=== PATIENT | female | born 1985 | race American Indian/Alaskan Native ===

== ENCOUNTER 2017-10-12 21:29 | Emergency (ER) | payer MEDICAID ==
[~2017-10-12] VITALS: Ht 149.9 cm; Wt 47.7 kg
[~2017-10-12 21:29] MED LIST: ALBU6.7H INH; CYCL-1 PO; HYDR-569 PO; IBUP-1051 PO; KETO10TA2 PO; NO HOME MEDS; ONDA4TAB6 PO; PHEN-873 PO
[2017-10-13] MEDS ORDERED: azithromycin 250mg tablet PO ONE (00:40)
[2017-10-13] MEDS ORDERED: CefTRIAXone 250MG inj IM ONE (00:40)
[2017-10-13] MEDS ORDERED: ACYC-202 PO (00:45)
[2017-10-13] MEDS ORDERED: CefTRIAXone 250MG IM Kit w/LIDOcaine IM ONE (01:00)
[2017-10-13 01:41] VITALS: BP 90/55
[2017-10-17] MEDS ORDERED: BUPR1FIL3 SL (14:30)
== END 2017-10-13 01:42 | disposition home or self-care (01) ==
LOC: ER 21:30
DX: A60.09 Herpesviral infection of other urogenital tract (principal); N89.8 Other specified noninflammatory disorders of vagina; F17.200 Nicotine dependence, unspecified, uncomplicated; Z90.49 Acquired absence of other specified parts of digestive tract; Z79.899 Other long term (current) drug therapy
CPT/HCPCS: 87252; 96372; 99283; J0696; 99284

== ENCOUNTER 2018-08-19 15:03 | Emergency (ER) ==
[~2018-08-19] VITALS: Ht 149.9 cm; Wt 45.5 kg
[~2018-08-19 15:03] MED LIST changes: -ALBU6.7H INH; +BUPR1FIL3 SL; +FLUC100T9 PO; -HYDR-569 PO; -IBUP-1051 PO; -KETO10TA2 PO; +LEVO500T89 PO; +METF-950 PO; -NO HOME MEDS; -ONDA4TAB6 PO; -PHEN-873 PO
[2018-08-19] MEDS ORDERED: insulin regular, human 100 UNIT in normal saline 100ml IV soln 99 ML IV PRN ×2 (15:10)
[2018-08-19] MEDS ORDERED: normal saline 1000ML IV soln IV ONE (15:10)
[2018-08-19] MEDS ORDERED: insulin regular, human 10 units/0.1 ml syringe IV ONE ×2 (15:10)
[2018-08-19 15:20] VITALS: BP 139/75
[2018-08-20] MEDS ORDERED: GABA-530 PO (11:09)
[2018-08-20] MEDS ORDERED: ibuprofen 600 PO (11:18)
[2018-08-20] MEDS ORDERED: INSU100C10 SQ (11:18)
[2018-08-20] MEDS ORDERED: LORA-269 PO (11:23)
[2018-08-20] MEDS ORDERED: ESCI20TA PO (11:24)
[2018-08-20] MEDS ORDERED: INSU100I31 (11:25)
[2018-08-20] MEDS ORDERED: FLUO20CA39 PO (11:26)
== END 2018-08-19 16:27 | disposition left against medical advice (07) ==
LOC: ER 15:03 → MERGE 15:03 → ER 15:04
DX: R73.9 Hyperglycemia, unspecified (principal); Z53.21 Procedure and treatment not carried out due to patient leaving prior to being seen by health care provider
CPT/HCPCS: J1815; J7030

== ENCOUNTER 2018-09-07 21:10 | Emergency (ER) | payer MEDICAID ==
[~2018-09-07] VITALS: Ht 149.9 cm; Wt 54.5 kg
[~2018-09-07 21:10] MED LIST changes: +CEFD300C3 PO; -CYCL-1 PO; +ESCI20TA PO; -FLUC100T9 PO; +FLUO20CA39 PO; +GABA-530 PO; +INSU100C10 SQ; +INSU100I31; -LEVO500T89 PO; +LORA-269 PO; +PANT-47 PO
[2018-09-07 21:32] LABS: BASOPHILS % (AUTO) 0.3 % (0-1); EOSINOPHILS # (AUTO) 0.2 X10'3 (0-0.9); EOSINOPHILS % (AUTO) 2.6 % (0-6); HEMATOCRIT 38.1 % (35.0-45.0); HEMOGLOBIN 12.8 g/dl (12.0-16.0); LYMPHOCYTES # (AUTO) 3.6 X10'3 (1.1-4.8); LYMPHOCYTES % (AUTO) 39.1 % (21-51); MEAN CORPUSCULAR HEMOGLOBIN 33.8 PG (27.0-31.0); MEAN CORPUSCULAR HGB CONC 33.7 % (33.0-36.5); MEAN CORPUSCULAR VOLUME 100.3 FL (78-98); MEAN PLATELET VOLUME 11.1 FL (7.4-10.4); MONOCYTES # (AUTO) 0.4 X10'3 (0-0.9); MONOCYTES % (AUTO) 4.8 % (2-12); NEUTROPHILS % (AUTO) 53.2 % (42-75); PLATELET COUNT 129 X10'3 (140-440); WHITE BLOOD COUNT 9.3 X10'3 (4.5-11.0)
[2018-09-07 21:47] LABS: ALANINE AMINOTRANSFERASE 35 U/L (12-78); ALKALINE PHOSPHATASE 114 IU/L (46-116); ANION GAP 11 (8-16); ASPARTATE AMINO TRANSFERASE 22 U/L (10-37); BILIRUBIN,TOTAL 0.2 MG/DL (0.1-1.0); BLOOD UREA NITROGEN 19 MG/DL (7-18); BUN/CREATININE RATIO 19.4 (6.6-38.0); CALCIUM 7.9 MG/DL (8.5-10.1); CHLORIDE 104 MMOL/L (99-107); CREATININE 0.98 MG/DL (0.40-0.90); GLUCOSE 291 MG/DL (70-104); POTASSIUM 3.5 MMOL/L (3.5-5.1); SODIUM 140 MMOL/L (135-145); TOTAL CARBON DIOXIDE 25.3 MMOL/L (24-32); TOTAL PROTEIN 6.1 G/DL (6.4-8.2); eGFR 65 ML/MIN
[2018-09-07 22:12] LABS: COLOR,URINE YELLOW (Yellow); GLUCOSE, URINE >=1000 mg/dl (Neg); KETONES,URINE NEGATIVE (Neg); LEUKOCYTE ESTERASE ,URINE TRACE (Neg); NITRITES, URINE NEGATIVE (Neg); OCCULT BLOOD,URINE TRACE-INTACT (Neg); PH,URINE 6.5 (4.8-8.0); PROTEIN,URINE NEGATIVE (Neg)
[2018-09-07 22:14] LABS: URINE HCG NEGATIVE (NEG)
[2018-09-07 22:14] LABS: ETHANOL < 0.010 GM/DL (0.0-0.010)
[2018-09-07] MEDS ORDERED: insulin regular, human 10 units/0.1 ml syringe IV ONE (22:15)
[2018-09-07] MEDS ORDERED: normal saline 1000ML IV soln IVB ONE (22:15)
[2018-09-07] MEDS ORDERED: ketorolac tromethamine 15mg/ml inj. IV ONE (22:15)
[2018-09-07] MEDS ORDERED: proCHLORperazine 10 MG/2 ml inj IV ONE (22:15)
[2018-09-07 22:22] LABS: BACTERIA,URINE FEW /HPF (Neg); CLARITY,URINE SLIGHTLY CLOUDY (Clear); RBC,URINE 0-2 /HPF (0-2); SQUAMOUS EPITHELIAL CELL,UR MODERATE /LPF (FEW); UA COLLECTION TYPE CLN CATCH MIDSTREAM
[2018-09-07 22:27] LABS: URINE AMPHETAMINE SCREEN NEGATIVE (Neg); URINE BARBITUATE SCREEN NEGATIVE (Neg); URINE BENZODIAZEPINES SCREEN NEGATIVE (Neg); URINE CANNABINOID SCREEN POSITIVE (Neg); URINE COCAINE SCREEN NEGATIVE (Neg); URINE METHADONE SCREEN NEGATIVE (Neg); URINE OPIATE SCREEN NEGATIVE (Neg); URINE PHENCYCLIDINE SCREEN NEGATIVE (Neg)
[2018-09-07] MEDS ORDERED: buprenorphine/naloxone 2-0.5mg sublingual tablet SL ONE (23:05)
[2018-09-08] MEDS ORDERED: PHE12.5T PO (00:05)
[2018-09-08 00:40] VITALS: BP 111/74
[2018-09-08] MEDS ORDERED: buprenorphine/naloxone 2-0.5mg sublingual tablet SL SCH (08:00)
== END 2018-09-08 00:42 | disposition home or self-care (01) ==
LOC: ER 21:11
DX: K29.70 Gastritis, unspecified, without bleeding (principal); E10.65 Type 1 diabetes mellitus with hyperglycemia; Z79.899 Other long term (current) drug therapy; Z90.49 Acquired absence of other specified parts of digestive tract; Z87.440 Personal history of urinary (tract) infections
CPT/HCPCS: 36415; 80053; 80305; 80320; 81001; 81025; 82948; 85025; 87088; 96361; 96374; 96375; 99283; J0780; J1815; J1885; J7030

== ENCOUNTER 2018-10-24 01:31 | Inpatient (IN) | payer MEDICAID ==
[~2018-10-24] VITALS: Ht 157.5 cm; Wt 45.4 kg
[~2018-10-24 01:31] MED LIST changes: -BUPR1FIL3 SL; -CEFD300C3 PO; -ESCI20TA PO; -INSU100I31; +INSU100I31 SQ; -METF-950 PO; -PANT-47 PO
[2018-10-24] MEDS ORDERED: insulin regular, DKA only 100 UNIT in normal saline 100ml IV soln 99 ML IV SCH ×4 (01:36→05:29)
[2018-10-24] MEDS ORDERED: normal saline 1000ML IV soln IV ONE (01:40)
[2018-10-24] MEDS ORDERED: insulin regular, human vial - multi-dose IV PRN (01:40)
--- NOTE | 2018-10-24 02:02 | NUR ---
Patient has bladder temp 94.5. Dr. Montelongo notified. Warmed fluids initiated and bear hugger started. Warm blankets applied.
[2018-10-24 02:10] LABS: ABG BASE EXCESS -26.9 mmol/L (-2.0-3.0); ABG HCO3 2.5 mmol/L (22.0-26.0); ABG OXYGEN SATURATION 97.7 % (95-98); ABG PCO2 (T) < 10.0 mmHg (32.0-45.0); ABG PH (T) 7.014 (7.350-7.450); ABG PO2 (T) 117.6 mmHg (83-108); ALLEN'S TEST Positive; FCOHb 0.7 % (0.5-1.5); FMetHb 0.4 % (0.3-1.12); FO2Hb 96.6 % (94-100); PATIENT TEMPERATURE 35.7; RESPIRATORY RATE (OBSERVED) 28 b/min; TOTAL HEMOGLOBIN 14.3 G/dl (12.0-16.0)
[2018-10-24] MEDS ORDERED: sodium bicarbonate (0.9mEq/ml) 44.6 mEq/50ml syringe IV ONE (02:20)
[2018-10-24 02:22] LABS: URINE HCG NEGATIVE (NEG)
[2018-10-24 02:25] LABS: ALANINE AMINOTRANSFERASE 34 U/L (12-78); ALBUMIN/GLOBULIN RATIO 0.7 (1.1-1.5); ALKALINE PHOSPHATASE 231 IU/L (46-116); ANION GAP 36 (8-16); ASPARTATE AMINO TRANSFERASE 22 U/L (10-37); BASOPHILS # (AUTO) 0.1 X10'3 (0-0.2); BASOPHILS % (AUTO) 0.2 % (0-1); BILIRUBIN,TOTAL 0.7 MG/DL (0.1-1.0); BLOOD UREA NITROGEN 37 MG/DL (7-18); BUN/CREATININE RATIO 20.9 (6.6-38.0); CALCIUM 9.1 MG/DL (8.5-10.1); CHLORIDE 80 MMOL/L (99-107); CREATININE 1.77 MG/DL (0.40-0.90); EOSINOPHILS % (AUTO) 0 % (0-6); HEMOGLOBIN 16.1 g/dl (12.0-16.0); LIPASE 75 U/L (73-393); LYMPHOCYTES # (AUTO) 1.1 X10'3 (1.1-4.8); MAGNESIUM 2.5 MG/DL (1.5-2.4); MEAN CORPUSCULAR HEMOGLOBIN 33.1 PG (27.0-31.0); MEAN CORPUSCULAR HGB CONC 31.6 % (33.0-36.5); MEAN CORPUSCULAR VOLUME 104.7 FL (78-98); MEAN PLATELET VOLUME 13.3 FL (7.4-10.4); MONOCYTES # (AUTO) 1.2 X10'3 (0-0.9); MONOCYTES % (AUTO) 4.4 % (2-12); NEUTROPHILS # (AUTO) 24.4 X10'3 (1.8-7.7); NEUTROPHILS % (AUTO) 91.4 % (42-75); PHOSPHORUS 6.4 MG/DL (2.3-4.5); PLATELET COUNT 201 X10'3 (140-440); RED BLOOD COUNT 4.87 X10'6 (4.20-5.60); RED CELL DISTRIBUTION WIDTH 14.4 % (11.5-14.5); SODIUM 121 MMOL/L (135-145); TOTAL PROTEIN 9.7 G/DL (6.4-8.2); eGFR 33 ML/MIN
[2018-10-24] MEDS ORDERED: sodium bicarbonate inj. 133.8 MEQ in dextrose 5%-water 1,001.3333 ML IV SCH (02:25)
[2018-10-24 02:29] LABS: GLUCOSE 786 MG/DL (70-104); WHITE BLOOD COUNT 26.6 X10'3 (4.5-11.0)
[2018-10-24 02:30] LABS: POTASSIUM 5.3 MMOL/L (3.5-5.1)
[2018-10-24] MEDS ORDERED: WATER IV SCH (02:30)
[2018-10-24] MEDS ORDERED: SODIUM BICARBONATE IV SCH (02:30)
[2018-10-24] MEDS ORDERED: DEXTROSE 5% IV SCH (02:30)
[2018-10-24] MEDS ORDERED: CefTRIAXone 2gm/D5W 50ml 50 ML IV ONE (02:35)
[2018-10-24 02:52] LABS: CLARITY,URINE SLIGHTLY CLOUDY (Clear); COLOR,URINE YELLOW (Yellow); GLUCOSE, URINE >=1000 mg/dl (Neg); KETONES,URINE >=80 mg/dl (Neg); LEUKOCYTE ESTERASE ,URINE TRACE (Neg); NITRITES, URINE NEGATIVE (Neg); OCCULT BLOOD,URINE MODERATE (Neg); PH,URINE 5.5 (4.8-8.0); PROTEIN,URINE 100 mg/dl (Neg); UROBILINOGEN,URINE 0.2 E.U/dL (0.2-1.0)
[2018-10-24 02:53] LABS: UA COLLECTION TYPE FOLEY CATH
[2018-10-24 02:55] LABS: BACTERIA,URINE 1+ /HPF (Neg); SQUAMOUS EPITHELIAL CELL,UR FEW /LPF (FEW); WBC,URINE TNTC /HPF (0-4); YEAST MODERATE /HPF (NEGATIVE)
[2018-10-24 03:03] LABS: LARGE PLATELETS FEW; PLATELET ESTIMATE NORMAL; TOTAL CELLS COUNTED 100
--- NOTE | 2018-10-24 03:37 | NUR ---
Dr. Montelongo notified of blood sugar 509 after 1 hour on the insulin drip. No new orders.
[2018-10-24] MEDS ORDERED: potassium CL 20mEq in D5-1/2NS 1,000 ML IV PRN (05:29)
[2018-10-24] MEDS ORDERED: normal saline 1000ml 1,000 ML IV SCH (05:29)
[2018-10-24] MEDS ORDERED: acetaminophen 325mg tablet PO PRN (05:30)
[2018-10-24] MEDS ORDERED: potassium Cl 20 mEq SR tablet PO PRN ×2 (05:30)
[2018-10-24] MEDS ORDERED: potassium Cl 40MEQ/250ML bag 250 ML IV PRN (05:30)
[2018-10-24] MEDS ORDERED: acetaminophen 650mg rectal suppository RC PRN (05:30)
[2018-10-24] MEDS ORDERED: sodium phosphate inj. 15 MMOL in dextrose 5%-water 150 ML IV PRN (05:30)
[2018-10-24] MEDS ORDERED: magnesium 2GM in 50ml NS 50 ML IV PRN (05:30)
[2018-10-24] MEDS ORDERED: potassium Cl 40MEQ/NS 500ml 500 ML IV PRN ×2 (05:30)
[2018-10-24] MEDS ORDERED: magnesium 4gm in 100ml NS 100 ML IV PRN (05:30)
[2018-10-24] MEDS ORDERED: sodium phosphate inj. 30 MMOL in dextrose 5%-water 250 ML IV PRN (05:30)
[2018-10-24] MEDS ORDERED: Neutra Phos packet PO PRN (05:30)
--- NOTE | 2018-10-24 05:33 | NUR ---
Contacted October Robert regarding blood sugar. No additional insulin ordered. She states she is working on admission orders and will place her on DKA protocol and add additional CMP labs.
[2018-10-24 06:04] LABS: URINE AMPHETAMINE SCREEN NEGATIVE (Neg); URINE BARBITUATE SCREEN NEGATIVE (Neg); URINE BENZODIAZEPINES SCREEN NEGATIVE (Neg); URINE CANNABINOID SCREEN NEGATIVE (Neg); URINE COCAINE SCREEN NEGATIVE (Neg); URINE METHADONE SCREEN NEGATIVE (Neg); URINE OPIATE SCREEN NEGATIVE (Neg); URINE PHENCYCLIDINE SCREEN NEGATIVE (Neg)
[2018-10-24] MEDS: docusate sod 100mg capsule PO SCH ×2 (08:00→23:14)
[2018-10-24] MEDS ORDERED: GABA600T13 (08:34)
[2018-10-24] MEDS: pantoprazole 40 MG vial IV SCH (08:56)
[2018-10-24] MEDS: CefTRIAXone 2gm/D5W 50ml 50 ML IV SCH (08:57)
[2018-10-24] MEDS ORDERED: sodium bicarbonate (8.4%) 1 mEq/ml syringe ONE (09:00)
[2018-10-24] MEDS: heparin, porcine 5000 units/ml vial SQ SCH ×2 (09:06→23:15)
[2018-10-24 09:13] LABS: ALANINE AMINOTRANSFERASE 23 U/L (12-78); ALBUMIN 2.5 G/DL (3.4-5.0); ALBUMIN/GLOBULIN RATIO 0.6 (1.1-1.5); ALKALINE PHOSPHATASE 128 IU/L (46-116); ANION GAP 17 (8-16); ASPARTATE AMINO TRANSFERASE 15 U/L (10-37); BILIRUBIN,TOTAL 0.6 MG/DL (0.1-1.0); BLOOD UREA NITROGEN 25 MG/DL (7-18); CALCIUM 7.1 MG/DL (8.5-10.1); CHLORIDE 103 MMOL/L (99-107); CREATININE 1.19 MG/DL (0.40-0.90); GLUCOSE 241 MG/DL (70-104); SODIUM 137 MMOL/L (135-145); TOTAL CARBON DIOXIDE 16.7 MMOL/L (24-32); TOTAL PROTEIN 6.4 G/DL (6.4-8.2); eGFR 52 ML/MIN
[2018-10-24 09:14] LABS: MAGNESIUM 1.5 MG/DL (1.5-2.4)
[2018-10-24 09:17] LABS: PHOSPHORUS 0.7 MG/DL (2.3-4.5)
[2018-10-24] MEDS: K, MAG and/or Phos replacement - Verify level? MC SCH ×2 (09:20→09:27)
[2018-10-24] MEDS ORDERED: potassium phosphate inj 30 MMOL in normal saline 500ml IV soln 490 ML IV ONE (09:40)
[2018-10-24] MEDS: sodium bicarbonate (8.4%) inj. 150 MEQ in dextrose 5%-water 1,000 ML IV SCH ×2 (12:20→23:50)
--- NOTE | 2018-10-24 12:49 | NUR ---
ASSUMED CARE OF PT FROM LIZZETTE FOR HER LUNCH BREAK.
--- NOTE | 2018-10-24 13:14 | NUR ---
BG 233 PER BARI OIL RIG DRILLER, MAINTAIN/NO CHANGE HUMULIN INSULIN DRIP AT 5 UNITS/HOUR
--- NOTE | 2018-10-24 14:20 | NUR ---
FAMILY MEMBERS HERE TO VISIT.
[2018-10-24 16:05] LABS: ALBUMIN 2.3 G/DL (3.4-5.0); ANION GAP 11 (8-16); BLOOD UREA NITROGEN 20 MG/DL (7-18); BUN/CREATININE RATIO 18.7 (6.6-38.0); CALCIUM 6.6 MG/DL (8.5-10.1); CHLORIDE 107 MMOL/L (99-107); CREATININE 1.07 MG/DL (0.40-0.90); GLUCOSE 191 MG/DL (70-104); POTASSIUM 4.1 MMOL/L (3.5-5.1); SODIUM 139 MMOL/L (135-145); TOTAL CARBON DIOXIDE 21.5 MMOL/L (24-32); eGFR 59 ML/MIN
[2018-10-24] MEDS ORDERED: dextrose 50%-water 50ml dispensing syringe IV PRN ×2 (16:45)
[2018-10-24] MEDS ORDERED: glucagon, human recombinant 1mg kit SUBCUT PRN (16:45)
[2018-10-24] MEDS ORDERED: MESSAGE TO PHARMACY PO ONE (16:45)
[2018-10-24] MEDS ORDERED: dextrose ORAL solution 15 GM/59 ML bottle PO PRN ×2 (16:45)
--- NOTE | 2018-10-24 16:45 | NUR ---
TELEPHONE CALL TO DR. CRAWLEY WITH UPDATE AND LAB RESULTS. ORDERS RECEIVED TO ADMIT PATIENT TO PCU AND DC THE DKA PROTOCOL. CHARGE NURSE INFORMED OF ADMISSION STATUS CHANGE. PATIENT RESTING ON DO MARIA ELENAZING. VSS. SHORT PATENT AND DRAINING WELL.
--- NOTE | 2018-10-24 16:48 | NUR ---
PER LIZZETTE JONES PRIMARY RN STATES STOP DKA PROTOCOL, START HYPER/HYPOGLYCEMIA PROTOCOL, ORDER CARB CONTROL DIET, OK TO CHANGE ADMISSION FROM CICU TO PCU. STOPPED INSULIN DRIP, AUGUSTINK CLER ANGIE TO ORDER CARB CONTROL DIET, NOTIFIED TRICIA CHARGE NURSE TO UPDATE TARGET MAN TO NOW ADMIT PT TO PCU.
--- NOTE | 2018-10-24 19:00 | NUR ---
PT EATING CARB CONTROLLED DINNER TRAY. SHE REMAINS SLEEPY. VSS. AWITING IPA.
[2018-10-24] MEDS: acetaminophen 325mg tablet PO PRN (19:14)
[2018-10-24 20:30] VITALS: BP 117/60
--- NOTE | 2018-10-24 20:32 | NUR ---
Pt is now on PCU room 3026M. She is complaining of pain and nausea at this time. VSS: T. 98.0 HR 95 RESP 20 O2 99 RA BP 117/79 L ARM AUTO PAIN 07/17
[2018-10-24] MEDS ORDERED: insulin glargine (Lantus) pen - multi-dose SQ SCH (21:00)
--- NOTE | 2018-10-24 21:22 | NUR ---
Pt came up with no insulin drip. It was DCd earlier today. Her BG tonight is 235. She does not meet for nightime adjustment insulin, but I will start her lantus tonight per protocol.
--- NOTE | 2018-10-24 21:24 | NUR ---
Phos 2.0 and Ca 6.6 per last lab draw. There are replacement orders for phos. Primitivo Barraza gave me a telephone order for Ca replacement, "1gm IV." will get redraw primitivo after both replacements.
[2018-10-24] MEDS ORDERED: calcium chloride inj. 1,000 MG in normal saline 100ml IV soln 90 ML IV PRN (21:30)
[2018-10-24 23:00] VITALS: BP 104/68
[2018-10-24] MEDS: ondansetron/PF 4mg/2ml inj IV PRN (23:15)
--- NOTE | 2018-10-25 01:40 | NUR ---
Pt refused 2 nurse skin check.
[2018-10-25 03:00] VITALS: BP 100/60
--- NOTE | 2018-10-25 06:20 | NUR ---
Problems reprioritized. Patient report given, questions answered & plan of care reviewed with Noa TORRES.
[2018-10-25 06:30] VITALS: BP 119/71
--- NOTE | 2018-10-25 06:34 | NUR ---
Patient in room PCU 3025. I have received report from Essence and had the opportunity to ask questions and assume patient care.
[2018-10-25 06:48] LABS: BASOPHILS # (AUTO) 0.1 X10'3 (0-0.2); BASOPHILS % (AUTO) 0.3 % (0-1); EOSINOPHILS # (AUTO) 0.3 X10'3 (0-0.9); EOSINOPHILS % (AUTO) 1.9 % (0-6); HEMATOCRIT 41.1 % (35.0-45.0); HEMOGLOBIN 13.6 g/dl (12.0-16.0); LYMPHOCYTES # (AUTO) 1.7 X10'3 (1.1-4.8); LYMPHOCYTES % (AUTO) 9.9 % (21-51); MEAN CORPUSCULAR HGB CONC 33.2 % (33.0-36.5); MEAN CORPUSCULAR VOLUME 102.4 FL (78-98); MEAN PLATELET VOLUME 12.8 FL (7.4-10.4); MONOCYTES # (AUTO) 0.3 X10'3 (0-0.9); MONOCYTES % (AUTO) 1.5 % (2-12); NEUTROPHILS # (AUTO) 14.4 X10'3 (1.8-7.7); NEUTROPHILS % (AUTO) 86.4 % (42-75); PLATELET COUNT 133 X10'3 (140-440); RED BLOOD COUNT 4.01 X10'6 (4.20-5.60); RED CELL DISTRIBUTION WIDTH 14.1 % (11.5-14.5); WHITE BLOOD COUNT 16.6 X10'3 (4.5-11.0)
[2018-10-25 07:03] LABS: ALANINE AMINOTRANSFERASE 23 U/L (12-78); ALBUMIN 2.7 G/DL (3.4-5.0); ALBUMIN/GLOBULIN RATIO 0.6 (1.1-1.5); ALKALINE PHOSPHATASE 147 IU/L (46-116); ANION GAP 27 (8-16); ASPARTATE AMINO TRANSFERASE 18 U/L (10-37); BILIRUBIN,TOTAL 0.5 MG/DL (0.1-1.0); BLOOD UREA NITROGEN 18 MG/DL (7-18); BUN/CREATININE RATIO 17.8 (6.6-38.0); CALCIUM 8.2 MG/DL (8.5-10.1); CHLORIDE 95 MMOL/L (99-107); CREATININE 1.01 MG/DL (0.40-0.90); GLUCOSE 400 MG/DL (70-104); MAGNESIUM 1.6 MG/DL (1.5-2.4); PHOSPHORUS 2.8 MG/DL (2.3-4.5); POTASSIUM 4.6 MMOL/L (3.5-5.1); SODIUM 128 MMOL/L (135-145); TOTAL PROTEIN 6.9 G/DL (6.4-8.2); eGFR 63 ML/MIN
[2018-10-25 07:09] LABS: TOTAL CARBON DIOXIDE 6.4 MMOL/L (24-32)
[2018-10-25] MEDS: docusate sod 100mg capsule PO SCH ×2 (07:42→19:08)
[2018-10-25] MEDS: pantoprazole 40 MG vial IV SCH (07:42)
[2018-10-25] MEDS: heparin, porcine 5000 units/ml vial SQ SCH ×2 (07:42→21:10)
[2018-10-25] MEDS: K, MAG and/or Phos replacement - Verify level? MC SCH (07:42)
[2018-10-25] MEDS: CefTRIAXone 2gm/D5W 50ml 50 ML IV SCH (07:42)
[2018-10-25] MEDS: ondansetron/PF 4mg/2ml inj IV PRN ×2 (07:48→21:08)
[2018-10-25] MEDS: insulin Lispro (HumaLOG) vial - multi-dose SQ SCH ×2 (08:34→12:27)
[2018-10-25 08:48] LABS: TOTAL CELLS COUNTED 100
[2018-10-25 08:51] LABS: PLATELET ESTIMATE DECREASED
[2018-10-25 08:52] LABS: LARGE PLATELETS FEW
--- NOTE | 2018-10-25 10:25 | NUR ---
Spoke with clinical pharmacist who suggest not to replace calcium.
[2018-10-25] MEDS: acetaminophen 325mg tablet PO PRN (11:27)
[2018-10-25 11:30] VITALS: BP 112/76
--- NOTE | 2018-10-25 13:30 | NUR ---
Rapid response was called re:BP 55/35. NS bolus started, BP came up to 112/71. Dr Moss notified. Ordered to restart DKA protocol.
[2018-10-25] MEDS ORDERED: insulin regular, DKA only 100 UNIT in normal saline 100ml IV soln 99 ML IV SCH ×4 (14:08→14:42)
[2018-10-25] MEDS ORDERED: sodium bicarbonate (8.4%) inj. 50 MEQ in dextrose 5% water 500ml 250 ML IV PRN ×2 (14:08→14:42)
[2018-10-25] MEDS ORDERED: normal saline 1000ml 1,000 ML IV SCH ×2 (14:08→14:42)
[2018-10-25] MEDS ORDERED: sodium bicarbonate (8.4%) inj. 100 MEQ in dextrose 5% water 500ml 500 ML IV PRN ×2 (14:08→14:42)
[2018-10-25] MEDS ORDERED: insulin regular, human vial - multi-dose IV PRN ×2 (14:10→14:45)
[2018-10-25] MEDS ORDERED: sodium phosphate inj. 30 MMOL in dextrose 5%-water 250 ML IV PRN ×2 (14:10→14:45)
[2018-10-25] MEDS ORDERED: potassium Cl 40MEQ/NS 500ml 500 ML IV PRN ×4 (14:10→14:45)
[2018-10-25] MEDS ORDERED: potassium Cl 20 mEq SR tablet PO PRN ×4 (14:10→14:45)
[2018-10-25 14:11] LABS: ABG BASE EXCESS -20.9 mmol/L (-2.0-3.0); ABG HCO3 4.7 mmol/L (22.0-26.0); ABG OXYGEN SATURATION 98.3 % (95-98); ABG PCO2 (T) 12.2 mmHg (32.0-45.0); ABG PH (T) 7.199 (7.350-7.450); ABG PO2 (T) 120.3 mmHg (83-108); ALLEN'S TEST Positive; FCOHb 0.5 % (0.5-1.5); FMetHb 0.3 % (0.3-1.12); FO2Hb 97.5 % (94-100); TOTAL HEMOGLOBIN 12.5 G/dl (12.0-16.0)
[2018-10-25 14:33] LABS: ALANINE AMINOTRANSFERASE 21 U/L (12-78); ALBUMIN 2.4 G/DL (3.4-5.0); ALBUMIN/GLOBULIN RATIO 0.6 (1.1-1.5); ALKALINE PHOSPHATASE 130 IU/L (46-116); ANION GAP 26 (8-16); ASPARTATE AMINO TRANSFERASE 16 U/L (10-37); BILIRUBIN,TOTAL 0.4 MG/DL (0.1-1.0); BLOOD UREA NITROGEN 16 MG/DL (7-18); BUN/CREATININE RATIO 15.1 (6.6-38.0); CALCIUM 7.7 MG/DL (8.5-10.1); CHLORIDE 98 MMOL/L (99-107); CREATININE 1.06 MG/DL (0.40-0.90); GLUCOSE 290 MG/DL (70-104); PHOSPHORUS 2.8 MG/DL (2.3-4.5); POTASSIUM 4.2 MMOL/L (3.5-5.1); SODIUM 129 MMOL/L (135-145); TOTAL PROTEIN 6.3 G/DL (6.4-8.2); eGFR 59 ML/MIN
[2018-10-25 14:37] LABS: TOTAL CARBON DIOXIDE 5.2 MMOL/L (24-32)
[2018-10-25] MEDS: normal saline 1000ml 1,000 ML IV SCH ×6 (14:38→19:15)
[2018-10-25] MEDS ORDERED: potassium CL 20mEq in D5-1/2NS 1,000 ML IV PRN (14:42)
[2018-10-25] MEDS ORDERED: sodium phosphate inj. 15 MMOL in dextrose 5%-water 150 ML IV PRN (14:45)
[2018-10-25] MEDS ORDERED: Neutra Phos packet PO PRN (14:45)
[2018-10-25] MEDS ORDERED: fluconazole 100mg tablet PO ONE (14:50)
--- NOTE | 2018-10-25 15:37 | NUR ---
IVF and insulin gtt infusing. Blood glucose now down to 267.
[2018-10-25] MEDS: dextrose 5%-1/2 normal saline 1,000 ML IV PRN (16:08)
[2018-10-25 16:20] VITALS: BP 117/79
--- NOTE | 2018-10-25 16:21 | NUR ---
Consult: DM consult A1C 11. Pt admit w/ DKA and hypothermia. Pt diagnosed 1 year ago w/ DM. Met pt at bedside gave written education and minimal verbal ed as pt was tired and not feeling well. Pt wanted an ice cream after 0% PO intake of meal, could not honor due to BS levels and CHO control diet. Pt is homeless and known to use heroin which can trigger weight loss. Mild weakness is documented and pt states she has lost weight recently, amount unknown. Pt has visible muscle and fat loss; marketing summer intern conducted physical exam on pt. Pt triggers for malnourishment. LBM is unknown. Rec: 1. Resume on CHO control diet as medically indicated 2. Monitor for ONS 3. Wt per rx 4. Would benefit from further DM education Addendum: 10/25/18 at [address] Amended: Links added. Addendum: 10/25/18 at [address] RD agree with note
--- NOTE | 2018-10-25 18:28 | NUR ---
Problems reprioritized. Patient report given, questions answered & plan of care reviewed with deep.
[2018-10-25 18:42] LABS: ALBUMIN 2.1 G/DL (3.4-5.0); ANION GAP 14 (8-16); BLOOD UREA NITROGEN 12 MG/DL (7-18); BUN/CREATININE RATIO 11.8 (6.6-38.0); CALCIUM 6.9 MG/DL (8.5-10.1); CHLORIDE 104 MMOL/L (99-107); CREATININE 1.02 MG/DL (0.40-0.90); GLUCOSE 197 MG/DL (70-104); PHOSPHORUS 1.9 MG/DL (2.3-4.5); POTASSIUM 3.7 MMOL/L (3.5-5.1); SODIUM 132 MMOL/L (135-145); eGFR 62 ML/MIN
[2018-10-25 18:46] LABS: TOTAL CARBON DIOXIDE 14.4 MMOL/L (24-32)
[2018-10-25 19:00] VITALS: BP 104/76
--- NOTE | 2018-10-25 21:30 | NUR ---
Called Emanuel Barraza NP in regards to pt C/O pain. One time order for 4mg IV morphine.
[2018-10-25 21:41] LABS: ALBUMIN 2.1 G/DL (3.4-5.0); ANION GAP 12 (8-16); BLOOD UREA NITROGEN 10 MG/DL (7-18); BUN/CREATININE RATIO 11.9 (6.6-38.0); CALCIUM 7.2 MG/DL (8.5-10.1); CHLORIDE 104 MMOL/L (99-107); CREATININE 0.84 MG/DL (0.40-0.90); GLUCOSE 140 MG/DL (70-104); PHOSPHORUS 1.8 MG/DL (2.3-4.5); POTASSIUM 3.3 MMOL/L (3.5-5.1); SODIUM 133 MMOL/L (135-145); TOTAL CARBON DIOXIDE 17.3 MMOL/L (24-32); eGFR 78 ML/MIN
[2018-10-25] MEDS ORDERED: morphine 4 MG/ML inj SYRINge IV ONE (21:50)
[2018-10-25 23:00] VITALS: BP 110/75
[2018-10-25] MEDS: potassium CL 20mEq in D5-1/2NS 1,000 ML IV PRN (23:02)
[2018-10-25] MEDS: Neutra Phos packet PO PRN (23:03)
--- NOTE | 2018-10-26 00:15 | NUR ---
Called Emanuel Barraza LOWERATOR OPERATOR in regards to pt blood sugar 100-150 range while on DKA protocol, New order to D/C regular insulin drip @5units/hr and replace/start regular insulin IV drip @2units/hr. Will cont to monitor.
[2018-10-26] MEDS: insulin regular, human 100 UNIT in normal saline 100ml IV soln 99 ML IV SCH ×2 (00:35)
[2018-10-26 03:00] VITALS: BP 108/81
[2018-10-26] MEDS ORDERED: lactulose 20gm/30ml cup PO PRN (05:30)
[2018-10-26] MEDS: dextrose 5%-1/2 normal saline 1,000 ML IV PRN ×3 (05:47→12:49)
[2018-10-26 06:00] VITALS: BP 106/76
[2018-10-26 06:05] LABS: BASOPHILS % (AUTO) 0.1 % (0-1); EOSINOPHILS # (AUTO) 0.2 X10'3 (0-0.9); EOSINOPHILS % (AUTO) 2.4 % (0-6); HEMATOCRIT 32.9 % (35.0-45.0); HEMOGLOBIN 11.2 g/dl (12.0-16.0); LYMPHOCYTES # (AUTO) 1.1 X10'3 (1.1-4.8); LYMPHOCYTES % (AUTO) 15.4 % (21-51); MEAN CORPUSCULAR HGB CONC 33.9 % (33.0-36.5); MEAN CORPUSCULAR VOLUME 100.4 FL (78-98); MEAN PLATELET VOLUME 11.1 FL (7.4-10.4); MONOCYTES # (AUTO) 0.4 X10'3 (0-0.9); MONOCYTES % (AUTO) 5.3 % (2-12); NEUTROPHILS # (AUTO) 5.5 X10'3 (1.8-7.7); NEUTROPHILS % (AUTO) 76.8 % (42-75); PLATELET COUNT 101 X10'3 (140-440); RED BLOOD COUNT 3.28 X10'6 (4.20-5.60); RED CELL DISTRIBUTION WIDTH 14.2 % (11.5-14.5); WHITE BLOOD COUNT 7.2 X10'3 (4.5-11.0)
[2018-10-26 06:29] LABS: ALANINE AMINOTRANSFERASE 17 U/L (12-78); ALBUMIN 2.1 G/DL (3.4-5.0); ALBUMIN/GLOBULIN RATIO 0.6 (1.1-1.5); ALKALINE PHOSPHATASE 104 IU/L (46-116); ANION GAP 10 (8-16); ASPARTATE AMINO TRANSFERASE 14 U/L (10-37); BILIRUBIN,TOTAL 0.3 MG/DL (0.1-1.0); BLOOD UREA NITROGEN 7 MG/DL (7-18); BUN/CREATININE RATIO 9.9 (6.6-38.0); CALCIUM 7.1 MG/DL (8.5-10.1); CHLORIDE 104 MMOL/L (99-107); CREATININE 0.71 MG/DL (0.40-0.90); GLUCOSE 189 MG/DL (70-104); MAGNESIUM 1.4 MG/DL (1.5-2.4); PHOSPHORUS 1.4 MG/DL (2.3-4.5); POTASSIUM 3.3 MMOL/L (3.5-5.1); SODIUM 133 MMOL/L (135-145); TOTAL PROTEIN 5.5 G/DL (6.4-8.2); eGFR > 90 ML/MIN
[2018-10-26] MEDS: acetaminophen 325mg tablet PO PRN (06:42)
[2018-10-26] MEDS: normal saline 1000ml 1,000 ML IV SCH ×5 (06:42→21:27)
--- NOTE | 2018-10-26 06:51 | NUR ---
Patient in room PCU 3025. I have received report from BRIAN SETH and had the opportunity to ask questions and assume patient care. BEDSIDE REPORT RECEIVED
--- NOTE | 2018-10-26 06:54 | NUR ---
Problems reprioritized. Patient report given, questions answered & plan of care reviewed with BRIAN Bermeo.
--- NOTE | 2018-10-26 07:14 | NUR ---
CALLED AND ASKED NATASHA IN PHARMACY FOR D5 1/2 NS W/ K FOR PT, K 3.3. SHE SAID THEY WILL BRING IT
[2018-10-26] MEDS: pantoprazole 40 MG vial IV SCH (07:56)
[2018-10-26] MEDS: magnesium Cl slow-release 64mg tablet PO PRN ×2 (07:57→21:24)
[2018-10-26] MEDS: K and/or MAG REPLACEMENT MC SCH (08:00)
[2018-10-26] MEDS ORDERED: K and/or MAG REPLACEMENT MC SCH (08:00)
[2018-10-26] MEDS: docusate sod 100mg capsule PO SCH ×2 (08:00→21:24)
[2018-10-26] MEDS: CefTRIAXone 2gm/D5W 50ml 50 ML IV SCH (08:06)
[2018-10-26] MEDS: ondansetron/PF 4mg/2ml inj IV PRN (08:17)
[2018-10-26] MEDS: potassium CL 20mEq in D5-1/2NS 1,000 ML IV PRN ×2 (08:18→17:25)
--- NOTE | 2018-10-26 09:00 | NUR ---
per irvin milton administer heparin, she is aware of platelets. also give po phos replacement instead of iv
[2018-10-26] MEDS: heparin, porcine 5000 units/ml vial SQ SCH ×2 (09:03→21:26)
[2018-10-26] MEDS: Neutra Phos packet PO PRN ×2 (09:03→12:48)
[2018-10-26 09:10] LABS: ALBUMIN 2.1 G/DL (3.4-5.0); ANION GAP 11 (8-16); BLOOD UREA NITROGEN 7 MG/DL (7-18); BUN/CREATININE RATIO 10.8 (6.6-38.0); CALCIUM 6.9 MG/DL (8.5-10.1); CHLORIDE 102 MMOL/L (99-107); CREATININE 0.65 MG/DL (0.40-0.90); GLUCOSE 187 MG/DL (70-104); POTASSIUM 3.2 MMOL/L (3.5-5.1); SODIUM 132 MMOL/L (135-145); TOTAL CARBON DIOXIDE 19.3 MMOL/L (24-32); eGFR > 90 ML/MIN
[2018-10-26 10:32] LABS: LARGE PLATELETS FEW; PLATELET ESTIMATE DECREASED
[2018-10-26 11:00] VITALS: BP 113/78
[2018-10-26] MEDS ORDERED: GABA600T PO (11:34)
[2018-10-26] MEDS ORDERED: calcium chloride inj. 2,000 MG in normal saline 100ml IV soln 80 ML IV ONE (12:35)
[2018-10-26] MEDS: fluconazole 100mg tablet PO SCH (12:47)
[2018-10-26 15:00] VITALS: BP 141/92
[2018-10-26 16:39] LABS: ALBUMIN 2.1 G/DL (3.4-5.0); ANION GAP 10 (8-16); BLOOD UREA NITROGEN 5 MG/DL (7-18); BUN/CREATININE RATIO 9.4 (6.6-38.0); CALCIUM 9.3 MG/DL (8.5-10.1); CHLORIDE 105 MMOL/L (99-107); CREATININE 0.53 MG/DL (0.40-0.90); GLUCOSE 167 MG/DL (70-104); POTASSIUM 3.3 MMOL/L (3.5-5.1); SODIUM 134 MMOL/L (135-145); TOTAL CARBON DIOXIDE 19.2 MMOL/L (24-32); eGFR > 90 ML/MIN
--- NOTE | 2018-10-26 17:00 | NUR ---
PER DAVID BUTLER FOR PT TO HAVE CARB CONTROL DINNER
--- NOTE | 2018-10-26 18:29 | NUR ---
Problems reprioritized. Patient report given, questions answered & plan of care reviewed with DEEP AT BEDSIDE. Addendum: 10/26/18 at 1830 by Elvie Escalera RN DEEP AWARE PT NEEDS PHOS AND MG REPLACEMENT FINISHED
[2018-10-26 19:00] VITALS: BP 130/84
[2018-10-26] MEDS ORDERED: MESSAGE TO PHARMACY PO ONE (20:55)
[2018-10-26] MEDS ORDERED: dextrose ORAL solution 15 GM/59 ML bottle PO PRN ×2 (20:55)
[2018-10-26] MEDS ORDERED: glucagon, human recombinant 1mg kit SUBCUT PRN (20:55)
[2018-10-26] MEDS ORDERED: dextrose 50%-water 50ml dispensing syringe IV PRN ×2 (20:55)
[2018-10-26] MEDS ORDERED: insulin glargine (Lantus) pen - multi-dose SQ SCH (21:00)
[2018-10-26] MEDS: insulin Lispro (HumaLOG) vial - multi-dose SQ SCH (21:22)
[2018-10-26] MEDS: lactobacillus rhamnosus 10,000 MMU CELLS/CAPSULE PO SCH (21:24)
[2018-10-26 23:00] VITALS: BP 131/90
[2018-10-27] MEDS: insulin regular, human 100 UNIT in normal saline 100ml IV soln 99 ML IV SCH ×2 (00:15)
[2018-10-27] MEDS: normal saline 1000ml 1,000 ML IV SCH (01:38)
[2018-10-27 03:00] VITALS: BP 109/80
[2018-10-27 06:00] VITALS: BP 109/79
--- NOTE | 2018-10-27 06:30 | NUR ---
Patient in room PCU 3025. I have received report from Ignacio RN and had the opportunity to ask questions and assume patient care. Patient resting comfortably in bed. In no acute distress. Will continue to monitor.
[2018-10-27 06:39] LABS: BASOPHILS # (AUTO) 0.1 X10'3 (0-0.2); BASOPHILS % (AUTO) 1.1 % (0-1); EOSINOPHILS # (AUTO) 0.3 X10'3 (0-0.9); EOSINOPHILS % (AUTO) 4.3 % (0-6); HEMATOCRIT 33.5 % (35.0-45.0); HEMOGLOBIN 11.3 g/dl (12.0-16.0); MEAN CORPUSCULAR HEMOGLOBIN 33.7 PG (27.0-31.0); MEAN CORPUSCULAR HGB CONC 33.7 % (33.0-36.5); MEAN PLATELET VOLUME 11.4 FL (7.4-10.4); MONOCYTES # (AUTO) 0.4 X10'3 (0-0.9); MONOCYTES % (AUTO) 6.2 % (2-12); NEUTROPHILS # (AUTO) 3.2 X10'3 (1.8-7.7); NEUTROPHILS % (AUTO) 54.4 % (42-75); PLATELET COUNT 101 X10'3 (140-440); RED BLOOD COUNT 3.35 X10'6 (4.20-5.60); RED CELL DISTRIBUTION WIDTH 13.6 % (11.5-14.5); WHITE BLOOD COUNT 5.9 X10'3 (4.5-11.0)
--- NOTE | 2018-10-27 06:41 | NUR ---
Problems reprioritized. Patient report given, questions answered & plan of care reviewed with Mandy TORRES.
[2018-10-27 06:51] LABS: ALANINE AMINOTRANSFERASE 18 U/L (12-78); ALBUMIN 2.2 G/DL (3.4-5.0); ALBUMIN/GLOBULIN RATIO 0.6 (1.1-1.5); ALKALINE PHOSPHATASE 105 IU/L (46-116); ANION GAP 8 (8-16); ASPARTATE AMINO TRANSFERASE 12 U/L (10-37); BILIRUBIN,TOTAL 0.2 MG/DL (0.1-1.0); BLOOD UREA NITROGEN 6 MG/DL (7-18); BUN/CREATININE RATIO 9.8 (6.6-38.0); CALCIUM 8.2 MG/DL (8.5-10.1); CHLORIDE 105 MMOL/L (99-107); CREATININE 0.61 MG/DL (0.40-0.90); GLUCOSE 254 MG/DL (70-104); MAGNESIUM 1.5 MG/DL (1.5-2.4); PHOSPHORUS 2.3 MG/DL (2.3-4.5); POTASSIUM 3.5 MMOL/L (3.5-5.1); SODIUM 135 MMOL/L (135-145); TOTAL CARBON DIOXIDE 21.6 MMOL/L (24-32); TOTAL PROTEIN 5.6 G/DL (6.4-8.2); eGFR > 90 ML/MIN
[2018-10-27 07:26] LABS: LARGE PLATELETS FEW; PLATELET ESTIMATE DECREASED
[2018-10-27] MEDS: heparin, porcine 5000 units/ml vial SQ SCH (07:32)
[2018-10-27] MEDS: lactobacillus rhamnosus 10,000 MMU CELLS/CAPSULE PO SCH (07:32)
[2018-10-27] MEDS: pantoprazole 40 MG vial IV SCH (07:32)
[2018-10-27] MEDS: CefTRIAXone 2gm/D5W 50ml 50 ML IV SCH (07:32)
[2018-10-27] MEDS: docusate sod 100mg capsule PO SCH (07:34)
[2018-10-27] MEDS: fluconazole 100mg tablet PO SCH (07:34)
[2018-10-27] MEDS: K and/or MAG REPLACEMENT MC SCH (07:50)
[2018-10-27] MEDS: insulin Lispro (HumaLOG) vial - multi-dose SQ SCH ×2 (09:05→13:52)
--- NOTE | 2018-10-27 09:50 | NUR ---
Gabriel catheter discontinued. Patient tolerated procedure well. Will continue to monitor patient for spontaneous voids.
[2018-10-27] MEDS ORDERED: levoFLOXACIN-Levaquin 750MG/D5 150 ML IV SCH (10:00)
[2018-10-27] MEDS ORDERED: FLUoxetine 20mg capsule PO ONE (10:22)
[2018-10-27] MEDS ORDERED: LORazepam 0.5 MG tablet PO PRN (10:25)
[2018-10-27 11:00] VITALS: BP 127/67
[2018-10-27] MEDS ORDERED: FLUC100T9 PO (11:12)
[2018-10-27] MEDS ORDERED: LEVO500T2 PO (11:12)
[2018-10-27 15:00] VITALS: BP 119/85
--- NOTE | 2018-10-27 15:40 | NUR ---
Patient stable for discharge per MD orders. All questions answered and education provided for new prescriptions. New prescriptions called into [facility] on [address]. PIV x 3 discontinued. Cannulas intact. Telemetry monitoring discontinued. All patient belongings sent with patient who was accompanied by friend. Patient wheeled out by PCT to parking lot.
[2018-10-27] MEDS ORDERED: gabapentin 300mg capsule PO SCH (16:00)
[2018-10-27] MEDS ORDERED: GABAPENTIN PO SCH (16:00)
[2018-10-28] MEDS ORDERED: FLUoxetine 20mg capsule PO SCH (08:00)
--- NOTE | 2018-10-28 10:17 | NUR ---
pt's d/c'd home, SS referral closed.
== END 2018-10-27 15:45 | disposition home or self-care (01) | DRG 420 ==
LOC: ER 01:31 → ED HOLD 05:29 → EDBEDREQSVC 18:43 → PCU 3S 20:22
PROVIDERS: ADMIT Internal Medicine Critical Care Medicine; ATTEND Internal Medicine Critical Care Medicine
DX: E10.10 Type 1 diabetes mellitus with ketoacidosis without coma (principal); G93.41 Metabolic encephalopathy; E87.4 Mixed disorder of acid-base balance; N17.9 Acute kidney failure, unspecified; F41.9 Anxiety disorder, unspecified; E87.1 Hypo-osmolality and hyponatremia; E86.0 Dehydration; F17.200 Nicotine dependence, unspecified, uncomplicated; Z16.35 Resistance to multiple antimicrobial drugs; R68.0 Hypothermia, not associated with low environmental temperature; N39.0 Urinary tract infection, site not specified; E87.6 Hypokalemia; B96.89 Other specified bacterial agents as the cause of diseases classified elsewhere; Z90.49 Acquired absence of other specified parts of digestive tract; Z79.4 Long term (current) use of insulin
CPT/HCPCS: 36415; 36600; 71045; 80048; 80053; 80069; 80305; 81001; 81025; 82803; 82948; 83036; 83605; 83690; 83735; 84100; 84145; 85018; 85025; 87040; 87070; 87077; 87088; 87186; 93005; 96365; 96375; 97110; 97116; 97162; 99291; C9113; G0378; J0696; J1644; J1815; J1956; J2270; J2405; J3480; J7030; J7060; J7070

== ENCOUNTER 2018-12-31 13:50 | Inpatient (IN) | payer MEDICAID | END 2019-01-04 11:40 | disposition home or self-care (01) | LOC: ER 13:50 → ED HOLD 17:01 → PCU 3S 01-01 11:05 ==

== ENCOUNTER 2019-01-25 02:13 | Inpatient (IN) | payer MEDICAID ==
[~2019-01-25] VITALS: Ht 149.9 cm; Wt 45.5 kg
[~2019-01-25 02:13] MED LIST changes: -GABA-530 PO; +GABA600T PO; +LEVO750T46 PO
[2019-01-25] MEDS ORDERED: insulin regular, human 10 units/0.1 ml syringe IV ONE (02:20)
[2019-01-25] MEDS ORDERED: metoclopramide 5 mg/ml inj IV ONE (02:20)
[2019-01-25] MEDS ORDERED: insulin regular, human 10 units/0.1 ml syringe SQ ONE (02:20)
[2019-01-25] MEDS ORDERED: diphenhydrAMINE 50 mg/ml inj IV ONE (02:20)
[2019-01-25] MEDS ORDERED: normal saline 1000ML IV soln IV ONE (02:20)
[2019-01-25 02:54] LABS: CLARITY,URINE CLEAR (Clear); COLOR,URINE YELLOW (Yellow); GLUCOSE, URINE >=1000 mg/dl (Neg); KETONES,URINE >=80 mg/dl (Neg); LEUKOCYTE ESTERASE ,URINE NEGATIVE (Neg); NITRITES, URINE NEGATIVE (Neg); OCCULT BLOOD,URINE TRACE-INTACT (Neg); PROTEIN,URINE NEGATIVE (Neg); UROBILINOGEN,URINE 0.2 E.U/dL (0.2-1.0)
[2019-01-25 02:55] LABS: URINE HCG NEGATIVE (NEG)
[2019-01-25 02:57] LABS: BASOPHILS # (AUTO) 0.1 X10'3 (0-0.2); BASOPHILS % (AUTO) 0.8 % (0-1); EOSINOPHILS % (AUTO) 0 % (0-6); HEMOGLOBIN 13.8 g/dl (12.0-16.0); LYMPHOCYTES # (AUTO) 2.1 X10'3 (1.1-4.8); LYMPHOCYTES % (AUTO) 11.1 % (21-51); MEAN PLATELET VOLUME 11.9 FL (7.4-10.4); MONOCYTES # (AUTO) 1.3 X10'3 (0-0.9); MONOCYTES % (AUTO) 7.2 % (2-12); NEUTROPHILS # (AUTO) 14.9 X10'3 (1.8-7.7); NEUTROPHILS % (AUTO) 80.9 % (42-75); PLATELET COUNT 222 X10'3 (140-440); RED BLOOD COUNT 4.05 X10'6 (4.20-5.60); RED CELL DISTRIBUTION WIDTH 15.3 % (11.5-14.5); WHITE BLOOD COUNT 18.5 X10'3 (4.5-11.0)
[2019-01-25 02:59] LABS: UA COLLECTION TYPE FOLEY CATH
[2019-01-25 03:00] LABS: AMORPHOUS PHOSPHATES 1+; BACTERIA,URINE FEW /HPF (Neg); RBC,URINE NONE SEEN /HPF (0-2); SQUAMOUS EPITHELIAL CELL,UR FEW /LPF (FEW); WBC,URINE 0-4 /HPF (0-4)
[2019-01-25 03:30] LABS: ABG BASE EXCESS -26.4 mmol/L (-2.0-3.0); ABG HCO3 3.8 mmol/L (22.0-26.0); ABG OXYGEN SATURATION 96.8 % (95-98); ABG PCO2 (T) 16.4 mmHg (32.0-45.0); ABG PH (T) 6.979 (7.350-7.450); ABG PO2 (T) 112.6 mmHg (83-108); FCOHb 0.8 % (0.5-1.5); FMetHb 0.5 % (0.3-1.12); FO2Hb 95.5 % (94-100); PATIENT TEMPERATURE 36.2; TOTAL HEMOGLOBIN 12.5 G/dl (12.0-16.0)
[2019-01-25] MEDS ORDERED: sodium phosphate inj. 15 MMOL in dextrose 5%-water 150 ML IV PRN ×2 (03:30→08:35)
[2019-01-25] MEDS ORDERED: normal saline 1000ml 1,000 ML IV SCH (03:30)
[2019-01-25] MEDS ORDERED: potassium Cl 40MEQ/NS 500ml 500 ML IV PRN ×4 (03:30→05:00)
[2019-01-25] MEDS ORDERED: insulin regular, DKA only 100 UNIT in normal saline 100ml IV soln 99 ML IV SCH ×2 (03:30)
[2019-01-25] MEDS ORDERED: potassium Cl 20 mEq SR tablet PO PRN ×3 (03:30→21:35)
[2019-01-25] MEDS ORDERED: Neutra Phos packet PO PRN ×2 (03:30→08:35)
[2019-01-25] MEDS ORDERED: potassium CL 20mEq in D5-1/2NS 1,000 ML IV PRN ×2 (03:30→04:57)
[2019-01-25] MEDS ORDERED: sodium phosphate inj. 30 MMOL in dextrose 5%-water 250 ML IV PRN ×2 (03:30→08:35)
[2019-01-25 03:57] LABS: ALBUMIN/GLOBULIN RATIO 0.9 (1.1-1.5); ALKALINE PHOSPHATASE 196 IU/L (46-116); BILIRUBIN,TOTAL 0.6 MG/DL (0.1-1.0); BLOOD UREA NITROGEN 38 MG/DL (7-18); BUN/CREATININE RATIO 19.2 (6.6-38.0); CALCIUM 10.1 MG/DL (8.5-10.1); CREATININE 1.98 MG/DL (0.40-0.90); MAGNESIUM 2.6 MG/DL (1.5-2.4); TOTAL PROTEIN 8.3 G/DL (6.4-8.2); eGFR 29 ML/MIN
[2019-01-25] MEDS: insulin regular, human vial - multi-dose IV PRN ×2 (03:58→05:16)
[2019-01-25 04:07] LABS: PLATELET ESTIMATE NORMAL; POLYCHROMASIA FEW; TOTAL CELLS COUNTED 100
[2019-01-25 04:08] LABS: TOXIC VACUOLATION FEW
[2019-01-25 04:15] LABS: ALANINE AMINOTRANSFERASE 47 U/L (12-78); ANION GAP 34 (8-16); ASPARTATE AMINO TRANSFERASE 28 U/L (10-37); CHLORIDE 87 MMOL/L (99-107); PHOSPHORUS 8.9 MG/DL (2.3-4.5); SODIUM 127 MMOL/L (135-145)
[2019-01-25] MEDS ORDERED: azithromycin/NS 500mg/250ml 250 ML IV ONE (04:15)
[2019-01-25] MEDS ORDERED: normal saline 1000ML IV soln IVB ONE ×2 (04:15)
[2019-01-25] MEDS ORDERED: CefTRIAXone 2gm/D5W 50ml 50 ML IV ONE (04:15)
[2019-01-25 04:21] LABS: TOTAL CARBON DIOXIDE 5.7 MMOL/L (24-32)
[2019-01-25 04:24] LABS: POTASSIUM 5.4 MMOL/L (3.5-5.1)
[2019-01-25 04:26] LABS: GLUCOSE 1055 MG/DL (70-104)
[2019-01-25] MEDS: normal saline 1000ml 1,000 ML IV SCH ×5 (04:57→20:57)
[2019-01-25] MEDS ORDERED: sodium bicarbonate (8.4%) inj. 50 MEQ in dextrose 5% water 500ml 250 ML IV PRN (04:57)
[2019-01-25] MEDS ORDERED: sodium bicarbonate (8.4%) inj. 100 MEQ in dextrose 5% water 500ml 500 ML IV PRN (04:57)
[2019-01-25] MEDS ORDERED: magnesium 2GM in 50ml NS 50 ML IV PRN (05:00)
[2019-01-25] MEDS ORDERED: acetaminophen 325mg tablet PO PRN ×2 (05:00)
[2019-01-25] MEDS ORDERED: acetaminophen 650mg rectal suppository RC PRN (05:00)
[2019-01-25] MEDS ORDERED: magnesium hydroxide 30ml (MOM) UD suspension PO PRN (05:00)
[2019-01-25] MEDS ORDERED: magnesium 4gm in 100ml NS 100 ML IV PRN (05:00)
[2019-01-25] MEDS ORDERED: insulin regular, human vial - multi-dose IV PRN (05:00)
[2019-01-25] MEDS ORDERED: ondansetron/PF 4mg/2ml inj IV PRN (05:00)
[2019-01-25 06:11] LABS: URINE AMPHETAMINE SCREEN NEGATIVE (Neg); URINE BARBITUATE SCREEN NEGATIVE (Neg); URINE BENZODIAZEPINES SCREEN NEGATIVE (Neg); URINE CANNABINOID SCREEN NEGATIVE (Neg); URINE COCAINE SCREEN NEGATIVE (Neg); URINE METHADONE SCREEN NEGATIVE (Neg); URINE OPIATE SCREEN NEGATIVE (Neg); URINE PHENCYCLIDINE SCREEN NEGATIVE (Neg)
--- NOTE | 2019-01-25 06:22 | NUR ---
received patient on bed,lethargic,per Noc RN patient was normal.On insulin drip 10 units/hour BG at this time 443mg/dl.We Will monitor.
--- NOTE | 2019-01-25 06:28 | NUR ---
santana cath emptied noted with 1550ml yellow/clear colored urine.
--- NOTE | 2019-01-25 07:12 | NUR ---
insulin bar code not working,pharmacist made aware.
[2019-01-25] MEDS: docusate sod 100mg capsule PO SCH ×2 (07:19→20:03)
[2019-01-25] MEDS: pantoprazole 40 MG vial IV SCH (07:42)
[2019-01-25] MEDS: heparin, porcine 5000 units/ml vial SQ SCH ×2 (07:42→20:04)
[2019-01-25] MEDS: insulin regular, DKA only 100 UNIT in normal saline 100ml IV soln 99 ML IV SCH ×4 (07:51→11:56)
[2019-01-25 07:52] LABS: ALBUMIN 2.9 G/DL (3.4-5.0); ANION GAP 20 (8-16); BLOOD UREA NITROGEN 26 MG/DL (7-18); BUN/CREATININE RATIO 18.2 (6.6-38.0); CALCIUM 8.4 MG/DL (8.5-10.1); CHLORIDE 104 MMOL/L (99-107); CREATININE 1.43 MG/DL (0.40-0.90); GLUCOSE 383 MG/DL (70-104); PHOSPHORUS 1.3 MG/DL (2.3-4.5); POTASSIUM 3.8 MMOL/L (3.5-5.1); SODIUM 137 MMOL/L (135-145); eGFR 42 ML/MIN
[2019-01-25 07:55] LABS: TOTAL CARBON DIOXIDE 12.6 MMOL/L (24-32)
[2019-01-25] MEDS ORDERED: K and/or MAG REPLACEMENT MC SCH (08:00)
[2019-01-25] MEDS ORDERED: levoFLOXACIN-Levaquin 750MG/D5 150 ML IV SCH (08:00)
--- NOTE | 2019-01-25 08:30 | NUR ---
CO2 12.6,PHOS 1.3,SHUN LICENSED FUNERAL DIRECTOR/PHARMACY CARE COORDINATOR MADE AWARE. RECEIVED ORDER TO PLACE PHOS ORDER.
--- NOTE | 2019-01-25 09:39 | NUR ---
Called Alvarez MEDIA DEVELOPER made aware that patient's bg is 270mg/dl at this time and is on 10ml/hour insulin drip,provider does not want to decrease drip rate at this time,will order abg to see if patient possible admission in PCU instead of ICU.CN made aware.
[2019-01-25 09:50] LABS: ABG BASE EXCESS -13.3 mmol/L (-2.0-3.0); ABG HCO3 13.1 mmol/L (22.0-26.0); ABG OXYGEN SATURATION 95.9 % (95-98); ABG PCO2 (T) 32.2 mmHg (32.0-45.0); ABG PH (T) 7.228 (7.350-7.450); ABG PO2 (T) 84.7 mmHg (83-108); FCOHb 0.6 % (0.5-1.5); FMetHb 0.2 % (0.3-1.12); FO2Hb 95.1 % (94-100); TOTAL HEMOGLOBIN 11.8 G/dl (12.0-16.0)
[2019-01-25] MEDS: dextrose 5%-1/2 normal saline 1,000 ML IV SCH ×3 (10:39→23:55)
[2019-01-25 10:56] LABS: ALBUMIN 2.8 G/DL (3.4-5.0); ANION GAP 19 (8-16); BLOOD UREA NITROGEN 24 MG/DL (7-18); BUN/CREATININE RATIO 19.4 (6.6-38.0); CALCIUM 8.4 MG/DL (8.5-10.1); CHLORIDE 107 MMOL/L (99-107); CREATININE 1.24 MG/DL (0.40-0.90); GLUCOSE 245 MG/DL (70-104); PHOSPHORUS 2.2 MG/DL (2.3-4.5); POTASSIUM 3.4 MMOL/L (3.5-5.1); SODIUM 140 MMOL/L (135-145); eGFR 50 ML/MIN
[2019-01-25 11:05] LABS: MEAN CORPUSCULAR VOLUME 107.7 FL (78-98)
[2019-01-25 11:06] LABS: MEAN CORPUSCULAR HGB CONC 32.5 g/dL (33.0-36.5)
[2019-01-25 11:21] VITALS: BP 99/57
[2019-01-25 13:34] LABS: ALBUMIN 2.6 G/DL (3.4-5.0); ANION GAP 12 (8-16); BLOOD UREA NITROGEN 21 MG/DL (7-18); BUN/CREATININE RATIO 18.6 (6.6-38.0); CALCIUM 8.4 MG/DL (8.5-10.1); CHLORIDE 110 MMOL/L (99-107); CREATININE 1.13 MG/DL (0.40-0.90); GLUCOSE 181 MG/DL (70-104); PHOSPHORUS 2.9 MG/DL (2.3-4.5); SODIUM 141 MMOL/L (135-145); TOTAL CARBON DIOXIDE 19.1 MMOL/L (24-32); eGFR 55 ML/MIN
--- NOTE | 2019-01-25 16:41 | NUR ---
1400- Spoke with Deja Pino METER MAKER Pt BS 165. Order to decrease insulin gtt to 6 units per hour. 1430- BS 156 K3.0 D5 1/2NS with KCL 20 mEQ ordered. 1530- BS 111. D5 1/2NS with 20MeQ KCL increased to 200ml/hr. 1630- BS 92. D5 1/2 NS increased to 250ml/hr. 1700- labs to be drawn and will assess what is need at that time.
[2019-01-25 17:38] LABS: ALBUMIN 2.5 G/DL (3.4-5.0); ANION GAP 7 (8-16); BLOOD UREA NITROGEN 18 MG/DL (7-18); BUN/CREATININE RATIO 16.5 (6.6-38.0); CHLORIDE 109 MMOL/L (99-107); CREATININE 1.09 MG/DL (0.40-0.90); GLUCOSE 94 MG/DL (70-104); POTASSIUM 3.1 MMOL/L (3.5-5.1); SODIUM 137 MMOL/L (135-145); TOTAL CARBON DIOXIDE 21.1 MMOL/L (24-32); eGFR 57 ML/MIN
--- NOTE | 2019-01-25 17:54 | NUR ---
Spoke with Juliana Pino NP. Ok to start pt on clear liquids and see if pt tolerates. Then may start CC diet.
[2019-01-25] MEDS ORDERED: metoclopramide 10mg/10 ml UD oral solution PO PRN (17:55)
[2019-01-25 18:16] VITALS: BP 92/53
[2019-01-25 19:00] VITALS: BP 97/63
--- NOTE | 2019-01-25 19:25 | NUR ---
Patient in room PCU 3009. I have received report from BRIAN Webb and had the opportunity to ask questions and assume patient care.
[2019-01-25] MEDS ORDERED: dextrose 50%-water 50ml dispensing syringe IV PRN ×2 (19:55)
[2019-01-25] MEDS ORDERED: glucagon, human recombinant 1mg kit SUBCUT PRN (19:55)
[2019-01-25] MEDS ORDERED: dextrose ORAL solution 15 GM/59 ML bottle PO PRN ×2 (19:55)
[2019-01-25] MEDS ORDERED: MESSAGE TO PHARMACY PO ONE (19:55)
[2019-01-25] MEDS: insulin Lispro (HumaLOG) vial - multi-dose SQ SCH (20:03)
[2019-01-25] MEDS ORDERED: HYDROcodone/acetaminophen 5mg/325mg tablet PO ONE (20:25)
[2019-01-25 21:08] LABS: ALBUMIN 2.5 G/DL (3.4-5.0); ANION GAP 9 (8-16); BLOOD UREA NITROGEN 15 MG/DL (7-18); BUN/CREATININE RATIO 12.5 (6.6-38.0); CALCIUM 7.8 MG/DL (8.5-10.1); CHLORIDE 104 MMOL/L (99-107); GLUCOSE 273 MG/DL (70-104); SODIUM 132 MMOL/L (135-145); TOTAL CARBON DIOXIDE 19.3 MMOL/L (24-32); eGFR 51 ML/MIN
[2019-01-25 21:15] LABS: HEMOGLOBIN A1C 13.9 % (4.5-6.2)
[2019-01-25] MEDS: gabapentin 300mg capsule PO SCH (21:15)
--- NOTE | 2019-01-25 21:30 | NUR ---
Patient found to have a soda at bedside. Educated on the importance of controlling her carb intake and allowing us to keep track of her intake. Also, explained that her glucose in starting to increase again and the dangers of this leading back into DKA.
[2019-01-25] MEDS ORDERED: magnesium Cl slow-release 64mg tablet PO PRN (21:35)
[2019-01-25] MEDS: insulin glargine (Lantus) pen - multi-dose SQ SCH (22:02)
[2019-01-25 23:00] VITALS: BP 97/56
[2019-01-26] VITALS (8 sets, daily range): BP systolic 87–111; BP diastolic 56–73
[2019-01-26 05:28] LABS: BASOPHILS % (AUTO) 0.4 % (0-1); EOSINOPHILS # (AUTO) 0.2 X10'3 (0-0.9); HEMATOCRIT 32.3 % (35.0-45.0); HEMOGLOBIN 10.8 g/dl (12.0-16.0); LYMPHOCYTES # (AUTO) 3.1 X10'3 (1.1-4.8); LYMPHOCYTES % (AUTO) 28.7 % (21-51); MEAN CORPUSCULAR HEMOGLOBIN 33.5 PG (27.0-31.0); MEAN CORPUSCULAR HGB CONC 33.3 g/dL (33.0-36.5); MEAN CORPUSCULAR VOLUME 100.6 FL (78-98); MEAN PLATELET VOLUME 10.7 FL (7.4-10.4); MONOCYTES # (AUTO) 0.5 X10'3 (0-0.9); MONOCYTES % (AUTO) 4.5 % (2-12); NEUTROPHILS # (AUTO) 6.9 X10'3 (1.8-7.7); NEUTROPHILS % (AUTO) 64.4 % (42-75); PLATELET COUNT 137 X10'3 (140-440); RED BLOOD COUNT 3.21 X10'6 (4.20-5.60); RED CELL DISTRIBUTION WIDTH 13.5 % (11.5-14.5); WHITE BLOOD COUNT 10.6 X10'3 (4.5-11.0)
[2019-01-26 05:54] LABS: ALANINE AMINOTRANSFERASE 28 U/L (12-78); ALBUMIN 2.5 G/DL (3.4-5.0); ALBUMIN/GLOBULIN RATIO 0.8 (1.1-1.5); ALKALINE PHOSPHATASE 95 IU/L (46-116); ANION GAP 9 (8-16); ASPARTATE AMINO TRANSFERASE 20 U/L (10-37); BILIRUBIN,TOTAL 0.4 MG/DL (0.1-1.0); BLOOD UREA NITROGEN 12 MG/DL (7-18); BUN/CREATININE RATIO 13.2 (6.6-38.0); CALCIUM 8.3 MG/DL (8.5-10.1); CHLORIDE 108 MMOL/L (99-107); CREATININE 0.91 MG/DL (0.40-0.90); GLUCOSE 67 MG/DL (70-104); MAGNESIUM 1.3 MG/DL (1.5-2.4); PHOSPHORUS 2.6 MG/DL (2.3-4.5); POTASSIUM 3.2 MMOL/L (3.5-5.1); SODIUM 139 MMOL/L (135-145); TOTAL CARBON DIOXIDE 22.2 MMOL/L (24-32); TOTAL PROTEIN 5.5 G/DL (6.4-8.2); eGFR 71 ML/MIN
--- NOTE | 2019-01-26 06:43 | NUR ---
Patient in room PCU 3009. I have received report from Margie TORRES and had the opportunity to ask questions and assume patient care.
--- NOTE | 2019-01-26 06:44 | NUR ---
Problems reprioritized. Patient report given, questions answered & plan of care reviewed with BRIAN Leung.
[2019-01-26] MEDS: docusate sod 100mg capsule PO SCH ×2 (07:36→20:55)
[2019-01-26] MEDS: pantoprazole 40 MG vial IV SCH (07:36)
[2019-01-26] MEDS: heparin, porcine 5000 units/ml vial SQ SCH ×2 (07:37→20:55)
[2019-01-26] MEDS: potassium Cl 20 mEq SR tablet PO PRN ×3 (07:37→17:44)
[2019-01-26] MEDS: gabapentin 300mg capsule PO SCH ×3 (07:37→20:54)
[2019-01-26] MEDS: potassium cl 20mEq in 1/2 NS 1,000 ML IV SCH ×2 (10:10→20:54)
[2019-01-26] MEDS ORDERED: METF-438 PO (10:26)
[2019-01-26] MEDS ORDERED: IBUP-1985 PO (10:28)
[2019-01-26] MEDS ORDERED: GABA600T13 PO (10:31)
[2019-01-26] MEDS ORDERED: LORA-269 PO (10:31)
[2019-01-26] MEDS ORDERED: INSU100C10 SQ (10:33)
[2019-01-26] MEDS ORDERED: PARO10TA85 PO (10:33)
[2019-01-26] MEDS ORDERED: INSU100I31 (10:34)
[2019-01-26] MEDS: insulin Lispro (HumaLOG) vial - multi-dose SQ SCH ×3 (13:28→21:27)
--- NOTE | 2019-01-26 13:45 | NUR ---
Discontinued santana catheter, with catheter intact. patient tolerated well Addendum: 01/26/19 at 1718 by Xochitl Orlando RN Patient voided within 4 hours of santana D/C
--- NOTE | 2019-01-26 14:50 | NUR ---
DM Consult: Pt admit w/ DKA hx T1DM noncompliant w/ multiple DKAs A1C 13.9. GLU 96 from 1055 on admit. Pt declined DM ed during RD visit; reports taking basalar QID w/ humalog. Written DM ed /w RD contact information left at bedside. Receiving electrolyte replacement per protocol. PO 100% meals meeting needs. LBM 01/24. Will continue to monitor. Rec: 1. continue carb controlled diet 2. wt per rx Addendum: 01/26/19 at [address] Amended: Links added.
--- NOTE | 2019-01-26 18:28 | NUR ---
Problems reprioritized. Patient report given, questions answered & plan of care reviewed with Tarsha TORRES and Justino TORRES.
--- NOTE | 2019-01-26 18:42 | NUR ---
Patient in room PCU 3009. I have received report from BRIAN Leung and had the opportunity to ask questions and assume patient care. Patient is awake for report and is stable at this time. 100 mL/hr NS c 20 mEq K infusing. Will continue to monitor closely.
[2019-01-26] MEDS: insulin glargine (Lantus) pen - multi-dose SQ SCH (21:28)
[2019-01-27 03:00] VITALS: BP 98/65
--- NOTE | 2019-01-27 05:57 | NUR ---
Orientee documentation: I have reviewed and agree with all interventions, assessments performed and documented by Justino. Orientee Medication Administration: For this medication-pass time frame, all medication were reviewed, dispensed, administered and documented per hospital policy by Justino TORRES.
--- NOTE | 2019-01-27 06:08 | NUR ---
Problems reprioritized. Patient report given, questions answered & plan of care reviewed with BRIAN BARRERA.
[2019-01-27 06:30] VITALS: BP 106/66
[2019-01-27 06:31] LABS: BASOPHILS # (AUTO) 0.1 X10'3 (0-0.2); BASOPHILS % (AUTO) 1.4 % (0-1); EOSINOPHILS # (AUTO) 0.3 X10'3 (0-0.9); EOSINOPHILS % (AUTO) 4.4 % (0-6); HEMATOCRIT 35.7 % (35.0-45.0); HEMOGLOBIN 11.8 g/dl (12.0-16.0); LYMPHOCYTES # (AUTO) 2.9 X10'3 (1.1-4.8); LYMPHOCYTES % (AUTO) 48.6 % (21-51); MEAN CORPUSCULAR HEMOGLOBIN 33.5 PG (27.0-31.0); MEAN CORPUSCULAR VOLUME 101.6 FL (78-98); MEAN PLATELET VOLUME 10.9 FL (7.4-10.4); MONOCYTES # (AUTO) 0.3 X10'3 (0-0.9); MONOCYTES % (AUTO) 5.2 % (2-12); NEUTROPHILS # (AUTO) 2.4 X10'3 (1.8-7.7); NEUTROPHILS % (AUTO) 40.4 % (42-75); PLATELET COUNT 115 X10'3 (140-440); RED BLOOD COUNT 3.51 X10'6 (4.20-5.60)
--- NOTE | 2019-01-27 06:34 | NUR ---
Patient in room PCU 3009. I have received report from Tarsha TORRES and Justino TORRES and had the opportunity to ask questions and assume patient care.
[2019-01-27 06:54] LABS: ALANINE AMINOTRANSFERASE 31 U/L (12-78); ALBUMIN 2.7 G/DL (3.4-5.0); ALBUMIN/GLOBULIN RATIO 0.8 (1.1-1.5); ALKALINE PHOSPHATASE 118 IU/L (46-116); ANION GAP 11 (8-16); ASPARTATE AMINO TRANSFERASE 22 U/L (10-37); BILIRUBIN,TOTAL 0.3 MG/DL (0.1-1.0); BLOOD UREA NITROGEN 8 MG/DL (7-18); BUN/CREATININE RATIO 10.3 (6.6-38.0); CALCIUM 8.9 MG/DL (8.5-10.1); CHLORIDE 101 MMOL/L (99-107); CREATININE 0.78 MG/DL (0.40-0.90); GLUCOSE 306 MG/DL (70-104); MAGNESIUM 1.6 MG/DL (1.5-2.4); POTASSIUM 5.1 MMOL/L (3.5-5.1); SODIUM 134 MMOL/L (135-145); TOTAL CARBON DIOXIDE 22.4 MMOL/L (24-32); eGFR 85 ML/MIN
[2019-01-27 07:05] LABS: PHOSPHORUS 2.3 MG/DL (2.3-4.5)
[2019-01-27 07:13] LABS: ANISOCYTOSIS 1+; PLATELET ESTIMATE DECREASED
[2019-01-27] MEDS ORDERED: pantoprazole 40mg Tablet.DR PO SCH (07:30)
[2019-01-27] MEDS: potassium cl 20mEq in 1/2 NS 1,000 ML IV SCH (07:38)
[2019-01-27] MEDS: heparin, porcine 5000 units/ml vial SQ SCH (07:39)
[2019-01-27] MEDS: gabapentin 300mg capsule PO SCH ×2 (07:39→12:07)
[2019-01-27] MEDS: docusate sod 100mg capsule PO SCH (07:39)
[2019-01-27] MEDS: insulin Lispro (HumaLOG) vial - multi-dose SQ SCH ×2 (09:02→13:20)
[2019-01-27 11:00] VITALS: BP 118/78
[2019-01-27] MEDS ORDERED: levoFLOXACIN 750MG TABLET PO SCH (11:00)
--- NOTE | 2019-01-27 15:04 | NUR ---
Per Dr Zheng, patient stable for discharge to home. IVs in R ac and L wrist with catheters intact. Tele monitor removed. Discharge packet provided to patient, education provided and all questions answered. All belongings sent with patient. Escorted out via wheelchair, accompanied by RN and patients friend.
== END 2019-01-27 15:05 | disposition home or self-care (01) | DRG 720 ==
LOC: ER 02:19 → PCU 3S 11:00 → CMPBEDREQ 16:09
PROVIDERS: ADMIT Nurse Practitioner Family; ATTEND Internal Medicine Critical Care Medicine
DX: A41.9 Sepsis, unspecified organism (principal); E10.10 Type 1 diabetes mellitus with ketoacidosis without coma; N17.9 Acute kidney failure, unspecified; E86.0 Dehydration; F41.9 Anxiety disorder, unspecified; F17.210 Nicotine dependence, cigarettes, uncomplicated; Z91.14 Patient's other noncompliance with medication regimen; Z91.19 Patient's noncompliance with other medical treatment and regimen; Z79.4 Long term (current) use of insulin; Z90.49 Acquired absence of other specified parts of digestive tract; Z87.440 Personal history of urinary (tract) infections; Z79.899 Other long term (current) drug therapy
CPT/HCPCS: 36415; 36600; 71045; 80048; 80053; 80305; 81001; 81025; 82803; 82948; 83036; 83605; 83735; 84100; 84145; 85018; 85025; 87040; 87070; 93005; 96365; 96367; 96372; 96375; 99291; C9113; G0378; J0456; J0696; J1200; J1644; J1815; J1956; J2405; J2765; J7030; J7060

== ENCOUNTER 2019-03-10 21:10 | Inpatient (IN) | payer MEDICAID ==
[~2019-03-10] VITALS: Ht 149.9 cm; Wt 45.9 kg
[~2019-03-10 21:10] MED LIST changes: -FLUO20CA39 PO; -GABA600T PO; +GABA600T13 PO; +IBUP-1985 PO; +INSU100I31; -INSU100I31 SQ; -LEVO750T46 PO; +PARO10TA85 PO
[2019-03-10] MEDS ORDERED: normal saline 1000ml 1,000 ML IV SCH (21:47)
[2019-03-10] MEDS ORDERED: insulin regular, DKA only 100 UNIT in normal saline 100ml IV soln 99 ML IV SCH ×2 (21:47)
[2019-03-10] MEDS ORDERED: potassium CL 20mEq in D5-1/2NS 1,000 ML IV PRN ×2 (21:47→23:51)
[2019-03-10] MEDS ORDERED: insulin regular, human vial - multi-dose IV PRN ×2 (21:50→23:55)
[2019-03-10] MEDS ORDERED: morphine 4 MG/ML inj SYRINge IV PRN (21:50)
[2019-03-10] MEDS ORDERED: ondansetron/PF 4mg/2ml inj IV ONE (21:50)
[2019-03-10] MEDS: normal saline 1000ml 1,000 ML IV SCH (22:03)
[2019-03-10 22:04] LABS: CLARITY,URINE SLIGHTLY CLOUDY (Clear); COLOR,URINE YELLOW (Yellow); GLUCOSE, URINE >=1000 mg/dl (Neg); KETONES,URINE >=80 mg/dl (Neg); LEUKOCYTE ESTERASE ,URINE NEGATIVE (Neg); NITRITES, URINE POSITIVE (Neg); OCCULT BLOOD,URINE TRACE-INTACT (Neg); PH,URINE 5.5 (4.8-8.0); PROTEIN,URINE TRACE mg/dl (Neg); UROBILINOGEN,URINE 0.2 E.U/dL (0.2-1.0)
[2019-03-10 22:10] LABS: ABG BASE EXCESS -15.4 mmol/L (-2.0-3.0); ABG HCO3 10.2 mmol/L (22.0-26.0); ABG OXYGEN SATURATION 96.3 % (95-98); ABG PCO2 (T) 24.9 mmHg (32.0-45.0); ABG PO2 (T) 91.6 mmHg (83-108); ALLEN'S TEST Positive; FCOHb 4.8 % (0.5-1.5); FMetHb 0.2 % (0.3-1.12); FO2Hb 91.5 % (94-100); TOTAL HEMOGLOBIN 15.5 G/dl (12.0-16.0)
[2019-03-10 22:14] LABS: UA COLLECTION TYPE CLN CATCH MIDSTREAM
[2019-03-10 22:17] LABS: BASOPHILS # (AUTO) 0.1 X10'3 (0-0.2); BASOPHILS % (AUTO) 0.7 % (0-1); EOSINOPHILS # (AUTO) 0.2 X10'3 (0-0.9); EOSINOPHILS % (AUTO) 1.7 % (0-6); HEMATOCRIT 49.6 % (35.0-45.0); HEMOGLOBIN 16.4 g/dl (12.0-16.0); LYMPHOCYTES # (AUTO) 3.4 X10'3 (1.1-4.8); LYMPHOCYTES % (AUTO) 26.2 % (21-51); MEAN CORPUSCULAR HEMOGLOBIN 33.9 PG (27.0-31.0); MEAN CORPUSCULAR HGB CONC 33.1 g/dL (33.0-36.5); MEAN CORPUSCULAR VOLUME 102.5 FL (78-98); MEAN PLATELET VOLUME 11.4 FL (7.4-10.4); MONOCYTES # (AUTO) 0.9 X10'3 (0-0.9); MONOCYTES % (AUTO) 6.5 % (2-12); NEUTROPHILS # (AUTO) 8.5 X10'3 (1.8-7.7); NEUTROPHILS % (AUTO) 64.9 % (42-75); PLATELET COUNT 188 X10'3 (140-440); RED BLOOD COUNT 4.84 X10'6 (4.20-5.60); RED CELL DISTRIBUTION WIDTH 14.2 % (11.5-14.5); WHITE BLOOD COUNT 13.1 X10'3 (4.5-11.0)
[2019-03-10 22:17] LABS: BACTERIA,URINE 2+ /HPF (Neg); RBC,URINE 0-2 /HPF (0-2); SQUAMOUS EPITHELIAL CELL,UR FEW /LPF (FEW)
[2019-03-10 22:29] LABS: PARTIAL THROMBOPLASTIN TIME 30 SECONDS (22-32)
[2019-03-10 22:31] LABS: ALANINE AMINOTRANSFERASE 38 U/L (12-78); ALBUMIN 4.3 G/DL (3.4-5.0); ALBUMIN/GLOBULIN RATIO 0.9 (1.1-1.5); ALKALINE PHOSPHATASE 182 IU/L (46-116); ANION GAP 27 (8-16); BILIRUBIN,TOTAL 0.6 MG/DL (0.1-1.0); BLOOD UREA NITROGEN 25 MG/DL (7-18); BUN/CREATININE RATIO 15.5 (6.6-38.0); CALCIUM 10.9 MG/DL (8.5-10.1); CHLORIDE 80 MMOL/L (99-107); CREATININE 1.61 MG/DL (0.40-0.90); MAGNESIUM 1.7 MG/DL (1.5-2.4); TOTAL PROTEIN 9.1 G/DL (6.4-8.2); eGFR 37 ML/MIN
[2019-03-10] MEDS ORDERED: CefTRIAXone 2gm/D5W 50ml 50 ML IV ONE (22:35)
[2019-03-10 22:37] LABS: POTASSIUM 4.4 MMOL/L (3.5-5.1)
[2019-03-10 22:40] LABS: GLUCOSE 664 MG/DL (70-104); SODIUM 120 MMOL/L (135-145)
--- NOTE | 2019-03-10 22:40 | NUR ---
ANA Knapp notified of critical lab values, stated to start insulin drip now.
[2019-03-10 22:41] LABS: TOTAL CARBON DIOXIDE 12.7 MMOL/L (24-32)
[2019-03-10 22:45] LABS: ETHANOL < 0.010 GM/DL (0.0-0.010)
[2019-03-10 22:52] LABS: ASPARTATE AMINO TRANSFERASE 18 U/L (10-37)
[2019-03-10 23:01] LABS: URINE AMPHETAMINE SCREEN NEGATIVE (Neg); URINE BARBITUATE SCREEN NEGATIVE (Neg); URINE BENZODIAZEPINES SCREEN NEGATIVE (Neg); URINE CANNABINOID SCREEN NEGATIVE (Neg); URINE COCAINE SCREEN NEGATIVE (Neg); URINE METHADONE SCREEN NEGATIVE (Neg); URINE OPIATE SCREEN NEGATIVE (Neg); URINE PHENCYCLIDINE SCREEN NEGATIVE (Neg)
[2019-03-10 23:23] LABS: LARGE PLATELETS FEW; PLATELET ESTIMATE NORMAL
[2019-03-10] MEDS ORDERED: ondansetron/PF 4mg/2ml inj IV PRN (23:45)
[2019-03-10] MEDS ORDERED: bisacodyl 10mg suppository rectal RC PRN (23:45)
[2019-03-10] MEDS ORDERED: potassium Cl 40MEQ/NS 500ml 500 ML IV PRN ×2 (23:45→23:55)
[2019-03-10] MEDS ORDERED: magnesium 2GM in 50ml NS 50 ML IV PRN (23:45)
[2019-03-10] MEDS ORDERED: mag hydrox/Alum hydrox/simeth 30ml oral suspension PO PRN (23:45)
[2019-03-10] MEDS ORDERED: potassium CL 10mEq/100ml bag 100 ML IV PRN ×2 (23:45→23:55)
[2019-03-10] MEDS ORDERED: magnesium 4gm in 100ml NS 100 ML IV PRN (23:45)
[2019-03-10] MEDS ORDERED: acetaminophen 325mg tablet PO PRN (23:45)
[2019-03-10] MEDS ORDERED: potassium Cl 20 mEq SR tablet PO PRN ×3 (23:45→23:55)
[2019-03-10] MEDS ORDERED: magnesium Cl slow-release 64mg tablet PO PRN (23:45)
[2019-03-10] MEDS ORDERED: magnesium hydroxide 30ml (MOM) UD suspension PO PRN (23:45)
[2019-03-10] MEDS ORDERED: sodium phosphate inj. 15 MMOL in dextrose 5%-water 150 ML IV PRN (23:55)
[2019-03-10] MEDS ORDERED: Neutra Phos packet PO PRN (23:55)
[2019-03-10] MEDS ORDERED: sodium phosphate inj. 30 MMOL in dextrose 5%-water 250 ML IV PRN (23:55)
--- NOTE | 2019-03-11 00:24 | NUR ---
Admissions belongings inadvertantly charted under primary rn name prior assumption of care
--- NOTE | 2019-03-11 00:32 | NUR ---
I have received report from BRIAN MIJARES IN ED and had the opportunity to ask questions and assume patient care. Awaiting patient arrival to unit.
[2019-03-11 00:39] LABS: ALBUMIN 3.2 G/DL (3.4-5.0); ANION GAP 21 (8-16); BLOOD UREA NITROGEN 22 MG/DL (7-18); BUN/CREATININE RATIO 16.3 (6.6-38.0); CALCIUM 8.5 MG/DL (8.5-10.1); CHLORIDE 94 MMOL/L (99-107); CREATININE 1.35 MG/DL (0.40-0.90); SODIUM 127 MMOL/L (135-145); eGFR 45 ML/MIN
[2019-03-11 00:41] LABS: POTASSIUM 4.1 MMOL/L (3.5-5.1)
[2019-03-11 00:43] LABS: GLUCOSE 533 MG/DL (70-104); TOTAL CARBON DIOXIDE 11.9 MMOL/L (24-32)
[2019-03-11 00:55] VITALS: BP 110/88
--- NOTE | 2019-03-11 01:16 | NUR ---
Patient arrived to floor at 0055. Patient is awake and oriented X4. Insulin infusing at 5 units/hr. Will continue to monitor closely.
[2019-03-11] MEDS: insulin regular, DKA only 100 UNIT in normal saline 100ml IV soln 99 ML IV SCH ×4 (01:17→10:49)
[2019-03-11] MEDS: normal saline 1000ml 1,000 ML IV SCH ×4 (01:17→07:51)
[2019-03-11] MEDS: CefTRIAXone/D5W-Rocephin 1gm 50 ML IV SCH ×2 (01:23→08:53)
[2019-03-11] MEDS: K and/or MAG REPLACEMENT MC SCH ×2 (01:27→08:00)
[2019-03-11] MEDS: gabapentin 300mg capsule PO SCH ×3 (01:40→16:20)
[2019-03-11] MEDS: ESOMEPRAZOLE 40 MG VIAL IV SCH ×2 (01:40→08:58)
[2019-03-11] MEDS: potassium Cl 20mEq in NS 1,000 ML IV SCH ×2 (02:40→09:50)
[2019-03-11 03:00] VITALS: BP 109/72
[2019-03-11 03:23] LABS: BASOPHILS # (AUTO) 0.1 X10'3 (0-0.2); BASOPHILS % (AUTO) 0.5 % (0-1); EOSINOPHILS # (AUTO) 0.3 X10'3 (0-0.9); HEMATOCRIT 38.4 % (35.0-45.0); LYMPHOCYTES # (AUTO) 3.8 X10'3 (1.1-4.8); LYMPHOCYTES % (AUTO) 29.1 % (21-51); MEAN CORPUSCULAR HEMOGLOBIN 33.8 PG (27.0-31.0); MEAN CORPUSCULAR HGB CONC 33.9 g/dL (33.0-36.5); MEAN CORPUSCULAR VOLUME 99.5 FL (78-98); MEAN PLATELET VOLUME 10.5 FL (7.4-10.4); MONOCYTES # (AUTO) 0.9 X10'3 (0-0.9); MONOCYTES % (AUTO) 6.7 % (2-12); NEUTROPHILS # (AUTO) 8.2 X10'3 (1.8-7.7); NEUTROPHILS % (AUTO) 61.7 % (42-75); PLATELET COUNT 140 X10'3 (140-440); RED BLOOD COUNT 3.86 X10'6 (4.20-5.60); RED CELL DISTRIBUTION WIDTH 13.8 % (11.5-14.5); WHITE BLOOD COUNT 13.2 X10'3 (4.5-11.0)
[2019-03-11 03:28] LABS: HCG SERUM QL NEGATIVE
[2019-03-11 03:32] LABS: ANION GAP 13 (8-16); BLOOD UREA NITROGEN 18 MG/DL (7-18); BUN/CREATININE RATIO 15.9 (6.6-38.0); CALCIUM 8.4 MG/DL (8.5-10.1); CHLORIDE 99 MMOL/L (99-107); CREATININE 1.13 MG/DL (0.40-0.90); GLUCOSE 288 MG/DL (70-104); MAGNESIUM 1.3 MG/DL (1.5-2.4); PHOSPHORUS 1.7 MG/DL (2.3-4.5); POTASSIUM 3.7 MMOL/L (3.5-5.1); SODIUM 129 MMOL/L (135-145); TOTAL CARBON DIOXIDE 16.7 MMOL/L (24-32); eGFR 55 ML/MIN
--- NOTE | 2019-03-11 06:05 | NUR ---
Patient in room PCU 3019. I have received report from Tarsha TORRES and had the opportunity to ask questions and assume patient care.
--- NOTE | 2019-03-11 06:12 | NUR ---
Problems reprioritized. Patient report given, questions answered & plan of care reviewed with BRIAN OLIVER.
--- NOTE | 2019-03-11 06:31 | NUR ---
Orientee documentation: I have reviewed and agree with all interventions, assessments performed and documented by Justino TORRES. Orientee Medication Administration: For this medication-pass time frame, all medication were reviewed, dispensed, administered and documented per hospital policy by Justino TORRES.
[2019-03-11 07:00] VITALS: BP 89/59
[2019-03-11 07:52] LABS: PHOSPHORUS 1.9 MG/DL (2.3-4.5)
[2019-03-11] MEDS ORDERED: enoxaparin 40mg/0.4ml syringe SUBCUT SCH (08:00)
[2019-03-11] MEDS ORDERED: K and/or MAG REPLACEMENT MC SCH (08:00)
[2019-03-11] MEDS ORDERED: nicotine 14mg patch - 24hr TD SCH (08:00)
[2019-03-11] MEDS ORDERED: docusate sod 100mg capsule PO SCH (08:00)
[2019-03-11 08:29] LABS: ALBUMIN 2.9 G/DL (3.4-5.0); ANION GAP 10 (8-16); BLOOD UREA NITROGEN 15 MG/DL (7-18); BUN/CREATININE RATIO 15.6 (6.6-38.0); CALCIUM 8.8 MG/DL (8.5-10.1); CHLORIDE 102 MMOL/L (99-107); CREATININE 0.96 MG/DL (0.40-0.90); GLUCOSE 153 MG/DL (70-104); POTASSIUM 3.1 MMOL/L (3.5-5.1); SODIUM 132 MMOL/L (135-145); TOTAL CARBON DIOXIDE 20.1 MMOL/L (24-32); eGFR 67 ML/MIN
[2019-03-11] MEDS ORDERED: glucagon, human recombinant 1mg kit SUBCUT PRN (08:35)
[2019-03-11] MEDS ORDERED: dextrose ORAL solution 15 GM/59 ML bottle PO PRN ×2 (08:35)
[2019-03-11] MEDS ORDERED: dextrose 50%-water 50ml dispensing syringe IV PRN ×2 (08:35)
[2019-03-11] MEDS: potassium Cl 20 mEq SR tablet PO PRN ×3 (08:57→17:28)
[2019-03-11] MEDS: insulin Lispro (HumaLOG) vial - multi-dose SQ SCH ×2 (09:09→14:05)
[2019-03-11 11:00] VITALS: BP 98/65
[2019-03-11] MEDS ORDERED: insulin glargine (Lantus) pen - multi-dose SQ ONE (11:45)
[2019-03-11] MEDS ORDERED: normal saline 1000ml 1,000 ML IV SCH (12:45)
--- NOTE | 2019-03-11 13:07 | NUR ---
Paged Dr. Pisano PAGER ID: [phone] MESSAGE: Curtis TORRES [phone] Marylu Herman: Insulin gtt and D5 gtt d/c'd. Pt started on NS @ 100mL/hr. 12 units Lantus given at 1145. Pt ate 57g carbs for lunch. most recent BG 158. How do you want to proceed? Humalog for meal coverage? Thanks.
--- NOTE | 2019-03-11 13:54 | NUR ---
Paged Dr. Pisano promotional table spacer PAGER ID: [phone] MESSAGE: Curtis TORRES [phone] Marylu Herman: Blood sugar 294, up from 158 1 hr ago. Should I initiate hyperglycemic protocol or at least cover food with Humalog? Thank you.
--- NOTE | 2019-03-11 14:40 | NUR ---
DM/Malnutrition Consults: Pt admit w/ DKA A1C 13.9 up from prior in . GLU 664 on admit down to 158 today on DKA protocol. Hx multiple DKA's non-compliant T1DM fourth DKA admit this year. Last admit 01/[address] DM ed. Pt goes to [facility] for DM care and reports wanting an insulin pump on EMR but that would require records of DM compliance which pt obviously lacks. Pt seen by RD and having significant abdominal pain and crying; RD left written DM ed w/ RD contact information and encouraged pt to attend CDE course for diet education. Pt will need verbal reinforcement once more stable prior to d/c. Pt has no wt loss hx, no edema/wounds, and mild weakness does not qualify for malnutrition at this time. PO 25% carb controlled meals w/ LBM 03/10. Weaning insulin drip now per MD note. Will continue to monitor. Rec: 1. continue carb controlled diet 2. monitor for ONS needs 3. DM ed reinforcement once stable prior to d/c 4. wt per rx Addendum: 03/11/19 at [address] Amended: Links added.
[2019-03-11 15:00] VITALS: BP 109/64
--- NOTE | 2019-03-11 16:46 | NUR ---
Paged Dr. Pisano PAGER ID: [phone] MESSAGE: Curtis TORRES [phone] Marylu Herman: pt wanting to leave AMA. Please call when you can. Thank you.
--- NOTE | 2019-03-11 16:58 | NUR ---
Patient wanting to leave AMA. RN spoke with patient about leaving AMA, and was able to convince pt to remain inpatient likely through the night. Pt requested to smoke a cigarette outside, and RN informed her we would not allow her to do so. Patient was offered her ordered nicotine patch, which she refused.
--- NOTE | 2019-03-11 18:05 | NUR ---
Problems reprioritized. Patient report given, questions answered & plan of care reviewed with Tarsha TORRES.
--- NOTE | 2019-03-11 18:19 | NUR ---
PAGER ID: [phone] MESSAGE: Ext. [phone], Justino Marie RN for [phone] Patient is leaving AMA. Attempted to educate on risks of leaving. Still refuses to wait.
--- NOTE | 2019-03-11 18:31 | NUR ---
Upon receiving report from BRIAN Acevedo, staff reported patient was wanting to leave AMA. Went into room and inquired of request and patient was tearful and stated she ,"just wanted to go home." When asked why she repeated her statement and threatened to, "rip out her IV's." I educated her on the risks of leaving and mentioned her recent multiple visits. I said I would page Dr. Pisano and would be back, but to really consider her health and the detrimental actions that is contributing to her disease. Dr. Pisano was paged and immediately after she signed the AMA papers. Both right wrist and forearm IV's where removed and cannula was intact. Telemetry number 46 was removed and returned to telemetry office. Patient ambulated off floor with few belongings which included ring, books, purse, Lilia Singer cup and cell phone.
[2019-03-11] MEDS ORDERED: lactobacillus rhamnosus 10,000 MMU CELLS/CAPSULE PO SCH (20:00)
[2019-03-11] MEDS ORDERED: insulin glargine (Lantus) pen - multi-dose SQ SCH (21:00)
== END 2019-03-11 18:33 | disposition left against medical advice (07) | DRG 420 ==
LOC: ER 21:11 → PCU 3S 23:59 → CMPBEDREQ 03-11 00:34
PROVIDERS: ADMIT Internal Medicine; ATTEND Family Medicine
DX: E10.10 Type 1 diabetes mellitus with ketoacidosis without coma (principal); N28.9 Disorder of kidney and ureter, unspecified; E87.1 Hypo-osmolality and hyponatremia; E86.0 Dehydration; F17.210 Nicotine dependence, cigarettes, uncomplicated; N39.0 Urinary tract infection, site not specified; F41.9 Anxiety disorder, unspecified; Z53.21 Procedure and treatment not carried out due to patient leaving prior to being seen by health care provider; Z90.49 Acquired absence of other specified parts of digestive tract; E87.6 Hypokalemia
CPT/HCPCS: 36415; 36600; 71045; 80048; 80053; 80305; 80320; 81001; 82803; 82948; 83605; 83735; 84100; 84145; 84703; 85018; 85025; 85610; 85730; 87040; 87070; 87077; 87088; 87186; 93005; 96365; 96375; 99291; G0378; J0696; J1650; J1815; J2270; J2405; J3475; J7030

== ENCOUNTER 2019-04-20 23:48 | Inpatient (IN) | payer MEDICAID ==
[~2019-04-20] VITALS: Ht 162.6 cm; Wt 47.0 kg
[2019-04-21] VITALS (19 sets, daily range): BP systolic 91–121; BP diastolic 56–80
[2019-04-21] MEDS ORDERED: normal saline 1000ML IV soln IVB ONE ×2 (00:05→01:00)
[2019-04-21 00:19] LABS: BASOPHILS # (AUTO) 0.1 X10'3 (0-0.2); BASOPHILS % (AUTO) 0.6 % (0-1); EOSINOPHILS % (AUTO) 0.1 % (0-6); LYMPHOCYTES % (AUTO) 10.5 % (21-51); MEAN PLATELET VOLUME 11.9 FL (7.4-10.4); MONOCYTES % (AUTO) 5.4 % (2-12); NEUTROPHILS # (AUTO) 15.9 X10'3 (1.8-7.7); NEUTROPHILS % (AUTO) 83.4 % (42-75); PLATELET COUNT 180 X10'3 (140-440)
[2019-04-21 00:38] LABS: ALBUMIN 3.7 G/DL (3.4-5.0); ALBUMIN/GLOBULIN RATIO 0.9 (1.1-1.5); ALKALINE PHOSPHATASE 194 IU/L (46-116); BILIRUBIN,TOTAL 0.8 MG/DL (0.1-1.0); BLOOD UREA NITROGEN 30 MG/DL (7-18); BUN/CREATININE RATIO 19.1 (6.6-38.0); CREATININE 1.57 MG/DL (0.40-0.90); TOTAL PROTEIN 7.7 G/DL (6.4-8.2); eGFR 37 ML/MIN
[2019-04-21 00:44] LABS: CHLORIDE 79 MMOL/L (99-107); POTASSIUM 4.6 MMOL/L (3.5-5.1); SODIUM 121 MMOL/L (135-145)
[2019-04-21 00:49] LABS: ALANINE AMINOTRANSFERASE 38 U/L (12-78); ASPARTATE AMINO TRANSFERASE 30 U/L (10-37)
[2019-04-21 00:53] LABS: PHOSPHORUS 6.1 MG/DL (2.3-4.5)
[2019-04-21 00:54] LABS: ANION GAP 37 (8-16)
[2019-04-21 00:58] LABS: GLUCOSE 861 MG/DL (70-104)
[2019-04-21 00:59] LABS: TOTAL CARBON DIOXIDE < 5 MMOL/L (24-32)
[2019-04-21] MEDS ORDERED: insulin regular, DKA only 100 UNIT in normal saline 100ml IV soln 99 ML IV SCH ×4 (01:03→03:07)
[2019-04-21] MEDS ORDERED: insulin regular, human vial - multi-dose IV PRN ×3 (01:05→03:10)
[2019-04-21] MEDS ORDERED: quetiapine 100mg tablet PO SCH (01:15)
[2019-04-21] MEDS ORDERED: ondansetron/PF 4mg/2ml inj IV ONE (01:15)
[2019-04-21 01:21] LABS: ABG BASE EXCESS -26.4 mmol/L (-2.0-3.0); ABG OXYGEN SATURATION 97.3 % (95-98); ABG PH (T) 7.007 (7.350-7.450); ABG PO2 (T) 117.6 mmHg (83-108); ALLEN'S TEST Positive; FCOHb 1.2 % (0.5-1.5); FMetHb 0.3 % (0.3-1.12); FO2Hb 95.8 % (94-100); PATIENT TEMPERATURE 36.6; TOTAL HEMOGLOBIN 14.4 G/dl (12.0-16.0)
[2019-04-21] MEDS ORDERED: insulin regular, human 10 units/0.1 ml syringe IV ONE (01:25)
[2019-04-21 01:28] LABS: HEMOGLOBIN 14.4 g/dl (12.0-16.0); RED BLOOD COUNT 4.26 X10'6 (4.20-5.60)
[2019-04-21 01:29] LABS: HEMATOCRIT 45.9 % (35.0-45.0); MEAN CORPUSCULAR HEMOGLOBIN 33.8 PG (27.0-31.0); MEAN CORPUSCULAR HGB CONC 31.3 g/dL (33.0-36.5); MEAN CORPUSCULAR VOLUME 107.8 FL (78-98); RED CELL DISTRIBUTION WIDTH 14.5 % (11.5-14.5)
--- NOTE | 2019-04-21 01:45 | NUR ---
Pt arousable to voice, but quickly becomes somnolent. Unable to verify medication list. Will continue trying to obtain.
[2019-04-21 02:05] LABS: CLARITY,URINE SLIGHTLY CLOUDY (Clear); COLOR,URINE STRAW (Yellow); GLUCOSE, URINE >=1000 mg/dl (Neg); KETONES,URINE >=80 mg/dl (Neg); LEUKOCYTE ESTERASE ,URINE TRACE (Neg); NITRITES, URINE NEGATIVE (Neg); OCCULT BLOOD,URINE TRACE-LYSED (Neg); PROTEIN,URINE TRACE mg/dl (Neg); UROBILINOGEN,URINE 0.2 E.U/dL (0.2-1.0)
[2019-04-21 02:24] LABS: UA COLLECTION TYPE VOIDED
[2019-04-21] MEDS ORDERED: magnesium 2GM in 50ml NS 50 ML IV PRN (03:10)
[2019-04-21] MEDS ORDERED: acetaminophen 650mg rectal suppository RC PRN (03:10)
[2019-04-21] MEDS ORDERED: acetaminophen 325mg tablet PO PRN ×2 (03:10)
[2019-04-21] MEDS ORDERED: potassium Cl 20 mEq SR tablet PO PRN ×4 (03:10)
[2019-04-21] MEDS ORDERED: sodium phosphate inj. 30 MMOL in dextrose 5%-water 250 ML IV PRN (03:10)
[2019-04-21] MEDS ORDERED: magnesium 4gm in 100ml NS 100 ML IV PRN (03:10)
[2019-04-21] MEDS ORDERED: magnesium Cl slow-release 64mg tablet PO PRN (03:10)
[2019-04-21] MEDS ORDERED: sodium phosphate inj. 15 MMOL in dextrose 5%-water 150 ML IV PRN (03:10)
[2019-04-21] MEDS ORDERED: potassium CL 10mEq/100ml bag 100 ML IV PRN (03:10)
--- NOTE | 2019-04-21 03:10 | NUR ---
pt unable to confirm current medications being taken at this time.
[2019-04-21 03:16] LABS: BACTERIA,URINE FEW /HPF (Neg); MUCUS STRANDS FEW /LPF (Neg); RBC,URINE 0-2 /HPF (0-2); SQUAMOUS EPITHELIAL CELL,UR FEW /LPF (FEW); WBC,URINE 20-30 /HPF (0-4); YEAST FEW /HPF (NEGATIVE)
[2019-04-21] MEDS: normal saline 1000ml 1,000 ML IV SCH ×6 (03:46→21:55)
[2019-04-21] MEDS: levoFLOXACIN-Levaquin 500mg/D5 100 ML IV SCH (03:53)
--- NOTE | 2019-04-21 04:21 | NUR ---
Patient to be admitted from ER to room ICU 2043. I have received report from Rand TORRES and had the opportunity to ask questions, will assume patient care upon arrival to unit. Asked ER to draw ordered labs prior to transferring pt.
--- NOTE | 2019-04-21 05:12 | NUR ---
Per Roslyn Tran NP decrease insulin to 10units/hr, was at 20units/hr/
[2019-04-21] MEDS ORDERED: morphine 2 MG/ML inj. syringe IV ONE (05:40)
[2019-04-21 05:54] LABS: ALBUMIN 3.1 G/DL (3.4-5.0); ANION GAP 27 (8-16); BLOOD UREA NITROGEN 25 MG/DL (7-18); BUN/CREATININE RATIO 17.5 (6.6-38.0); CALCIUM 7.5 MG/DL (8.5-10.1); CHLORIDE 100 MMOL/L (99-107); CREATININE 1.43 MG/DL (0.40-0.90); SODIUM 133 MMOL/L (135-145); eGFR 42 ML/MIN
[2019-04-21 05:57] LABS: POTASSIUM 3.1 MMOL/L (3.5-5.1)
[2019-04-21 06:03] LABS: HCG SERUM QL NEGATIVE
[2019-04-21 06:12] LABS: GLUCOSE 389 MG/DL (70-104)
[2019-04-21 06:14] LABS: TOTAL CARBON DIOXIDE 6.5 MMOL/L (24-32)
--- NOTE | 2019-04-21 06:20 | NUR ---
Problems reprioritized. Patient report given, questions answered & plan of care reviewed with Aguilar Hernandez RN and Aguilar Hobbs RN.
--- NOTE | 2019-04-21 06:25 | NUR ---
Patient in room ICU 2043. I have received report from Karina TORRES and had the opportunity to ask questions and assume patient care.
[2019-04-21] MEDS: K, MAG and/or Phos replacement - Verify level? MC SCH (07:20)
[2019-04-21] MEDS: docusate sod 100mg capsule PO SCH ×2 (07:20→20:05)
[2019-04-21] MEDS: pantoprazole 40mg Tablet.DR PO SCH (07:20)
[2019-04-21] MEDS: potassium CL 10mEq/100ml bag 100 ML IV PRN ×4 (07:21→11:46)
[2019-04-21] MEDS: dextrose 5%-1/2 normal saline 1,000 ML IV SCH ×3 (07:32→20:40)
[2019-04-21] MEDS: heparin, porcine 5000 units/ml vial SQ SCH ×2 (08:12→20:06)
[2019-04-21 10:37] LABS: ALBUMIN 2.8 G/DL (3.4-5.0); ANION GAP 17 (8-16); BLOOD UREA NITROGEN 20 MG/DL (7-18); BUN/CREATININE RATIO 17.7 (6.6-38.0); CALCIUM 7.2 MG/DL (8.5-10.1); CHLORIDE 105 MMOL/L (99-107); CREATININE 1.13 MG/DL (0.40-0.90); GLUCOSE 249 MG/DL (70-104); PHOSPHORUS 1.5 MG/DL (2.3-4.5); POTASSIUM 3.4 MMOL/L (3.5-5.1); SODIUM 133 MMOL/L (135-145); eGFR 55 ML/MIN
[2019-04-21 10:38] LABS: TOTAL CARBON DIOXIDE 11.2 MMOL/L (24-32)
--- NOTE | 2019-04-21 11:10 | NUR ---
Dr. Zheng and multidiscplinary team rounded on patient. Stated to continue IV fluids and insulin drip until anion gap closes. Continue electrolyte replacement per protocol with CMP, phos and mag levels Q6hr. Will continue to monitor.
[2019-04-21] MEDS: potassium CL 20mEq in D5-1/2NS 1,000 ML IV PRN ×2 (12:07→21:23)
[2019-04-21] MEDS ORDERED: dextrose ORAL solution 15 GM/59 ML bottle PO PRN ×2 (14:50)
[2019-04-21] MEDS ORDERED: dextrose 50%-water 50ml dispensing syringe IV PRN ×2 (14:50)
[2019-04-21] MEDS ORDERED: glucagon, human recombinant 1mg kit SUBCUT PRN (14:50)
[2019-04-21] MEDS ORDERED: MESSAGE TO PHARMACY PO ONE (14:50)
--- NOTE | 2019-04-21 14:57 | NUR ---
DM/malnutrition consult. Pt admitted with DKA, BG of 861, A1c 13.9 from 01/25/19; multiple admits for DKA, type 1 DM, recurrent UTIs per MD note. Patient on insulin drip, will begin lantus tonight per protocol. Presented to ED with nausea, vomiting, diarrhea. Pt reports she does take her insulin however often refused teaching by RD, left AMA last admission, and continues with uncontrolled blood glucose. Currently weighs 43 kg on bedscale. UBW is 45 kg. No significant change in body weight. BMI is in appropriate range for height. Noted that patient's MCV is 107.8, possibly indicates anemia and folic acid or B12 deficiency, with discuss with MD at rounds. Recommend: 1. continue carb controlled diet 2. monitor readiness for DM education 3. wt per rx Addendum: 04/21/19 at [address] Amended: Links added.
[2019-04-21] MEDS: insulin Lispro (HumaLOG) vial - multi-dose SQ SCH ×2 (15:28→19:05)
[2019-04-21 15:41] LABS: ALANINE AMINOTRANSFERASE 26 U/L (12-78); ALBUMIN 2.5 G/DL (3.4-5.0); ALBUMIN/GLOBULIN RATIO 0.8 (1.1-1.5); ALKALINE PHOSPHATASE 114 IU/L (46-116); ANION GAP 10 (8-16); ASPARTATE AMINO TRANSFERASE 18 U/L (10-37); BILIRUBIN,TOTAL 0.4 MG/DL (0.1-1.0); BLOOD UREA NITROGEN 18 MG/DL (7-18); BUN/CREATININE RATIO 18.2 (6.6-38.0); CALCIUM 7.2 MG/DL (8.5-10.1); CHLORIDE 106 MMOL/L (99-107); CREATININE 0.99 MG/DL (0.40-0.90); GLUCOSE 152 MG/DL (70-104); POTASSIUM 4.1 MMOL/L (3.5-5.1); SODIUM 131 MMOL/L (135-145); TOTAL CARBON DIOXIDE 15.5 MMOL/L (24-32); TOTAL PROTEIN 5.5 G/DL (6.4-8.2); eGFR 64 ML/MIN
[2019-04-21 15:46] LABS: MAGNESIUM 1.3 MG/DL (1.5-2.4)
[2019-04-21 15:49] LABS: PHOSPHORUS 1.1 MG/DL (2.3-4.5)
[2019-04-21] MEDS: gabapentin 300mg capsule PO SCH (15:59)
[2019-04-21] MEDS: ibuprofen 200mg tablet PO SCH (15:59)
[2019-04-21] MEDS: ondansetron/PF 4mg/2ml inj IV PRN (16:10)
--- NOTE | 2019-04-21 18:10 | NUR ---
Problems reprioritized. Patient report given, questions answered & plan of care reviewed with Karina TORRES.
--- NOTE | 2019-04-21 18:15 | NUR ---
Patient in room ICU 2043. I have received report from Aguilar Crespo RN and Aguilar Garay and had the opportunity to ask questions and assume patient care. Pt in bed, on room air, no s/s of distress, call light in reach. See IV flowsheet and interventions for further information. Will continue to monitor.
--- NOTE | 2019-04-21 19:05 | NUR ---
Dinner tray set up, SQ Lantus given, pt eating. Will turn off Insulin gtt in 1hr.
[2019-04-21] MEDS: lactobacillus rhamnosus 10,000 MMU CELLS/CAPSULE PO SCH (20:06)
[2019-04-21] MEDS ORDERED: insulin glargine (Lantus) pen - multi-dose SQ SCH ×2 (21:00)
[2019-04-21] MEDS ORDERED: proCHLORperazine 10 MG/2 ml inj IV ONE (21:15)
[2019-04-21 21:32] LABS: ALANINE AMINOTRANSFERASE 24 U/L (12-78); ALBUMIN 2.5 G/DL (3.4-5.0); ALBUMIN/GLOBULIN RATIO 0.8 (1.1-1.5); ALKALINE PHOSPHATASE 119 IU/L (46-116); ANION GAP 11 (8-16); ASPARTATE AMINO TRANSFERASE 21 U/L (10-37); BILIRUBIN,TOTAL 0.4 MG/DL (0.1-1.0); BLOOD UREA NITROGEN 14 MG/DL (7-18); BUN/CREATININE RATIO 13.9 (6.6-38.0); CALCIUM 7.5 MG/DL (8.5-10.1); CHLORIDE 102 MMOL/L (99-107); CREATININE 1.01 MG/DL (0.40-0.90); GLUCOSE 139 MG/DL (70-104); PHOSPHORUS 3.8 MG/DL (2.3-4.5); POTASSIUM 3.7 MMOL/L (3.5-5.1); SODIUM 129 MMOL/L (135-145); TOTAL CARBON DIOXIDE 16.4 MMOL/L (24-32); TOTAL PROTEIN 5.5 G/DL (6.4-8.2); eGFR 62 ML/MIN
[2019-04-21 21:35] LABS: MAGNESIUM 4.2 MG/DL (1.5-2.4)
--- NOTE | 2019-04-21 22:00 | NUR ---
Critical Mg of 4.2 called to Roslyn Tran PAYMENT ANALYST, pt asymptomatic, in normal sinus rhythm. Marc spoke to Dr Jeff, no IV bolus of NS at this time, IV fluids changed to NS at 125ml/hr. Will continue to monitor.
[2019-04-22] VITALS (23 sets, daily range): BP systolic 79–125; BP diastolic 52–91
[2019-04-22] MEDS: ibuprofen 200mg tablet PO SCH ×3 (00:34→16:43)
[2019-04-22] MEDS: gabapentin 300mg capsule PO SCH ×3 (00:34→16:42)
[2019-04-22] MEDS: ondansetron/PF 4mg/2ml inj IV PRN ×3 (00:37→16:45)
--- NOTE | 2019-04-22 01:08 | NUR ---
Pt transferred with standby assist to bedside commode, pt in sinus rhythm, N/V Zofran IV administered. Will continue to monitor.
[2019-04-22] MEDS ORDERED: insulin regular, DKA only 100 UNIT in normal saline 100ml IV soln 99 ML IV SCH ×2 (03:07)
[2019-04-22] MEDS: levoFLOXACIN-Levaquin 500mg/D5 100 ML IV SCH (04:19)
[2019-04-22 04:41] LABS: BASOPHILS # (AUTO) 0.1 X10'3 (0-0.2); BASOPHILS % (AUTO) 0.5 % (0-1); EOSINOPHILS # (AUTO) 0.3 X10'3 (0-0.9); EOSINOPHILS % (AUTO) 3.1 % (0-6); HEMATOCRIT 35.9 % (35.0-45.0); HEMOGLOBIN 11.9 g/dl (12.0-16.0); LYMPHOCYTES # (AUTO) 2.5 X10'3 (1.1-4.8); LYMPHOCYTES % (AUTO) 22.6 % (21-51); MEAN CORPUSCULAR HGB CONC 33.2 g/dL (33.0-36.5); MEAN CORPUSCULAR VOLUME 102.3 FL (78-98); MEAN PLATELET VOLUME 10.6 FL (7.4-10.4); MONOCYTES # (AUTO) 0.5 X10'3 (0-0.9); MONOCYTES % (AUTO) 4.4 % (2-12); NEUTROPHILS # (AUTO) 7.8 X10'3 (1.8-7.7); NEUTROPHILS % (AUTO) 69.4 % (42-75); PLATELET COUNT 124 X10'3 (140-440); RED BLOOD COUNT 3.51 X10'6 (4.20-5.60); RED CELL DISTRIBUTION WIDTH 13.6 % (11.5-14.5); WHITE BLOOD COUNT 11.3 X10'3 (4.5-11.0)
[2019-04-22 04:47] LABS: ALANINE AMINOTRANSFERASE 24 U/L (12-78); ALBUMIN 2.4 G/DL (3.4-5.0); ALBUMIN/GLOBULIN RATIO 0.8 (1.1-1.5); ALKALINE PHOSPHATASE 113 IU/L (46-116); ANION GAP 13 (8-16); ASPARTATE AMINO TRANSFERASE 19 U/L (10-37); BILIRUBIN,TOTAL 0.4 MG/DL (0.1-1.0); BLOOD UREA NITROGEN 12 MG/DL (7-18); BUN/CREATININE RATIO 13.8 (6.6-38.0); CALCIUM 7.3 MG/DL (8.5-10.1); CHLORIDE 107 MMOL/L (99-107); CREATININE 0.87 MG/DL (0.40-0.90); GLUCOSE 161 MG/DL (70-104); MAGNESIUM 2.5 MG/DL (1.5-2.4); PHOSPHORUS 2.2 MG/DL (2.3-4.5); POTASSIUM 3.8 MMOL/L (3.5-5.1); SODIUM 134 MMOL/L (135-145); TOTAL PROTEIN 5.5 G/DL (6.4-8.2); eGFR 74 ML/MIN
[2019-04-22 04:53] LABS: TOTAL CARBON DIOXIDE 14.2 MMOL/L (24-32)
[2019-04-22 04:54] LABS: LARGE PLATELETS FEW; PLATELET ESTIMATE DECREASED
[2019-04-22] MEDS ORDERED: Neutra Phos packet PO PRN (05:00)
--- NOTE | 2019-04-22 06:14 | NUR ---
Problems reprioritized. Patient report given, questions answered & plan of care reviewed with Tena TORRES.
[2019-04-22] MEDS: normal saline 1000ml 1,000 ML IV SCH ×3 (06:18→21:11)
[2019-04-22] MEDS: K, MAG and/or Phos replacement - Verify level? MC SCH (08:00)
[2019-04-22] MEDS: docusate sod 100mg capsule PO SCH ×2 (08:54→21:08)
[2019-04-22] MEDS: pantoprazole 40mg Tablet.DR PO SCH (08:54)
[2019-04-22] MEDS: lactobacillus rhamnosus 10,000 MMU CELLS/CAPSULE PO SCH ×2 (08:54→21:09)
[2019-04-22] MEDS: heparin, porcine 5000 units/ml vial SQ SCH ×2 (08:55→21:11)
[2019-04-22] MEDS: insulin Lispro (HumaLOG) vial - multi-dose SQ SCH ×3 (09:09→21:30)
[2019-04-22 10:32] LABS: ALANINE AMINOTRANSFERASE 24 U/L (12-78); ALBUMIN 2.3 G/DL (3.4-5.0); ALBUMIN/GLOBULIN RATIO 0.7 (1.1-1.5); ALKALINE PHOSPHATASE 110 IU/L (46-116); ANION GAP 11 (8-16); ASPARTATE AMINO TRANSFERASE 18 U/L (10-37); BILIRUBIN,TOTAL 0.4 MG/DL (0.1-1.0); BLOOD UREA NITROGEN 11 MG/DL (7-18); BUN/CREATININE RATIO 13.3 (6.6-38.0); CALCIUM 6.8 MG/DL (8.5-10.1); CHLORIDE 104 MMOL/L (99-107); CREATININE 0.83 MG/DL (0.40-0.90); GLUCOSE 325 MG/DL (70-104); MAGNESIUM 2.1 MG/DL (1.5-2.4); PHOSPHORUS 1.8 MG/DL (2.3-4.5); POTASSIUM 4.2 MMOL/L (3.5-5.1); SODIUM 129 MMOL/L (135-145); TOTAL PROTEIN 5.4 G/DL (6.4-8.2); eGFR 78 ML/MIN
[2019-04-22 10:35] LABS: TOTAL CARBON DIOXIDE 14.2 MMOL/L (24-32)
[2019-04-22] MEDS: Neutra Phos packet PO PRN ×2 (10:47→14:40)
[2019-04-22] MEDS ORDERED: BUPR1FIL3 SL (10:59)
[2019-04-22] MEDS ORDERED: CLON2TAB11 PO (11:19)
[2019-04-22] MEDS: clonazePAM 1mg tablet PO SCH ×2 (11:51→21:08)
[2019-04-22] MEDS ORDERED: buprenorphine/naloxone 8mg/2mg SL tablet SL SCH (14:05)
--- NOTE | 2019-04-22 16:15 | NUR ---
earlier pt was very anxious and tearful stating she wanted to go. RN asked why she wanted to go home and she stated she felt like she wasn't being taken care of and she didn't have all her medications. Pt requesting her Klonopin and Suboxin. RN explained pts plan of care and advised her to stay. Obtained pts med lists from [facility] and [facility]. Klonopin and Suboxin ordered and administered with positive result. Pt is more calm now and receptive to teaching.
[2019-04-22 16:27] LABS: ALANINE AMINOTRANSFERASE 24 U/L (12-78); ALBUMIN 2.5 G/DL (3.4-5.0); ALBUMIN/GLOBULIN RATIO 0.8 (1.1-1.5); ALKALINE PHOSPHATASE 118 IU/L (46-116); ANION GAP 13 (8-16); ASPARTATE AMINO TRANSFERASE 13 U/L (10-37); BILIRUBIN,TOTAL 0.3 MG/DL (0.1-1.0); BLOOD UREA NITROGEN 11 MG/DL (7-18); BUN/CREATININE RATIO 10.4 (6.6-38.0); CALCIUM 7.2 MG/DL (8.5-10.1); CHLORIDE 100 MMOL/L (99-107); CREATININE 1.06 MG/DL (0.40-0.90); GLUCOSE 398 MG/DL (70-104); MAGNESIUM 1.9 MG/DL (1.5-2.4); PHOSPHORUS 1.4 MG/DL (2.3-4.5); POTASSIUM 3.5 MMOL/L (3.5-5.1); SODIUM 128 MMOL/L (135-145); TOTAL CARBON DIOXIDE 15.5 MMOL/L (24-32); TOTAL PROTEIN 5.7 G/DL (6.4-8.2); eGFR 59 ML/MIN
--- NOTE | 2019-04-22 16:47 | NUR ---
Reassessment: Patient is eating well today, ate 75-100% of carb controlled breakfast. Pt is A/O x4. Noted in patient's history that she was newly diagnosed with type 1 diabetes during her admission on 10/17/17, at that time the RD provided written DM education handout with verbal review and referral to outpatient DM education class with CDE on sunday, additionally the RD reviewed with pt and her mom of meal frequency portion sizing, snack options, types of carbs, high protein foods, optimal food choices, and reinforced routine DM meds consistency. Met patient at bedside to discuss DM education and provide written DM education handout with verbal review and referral to outpatient DM education class on sunday. Pt reports that she had seen special educator at [facility] when she was first diagnosed however had stopped going d/t feeling uncomfortable and emotional when she did not understand everything, pt verbalized attempting to understand DM and insulin routine but is having a difficult time and wants to go back to basics. Pt reports [facility] RD encouraged pt to go to the appt, see DM educator, and attend Sunday DM education class. Pt expressed motivation as she would like an insulin pump eventually, patient verbalized understanding of the process and effort needed to achieve her goal. Pt reports at times she has stomach discomfort after eating and feeling full, encouraged pt to speak with her primary care physician regarding that and discussed foods that may prevent discomfort possibly r/t delayed gastric emptying. Pt reports hunger after meals, eating 75-100%, d/w dietary to send double portions of eggs and meat. Will continue to follow. Recommend: 1. continue carb controlled diet 2. wt per rx Addendum: 04/22/19 at [address] Amended: Links added.
--- NOTE | 2019-04-22 17:38 | NUR ---
VS stable and WNL for pt. Started on home doses of Suboxone and Klonopin this shift and pt is much calmer. Medicated with Zofran per request x2 for c/o nausea. Eating well this shift. Eats most of her meals and then snacks on sugar free jello and diet Sprite between meals. safety maintained when OOB independently. BG elevated during lunch. Lantus dose changed to 20. Will continue to monitor BG. Latest labs AGap 13, Co2 up to 15.5 from 14.2 this AM. Phos 2.2 this AM, replacing with Nutra Phos per protocol. 3rd dose due on NOC shift. Written and verbal diabetes education provided today, well received by pt.
[2019-04-22] MEDS: nicotine 21mg patch - 24 hr TD SCH (21:08)
[2019-04-22] MEDS: buprenorphine/naloxone 8mg/2mg SL tablet SL SCH (21:09)
[2019-04-22 21:20] LABS: ALANINE AMINOTRANSFERASE 24 U/L (12-78); ALBUMIN 2.5 G/DL (3.4-5.0); ALBUMIN/GLOBULIN RATIO 0.8 (1.1-1.5); ALKALINE PHOSPHATASE 126 IU/L (46-116); ANION GAP 7 (8-16); ASPARTATE AMINO TRANSFERASE 13 U/L (10-37); BILIRUBIN,TOTAL 0.3 MG/DL (0.1-1.0); BLOOD UREA NITROGEN 11 MG/DL (7-18); BUN/CREATININE RATIO 11.7 (6.6-38.0); CALCIUM 7.7 MG/DL (8.5-10.1); CHLORIDE 101 MMOL/L (99-107); CREATININE 0.94 MG/DL (0.40-0.90); GLUCOSE 435 MG/DL (70-104); POTASSIUM 4.4 MMOL/L (3.5-5.1); SODIUM 127 MMOL/L (135-145); TOTAL CARBON DIOXIDE 18.9 MMOL/L (24-32); TOTAL PROTEIN 5.6 G/DL (6.4-8.2); eGFR 68 ML/MIN
[2019-04-22] MEDS: insulin glargine (Lantus) pen - multi-dose SQ SCH (21:32)
[2019-04-23] VITALS (17 sets, daily range): BP systolic 90–146; BP diastolic 54–98
[2019-04-23] MEDS: ibuprofen 200mg tablet PO SCH ×2 (00:18→08:43)
[2019-04-23] MEDS: gabapentin 300mg capsule PO SCH ×4 (00:18→23:51)
--- NOTE | 2019-04-23 00:38 | NUR ---
still awake , watching TV and snacking at all times , claimed she is hungry all the time , no nausea noted , claimed that her blood sugar is high all the time and she used to it , keep requesting for soda and snacks at all times.
[2019-04-23] MEDS ORDERED: lactulose 20gm/30ml cup PO PRN (03:10)
[2019-04-23] MEDS: levoFLOXACIN-Levaquin 500mg/D5 100 ML IV SCH (04:01)
[2019-04-23 05:35] LABS: BASOPHILS % (AUTO) 0.7 % (0-1); EOSINOPHILS # (AUTO) 0.3 X10'3 (0-0.9); HEMATOCRIT 32.2 % (35.0-45.0); LYMPHOCYTES # (AUTO) 2.5 X10'3 (1.1-4.8); LYMPHOCYTES % (AUTO) 35.7 % (21-51); MEAN CORPUSCULAR HEMOGLOBIN 35.1 PG (27.0-31.0); MEAN CORPUSCULAR HGB CONC 34.1 g/dL (33.0-36.5); MEAN CORPUSCULAR VOLUME 102.8 FL (78-98); MEAN PLATELET VOLUME 11.9 FL (7.4-10.4); MONOCYTES # (AUTO) 0.4 X10'3 (0-0.9); MONOCYTES % (AUTO) 5.4 % (2-12); NEUTROPHILS # (AUTO) 3.7 X10'3 (1.8-7.7); NEUTROPHILS % (AUTO) 54.2 % (42-75); PLATELET COUNT 107 X10'3 (140-440); RED BLOOD COUNT 3.13 X10'6 (4.20-5.60); RED CELL DISTRIBUTION WIDTH 13.7 % (11.5-14.5); WHITE BLOOD COUNT 6.9 X10'3 (4.5-11.0)
[2019-04-23 05:41] LABS: ALANINE AMINOTRANSFERASE 20 U/L (12-78); ALBUMIN 2.2 G/DL (3.4-5.0); ALBUMIN/GLOBULIN RATIO 0.7 (1.1-1.5); ALKALINE PHOSPHATASE 115 IU/L (46-116); ANION GAP 9 (8-16); ASPARTATE AMINO TRANSFERASE 12 U/L (10-37); BILIRUBIN,TOTAL 0.2 MG/DL (0.1-1.0); BLOOD UREA NITROGEN 13 MG/DL (7-18); BUN/CREATININE RATIO 15.3 (6.6-38.0); CALCIUM 8.1 MG/DL (8.5-10.1); CHLORIDE 104 MMOL/L (99-107); CREATININE 0.85 MG/DL (0.40-0.90); GLUCOSE 323 MG/DL (70-104); MAGNESIUM 1.8 MG/DL (1.5-2.4); PHOSPHORUS 2.3 MG/DL (2.3-4.5); POTASSIUM 3.8 MMOL/L (3.5-5.1); SODIUM 131 MMOL/L (135-145); TOTAL CARBON DIOXIDE 17.7 MMOL/L (24-32); TOTAL PROTEIN 5.2 G/DL (6.4-8.2); eGFR 76 ML/MIN
--- NOTE | 2019-04-23 06:56 | NUR ---
Problems reprioritized. Patient report given, questions answered & plan of care reviewed with LEOBARDO TORRES.
[2019-04-23] MEDS: normal saline 1000ml 1,000 ML IV SCH (07:23)
[2019-04-23] MEDS: K, MAG and/or Phos replacement - Verify level? MC SCH (08:00)
[2019-04-23] MEDS: docusate sod 100mg capsule PO SCH ×2 (08:42→20:12)
[2019-04-23] MEDS: lactobacillus rhamnosus 10,000 MMU CELLS/CAPSULE PO SCH ×2 (08:42→20:13)
[2019-04-23] MEDS: buprenorphine/naloxone 8mg/2mg SL tablet SL SCH ×2 (08:42→20:13)
[2019-04-23] MEDS: pantoprazole 40mg Tablet.DR PO SCH (08:43)
[2019-04-23] MEDS: clonazePAM 1mg tablet PO SCH ×2 (08:43→20:12)
[2019-04-23] MEDS: nicotine 21mg patch - 24 hr TD SCH (08:44)
[2019-04-23] MEDS: heparin, porcine 5000 units/ml vial SQ SCH ×2 (08:46→20:13)
[2019-04-23] MEDS: insulin Lispro (HumaLOG) vial - multi-dose SQ SCH ×4 (09:09→20:40)
[2019-04-23 09:14] LABS: ALANINE AMINOTRANSFERASE 22 U/L (12-78); ALBUMIN 2.3 G/DL (3.4-5.0); ALBUMIN/GLOBULIN RATIO 0.7 (1.1-1.5); ALKALINE PHOSPHATASE 125 IU/L (46-116); ANION GAP 7 (8-16); ASPARTATE AMINO TRANSFERASE 13 U/L (10-37); BILIRUBIN,TOTAL 0.3 MG/DL (0.1-1.0); BLOOD UREA NITROGEN 12 MG/DL (7-18); BUN/CREATININE RATIO 19.4 (6.6-38.0); CALCIUM 7.6 MG/DL (8.5-10.1); CHLORIDE 105 MMOL/L (99-107); CREATININE 0.62 MG/DL (0.40-0.90); GLUCOSE 298 MG/DL (70-104); MAGNESIUM 1.5 MG/DL (1.5-2.4); PHOSPHORUS 2.3 MG/DL (2.3-4.5); POTASSIUM 3.9 MMOL/L (3.5-5.1); SODIUM 132 MMOL/L (135-145); TOTAL CARBON DIOXIDE 19.6 MMOL/L (24-32); TOTAL PROTEIN 5.5 G/DL (6.4-8.2); eGFR > 90 ML/MIN
--- NOTE | 2019-04-23 13:57 | NUR ---
Arrived to unit via wheelchair with personal belongings. In stable condition. Oriented to room and unit. Call light in reach.
--- NOTE | 2019-04-23 14:12 | NUR ---
Report given to BRIAN Morse. Patient transferred via wheelchair to room 3021.
[2019-04-23] MEDS: ondansetron/PF 4mg/2ml inj IV PRN ×2 (14:55→20:42)
--- NOTE | 2019-04-23 18:30 | NUR ---
Patient in room PCU 3021. I have received report from Mini TORRES and had the opportunity to ask questions and assume patient care.
--- NOTE | 2019-04-23 18:30 | NUR ---
Problems reprioritized. Patient report given, questions answered & plan of care reviewed with GINNY TORRES.
[2019-04-23] MEDS: insulin glargine (Lantus) pen - multi-dose SQ SCH (20:41)
[2019-04-24 03:00] VITALS: BP 130/79
[2019-04-24 05:58] LABS: BASOPHILS # (AUTO) 0.1 X10'3 (0-0.2); BASOPHILS % (AUTO) 1.1 % (0-1); EOSINOPHILS # (AUTO) 0.2 X10'3 (0-0.9); EOSINOPHILS % (AUTO) 3.1 % (0-6); HEMATOCRIT 36.8 % (35.0-45.0); HEMOGLOBIN 12.5 g/dl (12.0-16.0); LYMPHOCYTES # (AUTO) 3.3 X10'3 (1.1-4.8); LYMPHOCYTES % (AUTO) 48.6 % (21-51); MEAN CORPUSCULAR HEMOGLOBIN 34.4 PG (27.0-31.0); MEAN CORPUSCULAR HGB CONC 33.9 g/dL (33.0-36.5); MEAN CORPUSCULAR VOLUME 101.5 FL (78-98); MEAN PLATELET VOLUME 11.9 FL (7.4-10.4); MONOCYTES # (AUTO) 0.3 X10'3 (0-0.9); MONOCYTES % (AUTO) 5.1 % (2-12); NEUTROPHILS # (AUTO) 2.8 X10'3 (1.8-7.7); NEUTROPHILS % (AUTO) 42.1 % (42-75); PLATELET COUNT 118 X10'3 (140-440); RED BLOOD COUNT 3.63 X10'6 (4.20-5.60); RED CELL DISTRIBUTION WIDTH 13.4 % (11.5-14.5); WHITE BLOOD COUNT 6.7 X10'3 (4.5-11.0)
[2019-04-24 06:00] VITALS: BP 135/80
--- NOTE | 2019-04-24 06:10 | NUR ---
Problems reprioritized. Patient report given, questions answered & plan of care reviewed with Jeffery TORRES.
[2019-04-24 06:14] LABS: ALANINE AMINOTRANSFERASE 21 U/L (12-78); ALBUMIN 2.5 G/DL (3.4-5.0); ALBUMIN/GLOBULIN RATIO 0.7 (1.1-1.5); ALKALINE PHOSPHATASE 120 IU/L (46-116); ANION GAP 7 (8-16); ASPARTATE AMINO TRANSFERASE 15 U/L (10-37); BILIRUBIN,TOTAL 0.3 MG/DL (0.1-1.0); BLOOD UREA NITROGEN 19 MG/DL (7-18); BUN/CREATININE RATIO 27.9 (6.6-38.0); CHLORIDE 104 MMOL/L (99-107); CREATININE 0.68 MG/DL (0.40-0.90); GLUCOSE 302 MG/DL (70-104); MAGNESIUM 1.8 MG/DL (1.5-2.4); PHOSPHORUS 4.3 MG/DL (2.3-4.5); POTASSIUM 3.9 MMOL/L (3.5-5.1); SODIUM 134 MMOL/L (135-145); TOTAL CARBON DIOXIDE 23.1 MMOL/L (24-32); eGFR > 90 ML/MIN
--- NOTE | 2019-04-24 06:22 | NUR ---
Patient in room PCU 3021. I have received report from BRIAN Parker and had the opportunity to ask questions and assume patient care. Patient is asleep upon entering room.
[2019-04-24] MEDS: K, MAG and/or Phos replacement - Verify level? MC SCH (07:04)
--- NOTE | 2019-04-24 07:13 | NUR ---
PAGER ID: [phone] MESSAGE: JONATHON 3021 Carito Herman: Blood sugar 442. Will follow protocol per coverage. BRIAN Gil Ext [phone]
[2019-04-24] MEDS: buprenorphine/naloxone 8mg/2mg SL tablet SL SCH ×2 (07:20→19:12)
[2019-04-24] MEDS: docusate sod 100mg capsule PO SCH ×2 (07:20→19:12)
[2019-04-24] MEDS: pantoprazole 40mg Tablet.DR PO SCH (07:20)
[2019-04-24] MEDS: gabapentin 300mg capsule PO SCH ×3 (07:20→23:58)
[2019-04-24] MEDS: clonazePAM 1mg tablet PO SCH ×2 (07:20→19:12)
[2019-04-24] MEDS: lactobacillus rhamnosus 10,000 MMU CELLS/CAPSULE PO SCH ×2 (07:20→19:12)
[2019-04-24] MEDS: nicotine 21mg patch - 24 hr TD SCH (07:21)
[2019-04-24] MEDS: heparin, porcine 5000 units/ml vial SQ SCH ×2 (07:21→19:12)
[2019-04-24] MEDS: insulin Lispro (HumaLOG) vial - multi-dose SQ SCH ×3 (09:07→19:04)
[2019-04-24] MEDS: ondansetron/PF 4mg/2ml inj IV PRN ×2 (09:53→19:11)
[2019-04-24 11:00] VITALS: BP 115/79
[2019-04-24] MEDS: levoFLOXACIN 500mg tablet PO SCH (11:44)
--- NOTE | 2019-04-24 14:24 | NUR ---
reassessment: Pt PO 75-100% meals w/ double proteins meeting needs. LBM 04/22. GLU increased to 441 today on hyperglycemia protocol and now 248. Will continue to monitor. Recommend: 1. continue carb controlled diet 2. wt per rx Addendum: 04/24/19 at [address] Amended: Links added.
[2019-04-24 15:00] VITALS: BP 130/94
--- NOTE | 2019-04-24 18:00 | NUR ---
Patient in room PCU 3021. I have received report from Jeffery TORRES and had the opportunity to ask questions and assume patient care.
--- NOTE | 2019-04-24 18:03 | NUR ---
Problems reprioritized. Patient report given, questions answered & plan of care reviewed with BRIAN Acuna.
[2019-04-24 19:00] VITALS: BP 130/94
[2019-04-24] MEDS: insulin glargine (Lantus) pen - multi-dose SQ SCH (21:35)
[2019-04-24 23:00] VITALS: BP 116/79
[2019-04-25 03:00] VITALS: BP_SYST 112; BP_SYST 118; BP_DIAS 73; BP_DIAS 75
[2019-04-25 05:43] LABS: ALANINE AMINOTRANSFERASE 34 U/L (12-78); ALBUMIN 2.6 G/DL (3.4-5.0); ALBUMIN/GLOBULIN RATIO 0.7 (1.1-1.5); ALKALINE PHOSPHATASE 115 IU/L (46-116); ANION GAP 8 (8-16); ASPARTATE AMINO TRANSFERASE 32 U/L (10-37); BASOPHILS # (AUTO) 0.1 X10'3 (0-0.2); BASOPHILS % (AUTO) 0.9 % (0-1); BILIRUBIN,TOTAL 0.2 MG/DL (0.1-1.0); BLOOD UREA NITROGEN 27 MG/DL (7-18); BUN/CREATININE RATIO 29.3 (6.6-38.0); CALCIUM 8.9 MG/DL (8.5-10.1); CHLORIDE 101 MMOL/L (99-107); CREATININE 0.92 MG/DL (0.40-0.90); EOSINOPHILS # (AUTO) 0.2 X10'3 (0-0.9); EOSINOPHILS % (AUTO) 3.1 % (0-6); GLUCOSE 292 MG/DL (70-104); HEMATOCRIT 35.5 % (35.0-45.0); LYMPHOCYTES # (AUTO) 3.8 X10'3 (1.1-4.8); LYMPHOCYTES % (AUTO) 50.1 % (21-51); MAGNESIUM 1.7 MG/DL (1.5-2.4); MEAN CORPUSCULAR HEMOGLOBIN 34.3 PG (27.0-31.0); MEAN CORPUSCULAR HGB CONC 33.8 g/dL (33.0-36.5); MEAN CORPUSCULAR VOLUME 101.6 FL (78-98); MEAN PLATELET VOLUME 11.5 FL (7.4-10.4); MONOCYTES # (AUTO) 0.4 X10'3 (0-0.9); MONOCYTES % (AUTO) 5.2 % (2-12); NEUTROPHILS # (AUTO) 3.1 X10'3 (1.8-7.7); NEUTROPHILS % (AUTO) 40.7 % (42-75); PHOSPHORUS 4.9 MG/DL (2.3-4.5); PLATELET COUNT 129 X10'3 (140-440); RED BLOOD COUNT 3.49 X10'6 (4.20-5.60); RED CELL DISTRIBUTION WIDTH 13.4 % (11.5-14.5); SODIUM 135 MMOL/L (135-145); TOTAL CARBON DIOXIDE 25.8 MMOL/L (24-32); TOTAL PROTEIN 6.2 G/DL (6.4-8.2); WHITE BLOOD COUNT 7.6 X10'3 (4.5-11.0); eGFR 69 ML/MIN
[2019-04-25 06:00] VITALS: BP 116/77
--- NOTE | 2019-04-25 06:09 | NUR ---
Problems reprioritized. Patient report given, questions answered & plan of care reviewed with Jeffery TORRES.
--- NOTE | 2019-04-25 06:13 | NUR ---
Patient in room PCU 3021. I have received report from BRIAN Parker and had the opportunity to ask questions and assume patient care.
[2019-04-25] MEDS: K, MAG and/or Phos replacement - Verify level? MC SCH (07:00)
[2019-04-25] MEDS: lactobacillus rhamnosus 10,000 MMU CELLS/CAPSULE PO SCH (07:23)
[2019-04-25] MEDS: buprenorphine/naloxone 8mg/2mg SL tablet SL SCH (07:23)
[2019-04-25] MEDS: pantoprazole 40mg Tablet.DR PO SCH (07:23)
[2019-04-25] MEDS: docusate sod 100mg capsule PO SCH (07:23)
[2019-04-25] MEDS: nicotine 21mg patch - 24 hr TD SCH (07:24)
[2019-04-25] MEDS: heparin, porcine 5000 units/ml vial SQ SCH (07:24)
[2019-04-25] MEDS: clonazePAM 1mg tablet PO SCH (07:24)
[2019-04-25] MEDS: gabapentin 300mg capsule PO SCH (07:24)
[2019-04-25 08:25] LABS: LARGE PLATELETS FEW; PLATELET ESTIMATE DECREASED
[2019-04-25] MEDS: insulin Lispro (HumaLOG) vial - multi-dose SQ SCH ×2 (09:04→10:17)
[2019-04-25] MEDS: levoFLOXACIN 500mg tablet PO SCH (11:00)
--- NOTE | 2019-04-25 16:33 | NUR ---
Patient was discharged. IV and tele DC'd. Stable per MD for DC. Educated on follow-up and DM survival guide.
== END 2019-04-25 10:49 | disposition home or self-care (01) | DRG 420 ==
LOC: ER 23:48 → ICU 2S 04-21 03:50 → CMPBEDREQ 04-21 17:25 → PCU 3S 04-23 13:57
PROVIDERS: ADMIT Internal Medicine Critical Care Medicine; ATTEND Family Medicine
DX: E10.10 Type 1 diabetes mellitus with ketoacidosis without coma (principal); N17.9 Acute kidney failure, unspecified; N18.3 Chronic kidney disease, stage 3 (moderate); F17.210 Nicotine dependence, cigarettes, uncomplicated; F41.9 Anxiety disorder, unspecified; N39.0 Urinary tract infection, site not specified; B96.20 Unspecified Escherichia coli [E. coli] as the cause of diseases classified elsewhere; Z91.19 Patient's noncompliance with other medical treatment and regimen; Z90.49 Acquired absence of other specified parts of digestive tract; Z79.899 Other long term (current) drug therapy; Z79.4 Long term (current) use of insulin
CPT/HCPCS: 36415; 36600; 71045; 80048; 80053; 80069; 81001; 82803; 82947; 82948; 83036; 83605; 83735; 84100; 84145; 84443; 84703; 85018; 85025; 87040; 87077; 87081; 87088; 87186; 96365; 96375; 96376; 99291; G0378; J0780; J1644; J1815; J1956; J2405; J3475; J3480; J7060

== ENCOUNTER 2019-05-18 18:58 | Inpatient (IN) | payer MEDICAID, OTHER ==
[~2019-05-18] VITALS: Ht 160 cm; Wt 45.6 kg
[~2019-05-18 18:58] MED LIST changes: +BUPR1FIL3 SL; +CLON2TAB11 PO
[2019-05-18] MEDS ORDERED: normal saline 1000ML IV soln IVB ONE (19:20)
[2019-05-18 19:54] LABS: CLARITY,URINE CLEAR (Clear); COLOR,URINE YELLOW (Yellow); GLUCOSE, URINE >=1000 mg/dl (Neg); KETONES,URINE >=80 mg/dl (Neg); LEUKOCYTE ESTERASE ,URINE NEGATIVE (Neg); NITRITES, URINE NEGATIVE (Neg); OCCULT BLOOD,URINE TRACE-INTACT (Neg); PH,URINE 5.5 (4.8-8.0); PROTEIN,URINE NEGATIVE (Neg); UROBILINOGEN,URINE 0.2 E.U/dL (0.2-1.0)
[2019-05-18 19:59] LABS: URINE HCG NEGATIVE (NEG)
[2019-05-18 20:00] LABS: URINE AMPHETAMINE SCREEN NEGATIVE (Neg); URINE BARBITUATE SCREEN NEGATIVE (Neg); URINE BENZODIAZEPINES SCREEN NEGATIVE (Neg); URINE CANNABINOID SCREEN NEGATIVE (Neg); URINE COCAINE SCREEN NEGATIVE (Neg); URINE METHADONE SCREEN NEGATIVE (Neg); URINE OPIATE SCREEN NEGATIVE (Neg); URINE PHENCYCLIDINE SCREEN NEGATIVE (Neg)
[2019-05-18 20:05] LABS: UA COLLECTION TYPE URINAL
[2019-05-18 20:15] LABS: BACTERIA,URINE NONE SEEN /HPF (Neg); MUCUS STRANDS FEW /LPF (Neg); RBC,URINE 0-2 /HPF (0-2); SQUAMOUS EPITHELIAL CELL,UR FEW /LPF (FEW); WBC,URINE 0-4 /HPF (0-4); YEAST FEW /HPF (NEGATIVE)
[2019-05-18 20:21] LABS: BASOPHILS # (AUTO) 0.2 X10'3 (0-0.2); EOSINOPHILS % (AUTO) 0.1 % (0-6); HEMATOCRIT 49.7 % (35.0-45.0); HEMOGLOBIN 13.8 g/dl (12.0-16.0); LYMPHOCYTES # (AUTO) 1.8 X10'3 (1.1-4.8); LYMPHOCYTES % (AUTO) 8.6 % (21-51); MEAN CORPUSCULAR HEMOGLOBIN 34.2 PG (27.0-31.0); MEAN CORPUSCULAR HGB CONC 27.9 g/dL (33.0-36.5); MEAN CORPUSCULAR VOLUME 122.8 FL (78-98); MEAN PLATELET VOLUME 11.8 FL (7.4-10.4); MONOCYTES # (AUTO) 1.7 X10'3 (0-0.9); MONOCYTES % (AUTO) 7.9 % (2-12); NEUTROPHILS # (AUTO) 17.5 X10'3 (1.8-7.7); NEUTROPHILS % (AUTO) 82.4 % (42-75); PLATELET COUNT 203 X10'3 (140-440); RED BLOOD COUNT 4.05 X10'6 (4.20-5.60); WHITE BLOOD COUNT 21.2 X10'3 (4.5-11.0)
[2019-05-18 20:31] LABS: ALANINE AMINOTRANSFERASE 42 U/L (12-78); ALBUMIN 2.9 G/DL (3.4-5.0); ALBUMIN/GLOBULIN RATIO 0.9 (1.1-1.5); ALKALINE PHOSPHATASE 147 IU/L (46-116); BILIRUBIN,TOTAL 0.5 MG/DL (0.1-1.0); BLOOD UREA NITROGEN 31 MG/DL (7-18); BUN/CREATININE RATIO 18.6 (6.6-38.0); CALCIUM 7.3 MG/DL (8.5-10.1); CREATININE 1.67 MG/DL (0.40-0.90); SODIUM 128 MMOL/L (135-145); TOTAL PROTEIN 6.2 G/DL (6.4-8.2); eGFR 35 ML/MIN
[2019-05-18 20:36] LABS: ABG BASE EXCESS -24.6 mmol/L (-2.0-3.0); ABG HCO3 3.8 mmol/L (22.0-26.0); ABG OXYGEN SATURATION 95.9 % (95-98); ABG PCO2 (T) 13.7 mmHg (35.0-45.0); ABG PH (T) 7.056 (7.350-7.450); ABG PO2 (T) 102.5 mmHg (83-108); FCOHb 1.1 % (0.5-1.5); FMetHb 0.3 % (0.3-1.12); FO2Hb 94.6 % (94-100); RESPIRATORY RATE (OBSERVED) 24 b/min
[2019-05-18 20:42] LABS: CHLORIDE 87 MMOL/L (99-107); POTASSIUM 5.8 MMOL/L (3.5-5.1)
[2019-05-18 20:46] LABS: ASPARTATE AMINO TRANSFERASE 61 U/L (10-37)
[2019-05-18] MEDS ORDERED: insulin regular, human 100 UNIT in normal saline 100ml IV soln 100 ML IV PRN ×2 (20:50)
[2019-05-18] MEDS ORDERED: normal saline 1000ml 1,000 ML IVB ONE (20:51)
[2019-05-18] MEDS ORDERED: CefTRIAXone 2gm/D5W 50ml 50 ML IV ONE (20:55)
[2019-05-18 21:16] LABS: ANION GAP 36 (8-16)
[2019-05-18 21:20] LABS: GLUCOSE 1139 MG/DL (70-104)
[2019-05-18 21:21] LABS: TOTAL CARBON DIOXIDE < 5 MMOL/L (24-32)
[2019-05-18] MEDS ORDERED: insulin regular, human 10 units/0.1 ml syringe SQ ONE (21:35)
[2019-05-18 21:46] LABS: PARTIAL THROMBOPLASTIN TIME 22 SECONDS (22-32)
[2019-05-18] MEDS: normal saline 1000ml 1,000 ML IV SCH ×2 (22:23→22:33)
[2019-05-18] MEDS ORDERED: insulin regular, DKA only 100 UNIT in normal saline 100ml IV soln 99 ML IV SCH ×2 (22:23)
[2019-05-18] MEDS ORDERED: potassium CL 20mEq in D5-1/2NS 1,000 ML IV PRN (22:23)
[2019-05-18] MEDS ORDERED: sodium phosphate inj. 15 MMOL in dextrose 5%-water 150 ML IV PRN (22:25)
[2019-05-18] MEDS ORDERED: potassium CL 10mEq/100ml bag 100 ML IV PRN ×2 (22:25)
[2019-05-18] MEDS ORDERED: magnesium 2GM in 50ml NS 50 ML IV PRN (22:25)
[2019-05-18] MEDS ORDERED: proCHLORperazine 10 MG/2 ml inj IV PRN (22:25)
[2019-05-18] MEDS: K, MAG and/or Phos replacement - Verify level? MC SCH (22:25)
[2019-05-18] MEDS ORDERED: acetaminophen 325mg tablet PO PRN ×2 (22:25)
[2019-05-18] MEDS ORDERED: insulin regular, human vial - multi-dose IV PRN (22:25)
[2019-05-18] MEDS ORDERED: magnesium hydroxide 30ml (MOM) UD suspension PO PRN (22:25)
[2019-05-18] MEDS ORDERED: ondansetron/PF 4mg/2ml inj IV PRN (22:25)
[2019-05-18] MEDS ORDERED: acetaminophen 650mg rectal suppository RC PRN (22:25)
[2019-05-18] MEDS ORDERED: sodium phosphate inj. 30 MMOL in dextrose 5%-water 250 ML IV PRN (22:25)
[2019-05-18] MEDS ORDERED: magnesium 4gm in 100ml NS 100 ML IV PRN (22:25)
[2019-05-18 22:47] LABS: TOTAL CELLS COUNTED 100
[2019-05-18 22:48] LABS: PLATELET ESTIMATE NORMAL
[2019-05-18 22:50] LABS: LARGE PLATELETS MODERATE
[2019-05-18] MEDS ORDERED: CLON-527 PO (23:39)
[2019-05-18] MEDS ORDERED: BUPR1FIL3 SL (23:39)
[2019-05-18] MEDS ORDERED: GABA-532 PO (23:39)
[2019-05-18] MEDS ORDERED: INSU100I45 (23:39)
[2019-05-18] MEDS ORDERED: LANTUS SQ (23:39)
[2019-05-19] VITALS (21 sets, daily range): BP systolic 91–125; BP diastolic 57–74
--- NOTE | 2019-05-19 | NUR ---
Pt arrived to CICU room 2012n via gurney from ER. DX DKA initial BS 1139 in ER Pt has received 3 liters of NS prior to arrival to ICU. Currently on insulin drip at 6units/hr. BS reads high upon arrival. Labs are pending. Patient is lethargic. MYRIAM @ 3mm bilaterally. Speech is slurred and incomprehensible. IV is patent NS infusing at 250ml/hr.Rhythm is sinus tachycardia HR 113.
[2019-05-19 00:17] LABS: ALBUMIN 3.8 G/DL (3.4-5.0); BLOOD UREA NITROGEN 31 MG/DL (7-18); BUN/CREATININE RATIO 17.1 (6.6-38.0); CALCIUM 8.5 MG/DL (8.5-10.1); CREATININE 1.81 MG/DL (0.40-0.90); eGFR 32 ML/MIN
[2019-05-19 00:42] LABS: SODIUM 135 MMOL/L (135-145)
[2019-05-19 00:44] LABS: ANION GAP 34 (8-16); CHLORIDE 96 MMOL/L (99-107)
[2019-05-19 00:45] LABS: GLUCOSE 820 MG/DL (70-104)
[2019-05-19 00:46] LABS: TOTAL CARBON DIOXIDE < 5 MMOL/L (24-32)
[2019-05-19 01:58] LABS: ALBUMIN 3.2 G/DL (3.4-5.0); BLOOD UREA NITROGEN 29 MG/DL (7-18); BUN/CREATININE RATIO 18.6 (6.6-38.0); CALCIUM 8.4 MG/DL (8.5-10.1); CHLORIDE 103 MMOL/L (99-107); CREATININE 1.56 MG/DL (0.40-0.90); eGFR 38 ML/MIN
[2019-05-19 02:04] LABS: ANION GAP 24 (8-16); POTASSIUM 4.1 MMOL/L (3.5-5.1); SODIUM 137 MMOL/L (135-145)
[2019-05-19 02:07] LABS: GLUCOSE 574 MG/DL (70-104); TOTAL CARBON DIOXIDE 10.4 MMOL/L (24-32)
[2019-05-19] MEDS: normal saline 1000ml 1,000 ML IV SCH ×6 (02:17→10:23)
[2019-05-19 04:10] LABS: BASOPHILS # (AUTO) 0.3 X10'3 (0-0.2); BASOPHILS % (AUTO) 1.5 % (0-1); EOSINOPHILS # (AUTO) 0.1 X10'3 (0-0.9); EOSINOPHILS % (AUTO) 0.4 % (0-6); HEMATOCRIT 37.4 % (35.0-45.0); HEMOGLOBIN 12.3 g/dl (12.0-16.0); LYMPHOCYTES # (AUTO) 4.2 X10'3 (1.1-4.8); LYMPHOCYTES % (AUTO) 21.6 % (21-51); MEAN CORPUSCULAR HEMOGLOBIN 34.5 PG (27.0-31.0); MEAN CORPUSCULAR VOLUME 104.8 FL (78-98); MEAN PLATELET VOLUME 10.7 FL (7.4-10.4); MONOCYTES # (AUTO) 1.4 X10'3 (0-0.9); NEUTROPHILS # (AUTO) 13.4 X10'3 (1.8-7.7); NEUTROPHILS % (AUTO) 69.5 % (42-75); PLATELET COUNT 178 X10'3 (140-440); RED BLOOD COUNT 3.57 X10'6 (4.20-5.60); RED CELL DISTRIBUTION WIDTH 13.3 % (11.5-14.5); WHITE BLOOD COUNT 19.3 X10'3 (4.5-11.0)
[2019-05-19 04:21] LABS: ALANINE AMINOTRANSFERASE 37 U/L (12-78); ALBUMIN/GLOBULIN RATIO 0.8 (1.1-1.5); ALKALINE PHOSPHATASE 136 IU/L (46-116); BILIRUBIN,TOTAL 0.4 MG/DL (0.1-1.0); BLOOD UREA NITROGEN 22 MG/DL (7-18); BUN/CREATININE RATIO 16.3 (6.6-38.0); CALCIUM 8.2 MG/DL (8.5-10.1); CHLORIDE 108 MMOL/L (99-107); CREATININE 1.35 MG/DL (0.40-0.90); GLUCOSE 376 MG/DL (70-104); MAGNESIUM 1.6 MG/DL (1.5-2.4); TOTAL PROTEIN 6.6 G/DL (6.4-8.2); eGFR 45 ML/MIN
[2019-05-19 04:31] LABS: ANION GAP 24 (8-16); POTASSIUM 3.9 MMOL/L (3.5-5.1); SODIUM 145 MMOL/L (135-145)
[2019-05-19 04:33] LABS: ASPARTATE AMINO TRANSFERASE 40 U/L (10-37)
[2019-05-19 04:34] LABS: TOTAL CARBON DIOXIDE 12.9 MMOL/L (24-32)
[2019-05-19 04:42] LABS: ETHANOL < 0.010 GM/DL (0.0-0.010)
[2019-05-19] MEDS ORDERED: sodium phosphate inj. 15 MMOL in dextrose 5%-water 250 ML IV ONE (05:25)
[2019-05-19 05:30] LABS: ABG BASE EXCESS -9.3 mmol/L (-2.0-3.0); ABG HCO3 16.8 mmol/L (22.0-26.0); ABG OXYGEN SATURATION 94.7 % (95-98); ABG PCO2 (T) 36.8 mmHg (35.0-45.0); ABG PH (T) 7.275 (7.350-7.450); ABG PO2 (T) 70.1 mmHg (83-108); FCOHb 0.4 % (0.5-1.5); FO2Hb 94.3 % (94-100); PATIENT TEMPERATURE 36.7; TOTAL HEMOGLOBIN 12.2 G/dl (12.0-16.0)
--- NOTE | 2019-05-19 05:30 | NUR ---
Gabriel cath D/C'd. Pure wick placed.
--- NOTE | 2019-05-19 06:29 | NUR ---
Problems reprioritized. Patient report given, questions answered & plan of care reviewed with Eligio TORRES.
[2019-05-19] MEDS: CefTRIAXone 2gm/D5W 50ml 50 ML IV SCH (06:49)
[2019-05-19] MEDS: docusate sod 100mg capsule PO SCH ×2 (07:35→20:49)
[2019-05-19] MEDS: famotidine 20mg tablet PO SCH ×2 (07:36→20:50)
[2019-05-19] MEDS: multivitamins, therapeutics tablet PO SCH (07:36)
[2019-05-19] MEDS: heparin, porcine 5000 units/ml vial SQ SCH ×2 (07:36→20:55)
[2019-05-19] MEDS: folic acid 1mg tablet PO SCH (07:36)
[2019-05-19] MEDS: thiamine 100mg tablet PO SCH (07:36)
[2019-05-19] MEDS: gabapentin 300mg capsule PO SCH ×4 (07:36→20:50)
[2019-05-19] MEDS: nicotine 21mg patch - 24 hr TD SCH (07:37)
[2019-05-19] MEDS: K, MAG and/or Phos replacement - Verify level? MC SCH (08:00)
[2019-05-19] MEDS: buprenorphine/naloxone 8MG-2MG SUBlingual film SL SCH ×2 (08:00→20:54)
[2019-05-19 09:39] LABS: ANION GAP 12 (8-16); BLOOD UREA NITROGEN 19 MG/DL (7-18); BUN/CREATININE RATIO 14.3 (6.6-38.0); CALCIUM 8.2 MG/DL (8.5-10.1); CHLORIDE 111 MMOL/L (99-107); CREATININE 1.33 MG/DL (0.40-0.90); GLUCOSE 184 MG/DL (70-104); PHOSPHORUS 1.9 MG/DL (2.3-4.5); POTASSIUM 3.4 MMOL/L (3.5-5.1); SODIUM 142 MMOL/L (135-145); TOTAL CARBON DIOXIDE 19.2 MMOL/L (24-32); eGFR 45 ML/MIN
[2019-05-19] MEDS ORDERED: POTASSIUM BICARB 20meq eff tab 20 MEQ TABLET.EFF PO ONE (11:15)
[2019-05-19] MEDS ORDERED: glucagon, human recombinant 1mg kit SUBCUT PRN (11:45)
[2019-05-19] MEDS ORDERED: dextrose 50%-water 50ml dispensing syringe IV PRN ×2 (11:45)
[2019-05-19] MEDS ORDERED: MESSAGE TO PHARMACY PO ONE (11:45)
[2019-05-19] MEDS ORDERED: dextrose ORAL solution 15 GM/59 ML bottle PO PRN ×2 (11:45)
[2019-05-19] MEDS ORDERED: insulin Lispro (HumaLOG) vial - multi-dose SQ SCH (12:00)
[2019-05-19] MEDS ORDERED: INSU100I31 SQ (12:09)
[2019-05-19 14:46] LABS: PLATELET ESTIMATE NORMAL; TOTAL CELLS COUNTED 100
[2019-05-19 14:47] LABS: POLYCHROMASIA FEW; STOMATOCYTES 1+
[2019-05-19 14:48] LABS: LARGE PLATELETS FEW
--- NOTE | 2019-05-19 15:18 | NUR ---
Malnutrition, DM consult, A1c >14, admitted with glucose 1100 mg/dl. Very fatigued today. Patient many previous admits with DKA, many visits by RD for verbal and written DM education. Last RD education given during admission 04/21-04/25; patient has received referral in the past to [facility]. Diet is advanced to carb controlled, pending intake. Likely appetite poor r/t recent DKA. Patient's weight is consistent with previously documented wts at previous admission, patient is chronically underweight. No malnutrition at this time. Will continue to follow. Recommend: 1. continue carb controlled 2. needs DM ed 3. wt per rx Addendum: 05/19/19 at [address] Amended: Links added.
--- NOTE | 2019-05-19 15:48 | NUR ---
Received report from ICU nurse. awaiting arrival
[2019-05-19] MEDS: insulin Lispro (HumaLOG) vial - multi-dose SQ SCH ×3 (16:00→23:20)
--- NOTE | 2019-05-19 16:55 | NUR ---
patient arrived on unit from ICU. orientated her to the room. At this moment does not have any questions. My current assessment concurs with the assessment from the ICU.
--- NOTE | 2019-05-19 17:42 | NUR ---
Retrieved from pts EMR: Pt is a 34-year-old female who presented to ED via EMS when glucose read High on monitor. Associated Nausea and Vomiting and abdominal pain were present. Pt has frequent readmissions for DKA. Pt is Current smoker, Renal Insufficiency, UTIs, Kidney Stones. DM T1, and history of illicit drug use. WOC consulted for: Low Clifford Scoring, High risk of skin breakdown. Currently pts skin is grossly intact, will continue to monitor. Pt has elevated WBC at 19.3, low potassium 3.4, Chloride high 111, BUN high 19, Creatinine high 1.33, and estimated GFR 45, Glucose has been from 1139 to 151. Calcium low 8.2, Phosphorus 1.9 low, Albumin 3.0. WOC consulted for: Low clifford scoring and high risk for skin breakdown. Pts skin grossly intact at this time, will continue to monitor. RECOMMEND: 1. Daily bathing with no rinse skin cleanser. 2. Cream/Lotion to be applied to skin after bathing. 3. Deborah care Q shift and prn soiling followed by with Barrier Cream. 4. Turn patient Q 1-2 hrs and reposition with pillows. 5. Float heels to offload pressure.
--- NOTE | 2019-05-19 18:19 | NUR ---
Problems reprioritized. Patient report given, questions answered & plan of care reviewed with Orly TORRES.
[2019-05-19] MEDS: lactobacillus rhamnosus 10,000 MMU CELLS/CAPSULE PO SCH (20:50)
[2019-05-19] MEDS: clonazePAM 1mg tablet PO SCH (21:17)
--- NOTE | 2019-05-19 22:13 | NUR ---
glucometer does not seem to be downloading result to her EMR ramiro, left message for POC.
[2019-05-19] MEDS: insulin glargine (Lantus) pen - multi-dose SQ SCH (23:19)
[2019-05-20 05:50] LABS: BASOPHILS # (AUTO) 0.1 X10'3 (0-0.2); EOSINOPHILS # (AUTO) 0.2 X10'3 (0-0.9); EOSINOPHILS % (AUTO) 2.4 % (0-6); HEMOGLOBIN 12.7 g/dl (12.0-16.0); LYMPHOCYTES # (AUTO) 3.2 X10'3 (1.1-4.8); LYMPHOCYTES % (AUTO) 31.8 % (21-51); MEAN CORPUSCULAR HEMOGLOBIN 34.7 PG (27.0-31.0); MEAN CORPUSCULAR HGB CONC 33.5 g/dL (33.0-36.5); MEAN CORPUSCULAR VOLUME 103.6 FL (78-98); MEAN PLATELET VOLUME 11.3 FL (7.4-10.4); MONOCYTES # (AUTO) 0.4 X10'3 (0-0.9); MONOCYTES % (AUTO) 3.8 % (2-12); NEUTROPHILS # (AUTO) 6.1 X10'3 (1.8-7.7); PLATELET COUNT 143 X10'3 (140-440); RED BLOOD COUNT 3.66 X10'6 (4.20-5.60); RED CELL DISTRIBUTION WIDTH 13.9 % (11.5-14.5)
[2019-05-20] MEDS ORDERED: potassium Cl 20 mEq SR tablet PO PRN ×2 (06:15)
--- NOTE | 2019-05-20 06:17 | NUR ---
Problems reprioritized. Patient report given, questions answered & plan of care reviewed with Kayce TORRES.
[2019-05-20 06:22] LABS: ALANINE AMINOTRANSFERASE 29 U/L (12-78); ALBUMIN/GLOBULIN RATIO 0.8 (1.1-1.5); ALKALINE PHOSPHATASE 126 IU/L (46-116); ANION GAP 12 (8-16); ASPARTATE AMINO TRANSFERASE 26 U/L (10-37); BILIRUBIN,TOTAL 0.5 MG/DL (0.1-1.0); BLOOD UREA NITROGEN 12 MG/DL (7-18); BUN/CREATININE RATIO 9.7 (6.6-38.0); CALCIUM 8.7 MG/DL (8.5-10.1); CHLORIDE 106 MMOL/L (99-107); CREATININE 1.24 MG/DL (0.40-0.90); GLUCOSE 282 MG/DL (70-104); MAGNESIUM 1.7 MG/DL (1.5-2.4); PHOSPHORUS 2.6 MG/DL (2.3-4.5); POTASSIUM 4.1 MMOL/L (3.5-5.1); SODIUM 138 MMOL/L (135-145); TOTAL CARBON DIOXIDE 19.8 MMOL/L (24-32); TOTAL PROTEIN 6.6 G/DL (6.4-8.2); eGFR 49 ML/MIN
--- NOTE | 2019-05-20 06:27 | NUR ---
Patient in room PCU 3024. I have received report from [facility] and had the opportunity to ask questions and assume patient care.
[2019-05-20 07:00] VITALS: BP 97/60
[2019-05-20] MEDS: multivitamins, therapeutics tablet PO SCH (07:20)
[2019-05-20] MEDS: docusate sod 100mg capsule PO SCH ×2 (07:20→20:00)
[2019-05-20] MEDS: lactobacillus rhamnosus 10,000 MMU CELLS/CAPSULE PO SCH ×2 (07:20→20:01)
[2019-05-20] MEDS: famotidine 20mg tablet PO SCH ×2 (07:20→20:01)
[2019-05-20] MEDS: gabapentin 300mg capsule PO SCH ×2 (07:20→20:02)
[2019-05-20] MEDS: folic acid 1mg tablet PO SCH (07:20)
[2019-05-20] MEDS: buprenorphine/naloxone 8MG-2MG SUBlingual film SL SCH ×2 (07:21→20:00)
[2019-05-20] MEDS: thiamine 100mg tablet PO SCH (07:21)
[2019-05-20] MEDS: clonazePAM 1mg tablet PO SCH ×2 (07:21→20:01)
[2019-05-20] MEDS: heparin, porcine 5000 units/ml vial SQ SCH ×2 (07:22→20:00)
[2019-05-20] MEDS: CefTRIAXone 2gm/D5W 50ml 50 ML IV SCH (07:25)
[2019-05-20] MEDS: K, MAG and/or Phos replacement - Verify level? MC SCH (08:00)
[2019-05-20] MEDS: nicotine 21mg patch - 24 hr TD SCH (09:52)
[2019-05-20] MEDS: insulin Lispro (HumaLOG) vial - multi-dose SQ SCH ×3 (09:55→20:10)
[2019-05-20 11:00] VITALS: BP 107/77
--- NOTE | 2019-05-20 12:16 | NUR ---
F/u for DM ed: Pt states she would like to get an insulin pump however uses pens for now. Pt reports checking her BG 4 times a day with fluctuating results, states she counts carbs, and takes her insulin per rx. Pt states she is unsure as to why her BG levels are high because she thinks she is doing everything to manage her DM. Pt states she understands how to dose her insulin and count carbs. Pt reports that her MD is wanting to change up her insulin routine to better manage her blood sugars however pt appears to have some hesitation about that. Encouraged pt to continue following up with her appointments with her MD. Pt states her NA director is encouraging her to reach out to an sas administrator, which RD encouraged as well. Pt denies any questions about DM management at this time. Written DM ed with referral to outpatient DM class and RD contact information provided. Encouraged pt to attend outpatient CDE course. Pt currently on CHO controlled diet with documented 25% PO intake yesterday, pending documentation of PO intake today however pt endorses a good appetite and reports 100% PO intake of breakfast this morning. Pt denies food allergies, difficulty chewing/swallowing, or constipation. LBM 812 per pt. Pt states she is unsure of how much wt she might have lost however states she has gained it back and reports UBW 100 lbs. Will continue to follow. Addendum: 05/20/19 at [address] Amended: Links added.
--- NOTE | 2019-05-20 12:24 | NUR ---
Paged Dr. colin PAGER ID: [phone] MESSAGE: [phone] Lucy Manley. no antibiotics ordered for today. since patient is not discharging home do we need antibiotic orders? there are orders for Keflex when discharging. patient had low grade fever in morning Kayce braun [phone] Addendum: 05/20/19 at 1227 by Kayce Garrison RN wrong patient
--- NOTE | 2019-05-20 14:19 | NUR ---
Paged Dr. Fountain PAGER ID: [phone] MESSAGE: [phone] Marylu Herman having increased anxiety, crying. Can we get a PRN order for antianxiety? She has Klonopin 2mg ordered BID. Pia TORRES [id number]
[2019-05-20] MEDS ORDERED: LORazepam 1 MG tablet PO PRN (14:25)
[2019-05-20 15:00] VITALS: BP 113/71
--- NOTE | 2019-05-20 18:00 | NUR ---
I have reviewed and agree with all interventions, assessments performed and documented by Pia TORRES.
--- NOTE | 2019-05-20 18:05 | NUR ---
Patient in room PCU 3024. I have received report from Kayce TORRES and had the opportunity to ask questions and assume patient care.
--- NOTE | 2019-05-20 18:29 | NUR ---
Problems reprioritized. Patient report given, questions answered & plan of care reviewed with Shiraz RN.
[2019-05-20 19:00] VITALS: BP 116/82
[2019-05-20] MEDS: insulin glargine (Lantus) pen - multi-dose SQ SCH (22:13)
[2019-05-20 23:00] VITALS: BP 109/77
[2019-05-21 03:00] VITALS: BP 95/65
[2019-05-21 06:00] VITALS: BP 118/87
--- NOTE | 2019-05-21 06:25 | NUR ---
Problems reprioritized. Patient report given, questions answered & plan of care reviewed with Talia TORRES.
[2019-05-21 06:37] LABS: BASOPHILS # (AUTO) 0.1 X10'3 (0-0.2); BASOPHILS % (AUTO) 1.3 % (0-1); EOSINOPHILS # (AUTO) 0.3 X10'3 (0-0.9); EOSINOPHILS % (AUTO) 4.3 % (0-6); HEMATOCRIT 36.2 % (35.0-45.0); HEMOGLOBIN 12.3 g/dl (12.0-16.0); LYMPHOCYTES # (AUTO) 2.9 X10'3 (1.1-4.8); LYMPHOCYTES % (AUTO) 46.7 % (21-51); MEAN CORPUSCULAR HEMOGLOBIN 34.6 PG (27.0-31.0); MEAN CORPUSCULAR HGB CONC 34.1 g/dL (33.0-36.5); MEAN CORPUSCULAR VOLUME 101.4 FL (78-98); MEAN PLATELET VOLUME 10.9 FL (7.4-10.4); MONOCYTES # (AUTO) 0.4 X10'3 (0-0.9); NEUTROPHILS # (AUTO) 2.6 X10'3 (1.8-7.7); NEUTROPHILS % (AUTO) 41.7 % (42-75); PLATELET COUNT 134 X10'3 (140-440); RED BLOOD COUNT 3.56 X10'6 (4.20-5.60); RED CELL DISTRIBUTION WIDTH 13.4 % (11.5-14.5); WHITE BLOOD COUNT 6.2 X10'3 (4.5-11.0)
[2019-05-21 06:38] LABS: ALANINE AMINOTRANSFERASE 32 U/L (12-78); ALBUMIN 2.9 G/DL (3.4-5.0); ALBUMIN/GLOBULIN RATIO 0.8 (1.1-1.5); ANION GAP 7 (8-16); ASPARTATE AMINO TRANSFERASE 17 U/L (10-37); BILIRUBIN,TOTAL 0.4 MG/DL (0.1-1.0); BLOOD UREA NITROGEN 16 MG/DL (7-18); BUN/CREATININE RATIO 25.4 (6.6-38.0); CALCIUM 9.3 MG/DL (8.5-10.1); CHLORIDE 109 MMOL/L (99-107); CREATININE 0.63 MG/DL (0.40-0.90); GLUCOSE 89 MG/DL (70-104); MAGNESIUM 1.8 MG/DL (1.5-2.4); PHOSPHORUS 3.5 MG/DL (2.3-4.5); POTASSIUM 3.3 MMOL/L (3.5-5.1); SODIUM 144 MMOL/L (135-145); TOTAL PROTEIN 6.5 G/DL (6.4-8.2); eGFR > 90 ML/MIN
[2019-05-21 06:49] LABS: ALKALINE PHOSPHATASE 116 IU/L (46-116)
[2019-05-21] MEDS: CefTRIAXone 2gm/D5W 50ml 50 ML IV SCH (07:20)
[2019-05-21] MEDS: multivitamins, therapeutics tablet PO SCH (07:21)
[2019-05-21] MEDS: lactobacillus rhamnosus 10,000 MMU CELLS/CAPSULE PO SCH (07:21)
[2019-05-21] MEDS: nicotine 21mg patch - 24 hr TD SCH (07:21)
[2019-05-21] MEDS: buprenorphine/naloxone 8MG-2MG SUBlingual film SL SCH (07:21)
[2019-05-21] MEDS: clonazePAM 1mg tablet PO SCH (07:21)
[2019-05-21] MEDS: thiamine 100mg tablet PO SCH (07:22)
[2019-05-21] MEDS: gabapentin 300mg capsule PO SCH (07:22)
[2019-05-21] MEDS: famotidine 20mg tablet PO SCH (07:22)
[2019-05-21] MEDS: docusate sod 100mg capsule PO SCH (07:22)
[2019-05-21] MEDS: folic acid 1mg tablet PO SCH (07:22)
[2019-05-21] MEDS: heparin, porcine 5000 units/ml vial SQ SCH (07:23)
[2019-05-21] MEDS: insulin Lispro (HumaLOG) vial - multi-dose SQ SCH (08:56)
--- NOTE | 2019-05-21 09:40 | NUR ---
Patient in room PCU 3024. I have received report from BRIAN Weldon and had the opportunity to ask questions and assume patient care.
--- NOTE | 2019-05-21 10:06 | NUR ---
Problems reprioritized. Outcomes reviewed and updated.
--- NOTE | 2019-05-21 10:45 | NUR ---
Dr. Fountain in to see patient. Patient states she wants to go home and will leave if not discharged. Discussed with patient the risks and possible complications of leaving AMA, patient states she understands. AMA form signed.
--- NOTE | 2019-05-21 11:10 | NUR ---
Patient left AMA in care of friend.
[2019-05-21] MEDS ORDERED: LIDO15CR11 TOP (23:50)
== END 2019-05-21 11:09 | disposition left against medical advice (07) | DRG 420 ==
LOC: ER 18:59 → EDBD 18:59 → MERGE 23:59 → CICU 2S 23:59 → PCU 3S 05-19 16:35
PROVIDERS: ADMIT Internal Medicine Critical Care Medicine; ATTEND Family Medicine
DX: E10.10 Type 1 diabetes mellitus with ketoacidosis without coma (principal); N17.9 Acute kidney failure, unspecified; D72.829 Elevated white blood cell count, unspecified; F17.210 Nicotine dependence, cigarettes, uncomplicated; F41.9 Anxiety disorder, unspecified; Z53.21 Procedure and treatment not carried out due to patient leaving prior to being seen by health care provider; Z79.4 Long term (current) use of insulin; Z87.440 Personal history of urinary (tract) infections; Z91.19 Patient's noncompliance with other medical treatment and regimen; Z79.899 Other long term (current) drug therapy; Z90.49 Acquired absence of other specified parts of digestive tract
CPT/HCPCS: 36415; 36600; 71045; 80048; 80053; 80305; 80320; 81001; 81025; 82803; 82948; 83605; 83735; 84100; 84145; 85018; 85025; 85610; 85730; 87040; 87081; 93005; 96361; 96365; 96367; 96372; 97116; 97161; 97535; 99291; G0378; J0696; J1644; J1815; J3480; J7060

== ENCOUNTER 2019-05-21 20:36 | Emergency (ER) | payer MEDICAID ==
[~2019-05-21] VITALS: Ht 149.9 cm; Wt 45.9 kg
[~2019-05-21 20:36] MED LIST changes: +CLON-527 PO; +GABA-532 PO; +INSU100I31 SQ; +INSU100I45; +LANTUS SQ
--- NOTE | 2019-05-21 20:47 | NUR ---
pt c\\o generalize illness. she can't pinpoint one thing in particular. "I just feel yucky altogether"
[2019-05-21] MEDS ORDERED: ondansetron/PF 4mg/2ml inj IV ONE (20:50)
[2019-05-21] MEDS ORDERED: normal saline 1000ML IV soln IVB ONE (20:50)
[2019-05-21 21:07] LABS: BASOPHILS # (AUTO) 0.1 X10'3 (0-0.2); BASOPHILS % (AUTO) 1.8 % (0-1); EOSINOPHILS # (AUTO) 0.2 X10'3 (0-0.9); EOSINOPHILS % (AUTO) 3.7 % (0-6); HEMATOCRIT 36.1 % (35.0-45.0); HEMOGLOBIN 12.3 g/dl (12.0-16.0); LYMPHOCYTES # (AUTO) 1.6 X10'3 (1.1-4.8); LYMPHOCYTES % (AUTO) 31.1 % (21-51); MEAN CORPUSCULAR HEMOGLOBIN 35.6 PG (27.0-31.0); MEAN CORPUSCULAR HGB CONC 34.2 g/dL (33.0-36.5); MEAN CORPUSCULAR VOLUME 104.2 FL (78-98); MEAN PLATELET VOLUME 10.8 FL (7.4-10.4); MONOCYTES # (AUTO) 0.4 X10'3 (0-0.9); MONOCYTES % (AUTO) 7.7 % (2-12); NEUTROPHILS # (AUTO) 2.9 X10'3 (1.8-7.7); NEUTROPHILS % (AUTO) 55.7 % (42-75); PLATELET COUNT 124 X10'3 (140-440); RED BLOOD COUNT 3.47 X10'6 (4.20-5.60); WHITE BLOOD COUNT 5.2 X10'3 (4.5-11.0)
--- NOTE | 2019-05-21 21:09 | NUR ---
UA sent to lab - pt resting on gurney, tearful, no distress noted.
[2019-05-21 21:24] LABS: CLARITY,URINE CLEAR (Clear); COLOR,URINE YELLOW (Yellow); GLUCOSE, URINE >=1000 mg/dl (Neg); KETONES,URINE NEGATIVE (Neg); LEUKOCYTE ESTERASE ,URINE NEGATIVE (Neg); NITRITES, URINE NEGATIVE (Neg); OCCULT BLOOD,URINE NEGATIVE (Neg); PROTEIN,URINE NEGATIVE (Neg); UROBILINOGEN,URINE 0.2 E.U/dL (0.2-1.0)
[2019-05-21 21:25] LABS: ALANINE AMINOTRANSFERASE 36 U/L (12-78); ALBUMIN 3.1 G/DL (3.4-5.0); ALBUMIN/GLOBULIN RATIO 0.8 (1.1-1.5); ALKALINE PHOSPHATASE 144 IU/L (46-116); ANION GAP 14 (8-16); ASPARTATE AMINO TRANSFERASE 22 U/L (10-37); BILIRUBIN,TOTAL 0.2 MG/DL (0.1-1.0); BLOOD UREA NITROGEN 16 MG/DL (7-18); BUN/CREATININE RATIO 13.2 (6.6-38.0); CALCIUM 8.4 MG/DL (8.5-10.1); CHLORIDE 97 MMOL/L (99-107); CREATININE 1.21 MG/DL (0.40-0.90); POTASSIUM 3.6 MMOL/L (3.5-5.1); SODIUM 133 MMOL/L (135-145); TOTAL CARBON DIOXIDE 22.4 MMOL/L (24-32); TOTAL PROTEIN 6.9 G/DL (6.4-8.2); eGFR 51 ML/MIN
[2019-05-21 21:28] LABS: UA COLLECTION TYPE CLN CATCH MIDSTREAM
[2019-05-21 21:31] LABS: BACTERIA,URINE NONE SEEN /HPF (Neg); MUCUS STRANDS NONE SEEN /LPF (Neg); RBC,URINE NONE SEEN /HPF (0-2); SQUAMOUS EPITHELIAL CELL,UR FEW /LPF (FEW); WBC,URINE NONE SEEN /HPF (0-4)
[2019-05-21 21:32] LABS: GLUCOSE 571 MG/DL (70-104)
[2019-05-21] MEDS ORDERED: insulin regular, human 10 units/0.1 ml syringe IV ONE (21:50)
[2019-05-21] MEDS: potassium Cl 10 mEq/100mL bag IV SCH ×2 (22:17→23:36)
[2019-05-21] MEDS ORDERED: diphenhydrAMINE 50 mg/ml inj IV ONE (22:20)
[2019-05-21] MEDS ORDERED: metoclopramide 5 mg/ml inj IV ONE (22:20)
--- NOTE | 2019-05-21 22:21 | NUR ---
PT ASKING FOR ANXIETY MEDICATION. STATES SHE TAKES KLONOPIN 2MG - MD AWARE OF PTS REQUEST. CONCERN IS THAT PTS EXTERNAL MED REC SHOWS THAT LAST 3 FILLS WERE FROM ER MD AND NOT A PMD - EXPLAINED THIS TO PATIENT WHO STATES "I WOULD JUST RATHER THEN" AND BECOMES UPSET AND CALLS SOMEONE ON HER PHONE.
--- NOTE | 2019-05-21 22:29 | NUR ---
PTS UPSET AND WANTS ME TO SPEAK TO HER MOTHER. SPOKE TO PTS MOTHER AT HER REQUEST AND SHE IS AWARE OF PTS CONDITION/PLAN OF CARE.
[2019-05-21 22:32] LABS: URINE AMPHETAMINE SCREEN NEGATIVE (Neg); URINE BARBITUATE SCREEN NEGATIVE (Neg); URINE BENZODIAZEPINES SCREEN NEGATIVE (Neg); URINE CANNABINOID SCREEN NEGATIVE (Neg); URINE COCAINE SCREEN NEGATIVE (Neg); URINE METHADONE SCREEN NEGATIVE (Neg); URINE OPIATE SCREEN NEGATIVE (Neg); URINE PHENCYCLIDINE SCREEN NEGATIVE (Neg)
[2019-05-21] MEDS ORDERED: normal saline 1000ml 1,000 ML IV ONE (23:30)
--- NOTE | 2019-05-21 23:34 | NUR ---
pt up to BSC to void -- 2nd k-rider hung and infusing.
--- NOTE | 2019-05-21 23:43 | NUR ---
ACCU CHECKS NOT TRANSFERRING INTO MEDICAL RECORD - SEE INTERVENTIONS FOR HOURLY ACCU CHECK RESULTS
[2019-05-21] MEDS ORDERED: LIDO15CR11 TOP (23:50)
[2019-05-22] MEDS ORDERED: insulin regular, human 10 units/0.1 ml syringe IV ONE ×3 (00:35→01:55)
--- NOTE | 2019-05-22 00:50 | NUR ---
pt resting comfortably. will continue to monitor
[2019-05-22 02:12] VITALS: BP 129/68
== END 2019-05-22 02:14 | disposition home or self-care (01) ==
LOC: ER 20:37
DX: E11.65 Type 2 diabetes mellitus with hyperglycemia (principal); F41.9 Anxiety disorder, unspecified; Z90.49 Acquired absence of other specified parts of digestive tract; Z79.4 Long term (current) use of insulin; Z79.899 Other long term (current) drug therapy
CPT/HCPCS: 36415; 80053; 80305; 81001; 82948; 83605; 84145; 85025; 96361; 96374; 96375; 96376; 99283; J1200; J1815; J2405; J2765; J3480; J7030

== ENCOUNTER 2019-06-03 20:10 | Emergency (ER) | payer MEDICAID ==
[~2019-06-03] VITALS: Ht 149.9 cm; Wt 47.7 kg
[~2019-06-03 20:10] MED LIST changes: -CLON2TAB11 PO; -GABA600T13 PO; -INSU100C10 SQ; -INSU100I31; -LANTUS SQ; -LORA-269 PO; -PARO10TA85 PO
[2019-06-03] MEDS ORDERED: insulin regular, human 10 units/0.1 ml syringe IV ONE ×2 (20:25→21:30)
[2019-06-03] MEDS ORDERED: normal saline 1000ML IV soln IVB ONE (20:25)
[2019-06-03] MEDS ORDERED: ondansetron/PF 4mg/2ml inj IV ONE (20:25)
[2019-06-03 21:00] VITALS: BP 118/74
[2019-06-03 21:00] LABS: BASOPHILS # (AUTO) 0.1 X10'3 (0-0.2); BASOPHILS % (AUTO) 0.8 % (0-1); EOSINOPHILS # (AUTO) 0.2 X10'3 (0-0.9); EOSINOPHILS % (AUTO) 1.8 % (0-6); HEMATOCRIT 34.3 % (35.0-45.0); HEMOGLOBIN 11.5 g/dl (12.0-16.0); LYMPHOCYTES # (AUTO) 3.1 X10'3 (1.1-4.8); LYMPHOCYTES % (AUTO) 34.9 % (21-51); MEAN CORPUSCULAR HEMOGLOBIN 34.6 PG (27.0-31.0); MEAN CORPUSCULAR HGB CONC 33.7 g/dL (33.0-36.5); MEAN CORPUSCULAR VOLUME 102.8 FL (78-98); MEAN PLATELET VOLUME 10.2 FL (7.4-10.4); MONOCYTES # (AUTO) 0.7 X10'3 (0-0.9); MONOCYTES % (AUTO) 8.3 % (2-12); NEUTROPHILS # (AUTO) 4.8 X10'3 (1.8-7.7); NEUTROPHILS % (AUTO) 54.2 % (42-75); PLATELET COUNT 174 X10'3 (140-440); RED BLOOD COUNT 3.34 X10'6 (4.20-5.60); RED CELL DISTRIBUTION WIDTH 14.2 % (11.5-14.5); WHITE BLOOD COUNT 8.9 X10'3 (4.5-11.0)
[2019-06-03 21:06] LABS: ALANINE AMINOTRANSFERASE 28 U/L (12-78); ALBUMIN 2.9 G/DL (3.4-5.0); ALBUMIN/GLOBULIN RATIO 0.9 (1.1-1.5); ALKALINE PHOSPHATASE 130 IU/L (46-116); ANION GAP 7 (8-16); ASPARTATE AMINO TRANSFERASE 15 U/L (10-37); BILIRUBIN,TOTAL 0.1 MG/DL (0.1-1.0); BLOOD UREA NITROGEN 16 MG/DL (7-18); BUN/CREATININE RATIO 16.7 (6.6-38.0); CALCIUM 7.6 MG/DL (8.5-10.1); CHLORIDE 99 MMOL/L (99-107); CREATININE 0.96 MG/DL (0.40-0.90); POTASSIUM 4.2 MMOL/L (3.5-5.1); SODIUM 133 MMOL/L (135-145); TOTAL CARBON DIOXIDE 26.8 MMOL/L (24-32); TOTAL PROTEIN 6.1 G/DL (6.4-8.2); eGFR 66 ML/MIN
[2019-06-03 21:15] LABS: GLUCOSE 485 MG/DL (70-104)
[2019-06-03 21:19] LABS: CLARITY,URINE CLEAR (Clear); COLOR,URINE YELLOW (Yellow); GLUCOSE, URINE >=1000 mg/dl (Neg); KETONES,URINE NEGATIVE (Neg); LEUKOCYTE ESTERASE ,URINE NEGATIVE (Neg); NITRITES, URINE NEGATIVE (Neg); OCCULT BLOOD,URINE NEGATIVE (Neg); PH,URINE 6.5 (4.8-8.0); PROTEIN,URINE NEGATIVE (Neg); UROBILINOGEN,URINE 0.2 E.U/dL (0.2-1.0)
[2019-06-03 21:25] LABS: UA COLLECTION TYPE CLN CATCH MIDSTREAM
[2019-06-03 21:28] LABS: BACTERIA,URINE NONE SEEN /HPF (Neg); MUCUS STRANDS NONE SEEN /LPF (Neg); RBC,URINE NONE SEEN /HPF (0-2); SQUAMOUS EPITHELIAL CELL,UR NONE SEEN /LPF (FEW); WBC,URINE NONE SEEN /HPF (0-4)
== END 2019-06-03 21:40 ==
LOC: MERGE 20:12 → ER 20:12
DX: E11.65 Type 2 diabetes mellitus with hyperglycemia (principal); R10.30 Lower abdominal pain, unspecified; Z79.4 Long term (current) use of insulin; Z60.2 Problems related to living alone
CPT/HCPCS: 36415; 80053; 81001; 82948; 85025; 96374; 96375; 99283; J1815; J2405; J7030

== ENCOUNTER 2019-07-13 00:42 | Inpatient (IN) | payer MEDICAID ==
[~2019-07-13] VITALS: Ht 149.9 cm; Wt 92.0 kg
[2019-07-13] MEDS ORDERED: normal saline 1000ML IV soln IVB ONE ×2 (00:50→01:25)
[2019-07-13] MEDS ORDERED: insulin regular, human 10 units/0.1 ml syringe IV ONE (01:25)
[2019-07-13] MEDS ORDERED: ondansetron/PF 4mg/2ml inj IV ONE (01:30)
[2019-07-13 01:37] LABS: BASOPHILS # (AUTO) 0.1 X10'3 (0-0.2); EOSINOPHILS # (AUTO) 0.3 X10'3 (0-0.9); EOSINOPHILS % (AUTO) 3.7 % (0-6); HEMATOCRIT 44.7 % (35.0-45.0); HEMOGLOBIN 15.3 g/dl (12.0-16.0); LYMPHOCYTES # (AUTO) 3.2 X10'3 (1.1-4.8); LYMPHOCYTES % (AUTO) 34.6 % (21-51); MEAN CORPUSCULAR HEMOGLOBIN 34.8 PG (27.0-31.0); MEAN CORPUSCULAR HGB CONC 34.3 g/dL (33.0-36.5); MEAN CORPUSCULAR VOLUME 101.4 FL (78-98); MEAN PLATELET VOLUME 10.8 FL (7.4-10.4); MONOCYTES # (AUTO) 0.6 X10'3 (0-0.9); MONOCYTES % (AUTO) 6.3 % (2-12); NEUTROPHILS % (AUTO) 54.4 % (42-75); PLATELET COUNT 133 X10'3 (140-440); RED BLOOD COUNT 4.41 X10'6 (4.20-5.60); RED CELL DISTRIBUTION WIDTH 13.2 % (11.5-14.5); WHITE BLOOD COUNT 9.2 X10'3 (4.5-11.0)
[2019-07-13] MEDS ORDERED: ketorolac trometh. 30mg/ml inj. IV ONE (01:45)
[2019-07-13 01:52] LABS: ALANINE AMINOTRANSFERASE 24 U/L (12-78); ALBUMIN 3.7 G/DL (3.4-5.0); ALBUMIN/GLOBULIN RATIO 0.8 (1.1-1.5); ALKALINE PHOSPHATASE 152 IU/L (46-116); ANION GAP 18 (8-16); ASPARTATE AMINO TRANSFERASE 12 U/L (10-37); BILIRUBIN,TOTAL 0.9 MG/DL (0.1-1.0); BLOOD UREA NITROGEN 18 MG/DL (7-18); BUN/CREATININE RATIO 17.5 (6.6-38.0); CALCIUM 9.6 MG/DL (8.5-10.1); CHLORIDE 94 MMOL/L (99-107); CREATININE 1.03 MG/DL (0.40-0.90); GLUCOSE 354 MG/DL (70-104); LIPASE 135 U/L (73-393); POTASSIUM 4.1 MMOL/L (3.5-5.1); SODIUM 130 MMOL/L (135-145); TOTAL CARBON DIOXIDE 18.4 MMOL/L (24-32); TOTAL PROTEIN 8.1 G/DL (6.4-8.2); eGFR 61 ML/MIN
[2019-07-13 02:12] LABS: COLOR,URINE YELLOW (Yellow); GLUCOSE, URINE >=1000 mg/dl (Neg); KETONES,URINE >=80 mg/dl (Neg); LEUKOCYTE ESTERASE ,URINE TRACE (Neg); NITRITES, URINE NEGATIVE (Neg); OCCULT BLOOD,URINE NEGATIVE (Neg); PROTEIN,URINE NEGATIVE (Neg); UROBILINOGEN,URINE 0.2 E.U/dL (0.2-1.0)
[2019-07-13 02:13] LABS: UA COLLECTION TYPE VOIDED; URINE HCG NEGATIVE (NEG)
[2019-07-13 02:14] LABS: BACTERIA,URINE FEW /HPF (Neg); CLARITY,URINE SLIGHTLY CLOUDY (Clear); RBC,URINE 0-2 /HPF (0-2); SQUAMOUS EPITHELIAL CELL,UR FEW /LPF (FEW); WBC CLUMPS,URINE FEW /HPF (NEGATIVE)
[2019-07-13] MEDS ORDERED: METFORMIN HCL 500 MG (02:33)
[2019-07-13] MEDS ORDERED: LANTUS SQ (02:37)
[2019-07-13] MEDS ORDERED: CefTRIAXone/D5W-Rocephin 1gm 50 ML IV ONE (02:40)
--- NOTE | 2019-07-13 02:42 | NUR ---
DISCUSSED PT'S CLONOPIN AND GABAPENTIN PRESCRIPTIONS WITH HER. SHE INDICATED THEY HAVE COME FROM ED VISITS AND NEITHER HAS BEEN PRESCRIBED BY HER PCP. SHARED AND FURTHER DISCUSSED THE SITUATION WITH EDMD AND CRN ED SCRIPTS ARE EMERGENT USE AND NOT TYPICALLY INCLUDED IN A MED REC. IT WAS RECOMMENDED HOSPITALIST LEONARDO BE APPRAISED OF THE SITUATION WITH THE DETERMINATION FOR THEIR DISPOSITION LEFT TO HIM.
[2019-07-13] MEDS ORDERED: insulin regular, human 100 UNIT in normal saline 100ml IV soln 100 ML IV PRN ×2 (02:50)
[2019-07-13] MEDS ORDERED: GABA-532 PO (02:59)
[2019-07-13] MEDS ORDERED: normal saline 1000ml 1,000 ML IV SCH (03:01)
[2019-07-13] MEDS ORDERED: insulin regular, DKA only 100 UNIT in normal saline 100ml IV soln 99 ML IV SCH ×2 (03:04)
[2019-07-13] MEDS ORDERED: potassium CL 20mEq in D5-1/2NS 1,000 ML IV PRN (03:04)
[2019-07-13] MEDS ORDERED: acetaminophen 325mg tablet PO PRN (03:05)
[2019-07-13] MEDS ORDERED: magnesium hydroxide 30ml (MOM) UD suspension PO PRN (03:05)
[2019-07-13] MEDS ORDERED: ondansetron/PF 4mg/2ml inj IV PRN (03:05)
[2019-07-13] MEDS ORDERED: mag hydrox/Alum hydrox/simeth 30ml oral suspension PO PRN (03:05)
--- NOTE | 2019-07-13 03:22 | NUR ---
DISCUSSED INSULIN DRIP PROTOCOL ORDER WITH DR PATTERSON INSULIN 10 UNITS SUBQ PART OF PROTOCOL, BUT NO INSULIN BOLUS ORDER RECEIVED. PER DR PATTERSON, THE INITIAL 5 UNIT BOLUS ALREADY GIVEN ADEQUATE. NO NEED FOR FURTHER INSULIN BOLUS AT THIS TIME. START INSULIN DRIP PER PROTOCOL.
--- NOTE | 2019-07-13 04:29 | NUR ---
recieved pt report from Kristi TORRES ER, had oportunity to ask questions.
[2019-07-13 05:00] VITALS: BP 93/60
--- NOTE | 2019-07-13 05:07 | NUR ---
pt arived to unit via leordolly with all belongings, tele attached to pt, pt oriented to room, diptiienmike at bedside (pt okayed), VS stable, will continue to monitor. Addendum: 07/13/19 at 0510 by Bereket Wilhelm RN MISTIMED, should be timed for 0445 07/13/2019
[2019-07-13 06:00] VITALS: BP 100/63
--- NOTE | 2019-07-13 06:16 | NUR ---
Problems reprioritized. Patient report given, questions answered & plan of care reviewed with Mary Lou TORRES.
--- NOTE | 2019-07-13 06:22 | NUR ---
Patient in room PCU 3012. I have received report from Shiraz RN and had the opportunity to ask questions and assume patient care.
[2019-07-13 06:47] LABS: CHLORIDE 108 MMOL/L (99-107); POTASSIUM 3.4 MMOL/L (3.5-5.1)
[2019-07-13 07:36] LABS: ALBUMIN 2.5 G/DL (3.4-5.0); ANION GAP 9 (8-16); BLOOD UREA NITROGEN 13 MG/DL (7-18); BUN/CREATININE RATIO 13.8 (6.6-38.0); CALCIUM 7.7 MG/DL (8.5-10.1); CREATININE 0.94 MG/DL (0.40-0.90); GLUCOSE 199 MG/DL (70-104); SODIUM 140 MMOL/L (135-145); TOTAL CARBON DIOXIDE 23.1 MMOL/L (24-32); eGFR 68 ML/MIN
[2019-07-13] MEDS ORDERED: heparin, porcine 5000 units/ml vial SQ SCH (08:00)
[2019-07-13] MEDS ORDERED: gabapentin 300mg capsule PO SCH (08:00)
[2019-07-13] MEDS ORDERED: ibuprofen 200mg tablet PO SCH (08:00)
--- NOTE | 2019-07-13 08:24 | NUR ---
Page: Dr. Milian PAGER ID: [phone] MESSAGE: Room 3012B Marylu Herman: Blood sugar is 139, Anion gap is 9 and C02 is 23.1. Please advise on next steps, thank you. Cece ext [phone].
[2019-07-13] MEDS ORDERED: MESSAGE TO PHARMACY PO ONE (08:55)
[2019-07-13] MEDS ORDERED: insulin Lispro (HumaLOG) vial - multi-dose SQ SCH (08:55)
[2019-07-13] MEDS ORDERED: dextrose ORAL solution 15 GM/59 ML bottle PO PRN ×2 (08:55)
[2019-07-13] MEDS ORDERED: glucagon, human recombinant 1mg kit SUBCUT PRN (08:55)
[2019-07-13] MEDS ORDERED: dextrose 50%-water 50ml dispensing syringe IV PRN ×2 (08:55)
[2019-07-13] MEDS ORDERED: insulin glargine (Lantus) pen - multi-dose SQ ONE (08:55)
--- NOTE | 2019-07-13 09:30 | NUR ---
Spoke with Dr. Milian regarding patient's condition. Advised to place patient on ACHS protocol. Cover patient with 10 units of Lantus and shut off insulin drip two hours after administration of Lantus.
--- NOTE | 2019-07-13 11:05 | NUR ---
Spoke with Dr. Milian regarding patient wanting to leave. Explained the risks of leaving against medical advice to patient. She still insisted on leaving despite the risks. Patient's IV & Tele monitor discontinued. Patient's belonging sent with her. Patient left with boyfriend.
--- NOTE | 2019-07-13 11:48 | NUR ---
Orientee documentation: I have reviewed and agree with all interventions, assessments performed and documented by Cece TORRES. [place]ee Medication Administration: For this medication-pass time frame, all medication were reviewed, dispensed, administered and documented per hospital policy by Cece TORRES.
[2019-07-13] MEDS ORDERED: insulin glargine (Lantus) pen - multi-dose SQ SCH (21:00)
[2019-07-14 05:36] LABS: ABG BASE EXCESS -7.1 mmol/L (-2.0-3.0); ABG OXYGEN SATURATION 95.1 % (95-98); ABG PCO2 (T) 30.2 mmHg (35.0-45.0); ABG PH (T) 7.365 (7.350-7.450); ABG PO2 (T) 69.4 mmHg (83-108); ALLEN'S TEST Positive; FCOHb 5.7 % (0.5-1.5); FO2Hb 89.7 % (94-100); PATIENT TEMPERATURE 36.4; TOTAL HEMOGLOBIN 15.7 G/dl (12.0-16.0)
== END 2019-07-13 11:05 | disposition left against medical advice (07) | DRG 420 ==
LOC: ER 00:42 → ED HOLD 03:01 → PCU 3S 04:36
PROVIDERS: ADMIT Internal Medicine; ATTEND Hospitalist
DX: E10.10 Type 1 diabetes mellitus with ketoacidosis without coma (principal); N28.9 Disorder of kidney and ureter, unspecified; E86.0 Dehydration; F17.200 Nicotine dependence, unspecified, uncomplicated; N39.0 Urinary tract infection, site not specified; F41.9 Anxiety disorder, unspecified; R19.7 Diarrhea, unspecified; Z53.21 Procedure and treatment not carried out due to patient leaving prior to being seen by health care provider; Z90.49 Acquired absence of other specified parts of digestive tract
CPT/HCPCS: 36415; 36600; 80048; 80053; 81001; 81025; 82009; 82803; 82948; 83036; 83690; 85018; 85025; 87081; 87088; 96361; 96374; 96375; 99285; G0378; J0696; J1644; J1815; J1885; J2405; J3480; J7030

== ENCOUNTER 2019-12-08 12:06 | Inpatient (IN) | payer MEDICAID ==
[~2019-12-08] VITALS: Ht 152.4 cm; Wt 50.0 kg
[~2019-12-08 12:06] MED LIST changes: -BUPR1FIL3 SL; -CLON-527 PO; -INSU100I45; +INSU100I45 SQ; +LANTUS SQ; +METFORMIN HCL 500 MG
[2019-12-08] MEDS ORDERED: normal saline 1000ML IV soln IVB ONE ×2 (12:20)
[2019-12-08] MEDS ORDERED: ondansetron/PF 4mg/2ml inj IV ONE (12:25)
[2019-12-08 12:31] LABS: BASOPHILS # (AUTO) 0.1 X10'3 (0-0.2); BASOPHILS % (AUTO) 0.5 % (0-1); EOSINOPHILS # (AUTO) 0.1 X10'3 (0-0.9); EOSINOPHILS % (AUTO) 0.3 % (0-6); HEMATOCRIT 47.1 % (35.0-45.0); HEMOGLOBIN 14.8 g/dl (12.0-16.0); LYMPHOCYTES # (AUTO) 1.1 X10'3 (1.1-4.8); LYMPHOCYTES % (AUTO) 6.7 % (21-51); MEAN CORPUSCULAR HEMOGLOBIN 33.9 PG (27.0-31.0); MEAN CORPUSCULAR HGB CONC 31.5 g/dL (33.0-36.5); MEAN CORPUSCULAR VOLUME 107.8 FL (78-98); MONOCYTES # (AUTO) 0.7 X10'3 (0-0.9); MONOCYTES % (AUTO) 4.3 % (2-12); NEUTROPHILS # (AUTO) 15.1 X10'3 (1.8-7.7); NEUTROPHILS % (AUTO) 88.2 % (42-75); PLATELET COUNT 228 X10'3 (140-440); RED BLOOD COUNT 4.37 X10'6 (4.20-5.60); WHITE BLOOD COUNT 17.1 X10'3 (4.5-11.0)
--- NOTE | 2019-12-08 12:42 | NUR ---
RT AT BEDSIDE DRAWING ABG
[2019-12-08 12:51] LABS: ALANINE AMINOTRANSFERASE 20 U/L (12-78); ALBUMIN 3.9 G/DL (3.4-5.0); ALBUMIN/GLOBULIN RATIO 0.8 (1.1-1.5); ALKALINE PHOSPHATASE 139 IU/L (46-116); ANION GAP 31 (8-16); BILIRUBIN,TOTAL 0.6 MG/DL (0.1-1.0); BLOOD UREA NITROGEN 24 MG/DL (7-18); BUN/CREATININE RATIO 17.3 (6.6-38.0); CALCIUM 8.8 MG/DL (8.5-10.1); CHLORIDE 94 MMOL/L (99-107); CREATININE 1.39 MG/DL (0.40-0.90); LIPASE 109 U/L (73-393); SODIUM 130 MMOL/L (135-145); TOTAL PROTEIN 8.5 G/DL (6.4-8.2); eGFR 43 ML/MIN
[2019-12-08 12:59] LABS: GLUCOSE 638 MG/DL (70-104); POTASSIUM 5.6 MMOL/L (3.5-5.1)
[2019-12-08 13:00] LABS: TOTAL CARBON DIOXIDE 5.1 MMOL/L (24-32)
[2019-12-08] MEDS ORDERED: insulin regular, human U-100 3ml vial - multi-dose IV ONE (13:20)
[2019-12-08 13:26] LABS: ASPARTATE AMINO TRANSFERASE 19 U/L (10-37)
[2019-12-08 13:38] LABS: URINE HCG NEGATIVE (NEG)
[2019-12-08 13:41] LABS: CLARITY,URINE CLEAR (Clear); COLOR,URINE STRAW (Yellow); GLUCOSE, URINE >=1000 mg/dl (Neg); KETONES,URINE >=80 mg/dl (Neg); LEUKOCYTE ESTERASE ,URINE NEGATIVE (Neg); NITRITES, URINE NEGATIVE (Neg); OCCULT BLOOD,URINE NEGATIVE (Neg); PROTEIN,URINE 30 mg/dl (Neg); UROBILINOGEN,URINE 0.2 E.U/dL (0.2-1.0)
[2019-12-08 13:45] LABS: UA COLLECTION TYPE CLN CATCH MIDSTREAM
[2019-12-08 13:47] LABS: BACTERIA,URINE NONE SEEN /HPF (Neg); MUCUS STRANDS NONE SEEN /LPF (Neg); RBC,URINE NONE SEEN /HPF (0-2); SQUAMOUS EPITHELIAL CELL,UR MODERATE /LPF (FEW); WBC,URINE 0-4 /HPF (0-4)
[2019-12-08 14:21] LABS: ABG BASE EXCESS -25.2 mmol/L (-2.0-3.0); ABG HCO3 3.1 mmol/L (22.0-26.0); ABG OXYGEN SATURATION 97.6 % (95-98); ABG PCO2 (T) 11.4 mmHg (35.0-45.0); ABG PO2 (T) 119.8 mmHg (83-108); ALLEN'S TEST POSITIVE; FMetHb 0.3 % (0.3-1.12); FO2Hb 96.3 % (94-100); TOTAL HEMOGLOBIN 14.3 G/dl (12.0-16.0)
--- NOTE | 2019-12-08 14:30 | NUR ---
REPORTED TO MD BUSTOS PTS HR 140S, RECEIVED VO TO BOLUS PT WITH 1L NS, FLUIDS NOW INFUSING.
[2019-12-08] MEDS: normal saline 1000ml 1,000 ML IV SCH ×2 (14:48→18:48)
[2019-12-08] MEDS ORDERED: acetaminophen 325mg tablet PO PRN (14:50)
[2019-12-08] MEDS ORDERED: mag hydrox/Alum hydrox/simeth 30ml oral suspension PO PRN (14:50)
[2019-12-08] MEDS ORDERED: potassium CL 10mEq/100ml bag 100 ML IV PRN ×2 (14:50)
[2019-12-08] MEDS ORDERED: magnesium hydroxide 30ml (MOM) UD suspension PO PRN (14:50)
[2019-12-08] MEDS ORDERED: potassium Cl 20 mEq SR tablet PO PRN ×2 (14:50)
[2019-12-08] MEDS ORDERED: magnesium 4gm in 100ml NS 100 ML IV PRN (14:50)
[2019-12-08] MEDS ORDERED: sodium phosphate inj. 15 MMOL in dextrose 5%-water 250 ML IV PRN (14:50)
[2019-12-08] MEDS ORDERED: magnesium 2GM in 50ml NS 50 ML IV PRN (14:50)
[2019-12-08] MEDS ORDERED: sodium phosphate inj. 30 MMOL in dextrose 5%-water 250 ML IV PRN (14:50)
[2019-12-08] MEDS ORDERED: GABA600T13 PO (14:51)
--- NOTE | 2019-12-08 14:52 | NUR ---
PT REPORTS HEWITT AND REQUEST TYLENOL. RECEIVED VO FROM DR. BUSTOS FOR TYLENOL 650MG PO X 1 NOW.
[2019-12-08] MEDS ORDERED: acetaminophen 325mg tablet PO ONE (14:55)
[2019-12-08 15:39] LABS: ALBUMIN 3.6 G/DL (3.4-5.0); BLOOD UREA NITROGEN 20 MG/DL (7-18); BUN/CREATININE RATIO 16.7 (6.6-38.0); CALCIUM 7.3 MG/DL (8.5-10.1); CHLORIDE 102 MMOL/L (99-107); GLUCOSE 385 MG/DL (70-104); PHOSPHORUS 4.2 MG/DL (2.3-4.5); POTASSIUM 4.4 MMOL/L (3.5-5.1); SODIUM 133 MMOL/L (135-145); eGFR 51 ML/MIN
[2019-12-08 15:41] LABS: ANION GAP 26 (8-16); TOTAL CARBON DIOXIDE < 5 MMOL/L (24-32)
[2019-12-08] MEDS: Insulin Reg/NS 100units/100mL 100 ML IV SCH (16:01)
--- NOTE | 2019-12-08 17:24 | NUR ---
Patient in room ED 6. I have received report from Ce RN and had the opportunity to ask questions and assume patient care. Awaiting patient arrival to 3019.
--- NOTE | 2019-12-08 17:35 | NUR ---
Patient arrived from ED on gurarma and ambulated to hospital bed with standby assist. Patient oriented to room and to call light. Vital signs: T: 98.3, HR 113, RR: 20, O2: 100% on room air, BP 113/61. Pain 10/10. Telemetry monitoring initiated. All immediate needs met at this time. Will continue to monitor.
--- NOTE | 2019-12-08 18:28 | NUR ---
Problems reprioritized. Patient report given, questions answered & plan of care reviewed with Robert TORRES. Patient stable at transfer of care.
[2019-12-08 18:30] VITALS: BP 129/68
--- NOTE | 2019-12-08 18:34 | NUR ---
Patient in room PCU 3019. I have received report from Mandy TORRES and had the opportunity to ask questions and assume patient care.
[2019-12-08] MEDS: potassium CL 20mEq in D5-1/2NS 1,000 ML IV PRN (19:03)
[2019-12-08 19:04] LABS: ANION GAP 21 (8-16); BLOOD UREA NITROGEN 18 MG/DL (7-18); BUN/CREATININE RATIO 16.5 (6.6-38.0); CALCIUM 7.1 MG/DL (8.5-10.1); CHLORIDE 105 MMOL/L (99-107); CREATININE 1.09 MG/DL (0.40-0.90); GLUCOSE 187 MG/DL (70-104); PHOSPHORUS 2.8 MG/DL (2.3-4.5); POTASSIUM 4.1 MMOL/L (3.5-5.1); SODIUM 135 MMOL/L (135-145); eGFR 57 ML/MIN
[2019-12-08] MEDS: D5-1/2NS w/20 mEq potassium per 1000ml IV SCH ×6 (19:08→23:29)
--- NOTE | 2019-12-08 19:19 | NUR ---
Page Sent promotional table spacer PAGER ID: [phone] MESSAGE: Marylu Herman 3019 here for DKA had a critical CO2 of 9 from 5. She's on the insulin drip @5.requesting something for pain, only has Tylenol for fever, has history of heroin use. Can she have something? thanks, Robert [phone]
[2019-12-08] MEDS: K and/or MAG REPLACEMENT MC SCH (19:25)
[2019-12-08] MEDS ORDERED: ketorolac tromethamine 15mg/ml inj. IV PRN (19:50)
[2019-12-08] MEDS: heparin, porcine 5000 units/ml vial SQ SCH (21:29)
[2019-12-08] MEDS: CefTRIAXone 2gm/D5W 50ml 50 ML IV SCH (21:29)
--- NOTE | 2019-12-08 21:43 | NUR ---
Patient refused new IV placement at this time, has fieldstart currently.
[2019-12-08 22:30] VITALS: BP 86/42
--- NOTE | 2019-12-08 23:15 | NUR ---
Page Sent promotional table spacer PAGER ID: [phone] MESSAGE: Marylu Herman 2825 here for DKA is on the insulin drip @5, d51/2NS with K is at 250ml/hr, blood sugar staying around 132. Want me to decrease insulin or add d10? Thanks, Robert [phone]
[2019-12-08 23:54] LABS: ALBUMIN 2.9 G/DL (3.4-5.0); ANION GAP 13 (8-16); BLOOD UREA NITROGEN 12 MG/DL (7-18); BUN/CREATININE RATIO 11.4 (6.6-38.0); CALCIUM 7.7 MG/DL (8.5-10.1); CHLORIDE 109 MMOL/L (99-107); CREATININE 1.05 MG/DL (0.40-0.90); GLUCOSE 134 MG/DL (70-104); POTASSIUM 3.8 MMOL/L (3.5-5.1); SODIUM 137 MMOL/L (135-145); TOTAL CARBON DIOXIDE 15.5 MMOL/L (24-32); eGFR 60 ML/MIN
[2019-12-09] VITALS (7 sets, daily range): BP systolic 86–110; BP diastolic 42–71
[2019-12-09] MEDS: potassium CL 20mEq in D5-1/2NS 1,000 ML IV PRN (00:20)
[2019-12-09] MEDS: D5-1/2NS w/20 mEq potassium per 1000ml IV SCH ×6 (00:20→05:20)
--- NOTE | 2019-12-09 00:32 | NUR ---
Page Sent promotional table spacer PAGER ID: [phone] MESSAGE: Marylu Herman 3019 here for DKA had a blood sugar of 97. Insulin drip is stopped, d51/2NS with k is still running. what would you like me to do? Robert 0848
--- NOTE | 2019-12-09 00:37 | NUR ---
Dr. Ramirez ordered d10 and keep the insulin @5
[2019-12-09] MEDS: ondansetron/PF 4mg/2ml inj IV PRN ×3 (00:59→20:20)
[2019-12-09] MEDS: Potassium Cl inj 20 MEQ in DEXTROSE 10 % AND 0.45 % NACL 990 ML IV PRN ×3 (02:01→13:15)
[2019-12-09 04:16] LABS: BASOPHILS # (AUTO) 0.1 X10'3 (0-0.2); BASOPHILS % (AUTO) 0.6 % (0-1); EOSINOPHILS # (AUTO) 0.1 X10'3 (0-0.9); EOSINOPHILS % (AUTO) 0.7 % (0-6); HEMATOCRIT 35.9 % (35.0-45.0); LYMPHOCYTES # (AUTO) 3.3 X10'3 (1.1-4.8); LYMPHOCYTES % (AUTO) 26.8 % (21-51); MEAN CORPUSCULAR HEMOGLOBIN 33.9 PG (27.0-31.0); MEAN CORPUSCULAR HGB CONC 33.6 g/dL (33.0-36.5); MEAN CORPUSCULAR VOLUME 101.1 FL (78-98); MEAN PLATELET VOLUME 10.8 FL (7.4-10.4); MONOCYTES % (AUTO) 7.9 % (2-12); PLATELET COUNT 173 X10'3 (140-440); RED BLOOD COUNT 3.55 X10'6 (4.20-5.60); RED CELL DISTRIBUTION WIDTH 13.8 % (11.5-14.5); WHITE BLOOD COUNT 12.4 X10'3 (4.5-11.0)
[2019-12-09 04:24] LABS: ALBUMIN 2.8 G/DL (3.4-5.0); ANION GAP 14 (8-16); BLOOD UREA NITROGEN 10 MG/DL (7-18); CALCIUM 7.4 MG/DL (8.5-10.1); CHLORIDE 109 MMOL/L (99-107); GLUCOSE 157 MG/DL (70-104); MAGNESIUM 1.3 MG/DL (1.5-2.4); POTASSIUM 3.6 MMOL/L (3.5-5.1); SODIUM 137 MMOL/L (135-145); eGFR 63 ML/MIN
--- NOTE | 2019-12-09 04:33 | NUR ---
Page Sent promotional table spacer PAGER ID: [phone] MESSAGE: Marylu Herman 3019 had a critical CO2 of 14 from previous 15.5. Insulin is still @5, d10 is now at 250. last sugar was 144. Will page again if next sugar doesn't increase. Thanks Robert [phone]
[2019-12-09 04:54] LABS: LARGE PLATELETS MODERATE; PLATELET ESTIMATE NORMAL
--- NOTE | 2019-12-09 06:14 | NUR ---
Problems reprioritized. Patient report given, questions answered & plan of care reviewed with Mandy TORRES/Manjinder TORRES.
--- NOTE | 2019-12-09 06:17 | NUR ---
Patient in room PCU 3019. I have received report from Robert TORRES and had the opportunity to ask questions and assume patient care.
--- NOTE | 2019-12-09 06:27 | NUR ---
Patient in room PCU 3019. I have received report from Chip TORRES and had the opportunity to ask questions and assume patient care, patient stable at transfer of care.
[2019-12-09] MEDS: heparin, porcine 5000 units/ml vial SQ SCH ×2 (07:18→19:15)
[2019-12-09] MEDS: Neutra Phos packet PO PRN ×3 (07:23→20:05)
[2019-12-09] MEDS: magnesium Cl slow-release 64mg tablet PO PRN ×2 (07:23→20:05)
[2019-12-09] MEDS: K and/or MAG REPLACEMENT MC SCH ×2 (08:00→19:15)
--- NOTE | 2019-12-09 08:20 | NUR ---
Dr. Pisano notified RE: Marylu Herman 0183. DKA Patient 0800 BG 111, IVF D10 1/2 NS+20K @250. Ins gtt @ 5 units. Please advise? Manjinder 2502
[2019-12-09] MEDS: Insulin Reg/NS 100units/100mL 100 ML IV SCH (08:57)
[2019-12-09 09:13] LABS: ALBUMIN 2.7 G/DL (3.4-5.0); ANION GAP 9 (8-16); BLOOD UREA NITROGEN 8 MG/DL (7-18); BUN/CREATININE RATIO 9.1 (6.6-38.0); CALCIUM 7.7 MG/DL (8.5-10.1); CHLORIDE 110 MMOL/L (99-107); CREATININE 0.88 MG/DL (0.40-0.90); GLUCOSE 140 MG/DL (70-104); POTASSIUM 3.6 MMOL/L (3.5-5.1); SODIUM 138 MMOL/L (135-145); TOTAL CARBON DIOXIDE 19.3 MMOL/L (24-32); eGFR 73 ML/MIN
[2019-12-09] MEDS: CefTRIAXone 2gm/D5W 50ml 50 ML IV SCH (09:54)
[2019-12-09] MEDS ORDERED: CLON-371 PO (11:56)
[2019-12-09 13:27] LABS: ALBUMIN 2.7 G/DL (3.4-5.0); ANION GAP 10 (8-16); BLOOD UREA NITROGEN 7 MG/DL (7-18); BUN/CREATININE RATIO 8.2 (6.6-38.0); CALCIUM 7.5 MG/DL (8.5-10.1); CHLORIDE 109 MMOL/L (99-107); CREATININE 0.85 MG/DL (0.40-0.90); GLUCOSE 161 MG/DL (70-104); PHOSPHORUS 1.8 MG/DL (2.3-4.5); POTASSIUM 3.5 MMOL/L (3.5-5.1); SODIUM 136 MMOL/L (135-145); TOTAL CARBON DIOXIDE 16.8 MMOL/L (24-32); eGFR 76 ML/MIN
--- NOTE | 2019-12-09 13:51 | NUR ---
Dr. Pisano notified RE: Carito Herman. 3019. FYI last BMP CO2 16.8, GAP 10. 1300 BG 164, Insulin GTT @ 3, D10 1/2NS+20K @ 150. Please advise? TYKortney Dunbar 7916
[2019-12-09] MEDS: normal saline 1000ml 1,000 ML IV SCH (14:10)
[2019-12-09] MEDS: potassium CL 20mEq in D5-1/2NS 1,000 ML IV SCH ×2 (14:15→19:10)
--- NOTE | 2019-12-09 16:04 | NUR ---
PAGER ID: [phone] MESSAGE: RE: Mei Herman 3019. Insulin @ 2 units. IVF @ 250. Last blood sugar 94. Next BMP @ 1700. Do you want to decrease insulin to 1 unit? Thank you. Mandy Guillen Addendum: 12/09/19 at 1604 by Mandy Johnson RN Paged Dr. Pisano:
--- NOTE | 2019-12-09 16:23 | NUR ---
DM consult: Pt with T1DM admitted with DKA. Per records, patient's A1c was >14 in April of last year, down to 12.6 in July 2019, current A1c is 10.0. Pt seen at bedside reports she has been getting better control of her diabetes however was sick the day PROCESS MAINTENANCE TECHNICIAN and she just wanted to sleep resulting in her not checking her blood sugars or administering insulin. RD encouraged pt to continue managing her diabetes, especially on sicks days. Pt verbalized understanding. Pt reports prior to getting sick she was checking her blood sugars regularly and taking insulin per rx. Pt reports seeing her MD q month. Pt provided with written and verbal DM education with referral to outpatient CDE course and RD contact information. Pt currently NPO however endorsing a good appetite. Pt denies food allergies, difficulty chewing/swallowing, or constipation/diarrhea. LBM 3/2. Will continue to follow. Recommendations: 1) Advance to CHO controlled diet as medically indicated 2) Bowel care PRN 3) Wt per rx Addendum: 12/09/19 at [address] Amended: Links added.
[2019-12-09 17:50] LABS: ALBUMIN 2.7 G/DL (3.4-5.0); ANION GAP 10 (8-16); BLOOD UREA NITROGEN 5 MG/DL (7-18); BUN/CREATININE RATIO 6.5 (6.6-38.0); CALCIUM 7.8 MG/DL (8.5-10.1); CHLORIDE 112 MMOL/L (99-107); CREATININE 0.77 MG/DL (0.40-0.90); GLUCOSE 105 MG/DL (70-104); PHOSPHORUS 1.8 MG/DL (2.3-4.5); POTASSIUM 3.2 MMOL/L (3.5-5.1); SODIUM 139 MMOL/L (135-145); TOTAL CARBON DIOXIDE 17.1 MMOL/L (24-32); eGFR 85 ML/MIN
--- NOTE | 2019-12-09 18:22 | NUR ---
Problems reprioritized. Patient report given, questions answered & plan of care reviewed with Chip RN, patient stable at transfer of care.
--- NOTE | 2019-12-09 18:23 | NUR ---
Orientee documentation: I have reviewed and agree with all interventions, assessments performed and documented by BRIAN Dunbar. [place] Medication Administration: For this medication-pass time frame, all medication were reviewed, dispensed, administered and documented per hospital policy by BRINA Dunbar.
--- NOTE | 2019-12-09 18:32 | NUR ---
Page Sent promotional table spacer PAGER ID: [phone] MESSAGE: [phone] Marylu Herman here for DKA is on insulin@2, d51/2NS is at 250.Sugar was 108 from previous 104 CO2 now 17.1 from 16.8 and GAP is 10. decrease insulin? want her on the drip all night? Robert 1754
--- NOTE | 2019-12-09 18:54 | NUR ---
Dr. Pisano wants insulin @1 and to keep her on the gtt all night.
[2019-12-09] MEDS: gabapentin 300mg capsule PO SCH (19:14)
[2019-12-09] MEDS: lactobacillus rhamnosus 10,000 MMU CELLS/CAPSULE PO SCH (19:14)
[2019-12-09 22:06] LABS: ALBUMIN 2.8 G/DL (3.4-5.0); ANION GAP 10 (8-16); BLOOD UREA NITROGEN 4 MG/DL (7-18); BUN/CREATININE RATIO 5.6 (6.6-38.0); CALCIUM 7.6 MG/DL (8.5-10.1); CHLORIDE 111 MMOL/L (99-107); CREATININE 0.72 MG/DL (0.40-0.90); GLUCOSE 157 MG/DL (70-104); PHOSPHORUS 2.2 MG/DL (2.3-4.5); SODIUM 139 MMOL/L (135-145); TOTAL CARBON DIOXIDE 18.5 MMOL/L (24-32); eGFR > 90 ML/MIN
[2019-12-10] MEDS: normal saline 1000ml 1,000 ML IV SCH (00:07)
[2019-12-10] MEDS: potassium CL 20mEq in D5-1/2NS 1,000 ML IV SCH (00:07)
[2019-12-10 01:41] LABS: BASOPHILS # (AUTO) 0.1 X10'3 (0-0.2); BASOPHILS % (AUTO) 1.1 % (0-1); EOSINOPHILS # (AUTO) 0.1 X10'3 (0-0.9); EOSINOPHILS % (AUTO) 1.6 % (0-6); HEMATOCRIT 36.7 % (35.0-45.0); HEMOGLOBIN 12.3 g/dl (12.0-16.0); LYMPHOCYTES # (AUTO) 3.5 X10'3 (1.1-4.8); LYMPHOCYTES % (AUTO) 45.4 % (21-51); MEAN CORPUSCULAR HEMOGLOBIN 34.1 PG (27.0-31.0); MEAN CORPUSCULAR HGB CONC 33.6 g/dL (33.0-36.5); MEAN CORPUSCULAR VOLUME 101.8 FL (78-98); MEAN PLATELET VOLUME 10.3 FL (7.4-10.4); MONOCYTES # (AUTO) 0.5 X10'3 (0-0.9); MONOCYTES % (AUTO) 5.9 % (2-12); NEUTROPHILS # (AUTO) 3.6 X10'3 (1.8-7.7); PLATELET COUNT 157 X10'3 (140-440); RED BLOOD COUNT 3.61 X10'6 (4.20-5.60); WHITE BLOOD COUNT 7.8 X10'3 (4.5-11.0)
[2019-12-10 01:58] LABS: ALBUMIN 2.8 G/DL (3.4-5.0); ANION GAP 11 (8-16); BLOOD UREA NITROGEN 3 MG/DL (7-18); BUN/CREATININE RATIO 3.8 (6.6-38.0); CALCIUM 7.7 MG/DL (8.5-10.1); CHLORIDE 113 MMOL/L (99-107); CREATININE 0.79 MG/DL (0.40-0.90); GLUCOSE 153 MG/DL (70-104); MAGNESIUM 1.5 MG/DL (1.5-2.4); POTASSIUM 3.8 MMOL/L (3.5-5.1); SODIUM 140 MMOL/L (135-145); TOTAL CARBON DIOXIDE 16.1 MMOL/L (24-32); eGFR 83 ML/MIN
[2019-12-10 02:30] VITALS: BP 100/55
--- NOTE | 2019-12-10 06:09 | NUR ---
Problems reprioritized. Patient report given, questions answered & plan of care reviewed with Mandy TORRES/Manjinder TORRES.
--- NOTE | 2019-12-10 06:17 | NUR ---
Patient in room PCU 3019. I have received report from Robert TORRES and had the opportunity to ask questions and assume patient care.
[2019-12-10 06:27] LABS: ALBUMIN 2.5 G/DL (3.4-5.0); ANION GAP 12 (8-16); BLOOD UREA NITROGEN 3 MG/DL (7-18); BUN/CREATININE RATIO 3.5 (6.6-38.0); CALCIUM 7.2 MG/DL (8.5-10.1); CHLORIDE 113 MMOL/L (99-107); CREATININE 0.86 MG/DL (0.40-0.90); GLUCOSE 182 MG/DL (70-104); SODIUM 140 MMOL/L (135-145); eGFR 75 ML/MIN
[2019-12-10 06:33] LABS: TOTAL CARBON DIOXIDE 14.9 MMOL/L (24-32)
--- NOTE | 2019-12-10 06:37 | NUR ---
Paged Dr. Ramirez. PAGER ID: [phone] MESSAGE: RE: Marylu Herman 3019. FYI critical lab: CO2 14.9. Patient still on insulin gtt. Mandy [phone]
[2019-12-10 07:00] VITALS: BP 108/54
[2019-12-10] MEDS: gabapentin 300mg capsule PO SCH (07:20)
[2019-12-10] MEDS: lactobacillus rhamnosus 10,000 MMU CELLS/CAPSULE PO SCH (07:20)
[2019-12-10] MEDS: heparin, porcine 5000 units/ml vial SQ SCH (07:21)
[2019-12-10] MEDS: CefTRIAXone 2gm/D5W 50ml 50 ML IV SCH (07:23)
--- NOTE | 2019-12-10 07:35 | NUR ---
Dr. Pisano aware RE: Marylu Herman. 2939. FYI patient is leaving [place]. Shirley [phone]
--- NOTE | 2019-12-10 08:00 | NUR ---
Patient left AMA
== END 2019-12-10 07:51 | disposition left against medical advice (07) | DRG 420 ==
LOC: ER 12:07 → ED HOLD 14:48 → PCU 3S 17:38
PROVIDERS: ADMIT Family Medicine; ATTEND Family Medicine
DX: E11.10 Type 2 diabetes mellitus with ketoacidosis without coma (principal); E87.1 Hypo-osmolality and hyponatremia; D72.829 Elevated white blood cell count, unspecified; F17.210 Nicotine dependence, cigarettes, uncomplicated; Z79.899 Other long term (current) drug therapy; F41.9 Anxiety disorder, unspecified; Z90.49 Acquired absence of other specified parts of digestive tract; Z53.29 Procedure and treatment not carried out because of patient's decision for other reasons
CPT/HCPCS: 36415; 36600; 71045; 80048; 80053; 81001; 81025; 82803; 82948; 83036; 83690; 83735; 84100; 85018; 85025; 87081; 96374; 99285; G0378; J0696; J1644; J1815; J1885; J2405; J3480; J7030

== ENCOUNTER 2020-03-19 21:07 | Inpatient (IN) | payer MEDICAID ==
[~2020-03-19] VITALS: Ht 157.5 cm; Wt 57.4 kg
[~2020-03-19 21:07] MED LIST changes: +CLON-371 PO; -GABA-532 PO; +GABA600T13 PO; -IBUP-1985 PO; -LANTUS SQ; -METFORMIN HCL 500 MG; +etomidate 2mg/ml inj. ONE; +rocuronium 10mg/ml inj IV ONE
[2020-03-19] MEDS ORDERED: normal saline 1000ml 1,000 ML IVB ONE (21:55)
[2020-03-19] MEDS ORDERED: normal saline 1000ML IV soln IVB ONE (22:00)
[2020-03-19 22:10] LABS: EOSINOPHILS % (AUTO) 0.1 % (0-6); MONOCYTES # (AUTO) 1.2 X10'3 (0-0.9)
[2020-03-19] MEDS ORDERED: ondansetron/PF 4mg/2ml inj IV ONE (22:10)
[2020-03-19] MEDS ORDERED: LORazepam 2 mg/ml vial IV ONE (22:10)
[2020-03-19 22:12] LABS: BASOPHILS # (AUTO) 0.1 X10'3 (0-0.2); BASOPHILS % (AUTO) 0.3 % (0-1); LYMPHOCYTES % (AUTO) 7.2 % (21-51); NEUTROPHILS # (AUTO) 37.3 X10'3 (1.8-7.7); NEUTROPHILS % (AUTO) 89.4 % (42-75)
[2020-03-19 22:16] LABS: URINE HCG NEGATIVE (NEG)
[2020-03-19 22:24] LABS: CLARITY,URINE SLIGHTLY CLOUDY (Clear); COLOR,URINE YELLOW (Yellow); GLUCOSE, URINE >=1000 mg/dl (Neg); KETONES,URINE >=80 mg/dl (Neg); LEUKOCYTE ESTERASE ,URINE NEGATIVE (Neg); NITRITES, URINE NEGATIVE (Neg); OCCULT BLOOD,URINE MODERATE (Neg); PH,URINE 5.5 (4.8-8.0); PROTEIN,URINE 100 mg/dl (Neg); UROBILINOGEN,URINE 0.2 E.U/dL (0.2-1.0)
[2020-03-19] MEDS ORDERED: normal saline 1000ml 1,000 ML IV ONE (22:25)
[2020-03-19 22:26] LABS: ABG BASE EXCESS -32.5 mmol/L (-2.0-3.0); ABG HCO3 2.4 mmol/L (22.0-26.0); ABG OXYGEN SATURATION 89.9 % (95-98); ABG PCO2 (T) 17.6 mmHg (35.0-45.0); ABG PH (T) 6.758 (7.350-7.450); ABG PO2 (T) 67.2 mmHg (83-108); ALLEN'S TEST POSITIVE; FCOHb 1.2 % (0.5-1.5); FMetHb 0.3 % (0.3-1.12); FO2Hb 88.6 % (94-100); PATIENT TEMPERATURE 37.1; TOTAL HEMOGLOBIN 15.7 G/dl (12.0-16.0)
[2020-03-19 22:28] LABS: ALANINE AMINOTRANSFERASE 31 U/L (12-78); ALBUMIN 3.6 G/DL (3.4-5.0); ALBUMIN/GLOBULIN RATIO 0.8 (1.1-1.5); ALKALINE PHOSPHATASE 258 IU/L (46-116); BILIRUBIN,TOTAL 0.6 MG/DL (0.1-1.0); BLOOD UREA NITROGEN 40 MG/DL (7-18); BUN/CREATININE RATIO 16.5 (6.6-38.0); CHLORIDE 87 MMOL/L (99-107); CREATININE 2.42 MG/DL (0.40-0.90); LIPASE 203 U/L (73-393); SODIUM 121 MMOL/L (135-145); eGFR 23 ML/MIN
[2020-03-19 22:29] LABS: UA COLLECTION TYPE STRAIGHT CATH
[2020-03-19 22:30] LABS: AMORPHOUS URATES 1+; BACTERIA,URINE FEW /HPF (Neg); RBC,URINE 0-2 /HPF (0-2); SQUAMOUS EPITHELIAL CELL,UR FEW /LPF (FEW); WBC,URINE 0-4 /HPF (0-4)
[2020-03-19 22:39] LABS: HEMATOCRIT 53.3 % (35.0-45.0); MEAN CORPUSCULAR HEMOGLOBIN 33.4 PG (27.0-31.0); MEAN CORPUSCULAR HGB CONC 33.8 g/dL (33.0-36.5); MEAN CORPUSCULAR VOLUME 98.8 FL (78-98); PLATELET COUNT 169 X10'3 (140-440); RED CELL DISTRIBUTION WIDTH 11.8 % (11.5-14.5)
[2020-03-19 22:42] LABS: ASPARTATE AMINO TRANSFERASE 149 U/L (10-37)
[2020-03-19 22:43] LABS: ANION GAP 29 (8-16); WHITE BLOOD COUNT 41.7 X10'3 (4.5-11.0)
--- NOTE | 2020-03-19 22:44 | NUR ---
notified of critical WBC 41.7 and hemaglobin 18
[2020-03-19 22:45] LABS: GLUCOSE 786 MG/DL (70-104); POTASSIUM 7.2 MMOL/L (3.5-5.1); TOTAL CARBON DIOXIDE < 5 MMOL/L (24-32)
[2020-03-19] MEDS ORDERED: sodium bicarbonate (8.4%) inj. 50 MEQ in dextrose 5% water 500ml 250 ML IV PRN ×2 (22:49→23:25)
[2020-03-19] MEDS ORDERED: normal saline 1000ml 1,000 ML IV SCH (22:49)
[2020-03-19] MEDS ORDERED: Insulin Reg/NS 100units/100mL 100 ML IV SCH (22:49)
[2020-03-19] MEDS ORDERED: potassium CL 20mEq in D5-1/2NS 1,000 ML IV PRN ×2 (22:49→23:25)
[2020-03-19] MEDS ORDERED: sodium bicarbonate (8.4%) inj. 100 MEQ in dextrose 5% water 500ml 500 ML IV PRN ×2 (22:49→23:25)
[2020-03-19] MEDS ORDERED: sodium phosphate inj. 15 MMOL in dextrose 5%-water 245 ML IV PRN (22:50)
[2020-03-19] MEDS ORDERED: calcium chloride inj. 1,000 MG in normal saline 100ml IV soln 90 ML IV ONE (22:50)
[2020-03-19] MEDS ORDERED: potassium CL 10mEq/100ml bag 100 ML IV PRN ×3 (22:50→23:25)
[2020-03-19] MEDS ORDERED: Neutra Phos packet PO PRN (22:50)
[2020-03-19] MEDS ORDERED: insulin regular, human U-100 3ml vial - multi-dose IV ONE (22:50)
[2020-03-19] MEDS ORDERED: insulin regular, human U-100 3ml vial - multi-dose IV PRN (22:50)
[2020-03-19] MEDS ORDERED: potassium Cl 20 mEq SR tablet PO PRN ×4 (22:50→23:25)
[2020-03-19] MEDS ORDERED: sodium phosphate inj. 30 MMOL in dextrose 5%-water 240 ML IV PRN (22:50)
[2020-03-19 23:15] LABS: PHOSPHORUS 7.5 MG/DL (2.3-4.5)
[2020-03-19 23:16] LABS: ANISOCYTOSIS 1+; PLATELET ESTIMATE NORMAL; TOTAL CELLS COUNTED 100
[2020-03-19] MEDS ORDERED: magnesium 2GM in 50ml NS 50 ML IV PRN (23:25)
[2020-03-19] MEDS ORDERED: magnesium 4gm in 100ml NS 100 ML IV PRN (23:25)
[2020-03-19] MEDS ORDERED: LIDOcaine 2% 10ml TOPICAL JELLY (Urojet) TP ONE (23:25)
[2020-03-19] MEDS ORDERED: levoFLOXACIN-Levaquin 500mg/D5 100 ML IV ONE (23:25)
[2020-03-19] MEDS: normal saline 1000ml 1,000 ML IV SCH ×3 (23:25→23:55)
[2020-03-19] MEDS ORDERED: acetaminophen 325mg tablet PO PRN ×2 (23:25)
[2020-03-20] VITALS (21 sets, daily range): BP systolic 79–131; BP diastolic 40–66
[2020-03-20 00:31] LABS: URINE AMPHETAMINE SCREEN NEGATIVE (Neg); URINE BARBITUATE SCREEN NEGATIVE (Neg); URINE BENZODIAZEPINES SCREEN NEGATIVE (Neg); URINE CANNABINOID SCREEN NEGATIVE (Neg); URINE COCAINE SCREEN NEGATIVE (Neg); URINE METHADONE SCREEN NEGATIVE (Neg); URINE OPIATE SCREEN NEGATIVE (Neg); URINE PHENCYCLIDINE SCREEN NEGATIVE (Neg)
--- NOTE | 2020-03-20 00:36 | NUR ---
Pt. SPO2 dropped to 80% on 2L/min. Non-rebreather applied stat. O2 increased to 85%. VS: HR 100, 85% on 15L via NRB, 30/min, 119/85. made aware. Staff to prep for RSI.
[2020-03-20 00:37] LABS: ETHANOL < 0.010 GM/DL (0.0-0.010); MAGNESIUM 1.8 MG/DL (1.5-2.4)
--- NOTE | 2020-03-20 00:37 | NUR ---
Per MD hold all fluids at this time. Team activated for RSI. Pt. SPO2 at 89% on 15L via NRB.
[2020-03-20] MEDS ORDERED: fentaNYL/PF 50MCG/1 ML 2ML syringe IV PRN (00:40)
[2020-03-20] MEDS ORDERED: midazolam 100mg in NS 100ml 100 ML IV PRN (00:40)
[2020-03-20] MEDS ORDERED: rocuronium 10mg/ml inj IV ONE ×2 (00:40→00:45)
[2020-03-20] MEDS ORDERED: etomidate 2mg/ml inj. IV ONE ×2 (00:40→00:45)
[2020-03-20 00:43] LABS: LACTIC SEPSIS 1.6 MMOL/L (0.4-2.0)
--- NOTE | 2020-03-20 01:04 | NUR ---
Radiology at bedside for CXR. ET re-adjusted and now 22cm at teeth.
[2020-03-20] MEDS ORDERED: FENTANYL-0.9 % NACL/PF 100 ML IV PRN ×2 (01:06→01:09)
[2020-03-20] MEDS ORDERED: albuterol 2.5 MG/3 ML nebule NEB PRN (01:10)
[2020-03-20] MEDS ORDERED: CefTRIAXone/D5W-Rocephin 1gm 50 ML IV ONE (01:15)
[2020-03-20] MEDS ORDERED: azithromycin/NS 500mg/250ml 250 ML IV ONE (01:15)
--- NOTE | 2020-03-20 01:16 | NUR ---
Dr. Burk telephoned and I gave her an SBAR on this patient and she did authorized rapid covid [address] Melissa made aware.
[2020-03-20] MEDS ORDERED: sodium bicarbonate (8.4%) inj. 1 MEQ/ML ML IV ONE (01:40)
[2020-03-20] MEDS: ipratropium/albuterol 3ml nebule NEB SCH ×6 (02:47→22:53)
[2020-03-20 03:10] LABS: ALANINE AMINOTRANSFERASE 22 U/L (12-78); ALBUMIN 2.5 G/DL (3.4-5.0); ALBUMIN/GLOBULIN RATIO 0.7 (1.1-1.5); ALKALINE PHOSPHATASE 199 IU/L (46-116); ANION GAP 21 (8-16); BILIRUBIN,TOTAL 0.5 MG/DL (0.1-1.0); BLOOD UREA NITROGEN 33 MG/DL (7-18); BUN/CREATININE RATIO 19.8 (6.6-38.0); CALCIUM 7.4 MG/DL (8.5-10.1); CHLORIDE 103 MMOL/L (99-107); CREATININE 1.67 MG/DL (0.40-0.90); MAGNESIUM 1.5 MG/DL (1.5-2.4); PHOSPHORUS 4.1 MG/DL (2.3-4.5); SODIUM 137 MMOL/L (135-145); TOTAL PROTEIN 5.9 G/DL (6.4-8.2); eGFR 35 ML/MIN
[2020-03-20 03:25] LABS: ABG BASE EXCESS -23.4 mmol/L (-2.0-3.0); ABG HCO3 9.5 mmol/L (22.0-26.0); ABG PH (T) 6.931 (7.350-7.450); ABG PO2 (T) 56.4 mmHg (83-108); FCOHb 0.6 % (0.5-1.5); FMetHb 0.2 % (0.3-1.12); FO2Hb 90.3 % (94-100); PATIENT TEMPERATURE 35.5; PEEP 8 cm H2O; RESPIRATORY RATE 20 b/min; TIDAL VOLUME 400 mL; TOTAL HEMOGLOBIN 15.9 G/dl (12.0-16.0)
[2020-03-20] MEDS: normal saline 1000ml 1,000 ML IV SCH ×2 (03:25→08:55)
[2020-03-20 03:37] LABS: ASPARTATE AMINO TRANSFERASE 135 U/L (10-37); POTASSIUM 3.9 MMOL/L (3.5-5.1)
[2020-03-20] MEDS ORDERED: sodium bicarbonate (8.4%) inj. 50 MEQ in dextrose 5%-water 250 ML IV PRN (03:38)
[2020-03-20 03:40] LABS: GLUCOSE 467 MG/DL (70-104); TOTAL CARBON DIOXIDE 12.8 MMOL/L (24-32)
[2020-03-20] MEDS ORDERED: NORepinephrine 8mg/ 250ml NS 250 ML IV ONE (04:49)
[2020-03-20 05:28] LABS: PARTIAL THROMBOPLASTIN TIME 27 SECONDS (22-32)
[2020-03-20] MEDS: NORepinephrine 8mg/ 250ml NS 250 ML IV SCH ×3 (05:33→20:55)
[2020-03-20 06:59] LABS: ALBUMIN 2.1 G/DL (3.4-5.0); ANION GAP 18 (8-16); BLOOD UREA NITROGEN 32 MG/DL (7-18); BUN/CREATININE RATIO 21.2 (6.6-38.0); CALCIUM 6.7 MG/DL (8.5-10.1); CHLORIDE 106 MMOL/L (99-107); CREATININE 1.51 MG/DL (0.40-0.90); GLUCOSE 397 MG/DL (70-104); PHOSPHORUS 1.7 MG/DL (2.3-4.5); SODIUM 140 MMOL/L (135-145); eGFR 39 ML/MIN
[2020-03-20 07:04] LABS: POTASSIUM 2.7 MMOL/L (3.5-5.1)
[2020-03-20] MEDS: potassium Cl 20mEq/100mL bag 100 ML IV PRN ×5 (07:16→23:01)
[2020-03-20] MEDS: Insulin Reg/NS 100units/100mL 100 ML IV SCH ×7 (07:37→22:24)
[2020-03-20 07:55] LABS: ABG HCO3 14.1 mmol/L (22.0-26.0); ABG OXYGEN SATURATION 91.8 % (95-98); ABG PCO2 (T) 36.1 mmHg (35.0-45.0); ABG PH (T) 7.207 (7.350-7.450); ABG PO2 (T) 50.4 mmHg (83-108); ALLEN'S TEST POSITIVE; FCOHb 0.8 % (0.5-1.5); FMetHb 0.1 % (0.3-1.12); PATIENT TEMPERATURE 36.4; PEEP 8 cm H2O; RESPIRATORY RATE 30 b/min; TIDAL VOLUME 400 mL; TOTAL HEMOGLOBIN 16.1 G/dl (12.0-16.0)
[2020-03-20] MEDS ORDERED: docusate sod 100mg capsule PO SCH (08:00)
[2020-03-20] MEDS ORDERED: pantoprazole 40 MG vial IV SCH (08:00)
[2020-03-20] MEDS: K and/or MAG REPLACEMENT MC SCH ×2 (08:00→20:00)
[2020-03-20] MEDS ORDERED: lactulose 20gm/30ml cup NG SCH (08:00)
[2020-03-20] MEDS ORDERED: linezolid 600mg/300ml PREMIX 300 ML IV ONE (08:15)
[2020-03-20] MEDS: pantoprazole 40 MG vial IV SCH ×2 (08:38→20:53)
[2020-03-20] MEDS: heparin, porcine 5000 units/ml vial SQ SCH ×2 (08:38→20:55)
[2020-03-20] MEDS ORDERED: normal saline 1000ml 1,000 ML IV ONE (09:10)
[2020-03-20] MEDS ORDERED: dextrose 5%-1/2 normal saline 1,000 ML IV SCH (09:20)
[2020-03-20] MEDS: vasopressin inj. 40 UNIT in normal saline 50ml IV soln 40 ML IV SCH (09:33)
[2020-03-20] MEDS: piperacillin/tazo 3.375gm/50ml 50 ML IV SCH ×2 (09:39→16:09)
--- NOTE | 2020-03-20 10:00 | NUR ---
1000 Attempted to contact persons to notify, Mother Pippa and sister Anna. Left a message with Anna. Addendum: 03/20/20 at 1436 by Azalia Gabriel RN Left a message "FOR" Anna, not "with"
[2020-03-20 11:02] LABS: ALANINE AMINOTRANSFERASE 21 U/L (12-78); ALBUMIN/GLOBULIN RATIO 0.7 (1.1-1.5); ALKALINE PHOSPHATASE 153 IU/L (46-116); ANION GAP 10 (8-16); ASPARTATE AMINO TRANSFERASE 76 U/L (10-37); BILIRUBIN,TOTAL 0.3 MG/DL (0.1-1.0); BLOOD UREA NITROGEN 29 MG/DL (7-18); BUN/CREATININE RATIO 19.1 (6.6-38.0); CALCIUM 6.5 MG/DL (8.5-10.1); CHLORIDE 111 MMOL/L (99-107); CREATININE 1.52 MG/DL (0.40-0.90); GLUCOSE 259 MG/DL (70-104); POTASSIUM 3.8 MMOL/L (3.5-5.1); SODIUM 140 MMOL/L (135-145); TOTAL CARBON DIOXIDE 18.6 MMOL/L (24-32); TOTAL PROTEIN 4.9 G/DL (6.4-8.2); eGFR 39 ML/MIN
[2020-03-20 11:03] LABS: BASOPHILS % (AUTO) 0.3 % (0-1); EOSINOPHILS % (AUTO) 0.1 % (0-6); HEMATOCRIT 43.1 % (35.0-45.0); HEMOGLOBIN 14.6 g/dl (12.0-16.0); LYMPHOCYTES # (AUTO) 1.4 X10'3 (1.1-4.8); LYMPHOCYTES % (AUTO) 10.7 % (21-51); MEAN CORPUSCULAR HEMOGLOBIN 33.2 PG (27.0-31.0); MEAN CORPUSCULAR HGB CONC 33.8 g/dL (33.0-36.5); MEAN CORPUSCULAR VOLUME 98.2 FL (78-98); MEAN PLATELET VOLUME 11.6 FL (7.4-10.4); MONOCYTES # (AUTO) 0.2 X10'3 (0-0.9); MONOCYTES % (AUTO) 1.3 % (2-12); NEUTROPHILS # (AUTO) 11.7 X10'3 (1.8-7.7); NEUTROPHILS % (AUTO) 87.6 % (42-75); PLATELET COUNT 82 X10'3 (140-440); RED BLOOD COUNT 4.39 X10'6 (4.20-5.60); RED CELL DISTRIBUTION WIDTH 12.4 % (11.5-14.5); WHITE BLOOD COUNT 13.4 X10'3 (4.5-11.0)
[2020-03-20 11:21] LABS: OXYGEN SATURATION (MIXED VEN) 77.3 % (60-80)
[2020-03-20] MEDS: diltiazem-NS 100mg/100ml 100 ML IV SCH ×3 (11:37→23:01)
[2020-03-20] MEDS ORDERED: LORA-269 PO (12:13)
[2020-03-20] MEDS ORDERED: BUPR1FIL3 SL (12:13)
[2020-03-20 12:35] LABS: TOTAL CELLS COUNTED 100
[2020-03-20 12:36] LABS: PLATELET ESTIMATE DECREASED
[2020-03-20 12:48] LABS: PHOSPHORUS 0.8 MG/DL (2.3-4.5)
[2020-03-20 12:49] LABS: MAGNESIUM 0.8 MG/DL (1.5-2.4)
--- NOTE | 2020-03-20 13:06 | NUR ---
Tube feeding consult. Patient presented to ED with acute respiratory failure, DKA and BG up to 786 mg/dl. Has history of type 1 DM, frequent admission with DKA and history of noncompliance with managing glucose. Pt is intubated, sedated, and on pressor support with norepinephrine and vasopressin with MAP of 65. Has temperature of 110.4; FiO2 100%. Recommend: 1. OGTF using Vital AF starting at 30 ml/hr and advance by 20 ml q 8 hours to goal rate of 60 ml/hr will provide total volume of 1440 ml, 1728 cals, 108 g protein, 1168 ml water, and 159 g CHO daily. 2. additional water flush 95 ml q 4 hours for total 570 ml daily to meet hydration needs 3. Routine bowel care in view of intubated with opiate agonists. Currently receiving lacutlose as needed and colace 4. daily wts, prealbumin q sunday and 5. when extubated, advance diet as medically indicated to carb controlled Addendum: 03/20/20 at [address] Amended: Links added.
[2020-03-20] MEDS ORDERED: acetaminophen 325mg/10.15ml oral unit dose solution OGT PRN (13:09)
[2020-03-20] MEDS ORDERED: Neutra Phos packet OGT PRN (13:09)
[2020-03-20] MEDS ORDERED: POTASSIUM BICARB 20meq eff tab 20 MEQ TABLET.EFF OGT PRN (13:11)
[2020-03-20] MEDS: midazolam 100mg in NS 100ml 100 ML IV PRN ×2 (13:35→21:38)
--- NOTE | 2020-03-20 14:01 | NUR ---
Attempted to contact mother and sister again, still receiving no response.
[2020-03-20] MEDS: HYDROmorphone/NS 1 mg/ml CADD 50 ML IV SCH ×6 (14:12→23:00)
[2020-03-20] MEDS: sodium phosphate inj. 30 MMOL in dextrose 5%-water 250 ML IV PRN (14:12)
--- NOTE | 2020-03-20 14:12 | NUR ---
Found another phone number for mother in patient's phone, attempted to contact phone number with number going to voicemail and a person named "jamie" on voicemail, no message left.
--- NOTE | 2020-03-20 14:35 | NUR ---
Found a possible , Osmany? Contacted phone number and left a message.
--- NOTE | 2020-03-20 15:24 | NUR ---
Sister, Anna finally able to reach. She says she is not real close with her sister however Marylu probably chose to have her as person to notify because Anna is the one "she trusts most". Anna states Mother, Pippa is on drugs and will want to be updated, which Anna will do. Anna and I agreed to have Anna as the person to notify and Anna will attempt to contact Osmany, patient's , so that he is aware she is in the hospital. Osmany and patient are estranged at the moment.
[2020-03-20] MEDS: dextrose 50%-water 50ml dispensing syringe IV PRN (15:37)
--- NOTE | 2020-03-20 15:41 | NUR ---
Spoke with , Osmany Mcarthur, states he and his are estranged and he is ok with Anna, sister making all medical decisions. He states that patient is and due April 29, baby is not his and is the reason that he and patient are estranged and are unable to work things out. He says last he saw her she was with seems within the past week. He recently assisted her to start moving things out of her motel room until he had to go to the hospital due to a hernia and is off work for a short time.
[2020-03-20] MEDS: lactulose 20gm/30ml cup OGT SCH (16:09)
[2020-03-20] MEDS: acetaminophen 325mg/10.15ml oral unit dose solution OGT PRN (16:09)
[2020-03-20 16:40] LABS: ABG BASE EXCESS -6.5 mmol/L (-2.0-3.0); ABG HCO3 18.8 mmol/L (22.0-26.0); ABG OXYGEN SATURATION 97.6 % (95-98); ABG PCO2 (T) 39.1 mmHg (35.0-45.0); ABG PH (T) 7.307 (7.350-7.450); ABG PO2 (T) 95.1 mmHg (83-108); ALLEN'S TEST POSITIVE; FCOHb 0.5 % (0.5-1.5); FMetHb 0.2 % (0.3-1.12); FO2Hb 96.9 % (94-100); PATIENT TEMPERATURE 38.3; PEEP 15 cm H2O; RESPIRATORY RATE 30 b/min; TIDAL VOLUME 400 mL; TOTAL HEMOGLOBIN 14.7 G/dl (12.0-16.0)
[2020-03-20 16:42] LABS: HCG SERUM QL NEGATIVE
--- NOTE | 2020-03-20 16:48 | NUR ---
Deja PEREZ at bedside with ultrasound machine; per PA, no indication that the patient has a fetus in the uterus. Vaginal exam also performed by PA, also no indication for . Blood noted; likely menstruation per PA.
--- NOTE | 2020-03-20 18:30 | NUR ---
Day Shift Summary: Received report from Chico TORRES at change of shift with patient at 100% FiO2 with PEEP of 8 saturating at 88-90%, HR in the 120s, and SBP in the 90s on Levophed. October Marc at bedside. 0630 Labs drawn with critical Potassium 2.7, MD aware, replacing per protocol. 0751 ABG drawn and PO2 in the 50s. Dr. Moss called about increased HR in the 140s, CVP 7, orders for 1L NS bolus and stat ECHO. Per dental laboratory technology teacher, patient dehydrated per ultrasound. 1000: Dr Lockhart at bedside, okay to increase PEEP, place on rotoprone bed. Patient's gap closed, okay to stop DKA drip/protocol, but orders to use Insulin drip protocol to manage blood sugar as patient remains on 40unit/hour of Insulin. aware of HR in the 140s 1100: called about HR in the 150-160s; orders for Cardizem gtt. aware of critical Phosph/Magnesium of 0.8/0.8; replace per protocol. 1215: Spoke to Dr. Moss via telephone, orders to hold PEEP less/equal to 15 and TV of 400; otherwise follow ARDs protocol. Okay to feed per MD. Dilaudid gtt as patient is on Zyvox. 1530: Patient placed on rotoprone bed, tolerating well. Issues with family dynamics. Charge nurse called family to notify family about patient's status; per family, patient is , however, HCG urine/serum levels negative, bedside ultrasound negative, vaginal exam appears negative with Deja PEREZ at bedside for US/Vaginal Exam. Patient report given to Susan with all questions answered.
--- NOTE | 2020-03-20 18:30 | NUR ---
Patient in room CICU 2008. I have received report from Jose Luis TORRES and had the opportunity to ask questions and assume patient care.
[2020-03-20 20:54] LABS: ALANINE AMINOTRANSFERASE 14 U/L (12-78); ALBUMIN 2.1 G/DL (3.4-5.0); ALBUMIN/GLOBULIN RATIO 0.7 (1.1-1.5); ALKALINE PHOSPHATASE 133 IU/L (46-116); ANION GAP 14 (8-16); ASPARTATE AMINO TRANSFERASE 69 U/L (10-37); BILIRUBIN,TOTAL 0.4 MG/DL (0.1-1.0); BLOOD UREA NITROGEN 26 MG/DL (7-18); BUN/CREATININE RATIO 18.1 (6.6-38.0); CALCIUM 7.1 MG/DL (8.5-10.1); CHLORIDE 109 MMOL/L (99-107); CREATININE 1.44 MG/DL (0.40-0.90); GLUCOSE 130 MG/DL (70-104); MAGNESIUM 2.4 MG/DL (1.5-2.4); PHOSPHORUS 2.9 MG/DL (2.3-4.5); POTASSIUM 3.1 MMOL/L (3.5-5.1); SODIUM 143 MMOL/L (135-145); TOTAL CARBON DIOXIDE 19.6 MMOL/L (24-32); TOTAL PROTEIN 5.1 G/DL (6.4-8.2); eGFR 41 ML/MIN
[2020-03-20] MEDS: lactobacillus rhamnosus 10,000 MMU CELLS/CAPSULE PO SCH (20:54)
[2020-03-20] MEDS: linezolid 600mg/300ml PREMIX 300 ML IV SCH (20:54)
[2020-03-20] MEDS: docusate sodium 100mg/10ml UD cup OGT SCH (20:54)
[2020-03-20] MEDS: CISatracurium besylate inj. 100 MG in normal saline 100ml IV soln 90 ML IV PRN (20:56)
--- NOTE | 2020-03-20 21:00 | NUR ---
Pt very awake in Rotoprone bed. She is pulling her arms out of the slings and reaching for her ETT. Restraints reapplied, sedation titrated up to max dose and Nimbex started.
[2020-03-20] MEDS ORDERED: CefTRIAXone 2gm/D5W 50ml 50 ML IV SCH (23:00)
[2020-03-21] VITALS (24 sets, daily range): BP systolic 97–146; BP diastolic 46–76
[2020-03-21] MEDS: piperacillin/tazo 3.375gm/50ml 50 ML IV SCH ×3 (00:12→16:20)
[2020-03-21] MEDS: lactulose 20gm/30ml cup OGT SCH ×3 (00:12→16:21)
[2020-03-21] MEDS: Insulin Reg/NS 100units/100mL 100 ML IV SCH ×10 (00:54→23:14)
[2020-03-21] MEDS: HYDROmorphone/NS 1 mg/ml CADD 50 ML IV SCH ×12 (01:00→23:00)
[2020-03-21] MEDS: mineral oil/petrolatum ophthal oint EACHEYE SCH ×4 (01:33→20:01)
[2020-03-21] MEDS: azithromycin/NS 500mg/250ml 250 ML IV SCH (01:34)
[2020-03-21] MEDS: vasopressin inj. 40 UNIT in normal saline 50ml IV soln 40 ML IV SCH (02:03)
[2020-03-21 02:19] LABS: BASOPHILS # (AUTO) 0.1 X10'3 (0-0.2); BASOPHILS % (AUTO) 0.6 % (0-1); EOSINOPHILS % (AUTO) 0.2 % (0-6); HEMATOCRIT 37.2 % (35.0-45.0); HEMOGLOBIN 12.6 g/dl (12.0-16.0); LYMPHOCYTES # (AUTO) 1.3 X10'3 (1.1-4.8); MEAN CORPUSCULAR HEMOGLOBIN 33.2 PG (27.0-31.0); MEAN CORPUSCULAR HGB CONC 33.9 g/dL (33.0-36.5); MEAN PLATELET VOLUME 11.4 FL (7.4-10.4); MONOCYTES # (AUTO) 0.2 X10'3 (0-0.9); MONOCYTES % (AUTO) 1.5 % (2-12); NEUTROPHILS # (AUTO) 11.3 X10'3 (1.8-7.7); NEUTROPHILS % (AUTO) 87.7 % (42-75); PLATELET COUNT 57 X10'3 (140-440); RED CELL DISTRIBUTION WIDTH 12.6 % (11.5-14.5); WHITE BLOOD COUNT 12.8 X10'3 (4.5-11.0)
--- NOTE | 2020-03-21 02:30 | NUR ---
TOF checked at midnight after titrating Nimbex up for arm movement, 0/4. Restraints D/Cd and Nimbex titrated down. 0200 TOF remained 0/4, Nimbex reduced again. Pt did well during bath supine, no drop in O2 sats. RT reducing Vent support per ARDS sheet.
[2020-03-21 02:36] LABS: ALANINE AMINOTRANSFERASE 18 U/L (12-78); ALBUMIN/GLOBULIN RATIO 0.7 (1.1-1.5); ALKALINE PHOSPHATASE 123 IU/L (46-116); ANION GAP 11 (8-16); ASPARTATE AMINO TRANSFERASE 58 U/L (10-37); BILIRUBIN,TOTAL 0.3 MG/DL (0.1-1.0); BLOOD UREA NITROGEN 23 MG/DL (7-18); BUN/CREATININE RATIO 15.4 (6.6-38.0); CALCIUM 6.8 MG/DL (8.5-10.1); CHLORIDE 113 MMOL/L (99-107); CREATININE 1.49 MG/DL (0.40-0.90); GLUCOSE 159 MG/DL (70-104); MAGNESIUM 2.2 MG/DL (1.5-2.4); PHOSPHORUS 2.1 MG/DL (2.3-4.5); POTASSIUM 3.2 MMOL/L (3.5-5.1); SODIUM 144 MMOL/L (135-145); TOTAL CARBON DIOXIDE 19.6 MMOL/L (24-32); eGFR 40 ML/MIN
[2020-03-21] MEDS: midazolam 100mg in NS 100ml 100 ML IV PRN ×5 (02:43→22:10)
[2020-03-21] MEDS: ipratropium/albuterol 3ml nebule NEB SCH ×6 (03:11→23:05)
[2020-03-21] MEDS: NORepinephrine 8mg/ 250ml NS 250 ML IV SCH (03:12)
[2020-03-21] MEDS: potassium Cl 20mEq/100mL bag 100 ML IV PRN ×2 (03:12→04:16)
[2020-03-21] MEDS: sodium phosphate inj. 15 MMOL in dextrose 5%-water 250 ML IV PRN (04:12)
[2020-03-21 04:20] LABS: ABG BASE EXCESS -8.9 mmol/L (-2.0-3.0); ABG HCO3 16.7 mmol/L (22.0-26.0); ABG OXYGEN SATURATION 98.9 % (95-98); ABG PCO2 (T) 36.1 mmHg (35.0-45.0); ABG PH (T) 7.286 (7.350-7.450); ABG PO2 (T) 156.6 mmHg (83-108); ALLEN'S TEST POSITIVE; FCOHb 0.2 % (0.5-1.5); FMetHb 0.2 % (0.3-1.12); FO2Hb 98.5 % (94-100); PATIENT TEMPERATURE 37.6; PEEP 14 cm H2O; RESPIRATORY RATE 30 b/min; TIDAL VOLUME 400 mL; TOTAL HEMOGLOBIN 13.3 G/dl (12.0-16.0)
--- NOTE | 2020-03-21 04:35 | NUR ---
Reduced Nimbex, TOF remains 0/4.
[2020-03-21 04:54] LABS: ANISOCYTOSIS 1+; PLATELET ESTIMATE DECREASED; TOTAL CELLS COUNTED 100
--- NOTE | 2020-03-21 05:32 | NUR ---
TOF 4/4, now increasing Nimbex gtt rate for goal 2/4.
--- NOTE | 2020-03-21 06:30 | NUR ---
Report received from BRIAN Savage
--- NOTE | 2020-03-21 06:31 | NUR ---
Problems reprioritized. Patient report given, questions answered & plan of care reviewed with Lena TORRES.
[2020-03-21] MEDS: heparin, porcine 5000 units/ml vial SQ SCH ×2 (08:00→20:00)
[2020-03-21] MEDS: K and/or MAG REPLACEMENT MC SCH ×2 (08:00→19:34)
[2020-03-21] MEDS: docusate sodium 100mg/10ml UD cup OGT SCH ×2 (08:27→20:00)
[2020-03-21] MEDS: pantoprazole 40 MG vial IV SCH (08:27)
[2020-03-21] MEDS: lactobacillus rhamnosus 10,000 MMU CELLS/CAPSULE PO SCH ×2 (08:27→20:00)
[2020-03-21] MEDS: diltiazem-NS 100mg/100ml 100 ML IV SCH ×3 (08:29→20:01)
[2020-03-21] MEDS: linezolid 600mg/300ml PREMIX 300 ML IV SCH ×2 (08:30→20:01)
--- NOTE | 2020-03-21 10:00 | NUR ---
zyvox consult: Pt started on zyvox intubated receiving TF for nutrition and not appropriate for zyvox ed at this time Addendum: 03/21/20 at [address] Amended: Links added.
[2020-03-21 10:07] LABS: ANION GAP 14 (8-16); BLOOD UREA NITROGEN 20 MG/DL (7-18); BUN/CREATININE RATIO 17.2 (6.6-38.0); CALCIUM 6.9 MG/DL (8.5-10.1); CHLORIDE 109 MMOL/L (99-107); CREATININE 1.16 MG/DL (0.40-0.90); GLUCOSE 250 MG/DL (70-104); MAGNESIUM 2.1 MG/DL (1.5-2.4); PHOSPHORUS 3.5 MG/DL (2.3-4.5); POTASSIUM 3.9 MMOL/L (3.5-5.1); SODIUM 142 MMOL/L (135-145); TOTAL CARBON DIOXIDE 19.3 MMOL/L (24-32); eGFR 53 ML/MIN
[2020-03-21] MEDS: acetaminophen 325mg/10.15ml oral unit dose solution OGT PRN ×2 (11:44→19:59)
[2020-03-21] MEDS: CISatracurium besylate inj. 100 MG in normal saline 100ml IV soln 90 ML IV PRN (14:16)
--- NOTE | 2020-03-21 18:45 | NUR ---
Patient in room CICU 2008. I have received report from BRIAN Paredes and had the opportunity to ask questions and assume patient care.
--- NOTE | 2020-03-21 18:46 | NUR ---
Report given to BRIAN Davis
[2020-03-21] MEDS: famotidine/PF 10 mg/ml inj IV SCH (20:00)
--- NOTE | 2020-03-21 21:15 | NUR ---
Pt scale on bed not showing accurately, current weight showing -27.8.
--- NOTE | 2020-03-21 21:30 | NUR ---
Pt tolerated supine position for bed bath and linen change. Supine for approx 1 hour with no desaturations.
[2020-03-21] MEDS ORDERED: lactulose 20gm/30ml cup OGT PRN (23:25)
[2020-03-22] VITALS (24 sets, daily range): BP systolic 94–164; BP diastolic 44–89
[2020-03-22] MEDS: Insulin Reg/NS 100units/100mL 100 ML IV SCH ×6 (00:09→13:42)
[2020-03-22] MEDS: piperacillin/tazo 3.375gm/50ml 50 ML IV SCH ×2 (00:20→08:22)
[2020-03-22] MEDS: lactulose 20gm/30ml cup OGT SCH ×4 (00:20→23:30)
[2020-03-22] MEDS: azithromycin/NS 500mg/250ml 250 ML IV SCH (00:21)
[2020-03-22] MEDS: HYDROmorphone/NS 1 mg/ml CADD 50 ML IV SCH ×12 (01:00→23:00)
--- NOTE | 2020-03-22 01:15 | NUR ---
Pt placed in Supine position, did not tolerate. Immediately dropped to 85% SpO2, hyperoxygenated her to see if she would come back up and tolerate supine rotation. She did not tolerate and was placed back in prone position after approx 10 minutes.
[2020-03-22 01:31] LABS: BASOPHILS % (AUTO) 0.3 % (0-1); EOSINOPHILS # (AUTO) 0.3 X10'3 (0-0.9); EOSINOPHILS % (AUTO) 2.9 % (0-6); HEMATOCRIT 32.8 % (35.0-45.0); HEMOGLOBIN 11.1 g/dl (12.0-16.0); LYMPHOCYTES # (AUTO) 1.1 X10'3 (1.1-4.8); LYMPHOCYTES % (AUTO) 8.9 % (21-51); MEAN CORPUSCULAR HEMOGLOBIN 33.7 PG (27.0-31.0); MEAN CORPUSCULAR HGB CONC 33.9 g/dL (33.0-36.5); MEAN CORPUSCULAR VOLUME 99.6 FL (78-98); MEAN PLATELET VOLUME 10.9 FL (7.4-10.4); MONOCYTES # (AUTO) 0.2 X10'3 (0-0.9); MONOCYTES % (AUTO) 1.4 % (2-12); NEUTROPHILS # (AUTO) 10.2 X10'3 (1.8-7.7); NEUTROPHILS % (AUTO) 86.5 % (42-75); RED CELL DISTRIBUTION WIDTH 12.7 % (11.5-14.5); WHITE BLOOD COUNT 11.9 X10'3 (4.5-11.0)
[2020-03-22 01:38] LABS: ALANINE AMINOTRANSFERASE 22 U/L (12-78); ALBUMIN/GLOBULIN RATIO 0.6 (1.1-1.5); ALKALINE PHOSPHATASE 113 IU/L (46-116); ANION GAP 8 (8-16); ASPARTATE AMINO TRANSFERASE 45 U/L (10-37); BILIRUBIN,TOTAL 0.5 MG/DL (0.1-1.0); BLOOD UREA NITROGEN 14 MG/DL (7-18); BUN/CREATININE RATIO 11.7 (6.6-38.0); CALCIUM 7.5 MG/DL (8.5-10.1); CHLORIDE 114 MMOL/L (99-107); GLUCOSE 240 MG/DL (70-104); MAGNESIUM 2.1 MG/DL (1.5-2.4); PHOSPHORUS 1.9 MG/DL (2.3-4.5); PREALBUMIN 7.9 MG/DL (19-36); SODIUM 145 MMOL/L (135-145); TOTAL CARBON DIOXIDE 22.6 MMOL/L (24-32); TOTAL PROTEIN 5.4 G/DL (6.4-8.2); eGFR 51 ML/MIN
[2020-03-22 01:41] LABS: PLATELET COUNT 46 X10'3 (140-440); POTASSIUM 2.9 MMOL/L (3.5-5.1)
[2020-03-22] MEDS: potassium Cl 20mEq/100mL bag 100 ML IV PRN ×8 (01:51→22:22)
[2020-03-22] MEDS: mineral oil/petrolatum ophthal oint EACHEYE SCH ×4 (02:10→19:17)
[2020-03-22] MEDS: diltiazem-NS 100mg/100ml 100 ML IV SCH ×3 (02:42→23:04)
[2020-03-22] MEDS: acetaminophen 325mg/10.15ml oral unit dose solution OGT PRN ×3 (02:43→23:30)
[2020-03-22] MEDS: midazolam 100mg in NS 100ml 100 ML IV PRN ×5 (02:49→20:34)
[2020-03-22] MEDS: ipratropium/albuterol 3ml nebule NEB SCH ×6 (02:58→23:07)
[2020-03-22] MEDS: NORepinephrine 8mg/ 250ml NS 250 ML IV SCH (03:04)
--- NOTE | 2020-03-22 03:10 | NUR ---
Updated NAA Bruno on pts condition, including increasing blood sugars, current insulin drip, Plt: 46, and K: 2.9, and electrolyte replacement status. No new orders received.
[2020-03-22 03:56] LABS: ABG BASE EXCESS -6.1 mmol/L (-2.0-3.0); ABG HCO3 19.3 mmol/L (22.0-26.0); ABG OXYGEN SATURATION 95.3 % (95-98); ABG PCO2 (T) 39.5 mmHg (35.0-45.0); ABG PH (T) 7.313 (7.350-7.450); ABG PO2 (T) 78.4 mmHg (83-108); ALLEN'S TEST POSITIVE; FCOHb 0.9 % (0.5-1.5); FMetHb 0.1 % (0.3-1.12); FO2Hb 94.3 % (94-100); PEEP 10 cm H2O; RESPIRATORY RATE 26 b/min; TIDAL VOLUME 400 mL; TOTAL HEMOGLOBIN 11.4 G/dl (12.0-16.0)
[2020-03-22] MEDS: dextrose 50%-water 50ml dispensing syringe IV PRN ×5 (06:02→16:07)
--- NOTE | 2020-03-22 06:30 | NUR ---
Problems reprioritized. Patient report given, questions answered & plan of care reviewed with BRIAN Paredes.
--- NOTE | 2020-03-22 06:37 | NUR ---
Received report from BRIAN Davis
[2020-03-22] MEDS: heparin, porcine 5000 units/ml vial SQ SCH ×2 (08:00→19:03)
[2020-03-22] MEDS: K and/or MAG REPLACEMENT MC SCH ×2 (08:00→19:03)
[2020-03-22] MEDS: lactobacillus rhamnosus 10,000 MMU CELLS/CAPSULE PO SCH ×2 (08:22→19:18)
[2020-03-22] MEDS: famotidine/PF 10 mg/ml inj IV SCH ×2 (08:23→19:18)
[2020-03-22] MEDS: docusate sodium 100mg/10ml UD cup OGT SCH ×2 (08:23→19:18)
[2020-03-22] MEDS: linezolid 600mg/300ml PREMIX 300 ML IV SCH (08:34)
[2020-03-22] MEDS: vasopressin inj. 40 UNIT in normal saline 50ml IV soln 40 ML IV SCH (08:45)
[2020-03-22 09:22] LABS: ANION GAP 7 (8-16); BLOOD UREA NITROGEN 15 MG/DL (7-18); CALCIUM 7.9 MG/DL (8.5-10.1); CHLORIDE 117 MMOL/L (99-107); GLUCOSE 87 MG/DL (70-104); MAGNESIUM 2.2 MG/DL (1.5-2.4); POTASSIUM 3.9 MMOL/L (3.5-5.1); SODIUM 147 MMOL/L (135-145); TOTAL CARBON DIOXIDE 22.6 MMOL/L (24-32); eGFR 63 ML/MIN
[2020-03-22 09:29] LABS: PHOSPHORUS 0.9 MG/DL (2.3-4.5)
[2020-03-22] MEDS ORDERED: furosemide 20 MG/2 ML vial IV ONE (09:55)
[2020-03-22] MEDS: CISatracurium besylate inj. 100 MG in normal saline 100ml IV soln 90 ML IV PRN (10:18)
[2020-03-22] MEDS ORDERED: cefepime 1GM in D5W 50mL 50 ML IV ONE (10:35)
[2020-03-22] MEDS: sodium phosphate inj. 30 MMOL in dextrose 5%-water 250 ML IV PRN (11:50)
--- NOTE | 2020-03-22 11:53 | NUR ---
Reassessment: Pt intubated, sedated, on rotoprone. Residuals are within normal limits past 24 hours. Abdomen flat, soft, hypoactive bowl sounds, last BM 03/20; receiving daily bowel care. Pt receiving 95 ml water flush q 4 hours, sodium on admission was low and now is 147; has generalized 1+ pitting edema and bilat periorbital 3+ pitting (likely r/t rotoprone position). Pt receiving lasix. Continue to monitor sodium and need for water flush adjustments. Phosphorus very low at 0.9; receiving IV replacement Recommend: 1. OGTF using Vital AF starting at 30 ml/hr and advance by 20 ml q 8 hours to goal rate of 60 ml/hr will provide total volume of 1440 ml, 1728 cals, 108 g protein, 1168 ml water, and 159 g CHO daily. 2. additional water flush 95 ml q 4 hours for total 570 ml daily to meet hydration needs; monitor sodium, currently 147 3. Routine bowel care in view of intubated with opiate agonists. Currently receiving lacutlose as needed and colace 4. daily wts, prealbumin q sunday and 5. when extubated, advance diet as medically indicated to carb controlled 6. zyvox ed once stable s/p extubation Addendum: 03/22/20 at [address] Amended: Links added.
[2020-03-22 13:22] LABS: ALLEN'S TEST POSITIVE; PATIENT TEMPERATURE 35.5
[2020-03-22 13:24] LABS: ABG PH (T) < 6.670 (7.350-7.450); ABG PO2 (T) 64.8 mmHg (83-108)
[2020-03-22] MEDS: cefepime 1GM in D5W 50mL 50 ML IV SCH ×2 (15:33→23:26)
[2020-03-22] MEDS: furosemide 20 MG/2 ML vial IV SCH ×2 (15:34→23:26)
[2020-03-22] MEDS ORDERED: sodium chloride inj. 154 MEQ in Dextrose 10%-water IV solution 961.5 ML IV SCH (16:35)
[2020-03-22] MEDS ORDERED: Dextrose 10%-water IV solution 1,000 ML IV SCH (17:05)
--- NOTE | 2020-03-22 18:10 | NUR ---
Report given to BRIAN Davis
--- NOTE | 2020-03-22 18:30 | NUR ---
Patient in room CICU 2008. I have received report from BRIAN Paredes and had the opportunity to ask questions and assume patient care.
[2020-03-22 19:07] LABS: PHOSPHORUS 4.9 MG/DL (2.3-4.5)
--- NOTE | 2020-03-22 21:10 | NUR ---
Pt scale on bed not showing accurately, current weight showing -33.9.
--- NOTE | 2020-03-22 22:20 | NUR ---
Spoke with charge nurse regarding supine vs prone considering they are planning to attempt removing the pt from the bed tomorrow. She has been supine for approx 2 1/2 hours and O2 sats are 99-100%, leaving pt supine for now.
[2020-03-23] VITALS (24 sets, daily range): BP systolic 94–139; BP diastolic 45–94
[2020-03-23] MEDS: HYDROmorphone/NS 1 mg/ml CADD 50 ML IV SCH ×8 (01:00→15:00)
[2020-03-23] MEDS: azithromycin/NS 500mg/250ml 250 ML IV SCH (01:06)
[2020-03-23] MEDS: midazolam 100mg in NS 100ml 100 ML IV PRN ×2 (01:10→05:43)
[2020-03-23] MEDS: mineral oil/petrolatum ophthal oint EACHEYE SCH ×4 (01:10→19:28)
[2020-03-23 02:24] LABS: ALANINE AMINOTRANSFERASE 24 U/L (12-78); ALBUMIN 2.2 G/DL (3.4-5.0); ALBUMIN/GLOBULIN RATIO 0.6 (1.1-1.5); ALKALINE PHOSPHATASE 123 IU/L (46-116); ANION GAP 5 (8-16); ASPARTATE AMINO TRANSFERASE 36 U/L (10-37); BLOOD UREA NITROGEN 13 MG/DL (7-18); CALCIUM 8.3 MG/DL (8.5-10.1); CHLORIDE 111 MMOL/L (99-107); CREATININE 1.08 MG/DL (0.40-0.90); GLUCOSE 83 MG/DL (70-104); MAGNESIUM 1.5 MG/DL (1.5-2.4); PHOSPHORUS 2.3 MG/DL (2.3-4.5); SODIUM 145 MMOL/L (135-145); TOTAL CARBON DIOXIDE 29.3 MMOL/L (24-32); TOTAL PROTEIN 6.2 G/DL (6.4-8.2); eGFR 58 ML/MIN
[2020-03-23 02:28] LABS: BASOPHILS # (AUTO) 0.1 X10'3 (0-0.2); BASOPHILS % (AUTO) 0.7 % (0-1); EOSINOPHILS # (AUTO) 0.5 X10'3 (0-0.9); EOSINOPHILS % (AUTO) 3.9 % (0-6); HEMATOCRIT 32.3 % (35.0-45.0); LYMPHOCYTES # (AUTO) 1.7 X10'3 (1.1-4.8); LYMPHOCYTES % (AUTO) 13.6 % (21-51); MEAN CORPUSCULAR HEMOGLOBIN 33.2 PG (27.0-31.0); MEAN CORPUSCULAR HGB CONC 34.2 g/dL (33.0-36.5); MEAN CORPUSCULAR VOLUME 97.2 FL (78-98); MEAN PLATELET VOLUME 11.1 FL (7.4-10.4); MONOCYTES # (AUTO) 0.2 X10'3 (0-0.9); MONOCYTES % (AUTO) 1.7 % (2-12); NEUTROPHILS # (AUTO) 10.1 X10'3 (1.8-7.7); NEUTROPHILS % (AUTO) 80.1 % (42-75); PLATELET COUNT 54 X10'3 (140-440); RED BLOOD COUNT 3.32 X10'6 (4.20-5.60); RED CELL DISTRIBUTION WIDTH 12.8 % (11.5-14.5); WHITE BLOOD COUNT 12.6 X10'3 (4.5-11.0)
[2020-03-23] MEDS: sodium phosphate inj. 15 MMOL in dextrose 5%-water 250 ML IV PRN (03:01)
[2020-03-23] MEDS: ipratropium/albuterol 3ml nebule NEB SCH ×6 (03:11→23:10)
[2020-03-23 03:25] LABS: ABG BASE EXCESS 5.8 mmol/L (-2.0-3.0); ABG OXYGEN SATURATION 98.7 % (95-98); ABG PCO2 (T) 38.2 mmHg (35.0-45.0); ABG PH (T) 7.501 (7.350-7.450); ABG PO2 (T) 136.2 mmHg (83-108); ALLEN'S TEST POSITIVE; FCOHb 1.3 % (0.5-1.5); FMetHb 0.1 % (0.3-1.12); FO2Hb 97.3 % (94-100); PATIENT TEMPERATURE 37.7; PEEP 10 cm H2O; RESPIRATORY RATE 22 b/min; TIDAL VOLUME 400 mL; TOTAL HEMOGLOBIN 11.6 G/dl (12.0-16.0)
[2020-03-23] MEDS: diltiazem-NS 100mg/100ml 100 ML IV SCH ×3 (05:50→19:10)
[2020-03-23] MEDS: cefepime 1GM in D5W 50mL 50 ML IV SCH ×3 (07:59→23:12)
[2020-03-23] MEDS: docusate sodium 100mg/10ml UD cup OGT SCH ×2 (07:59→19:28)
[2020-03-23] MEDS: lactulose 20gm/30ml cup OGT SCH ×2 (07:59→15:29)
[2020-03-23] MEDS: lactobacillus rhamnosus 10,000 MMU CELLS/CAPSULE PO SCH ×2 (07:59→19:28)
[2020-03-23] MEDS: famotidine/PF 10 mg/ml inj IV SCH ×2 (07:59→19:31)
[2020-03-23] MEDS: furosemide 20 MG/2 ML vial IV SCH ×2 (07:59→19:31)
[2020-03-23] MEDS: K and/or MAG REPLACEMENT MC SCH ×2 (08:00→19:22)
[2020-03-23] MEDS: heparin, porcine 5000 units/ml vial SQ SCH ×2 (08:00→19:31)
[2020-03-23] MEDS ORDERED: dextrose ORAL solution 15 GM/59 ML bottle PO PRN ×2 (08:30)
[2020-03-23] MEDS ORDERED: MESSAGE TO PHARMACY PO ONE (08:30)
[2020-03-23] MEDS ORDERED: dextrose 50%-water 50ml dispensing syringe IV PRN ×2 (08:30)
[2020-03-23] MEDS ORDERED: glucagon, human recombinant 1mg kit SUBCUT PRN (08:30)
[2020-03-23] MEDS: insulin regular, human U-100 3ml vial - multi-dose SQ SCH ×3 (08:53→20:59)
[2020-03-23] MEDS ORDERED: midazolam 100mg in NS 100ml 100 ML IV PRN (09:02)
[2020-03-23] MEDS: methylnaltrexone br 12mg/0.6ml inj***SubQ only SQ SCH (09:38)
[2020-03-23 10:26] LABS: HEMOGLOBIN A1C 9.6 % (4.5-6.2)
[2020-03-23] MEDS ORDERED: normal saline 1000ml 1,000 ML IV ONE (14:25)
--- NOTE | 2020-03-23 14:32 | NUR ---
Dr. Barragan at bedside. Pt tachycardic HR 130's temp 37.7. New order for NS bolus 250ml at 250ml/hr. Stop d10 due to elevated blood sugars. Will continue to monitor.
[2020-03-23] MEDS ORDERED: albumin (human) 25% 100 ML IV solution IV ONE (15:25)
[2020-03-23] MEDS: metoclopramide 5 mg/ml inj IV SCH (15:29)
[2020-03-23] MEDS ORDERED: CADD PCA waste documentation MC PRN (16:05)
[2020-03-23] MEDS ORDERED: dexmedetomidine inj. 400 MCG in dextrose 5%-water 100 ML IV SCH (16:20)
[2020-03-23] MEDS: acetaminophen 325mg/10.15ml oral unit dose solution OGT PRN (17:26)
[2020-03-23] MEDS ORDERED: fentaNYL/PF 50MCG/1 ML 2ML syringe IV ONE (20:00)
[2020-03-23] MEDS ORDERED: LORazepam 2 mg/ml vial IV ONE (20:00)
[2020-03-23] MEDS: dexmedetomidin/NS 400mcg/100ml 100 ML IV SCH ×2 (20:31→23:12)
--- NOTE | 2020-03-23 21:00 | NUR ---
Patient's temperature continues to increase despite earlier dose of Acetaminophen and fan. Patient placed on cooling blanket.
[2020-03-23] MEDS: insulin glargine (Lantus) pen - multi-dose SQ SCH (21:01)
[2020-03-23] MEDS: ondansetron/PF 4mg/2ml inj IV PRN (22:14)
[2020-03-24] VITALS (24 sets, daily range): BP systolic 86–138; BP diastolic 49–90
--- NOTE | 2020-03-24 | NUR ---
Patient very restless/agitated. Attempted to sit up in bed. Constant harsh cough. Appears to be trying to cough out ETT. Is not following command or redirection. Very tachypneic. Respiration 34-40. O2 sat decreased to low 90's. Increased Precedex gtt with no effect. October Marc CONSULTATIVE SALES ASSOCIATE contacted and new orders received for Fentanyl 50mcg x 1 and Propofol gtt. Fentanyl given as ordered and patient immediately calmer. Will continue to monitor.
[2020-03-24] MEDS ORDERED: fentaNYL/PF 50MCG/1 ML 2ML syringe ONE (00:07)
[2020-03-24] MEDS ORDERED: propofol 1000mg/100ml bottle 100 ML IV SCH (00:08)
[2020-03-24] MEDS ORDERED: fentaNYL/PF 50MCG/1 ML 2ML syringe IV ONE (00:10)
[2020-03-24] MEDS: metoclopramide 5 mg/ml inj IV SCH ×3 (00:13→16:19)
[2020-03-24] MEDS: diltiazem-NS 100mg/100ml 100 ML IV SCH ×3 (00:14→15:10)
[2020-03-24] MEDS: azithromycin/NS 500mg/250ml 250 ML IV SCH (00:14)
[2020-03-24] MEDS: mineral oil/petrolatum ophthal oint EACHEYE SCH ×2 (02:40→08:00)
[2020-03-24] MEDS: ipratropium/albuterol 3ml nebule NEB SCH ×6 (02:43→23:16)
[2020-03-24 02:44] LABS: BASOPHILS # (AUTO) 0.1 X10'3 (0-0.2); BASOPHILS % (AUTO) 0.5 % (0-1); EOSINOPHILS # (AUTO) 0.5 X10'3 (0-0.9); EOSINOPHILS % (AUTO) 4.2 % (0-6); HEMATOCRIT 35.2 % (35.0-45.0); HEMOGLOBIN 11.8 g/dl (12.0-16.0); LYMPHOCYTES # (AUTO) 1.4 X10'3 (1.1-4.8); LYMPHOCYTES % (AUTO) 12.5 % (21-51); MEAN CORPUSCULAR HEMOGLOBIN 33.4 PG (27.0-31.0); MEAN CORPUSCULAR HGB CONC 33.6 g/dL (33.0-36.5); MEAN CORPUSCULAR VOLUME 99.4 FL (78-98); MEAN PLATELET VOLUME 10.9 FL (7.4-10.4); MONOCYTES # (AUTO) 0.3 X10'3 (0-0.9); MONOCYTES % (AUTO) 2.5 % (2-12); NEUTROPHILS # (AUTO) 9.2 X10'3 (1.8-7.7); NEUTROPHILS % (AUTO) 80.3 % (42-75); PLATELET COUNT 61 X10'3 (140-440); RED BLOOD COUNT 3.55 X10'6 (4.20-5.60); RED CELL DISTRIBUTION WIDTH 12.9 % (11.5-14.5); WHITE BLOOD COUNT 11.5 X10'3 (4.5-11.0)
[2020-03-24] MEDS: insulin regular, human U-100 3ml vial - multi-dose SQ SCH (02:45)
[2020-03-24 02:56] LABS: ABG BASE EXCESS 3.6 mmol/L (-2.0-3.0); ABG HCO3 27.6 mmol/L (22.0-26.0); ABG OXYGEN SATURATION 93.8 % (95-98); ABG PCO2 (T) 39.6 mmHg (35.0-45.0); ABG PH (T) 7.461 (7.350-7.450); ABG PO2 (T) 66.3 mmHg (83-108); ALLEN'S TEST POSITIVE; FCOHb 1.8 % (0.5-1.5); FMetHb 0.1 % (0.3-1.12); PATIENT TEMPERATURE 37.1; PEEP 5 cm H2O; RESPIRATORY RATE 22 b/min; TIDAL VOLUME 400 mL; TOTAL HEMOGLOBIN 12.6 G/dl (12.0-16.0)
[2020-03-24 03:03] LABS: ALANINE AMINOTRANSFERASE 25 U/L (12-78); ALBUMIN 2.6 G/DL (3.4-5.0); ALBUMIN/GLOBULIN RATIO 0.7 (1.1-1.5); ALKALINE PHOSPHATASE 139 IU/L (46-116); ANION GAP 8 (8-16); ASPARTATE AMINO TRANSFERASE 21 U/L (10-37); BILIRUBIN,TOTAL 0.7 MG/DL (0.1-1.0); BLOOD UREA NITROGEN 26 MG/DL (7-18); BUN/CREATININE RATIO 27.4 (6.6-38.0); CALCIUM 8.3 MG/DL (8.5-10.1); CHLORIDE 104 MMOL/L (99-107); CREATININE 0.95 MG/DL (0.40-0.90); GLUCOSE 414 MG/DL (70-104); MAGNESIUM 2.2 MG/DL (1.5-2.4); POTASSIUM 3.5 MMOL/L (3.5-5.1); SODIUM 140 MMOL/L (135-145); TOTAL CARBON DIOXIDE 27.9 MMOL/L (24-32); TOTAL PROTEIN 6.5 G/DL (6.4-8.2); eGFR 67 ML/MIN
[2020-03-24] MEDS: dexmedetomidin/NS 400mcg/100ml 100 ML IV SCH (05:04)
[2020-03-24] MEDS: dexmedetomidine inj. 400 MCG in dextrose 5%-water 96 ML IV SCH ×2 (06:20→23:46)
--- NOTE | 2020-03-24 06:30 | NUR ---
Patient in room ICU 2039. I have received report from Eden TORRES and had the opportunity to ask questions and assume patient care.
[2020-03-24] MEDS: lactobacillus rhamnosus 10,000 MMU CELLS/CAPSULE PO SCH ×3 (08:00→19:56)
[2020-03-24] MEDS: K and/or MAG REPLACEMENT MC SCH ×2 (08:00→20:00)
[2020-03-24] MEDS: cefepime 1GM in D5W 50mL 50 ML IV SCH ×3 (08:00→15:42)
[2020-03-24] MEDS: heparin, porcine 5000 units/ml vial SQ SCH ×2 (08:00→19:46)
[2020-03-24] MEDS: lactulose 20gm/30ml cup OGT SCH ×3 (08:00→15:57)
[2020-03-24] MEDS: docusate sodium 100mg/10ml UD cup OGT SCH ×2 (08:00→08:17)
[2020-03-24] MEDS: famotidine/PF 10 mg/ml inj IV SCH ×2 (08:07→19:44)
--- NOTE | 2020-03-24 08:50 | NUR ---
On phone with patient's mother. Another RN watching patient stepped out of room for second and patient extubated self. She pulled her hand through her restraint. Charge Nurse, RT Azalia and Dr. Barragan notified. ET tube balloon deflated and patient suctioned. OG, core temp and ET tube removed. Patient placed on high flow salter at 8 L/ hour. Restraints removed due to able to follow commands but sitter placed due to noncompliant with follow instruction. Will continue to monitor.
[2020-03-24] MEDS: furosemide 20 MG/2 ML vial IV SCH ×2 (11:23→19:44)
--- NOTE | 2020-03-24 11:46 | NUR ---
ATTEMPTED TO ADMINISTER 1100 SVN TO PT, PT DID NOT COMPLETE TX, PT STATED THAT SHE WOULD ONLY DO THE TX IF SHE COULD HAVE WATER FIRST. PER RN, PT CANNOT HAVE WATER AT THIS TIME DUE TO ASPIRATION RISK. PT ON 6L NC SPO2 97%. NO SOB OR DISTRESS NOTED. WILL RETURN FOR 1500 TX. Addendum: 03/24/20 at 1151 by Gosia Key RT Amended: Links added.
[2020-03-24] MEDS: insulin Lispro (HumaLOG) vial - multi-dose SQ SCH ×2 (12:16→19:05)
--- NOTE | 2020-03-24 14:48 | NUR ---
Reassessment: Pt self extubated. has clear liquid diet. pending BSS by MODEL AND DYE PERSON. Recommend: 1. advance diet as medically indicated to carb controlled per MODEL AND DYE PERSON recs 2. written DM and written zyvox ed once stable s/p extubation 3. wt per rx Addendum: 03/24/20 at [address] Amended: Links added.
[2020-03-24] MEDS ORDERED: metoprolol tartrate 1mg/ml inj IV ONE (15:05)
[2020-03-24] MEDS: ondansetron/PF 4mg/2ml inj IV PRN ×2 (15:07→22:42)
--- NOTE | 2020-03-24 15:14 | NUR ---
Medication Cefepime clamped, 0800 medication not given. Next dose due at 1600 will give now. Will continue to monitor.
[2020-03-24] MEDS ORDERED: fentaNYL/PF 50MCG/1 ML 2ML syringe IV PRN (15:55)
--- NOTE | 2020-03-24 18:30 | NUR ---
Problems reprioritized. Patient report given, questions answered & plan of care reviewed with Marcia TORRES.
--- NOTE | 2020-03-24 18:43 | NUR ---
Notified Dr Moss about patient pulling out corpak earlier today and suggested D10, is requesting to have corpak placed back in and have D10 placed in the meantime for low blood sugars. Will attempt to place corpak after educating patient.
[2020-03-24] MEDS: LORazepam 2 mg/ml vial IV PRN (19:56)
[2020-03-24] MEDS ORDERED: insulin regular, human U-100 3ml vial - multi-dose SQ ONE (22:00)
[2020-03-24] MEDS: gabapentin 300mg capsule PO SCH (22:26)
--- NOTE | 2020-03-24 22:27 | NUR ---
jail officer Kassidy from [place] police dept here to speak with patient re: a referral to CPS placed by our social service Dept. w/[employer]. Report filed.
[2020-03-24] MEDS: insulin glargine (Lantus) pen - multi-dose SQ SCH (22:29)
--- NOTE | 2020-03-24 22:30 | NUR ---
October Marc, WORK ADJUSTMENT INSTRUCTOR okayed use of corpak though xray shows that it is in the stomach. Tube Feedings has been restarted at 20ml/hr per WORK ADJUSTMENT INSTRUCTOR order. Patient has received a one time order of 5 units of humilin R and will continue with normal hyperglycemic protocol at 0200.
[2020-03-25] VITALS (23 sets, daily range): BP systolic 97–120; BP diastolic 54–76
[2020-03-25] MEDS: cefepime 1GM in D5W 50mL 50 ML IV SCH ×4 (00:25→23:27)
[2020-03-25] MEDS: metoclopramide 5 mg/ml inj IV SCH ×4 (00:33→23:27)
[2020-03-25] MEDS: azithromycin/NS 500mg/250ml 250 ML IV SCH (01:08)
[2020-03-25] MEDS ORDERED: insulin regular, human U-100 3ml vial - multi-dose SQ SCH (02:35)
--- NOTE | 2020-03-25 02:45 | NUR ---
Patient in room ICU 2039. I have received report from BRIAN Woodard and had the opportunity to ask questions and assume patient care. Addendum: 03/25/20 at 0246 by Marcia Nichols RN received patient at 1830
[2020-03-25 02:51] LABS: BASOPHILS # (AUTO) 0.1 X10'3 (0-0.2); BASOPHILS % (AUTO) 1.2 % (0-1); EOSINOPHILS # (AUTO) 0.4 X10'3 (0-0.9); EOSINOPHILS % (AUTO) 4.3 % (0-6); HEMOGLOBIN 12.5 g/dl (12.0-16.0); LYMPHOCYTES # (AUTO) 1.9 X10'3 (1.1-4.8); LYMPHOCYTES % (AUTO) 23.2 % (21-51); MEAN CORPUSCULAR HEMOGLOBIN 33.6 PG (27.0-31.0); MEAN CORPUSCULAR HGB CONC 33.6 g/dL (33.0-36.5); MEAN CORPUSCULAR VOLUME 99.8 FL (78-98); MEAN PLATELET VOLUME 11.1 FL (7.4-10.4); MONOCYTES # (AUTO) 0.6 X10'3 (0-0.9); MONOCYTES % (AUTO) 7.7 % (2-12); NEUTROPHILS # (AUTO) 5.2 X10'3 (1.8-7.7); NEUTROPHILS % (AUTO) 63.6 % (42-75); PLATELET COUNT 96 X10'3 (140-440); RED BLOOD COUNT 3.71 X10'6 (4.20-5.60); WHITE BLOOD COUNT 8.2 X10'3 (4.5-11.0)
[2020-03-25 03:07] LABS: ALANINE AMINOTRANSFERASE 25 U/L (12-78); ALBUMIN 2.8 G/DL (3.4-5.0); ALBUMIN/GLOBULIN RATIO 0.6 (1.1-1.5); ALKALINE PHOSPHATASE 130 IU/L (46-116); ANION GAP 16 (8-16); ASPARTATE AMINO TRANSFERASE 12 U/L (10-37); BILIRUBIN,TOTAL 0.7 MG/DL (0.1-1.0); BLOOD UREA NITROGEN 30 MG/DL (7-18); BUN/CREATININE RATIO 29.1 (6.6-38.0); CALCIUM 8.8 MG/DL (8.5-10.1); CHLORIDE 103 MMOL/L (99-107); CREATININE 1.03 MG/DL (0.40-0.90); GLUCOSE 318 MG/DL (70-104); MAGNESIUM 2.2 MG/DL (1.5-2.4); PHOSPHORUS 4.4 MG/DL (2.3-4.5); POTASSIUM 3.2 MMOL/L (3.5-5.1); PREALBUMIN 15.5 MG/DL (19-36); SODIUM 144 MMOL/L (135-145); TOTAL CARBON DIOXIDE 25.3 MMOL/L (24-32); TOTAL PROTEIN 7.2 G/DL (6.4-8.2); TRIGLYCERIDES 157 MG/DL (20-135); eGFR 61 ML/MIN
[2020-03-25 03:16] LABS: LARGE PLATELETS FEW; PLATELET ESTIMATE DECREASED
[2020-03-25] MEDS: ipratropium/albuterol 3ml nebule NEB SCH ×6 (03:19→23:20)
[2020-03-25] MEDS: POTASSIUM BICARB 20meq eff tab 20 MEQ TABLET.EFF OGT PRN ×3 (03:53→15:06)
--- NOTE | 2020-03-25 06:35 | NUR ---
Problems reprioritized. Patient report given, questions answered & plan of care reviewed with BRIAN Wagoner.
[2020-03-25] MEDS: gabapentin 300mg capsule PO SCH ×2 (07:22→21:17)
[2020-03-25] MEDS: famotidine/PF 10 mg/ml inj IV SCH (07:23)
[2020-03-25] MEDS: lactobacillus rhamnosus 10,000 MMU CELLS/CAPSULE PO SCH ×2 (07:23→21:16)
[2020-03-25] MEDS: furosemide 20 MG/2 ML vial IV SCH ×2 (07:24→21:25)
[2020-03-25] MEDS: ondansetron/PF 4mg/2ml inj IV PRN ×2 (07:25→21:33)
[2020-03-25] MEDS: buprenorphine/naloxone 8MG-2MG SUBlingual film SL SCH (07:27)
[2020-03-25] MEDS: heparin, porcine 5000 units/ml vial SQ SCH ×2 (08:00→20:00)
[2020-03-25] MEDS: K and/or MAG REPLACEMENT MC SCH ×2 (08:00→20:00)
[2020-03-25] MEDS: methylnaltrexone br 12mg/0.6ml inj***SubQ only SQ SCH (08:00)
[2020-03-25] MEDS ORDERED: methylnaltrexone br 12mg/0.6ml inj***SubQ only SQ SCH (08:00)
[2020-03-25] MEDS: LORazepam 2 mg/ml vial IV PRN (08:02)
[2020-03-25] MEDS: insulin Lispro (HumaLOG) vial - multi-dose SQ SCH ×3 (09:05→21:15)
--- NOTE | 2020-03-25 09:16 | NUR ---
pt passed BSS eval and was ordered pureed/thin liquid diet; corpak removed. Dr. Barragan notified of pt HR in the 130s; no new orders received. orders received to D/C central line.
--- NOTE | 2020-03-25 09:30 | NUR ---
HAWA Beltran at bedside. Notified officer that report has already been made and Case # given.
--- NOTE | 2020-03-25 11:15 | NUR ---
PT SLEEPING SOUNDLY nad RN REQUEST NOT TO DISTURB FOR BRONCHODILATOR PT ON 2LPM 91% Addendum: 03/25/20 at 1118 by Claudine Azevedo RT Amended: Links added.
--- NOTE | 2020-03-25 12:40 | NUR ---
Dr. Penny to consult and at bedside. New orders received from Dr. Barragan and Dr. Penny for pelvic ultrasound, type and screen and blood serum hcg.
--- NOTE | 2020-03-25 13:36 | NUR ---
radiology called to notify that US machine is currently being worked on and will try and do pelvic ultrasound later today or tmw morning.
[2020-03-25 13:57] LABS: HCG SERUM QL NEGATIVE
--- NOTE | 2020-03-25 15:00 | NUR ---
notified external relations director of pt's BG of 364 after giving lunch dose of 24 units. instructed to take BG at 1700 and then speak to MD if still high.
--- NOTE | 2020-03-25 15:47 | NUR ---
Reassessment: BSS 03/25, CREATIVE PRODUCER reports patient is edentulous and recommends pureed diet and thin liquids. Spoke with bedside RN, reports pt has teeth however teeth are rotted, indicating need for pureed food. Patient will need written DM education prior to discharge. . Recommend: 1. continue pureed carb controlled texture per CREATIVE PRODUCER recs 2. written DM and written zyvox ed once able prior to discharge 3. wt per rx Addendum: 03/25/20 at [address] Amended: Links added.
--- NOTE | 2020-03-25 17:00 | NUR ---
notified Dr. Barragan of pt's BG of 364 at 1500 after receiving 24 units of humalog and current BG of 232; no new orders received. to cover pt according to sliding scale.
--- NOTE | 2020-03-25 18:15 | NUR ---
Problems reprioritized. Patient report given, questions answered & plan of care reviewed with Eden TORRES.
[2020-03-25] MEDS: dexmedetomidine inj. 400 MCG in dextrose 5%-water 96 ML IV SCH (20:40)
[2020-03-25] MEDS ORDERED: POTASSIUM BICARB 20meq eff tab 20 MEQ TABLET.EFF PO PRN (20:52)
[2020-03-25] MEDS ORDERED: potassium Cl 20 mEq SR tablet PO PRN ×2 (20:54→20:55)
[2020-03-25] MEDS ORDERED: acetaminophen 325mg tablet PO PRN ×2 (20:55)
[2020-03-25] MEDS: insulin glargine (Lantus) pen - multi-dose SQ SCH (21:16)
[2020-03-25] MEDS: famotidine 20mg tablet PO SCH (21:17)
[2020-03-26] VITALS (17 sets, daily range): BP systolic 96–126; BP diastolic 52–82
[2020-03-26] MEDS: ipratropium/albuterol 3ml nebule NEB SCH ×6 (03:13→23:08)
[2020-03-26 05:19] LABS: BASOPHILS # (AUTO) 0.1 X10'3 (0-0.2); BASOPHILS % (AUTO) 0.9 % (0-1); EOSINOPHILS # (AUTO) 0.7 X10'3 (0-0.9); EOSINOPHILS % (AUTO) 9.3 % (0-6); HEMOGLOBIN 12.4 g/dl (12.0-16.0); LYMPHOCYTES % (AUTO) 36.5 % (21-51); MEAN CORPUSCULAR HEMOGLOBIN 33.5 PG (27.0-31.0); MEAN CORPUSCULAR HGB CONC 33.6 g/dL (33.0-36.5); MEAN CORPUSCULAR VOLUME 99.7 FL (78-98); MONOCYTES # (AUTO) 1.2 X10'3 (0-0.9); MONOCYTES % (AUTO) 14.4 % (2-12); NEUTROPHILS # (AUTO) 3.1 X10'3 (1.8-7.7); NEUTROPHILS % (AUTO) 38.9 % (42-75); PLATELET COUNT 123 X10'3 (140-440); RED BLOOD COUNT 3.71 X10'6 (4.20-5.60); RED CELL DISTRIBUTION WIDTH 12.9 % (11.5-14.5); WHITE BLOOD COUNT 8.1 X10'3 (4.5-11.0)
[2020-03-26 05:30] LABS: ALANINE AMINOTRANSFERASE 25 U/L (12-78); ALBUMIN/GLOBULIN RATIO 0.7 (1.1-1.5); ALKALINE PHOSPHATASE 115 IU/L (46-116); ANION GAP 13 (8-16); ASPARTATE AMINO TRANSFERASE 12 U/L (10-37); BILIRUBIN,TOTAL 0.5 MG/DL (0.1-1.0); BLOOD UREA NITROGEN 23 MG/DL (7-18); BUN/CREATININE RATIO 25.6 (6.6-38.0); CALCIUM 9.3 MG/DL (8.5-10.1); CHLORIDE 96 MMOL/L (99-107); GLUCOSE 295 MG/DL (70-104); MAGNESIUM 1.9 MG/DL (1.5-2.4); PHOSPHORUS 4.8 MG/DL (2.3-4.5); POTASSIUM 3.9 MMOL/L (3.5-5.1); SODIUM 134 MMOL/L (135-145); TOTAL CARBON DIOXIDE 24.8 MMOL/L (24-32); TOTAL PROTEIN 7.2 G/DL (6.4-8.2); eGFR 71 ML/MIN
[2020-03-26 06:35] LABS: PLATELET ESTIMATE DECREASED
[2020-03-26 06:36] LABS: LARGE PLATELETS FEW; POLYCHROMASIA 1+
[2020-03-26 06:37] LABS: STOMATOCYTES 1+
[2020-03-26] MEDS: metoclopramide 5 mg/ml inj IV SCH ×2 (07:37→15:55)
[2020-03-26] MEDS: cefepime 1GM in D5W 50mL 50 ML IV SCH ×2 (07:38→15:55)
[2020-03-26] MEDS: furosemide 20 MG/2 ML vial IV SCH ×2 (07:42→19:44)
[2020-03-26] MEDS: famotidine 20mg tablet PO SCH ×2 (07:44→19:44)
[2020-03-26] MEDS: buprenorphine/naloxone 8MG-2MG SUBlingual film SL SCH (07:44)
[2020-03-26] MEDS: gabapentin 300mg capsule PO SCH ×2 (07:44→19:43)
[2020-03-26] MEDS: lactobacillus rhamnosus 10,000 MMU CELLS/CAPSULE PO SCH ×2 (07:44→19:44)
[2020-03-26] MEDS: K and/or MAG REPLACEMENT MC SCH ×2 (08:00→20:00)
[2020-03-26] MEDS: azithromycin 250mg tablet PO SCH (08:21)
[2020-03-26] MEDS: heparin, porcine 5000 units/ml vial SQ SCH ×2 (08:22→19:44)
[2020-03-26] MEDS: insulin Lispro (HumaLOG) vial - multi-dose SQ SCH ×4 (09:18→22:04)
[2020-03-26] MEDS ORDERED: lactulose 20gm/30ml cup PO PRN (11:46)
[2020-03-26] MEDS ORDERED: Neutra Phos packet PO PRN (11:47)
--- NOTE | 2020-03-26 12:40 | NUR ---
Patient in room ICU 2039. I have received report from Renee TORRES in ICU and had the opportunity to ask questions and assume patient care.
--- NOTE | 2020-03-26 12:40 | NUR ---
pt report called to Susi TORRES; all questions answered.
--- NOTE | 2020-03-26 14:03 | NUR ---
Tube Dispatcher Manuelito called ICU nurse to notify Nurse of patient, that the patient was sinus Tachy Heart rates in 130's. Nurse replied Arleth the Nurse is aware and has notified Dr. Barragan for the past four days. No new orders at this time. We will continue to monitor.
--- NOTE | 2020-03-26 14:17 | NUR ---
Patient arrived to unit room 3017B. Patient a/o X4. BP 126/75, P:125, RR:16, O2: 96% 2L NC, temp oral: 97.7. Patient states no pain. Patient arrived via wheel by Nurse. Patient was stable. Will continue to monitor.
--- NOTE | 2020-03-26 15:25 | NUR ---
Problems reprioritized. Patient report given, questions answered & plan of care reviewed with Simone TORRES.
--- NOTE | 2020-03-26 15:33 | NUR ---
Patient in room PCU 3017. I have received report from Susi TORRES and had the opportunity to ask questions and assume patient care.
--- NOTE | 2020-03-26 18:30 | NUR ---
Patient in room PCU 3017. I have received report from Diana TORRES and had the opportunity to ask questions and assume patient care.
--- NOTE | 2020-03-26 18:30 | NUR ---
Problems reprioritized. Patient report given, questions answered & plan of care reviewed with Tabby TORRES.
[2020-03-26] MEDS: LORazepam 2 mg/ml vial IV PRN (19:44)
[2020-03-26] MEDS: insulin glargine (Lantus) pen - multi-dose SQ SCH (22:02)
[2020-03-27] MEDS: cefepime 1GM in D5W 50mL 50 ML IV SCH ×2 (01:18→08:01)
[2020-03-27 02:00] VITALS: BP 111/71
[2020-03-27] MEDS: ipratropium/albuterol 3ml nebule NEB SCH ×3 (02:52→10:38)
--- NOTE | 2020-03-27 06:09 | NUR ---
Problems reprioritized. Patient report given, questions answered & plan of care reviewed with Susi TORRES.
--- NOTE | 2020-03-27 06:29 | NUR ---
Patient in room PCU 3017. I have received report from Tabby TORRES and had the opportunity to ask questions and assume patient care.
[2020-03-27 07:00] VITALS: BP 97/59
[2020-03-27] MEDS: K and/or MAG REPLACEMENT MC SCH (08:00)
[2020-03-27] MEDS: buprenorphine/naloxone 8MG-2MG SUBlingual film SL SCH (08:01)
[2020-03-27] MEDS: azithromycin 250mg tablet PO SCH (08:02)
[2020-03-27] MEDS: lactobacillus rhamnosus 10,000 MMU CELLS/CAPSULE PO SCH (08:03)
[2020-03-27] MEDS: gabapentin 300mg capsule PO SCH (08:03)
[2020-03-27] MEDS: famotidine 20mg tablet PO SCH (08:03)
[2020-03-27] MEDS: metoclopramide 5 mg/ml inj IV SCH ×2 (08:03)
[2020-03-27] MEDS: heparin, porcine 5000 units/ml vial SQ SCH (08:04)
[2020-03-27] MEDS: furosemide 20 MG/2 ML vial IV SCH (08:05)
[2020-03-27] MEDS: methylnaltrexone br 12mg/0.6ml inj***SubQ only SQ SCH (08:05)
[2020-03-27] MEDS: insulin Lispro (HumaLOG) vial - multi-dose SQ SCH ×2 (09:26→13:07)
--- NOTE | 2020-03-27 10:23 | NUR ---
Dr. Barragan at bedside with patient. New orders are to enhance diet to a controlled carb diet, regular foods, to use no oxygen, and add Nicotine patch. Will continue to monitor.
[2020-03-27 11:00] VITALS: BP 108/79
[2020-03-27] MEDS ORDERED: nicotine 21mg patch - 24 hr TD SCH (12:00)
--- NOTE | 2020-03-27 12:28 | NUR ---
Patient in shower by self. All items are collected and patient tolerating well.
--- NOTE | 2020-03-27 14:42 | NUR ---
Patient left AMA. Patient aware of pros and cons of leaving AMA. Patients belongings were collected and bagged together and given to patient. Patients IV was taken out, and tele removed. Patient was given verbal instructions and was advised to get antibiotics and continue medications regiments. Diabetes education was advised, but patient did not want to hear anything more. Patient's medication was collected from pharmacy by Pritesh TORRES and patient was independently talked to front lobby who was meeting her to take her home.
--- NOTE | 2020-03-27 15:12 | NUR ---
Pt discharged prior to RD being available for bedside visit. Written DM education with RD contact information mailed to patient's home address found in EMR. Current A1c is 9.5%, down from 10.0% in December of this year. Pt with multiple past visits and seen by KENDRA for DM education, last education provided by KENDRA was at last admit December 08 of this year. Previous A1c was 12.6% in July 2019 and >14.0% in April 2019. Current A1c is the lowest on record dating back to October 2017. Will remain available. Addendum: 03/27/20 at [address] Amended: Links added.
== END 2020-03-27 14:40 | disposition left against medical advice (07) | DRG 720 ==
LOC: ER 21:07 → ED HOLD 23:25 → CICU 2S 03-20 02:45 → ICU 2S 03-23 20:19 → PCU 3S 03-26 14:46
PROVIDERS: ADMIT Internal Medicine Critical Care Medicine
PROC: 02HV33Z Insertion of Infusion Device into Superior Vena Cava, Percutaneous Approach (ICD-10-PCS; 2020-03-19)
PROC: 5A1955Z Respiratory Ventilation, Greater than 96 Consecutive Hours (ICD-10-PCS; principal; 2020-03-20)
PROC: 0BH17EZ Insertion of Endotracheal Airway into Trachea, Via Natural or Artificial Opening (ICD-10-PCS; 2020-03-20)
DX: A41.9 Sepsis, unspecified organism (principal); J96.01 Acute respiratory failure with hypoxia; E10.10 Type 1 diabetes mellitus with ketoacidosis without coma; N17.9 Acute kidney failure, unspecified; E86.0 Dehydration; I47.1 Supraventricular tachycardia; Z20.828 Contact with and (suspected) exposure to other viral communicable diseases; F17.210 Nicotine dependence, cigarettes, uncomplicated; F41.9 Anxiety disorder, unspecified; Z79.4 Long term (current) use of insulin; Z87.440 Personal history of urinary (tract) infections; Z91.14 Patient's other noncompliance with medication regimen; Z90.49 Acquired absence of other specified parts of digestive tract; Z79.899 Other long term (current) drug therapy
CPT/HCPCS: 31500; 36415; 36556; 36600; 71045; 74018; 76856; 76937; 80048; 80053; 80069; 80305; 80320; 81001; 81025; 82140; 82803; 82810; 82948; 83036; 83605; 83690; 83735; 83880; 84100; 84132; 84134; 84145; 84478; 84702; 84703; 85018; 85025; 85610; 85730; 86885; 86900; 86901; 87040; 87070; 87081; 87635; 92508; 92616; 93308; 94002; 94003; 94640; 94667; 94760; 97110; 97161; 97530; 99291; C9113; G0378; J0456; J0692; J0696; J1170; J1644; J1815; J1940; J1956; J2020; J2060; J2212; J2405; J2543; J2704; J2765; J3010; J3475; J3480; J3490; J7030; J7060; P9047

== ENCOUNTER 2020-07-14 05:09 | Inpatient (IN) | payer MEDICAID ==
[~2020-07-14] VITALS: Ht 149.9 cm; Wt 54.9 kg
[2020-07-14] VITALS (13 sets, daily range): BP systolic 94–128; BP diastolic 47–77
[~2020-07-14 05:09] MED LIST changes: +BUPR1FIL3 SL; -CLON-371 PO; +LORA-269 PO; -etomidate 2mg/ml inj. ONE; -rocuronium 10mg/ml inj IV ONE
[2020-07-14] MEDS ORDERED: normal saline 1000ML IV soln IVB ONE ×2 (05:20)
[2020-07-14] MEDS ORDERED: metoclopramide 5 mg/ml inj IV ONE (05:20)
[2020-07-14 05:35] LABS: ABG OXYGEN SATURATION 96.7 % (94-97); ABG PO2 (T) 101.7 mmHg (75.0-100.0); ALLEN'S TEST POSITIVE; FCOHb 0.6 % (0.0-3.9); FMetHb 0.4 % (0.0-1.5); FO2Hb 95.7 % (94-97); PATIENT TEMPERATURE 36.2; TOTAL HEMOGLOBIN 14.7 G/dl (12.0-16.0)
[2020-07-14 05:41] LABS: BASOPHILS # (AUTO) 0.1 X10'3 (0-0.2); BASOPHILS % (AUTO) 0.2 % (0-1); EOSINOPHILS % (AUTO) 0 % (0-6); HEMOGLOBIN 15.9 g/dl (12.0-16.0); LYMPHOCYTES # (AUTO) 1.1 X10'3 (1.1-4.8); LYMPHOCYTES % (AUTO) 3.8 % (21-51); MEAN PLATELET VOLUME 11.8 FL (7.4-10.4); MONOCYTES # (AUTO) 1.5 X10'3 (0-0.9); MONOCYTES % (AUTO) 4.9 % (2-12); NEUTROPHILS # (AUTO) 27.1 X10'3 (1.8-7.7); NEUTROPHILS % (AUTO) 91.1 % (42-75); RED BLOOD COUNT 4.69 X10'6 (4.20-5.60); RED CELL DISTRIBUTION WIDTH 14.7 % (11.5-14.5)
--- NOTE | 2020-07-14 05:45 | NUR ---
PT CORE TEMP VIA TEMP HAN 94.4. ALEXANDREA SKAGGS APPLIED TO PT. WILL CONTINUE TO MONITOR TEMP
[2020-07-14 05:54] LABS: URINE HCG NEGATIVE (NEG)
[2020-07-14 05:56] LABS: ALANINE AMINOTRANSFERASE 30 U/L (12-78); ALBUMIN 3.9 G/DL (3.4-5.0); ALBUMIN/GLOBULIN RATIO 0.8 (1.1-1.5); ALKALINE PHOSPHATASE 202 IU/L (46-116); ANION GAP 30 (8-16); ASPARTATE AMINO TRANSFERASE 71 U/L (10-37); BILIRUBIN,TOTAL 0.7 MG/DL (0.1-1.0); BLOOD UREA NITROGEN 39 MG/DL (7-18); BUN/CREATININE RATIO 21.1 (6.6-38.0); CALCIUM 9.4 MG/DL (8.5-10.1); CHLORIDE 83 MMOL/L (99-107); CREATININE 1.85 MG/DL (0.40-0.90); LIPASE 88 U/L (73-393); TOTAL PROTEIN 8.8 G/DL (6.4-8.2); eGFR 31 ML/MIN
[2020-07-14 06:02] LABS: SODIUM 118 MMOL/L (135-145)
[2020-07-14 06:07] LABS: GLUCOSE 631 MG/DL (70-104); POTASSIUM 5.6 MMOL/L (3.5-5.1)
[2020-07-14 06:07] LABS: CLARITY,URINE SLIGHTLY CLOUDY (Clear); COLOR,URINE YELLOW (Yellow); GLUCOSE, URINE >=1000 mg/dl (Neg); KETONES,URINE >=80 mg/dl (Neg); LEUKOCYTE ESTERASE ,URINE NEGATIVE (Neg); NITRITES, URINE NEGATIVE (Neg); OCCULT BLOOD,URINE SMALL (Neg); PH,URINE 5.5 (4.8-8.0); PROTEIN,URINE 30 mg/dl (Neg); UROBILINOGEN,URINE 0.2 E.U/dL (0.2-1.0)
[2020-07-14 06:16] LABS: UA COLLECTION TYPE FOLEY CATH
[2020-07-14 06:20] LABS: RBC,URINE NONE SEEN /HPF (0-2); WBC,URINE NONE SEEN /HPF (0-4)
[2020-07-14 06:21] LABS: BACTERIA,URINE FEW /HPF (Neg); SQUAMOUS EPITHELIAL CELL,UR NONE SEEN /LPF (FEW)
[2020-07-14 06:22] LABS: YEAST MANY /HPF (NEGATIVE)
--- NOTE | 2020-07-14 06:28 | NUR ---
DR SHARIF MADE AWARE OF PATIENT STATUS, HR 117, ASKING FOR ICE CHIPS, CO2 5.0, GLU >600, K 5.6, ANION GAP 30.
[2020-07-14] MEDS ORDERED: Insulin Reg/NS 100units/100mL 100 ML IV PRN (06:35)
[2020-07-14] MEDS ORDERED: CefTRIAXone 2gm/D5W 50ml 50 ML IV ONE (06:45)
[2020-07-14] MEDS ORDERED: azithromycin/NS 500mg/250ml 250 ML IV ONE (06:45)
[2020-07-14 07:07] LABS: MAGNESIUM 2.4 MG/DL (1.5-2.4)
[2020-07-14 07:10] LABS: HEMATOCRIT 46.7 % (35.0-45.0); MEAN CORPUSCULAR VOLUME 99.1 FL (78-98)
[2020-07-14 07:11] LABS: MEAN CORPUSCULAR HGB CONC 34.3 g/dL (33.0-36.5); PLATELET COUNT 170 X10'3 (140-440)
[2020-07-14] MEDS ORDERED: acetaminophen 650mg rectal suppository RC PRN (07:20)
[2020-07-14] MEDS ORDERED: potassium Cl 20 mEq SR tablet PO PRN ×2 (07:20)
[2020-07-14] MEDS ORDERED: proCHLORperazine 10 MG/2 ml inj IV PRN (07:20)
[2020-07-14] MEDS ORDERED: LIDOcaine 2% 10ml TOPICAL JELLY (Urojet) TP ONE (07:20)
[2020-07-14] MEDS ORDERED: Insulin Reg/NS 100units/100mL 100 ML IV SCH (07:20)
[2020-07-14] MEDS ORDERED: ipratropium/albuterol 3ml nebule NEB PRN ×3 (07:20→15:40)
[2020-07-14] MEDS ORDERED: sodium phosphate inj. 15 MMOL in dextrose 5%-water 250 ML IV PRN (07:20)
[2020-07-14] MEDS ORDERED: Neutra Phos packet PO PRN (07:20)
[2020-07-14] MEDS ORDERED: potassium CL 10mEq/100ml bag 100 ML IV PRN ×2 (07:20)
[2020-07-14 07:53] LABS: PLATELET ESTIMATE NORMAL; TOTAL CELLS COUNTED 100
[2020-07-14 07:54] LABS: ANISOCYTOSIS 1+
[2020-07-14] MEDS ORDERED: sod chloride 0.9% 10ml flush syringe IV ONE (08:00)
[2020-07-14] MEDS ORDERED: azithromycin/NS 500mg/250ml 250 ML IV SCH (08:00)
[2020-07-14] MEDS: CefTRIAXone 2gm/D5W 50ml 50 ML IV SCH (08:00)
[2020-07-14] MEDS: K and/or MAG REPLACEMENT MC SCH ×2 (08:00→20:00)
[2020-07-14] MEDS ORDERED: etomidate 2mg/ml inj. ONE (08:00)
[2020-07-14] MEDS: docusate sod 100mg capsule PO SCH ×2 (08:00→21:03)
[2020-07-14 08:05] LABS: PARTIAL THROMBOPLASTIN TIME 37 SECONDS (22-32)
[2020-07-14] MEDS: normal saline 1000ml 1,000 ML IV SCH ×3 (08:10→14:00)
[2020-07-14] MEDS: pantoprazole 40 MG vial IV SCH (08:10)
[2020-07-14] MEDS: heparin, porcine 5000 units/ml vial SQ SCH ×2 (08:11→21:03)
[2020-07-14] MEDS: ondansetron/PF 4mg/2ml inj IV PRN (09:00)
--- NOTE | 2020-07-14 09:09 | NUR ---
RT AT BEDSIDE TO PROVIDE BREATHING TREATMENT, SPO2 89/90% ON 3L NC.
[2020-07-14] MEDS ORDERED: insulin regular, human U-100 3ml vial - multi-dose SQ PRN (09:15)
[2020-07-14 09:42] LABS: ABG PCO2 (T) < 10.0 mmHg (32.0-45.0)
[2020-07-14] MEDS ORDERED: TRAZ-251 PO (10:33)
[2020-07-14] MEDS ORDERED: FLUT1BLS9 PO (10:33)
[2020-07-14] MEDS ORDERED: ALBU8.5H8 INH (10:33)
[2020-07-14] MEDS ORDERED: METF-437 PO (10:33)
[2020-07-14] MEDS ORDERED: BUSP15TA3 PO (10:33)
[2020-07-14] MEDS ORDERED: LURA60TA2 PO (10:33)
[2020-07-14] MEDS ORDERED: LORA-269 PO (10:33)
[2020-07-14 10:36] LABS: ALBUMIN 2.8 G/DL (3.4-5.0); ANION GAP 22 (8-16); BLOOD UREA NITROGEN 35 MG/DL (7-18); CALCIUM 7.1 MG/DL (8.5-10.1); CHLORIDE 98 MMOL/L (99-107); CREATININE 1.46 MG/DL (0.40-0.90); PHOSPHORUS 4.2 MG/DL (2.3-4.5); SODIUM 127 MMOL/L (135-145); eGFR 41 ML/MIN
[2020-07-14 10:37] LABS: POTASSIUM 4.5 MMOL/L (3.5-5.1)
[2020-07-14 10:43] LABS: GLUCOSE 489 MG/DL (70-104); TOTAL CARBON DIOXIDE 6.9 MMOL/L (24-32)
[2020-07-14] MEDS: insulin Lispro (HumaLOG) vial - multi-dose SQ PRN ×3 (11:25→14:05)
[2020-07-14] MEDS: gabapentin 300mg capsule PO SCH ×2 (12:04→21:04)
[2020-07-14 12:09] LABS: ALBUMIN 2.7 G/DL (3.4-5.0); ANION GAP 23 (8-16); BLOOD UREA NITROGEN 34 MG/DL (7-18); BUN/CREATININE RATIO 28.1 (6.6-38.0); CHLORIDE 98 MMOL/L (99-107); CREATININE 1.21 MG/DL (0.40-0.90); GLUCOSE 391 MG/DL (70-104); PHOSPHORUS 2.5 MG/DL (2.3-4.5); SODIUM 127 MMOL/L (135-145); eGFR 50 ML/MIN
[2020-07-14 12:18] LABS: TOTAL CARBON DIOXIDE 6.3 MMOL/L (24-32)
[2020-07-14 12:38] LABS: CALCIUM 7.3 MG/DL (8.5-10.1); POTASSIUM 4.3 MMOL/L (3.5-5.1)
[2020-07-14] MEDS: LORazepam 2 mg/ml vial IV PRN (13:59)
[2020-07-14 14:56] LABS: ABG BASE EXCESS -23.9 mmol/L (-2.0-2.0); ABG HCO3 8.2 mmol/L (22.0-26.0); ABG PCO2 (T) 38.6 mmHg (32.0-45.0); ALLEN'S TEST POSITIVE; FCOHb 0.5 % (0.0-3.9); FLOW 15 L/min; FMetHb 0.2 % (0.0-1.5); FO2Hb 77.5 % (94-97); PATIENT TEMPERATURE 36.1
[2020-07-14] MEDS ORDERED: fentaNYL/PF 50MCG/1 ML 2ML syringe IV PRN (15:00)
[2020-07-14] MEDS ORDERED: midazolam 2 mg/2 ml injection IV ONE (15:00)
[2020-07-14] MEDS: FENTANYL-0.9 % NACL/PF 100 ML IV PRN (15:09)
[2020-07-14] MEDS: midazolam 100mg in NS 100ml 100 ML IV PRN (15:09)
[2020-07-14] MEDS: Insulin Reg/NS 100units/100mL 100 ML IV SCH ×2 (15:21→20:32)
--- NOTE | 2020-07-14 15:40 | NUR ---
Patient brought up to CICU bed 2006 around 1100. Patient at that time was on 15L non-rebreather with 02 saturations at 94%. Patient increasingly became anxious, restless, at time attempting to get out of bed and taking the Hi-flow nasal cannula off. Around 1300, patient placed onto non-rebreather 15L as patient was breathing out of mouth with saturations around 85%. Dr. Zheng notified. Patient brought up to 90%, until around 1430. Patient became unable to control secretions and saturations dropped to mid 80-85% on Non-rebreather. RT notified at bedside. ABG taken. notified of ABG results and patient was prepared for intubation. Intubation took placed at 1533.
[2020-07-14] MEDS: potassium CL 20mEq in D5-1/2NS 1,000 ML IV PRN (16:32)
[2020-07-14 16:36] LABS: ABG BASE EXCESS -20.3 mmol/L (-2.0-2.0); ABG OXYGEN SATURATION 86.7 % (94-97); ABG PCO2 (T) 46.8 mmHg (32.0-45.0); ABG PO2 (T) 49.5 mmHg (75.0-100.0); ALLEN'S TEST POSITIVE; FCOHb 0.7 % (0.0-3.9); FMetHb 0.3 % (0.0-1.5); FO2Hb 85.8 % (94-97); PATIENT TEMPERATURE 37.1; PEEP 5 cm H2O; RESPIRATORY RATE 20 b/min; TIDAL VOLUME 350 mL; TOTAL HEMOGLOBIN 15.2 G/dl (12.0-16.0)
--- NOTE | 2020-07-14 16:39 | NUR ---
Pt intubated at [address] Zheng using 20 of etomidate. Tube 24cm at the teeth. Pt started on fent and versed. Peep increased to 10, FiO2 @ 100%. Pt tachycardic and tachypnic. Sats currently in low 90s. IVF changed to D5v 1/2 NS + 20K. Not ollowing DKA protocol per Dr. Zheng's order. Got report from BRIAN Leung
[2020-07-14 17:25] LABS: BASOPHILS # (AUTO) 0.1 X10'3 (0-0.2); BASOPHILS % (AUTO) 0.5 % (0-1); EOSINOPHILS % (AUTO) 0.1 % (0-6); LYMPHOCYTES # (AUTO) 1.6 X10'3 (1.1-4.8); MONOCYTES # (AUTO) 0.2 X10'3 (0-0.9); MONOCYTES % (AUTO) 1.1 % (2-12); NEUTROPHILS # (AUTO) 15.6 X10'3 (1.8-7.7); NEUTROPHILS % (AUTO) 89.3 % (42-75); PLATELET COUNT 112 X10'3 (140-440); WHITE BLOOD COUNT 17.5 X10'3 (4.5-11.0)
[2020-07-14 17:34] LABS: ALBUMIN 2.4 G/DL (3.4-5.0); ANION GAP 10 (8-16); BLOOD UREA NITROGEN 33 MG/DL (7-18); BUN/CREATININE RATIO 23.4 (6.6-38.0); CALCIUM 6.9 MG/DL (8.5-10.1); CHLORIDE 106 MMOL/L (99-107); CREATININE 1.41 MG/DL (0.40-0.90); GLUCOSE 179 MG/DL (70-104); PHOSPHORUS 2.5 MG/DL (2.3-4.5); SODIUM 131 MMOL/L (135-145); eGFR 42 ML/MIN
[2020-07-14 17:36] LABS: TOTAL CARBON DIOXIDE 14.7 MMOL/L (24-32)
[2020-07-14 17:54] LABS: HEMATOCRIT 44.4 % (35.0-45.0); HEMOGLOBIN 15.3 g/dl (12.0-16.0); MEAN CORPUSCULAR HEMOGLOBIN 34.1 PG (27.0-31.0); MEAN CORPUSCULAR HGB CONC 34.5 g/dL (33.0-36.5); MEAN CORPUSCULAR VOLUME 98.8 FL (78-98); RED BLOOD COUNT 4.49 X10'6 (4.20-5.60)
[2020-07-14 17:55] LABS: MEAN PLATELET VOLUME 11.5 FL (7.4-10.4); RED CELL DISTRIBUTION WIDTH 13.3 % (11.5-14.5)
[2020-07-14] MEDS: ipratropium/albuterol 3ml nebule NEB SCH ×2 (19:26→23:16)
[2020-07-14] MEDS: acetaminophen 325mg tablet PO PRN (19:55)
[2020-07-14] MEDS ORDERED: insulin glargine (Lantus) pen - multi-dose SQ SCH (21:00)
[2020-07-14] MEDS ORDERED: ipratropium/albuterol 3ml nebule NEB SCH (21:00)
[2020-07-14] MEDS: insulin glargine (Lantus) pen - multi-dose SQ SCH (21:22)
[2020-07-15] VITALS (24 sets, daily range): BP systolic 94–170; BP diastolic 41–76
[2020-07-15] MEDS: midazolam 100mg in NS 100ml 100 ML IV PRN ×5 (01:45→19:47)
[2020-07-15] MEDS: FENTANYL-0.9 % NACL/PF 100 ML IV PRN ×5 (01:48→21:39)
[2020-07-15] MEDS: ipratropium/albuterol 3ml nebule NEB SCH ×6 (03:45→22:59)
[2020-07-15 05:20] LABS: ALANINE AMINOTRANSFERASE 20 U/L (12-78); ALBUMIN 2.3 G/DL (3.4-5.0); ALBUMIN/GLOBULIN RATIO 0.6 (1.1-1.5); ALKALINE PHOSPHATASE 159 IU/L (46-116); ANION GAP 16 (8-16); ASPARTATE AMINO TRANSFERASE 61 U/L (10-37); BILIRUBIN,TOTAL 0.3 MG/DL (0.1-1.0); BLOOD UREA NITROGEN 34 MG/DL (7-18); BUN/CREATININE RATIO 20.2 (6.6-38.0); CALCIUM 7.3 MG/DL (8.5-10.1); CHLORIDE 103 MMOL/L (99-107); CREATININE 1.68 MG/DL (0.40-0.90); GLUCOSE 176 MG/DL (70-104); MAGNESIUM 1.4 MG/DL (1.5-2.4); PHOSPHORUS 1.7 MG/DL (2.3-4.5); POTASSIUM 3.4 MMOL/L (3.5-5.1); SODIUM 131 MMOL/L (135-145); TOTAL PROTEIN 5.9 G/DL (6.4-8.2); eGFR 34 ML/MIN
[2020-07-15 05:28] LABS: BASOPHILS % (AUTO) 0.2 % (0-1); EOSINOPHILS % (AUTO) 0.3 % (0-6); HEMATOCRIT 43.2 % (35.0-45.0); HEMOGLOBIN 14.4 g/dl (12.0-16.0); LYMPHOCYTES # (AUTO) 1.1 X10'3 (1.1-4.8); LYMPHOCYTES % (AUTO) 11.4 % (21-51); MEAN CORPUSCULAR HEMOGLOBIN 34.1 PG (27.0-31.0); MEAN CORPUSCULAR HGB CONC 33.3 g/dL (33.0-36.5); MEAN CORPUSCULAR VOLUME 102.4 FL (78-98); MEAN PLATELET VOLUME 11.3 FL (7.4-10.4); MONOCYTES # (AUTO) 0.2 X10'3 (0-0.9); MONOCYTES % (AUTO) 1.8 % (2-12); NEUTROPHILS # (AUTO) 8.7 X10'3 (1.8-7.7); NEUTROPHILS % (AUTO) 86.3 % (42-75); PLATELET COUNT 70 X10'3 (140-440); RED BLOOD COUNT 4.21 X10'6 (4.20-5.60); RED CELL DISTRIBUTION WIDTH 13.2 % (11.5-14.5)
[2020-07-15 05:30] LABS: ABG BASE EXCESS -17.4 mmol/L (-2.0-2.0); ABG HCO3 9.5 mmol/L (22.0-26.0); ABG OXYGEN SATURATION 95.4 % (94-97); ABG PCO2 (T) 27.5 mmHg (32.0-45.0); ABG PO2 (T) 74.7 mmHg (75.0-100.0); FCOHb 0.6 % (0.0-3.9); FMetHb 0.2 % (0.0-1.5); FO2Hb 94.6 % (94-97); PATIENT TEMPERATURE 37.5; PEEP 10 cm H2O; RESPIRATORY RATE 24 b/min; TIDAL VOLUME 400 mL
[2020-07-15 05:31] LABS: TOTAL CARBON DIOXIDE 12.2 MMOL/L (24-32)
--- NOTE | 2020-07-15 05:40 | NUR ---
RN Note -MD Communication Called critical CO2 of 14.7 to October. Order received
--- NOTE | 2020-07-15 06:30 | NUR ---
Received report from SHAKIRA RN
[2020-07-15] MEDS: insulin Lispro (HumaLOG) vial - multi-dose SQ SCH ×3 (07:00→17:00)
[2020-07-15 07:41] LABS: WHITE BLOOD COUNT 30.8 X10'3 (4.5-11.0)
[2020-07-15] MEDS: K and/or MAG REPLACEMENT MC SCH ×2 (08:00→20:00)
[2020-07-15] MEDS ORDERED: potassium Cl 2 mEq/ml inj IV ONE (08:00)
[2020-07-15] MEDS ORDERED: buprenorphine/naloxone 8MG-2MG SUBlingual film SL SCH (08:00)
[2020-07-15 08:07] LABS: LARGE PLATELETS FEW; PLATELET ESTIMATE DECREASED; TOTAL CELLS COUNTED 100
[2020-07-15] MEDS ORDERED: POTASSIUM BICARB 20meq eff tab 20 MEQ TABLET.EFF NG PRN (09:26)
[2020-07-15] MEDS: gabapentin 300mg capsule PO SCH ×3 (09:28→20:21)
[2020-07-15] MEDS: azithromycin/NS 500mg/250ml 250 ML IV SCH (09:28)
[2020-07-15] MEDS: CefTRIAXone 2gm/D5W 50ml 50 ML IV SCH (09:28)
[2020-07-15] MEDS: docusate sod 100mg capsule PO SCH ×2 (09:28→20:19)
[2020-07-15] MEDS: heparin, porcine 5000 units/ml vial SQ SCH ×2 (09:29→20:19)
[2020-07-15] MEDS: pantoprazole 40 MG vial IV SCH (09:29)
[2020-07-15] MEDS: insulin glargine (Lantus) pen - multi-dose SQ SCH ×2 (09:54→20:32)
[2020-07-15 10:44] LABS: ALANINE AMINOTRANSFERASE 21 U/L (12-78); ALBUMIN 2.1 G/DL (3.4-5.0); ALBUMIN/GLOBULIN RATIO 0.6 (1.1-1.5); ALKALINE PHOSPHATASE 154 IU/L (46-116); ANION GAP 11 (8-16); ASPARTATE AMINO TRANSFERASE 56 U/L (10-37); BILIRUBIN,TOTAL 0.3 MG/DL (0.1-1.0); BLOOD UREA NITROGEN 34 MG/DL (7-18); BUN/CREATININE RATIO 19.9 (6.6-38.0); CALCIUM 7.2 MG/DL (8.5-10.1); CHLORIDE 108 MMOL/L (99-107); CREATININE 1.71 MG/DL (0.40-0.90); GLUCOSE 171 MG/DL (70-104); SODIUM 133 MMOL/L (135-145); TOTAL PROTEIN 5.6 G/DL (6.4-8.2); eGFR 34 ML/MIN
[2020-07-15 10:48] LABS: POTASSIUM 3.1 MMOL/L (3.5-5.1)
[2020-07-15 10:51] LABS: TOTAL CARBON DIOXIDE 14.2 MMOL/L (24-32)
[2020-07-15] MEDS: POTASSIUM BICARB 20meq eff tab 20 MEQ TABLET.EFF NG PRN ×3 (11:05→19:48)
--- NOTE | 2020-07-15 11:56 | NUR ---
DM/malnutrition consult: Pt admit with DKA, hyponatremia, and PNA. A1c is 10.4% this admit up from 9.6% in March of this year per records. Pt with acute respiratory failure, now intubated. OG tube in place, no TF consult at this time. TF recommendations below for if expected prolonged intubation and to receive nutrition support. Per malnutrition risk screen with RN pt unsure of wt loss though reports decreased appetite. Patient's current scaled weight is stable with scaled wt hx. Pt with no documented significant decrease in muscle strength or edema. No visible fat or muscle wasting noted at bedside. Pt currently lacks a minimum of two criteria for malnutrition. No documented LBM, pt with routine bowel care. Pt would benefit from DM education following extubation once stable. Noted that pt placed on pureed diet with thin liquids per ST recmichael at last admit 03/26 following extubation. Recommend BSS with ST prior to diet advancement following extubation this admit. Will continue to follow closely. Recommendations: 1) IF TF, continuous Vital AF via OG tube with goal rate of 55 mL/hr 2) IF TF, additional water flush per MD given hyponatremia 3) IF TF, prealbumin q Sunday/; daily weights 4) Routine bowel care 5) PO diet advancement to CHO controlled as medically indicated following extubation. Would benefit from BSS with ST prior to diet advancement given pt requiring texture modification following extubation at previous admit 6) DM education following extubation once stable; A1c 10.4% Addendum: 07/15/20 at [address] Amended: Links added.
--- NOTE | 2020-07-15 12:04 | NUR ---
[facility] LINE INFORMATION: REF: [id number] LOT: [id number] EXP: 07/07/2021
[2020-07-15] MEDS: potassium CL 20mEq in D5-1/2NS 1,000 ML IV PRN (12:55)
[2020-07-15] MEDS: dextrose 50%-water 50ml dispensing syringe IV PRN (15:49)
[2020-07-15 16:54] LABS: CLARITY,URINE CLOUDY (Clear); COLOR,URINE YELLOW (Yellow); GLUCOSE, URINE NEGATIVE (Neg); KETONES,URINE NEGATIVE (Neg); LEUKOCYTE ESTERASE ,URINE LARGE (Neg); NITRITES, URINE NEGATIVE (Neg); OCCULT BLOOD,URINE MODERATE (Neg); PROTEIN,URINE 30 mg/dl (Neg); UROBILINOGEN,URINE 0.2 E.U/dL (0.2-1.0)
[2020-07-15 17:02] LABS: ALANINE AMINOTRANSFERASE 20 U/L (12-78); ALBUMIN 2.1 G/DL (3.4-5.0); ALBUMIN/GLOBULIN RATIO 0.6 (1.1-1.5); ALKALINE PHOSPHATASE 156 IU/L (46-116); ANION GAP 8 (8-16); ASPARTATE AMINO TRANSFERASE 46 U/L (10-37); BILIRUBIN,TOTAL 0.3 MG/DL (0.1-1.0); BLOOD UREA NITROGEN 35 MG/DL (7-18); BUN/CREATININE RATIO 22.3 (6.6-38.0); CALCIUM 7.3 MG/DL (8.5-10.1); CHLORIDE 110 MMOL/L (99-107); CREATININE 1.57 MG/DL (0.40-0.90); GLUCOSE 66 MG/DL (70-104); POTASSIUM 3.1 MMOL/L (3.5-5.1); SODIUM 133 MMOL/L (135-145); TOTAL CARBON DIOXIDE 15.5 MMOL/L (24-32); TOTAL PROTEIN 5.6 G/DL (6.4-8.2); eGFR 37 ML/MIN
[2020-07-15 17:10] LABS: TOTAL PROTEIN,URINE RANDOM 97.9 MG/DL; UA COLLECTION TYPE FOLEY CATH
[2020-07-15 17:11] LABS: ABG BASE EXCESS -15.3 mmol/L (-2.0-2.0); ABG HCO3 11.6 mmol/L (22.0-26.0); ABG OXYGEN SATURATION 87.2 % (94-97); ABG PCO2 (T) 31.6 mmHg (32.0-45.0); ABG PO2 (T) 46.3 mmHg (75.0-100.0); ALLEN'S TEST POSITIVE; FCOHb 0.6 % (0.0-3.9); FMetHb 0.2 % (0.0-1.5); FO2Hb 86.5 % (94-97); PATIENT TEMPERATURE 37.6; PEEP 5 cm H2O; RESPIRATORY RATE 20 b/min; TIDAL VOLUME 400 mL; TOTAL HEMOGLOBIN 13.1 G/dl (12.0-16.0)
[2020-07-15 17:12] LABS: RBC,URINE 0-2 /HPF (0-2); WBC,URINE 50-100 /HPF (0-4)
[2020-07-15 17:13] LABS: BACTERIA,URINE FEW /HPF (Neg); SQUAMOUS EPITHELIAL CELL,UR FEW /LPF (FEW); YEAST MODERATE /HPF (NEGATIVE)
[2020-07-15 17:14] LABS: RENAL CELLS, URINE FEW /HPF; TRANSITIONAL EPI CELLS,URINE FEW /HPF; URIC ACID CRYSTALS 1+ /HPF (NEGATIVE)
[2020-07-15 18:28] LABS: UA EOSINOPHILS NO EOS /HPF
--- NOTE | 2020-07-15 18:38 | NUR ---
Report given to SHAKIRA RN
[2020-07-15] MEDS: acetaminophen 325mg tablet PO PRN (19:50)
[2020-07-15] MEDS: mineral oil/petrolatum ophthal oint EACHEYE SCH (20:12)
[2020-07-15] MEDS: lactobacillus rhamnosus 10,000 MMU CELLS/CAPSULE PO SCH (20:19)
[2020-07-15] MEDS: insulin Lispro (HumaLOG) vial - multi-dose SQ PRN (20:31)
[2020-07-15 23:26] LABS: ALANINE AMINOTRANSFERASE 18 U/L (12-78); ALBUMIN 1.9 G/DL (3.4-5.0); ALBUMIN/GLOBULIN RATIO 0.6 (1.1-1.5); ALKALINE PHOSPHATASE 145 IU/L (46-116); ANION GAP 7 (8-16); ASPARTATE AMINO TRANSFERASE 39 U/L (10-37); BILIRUBIN,TOTAL 0.4 MG/DL (0.1-1.0); BLOOD UREA NITROGEN 34 MG/DL (7-18); BUN/CREATININE RATIO 18.6 (6.6-38.0); CALCIUM 6.8 MG/DL (8.5-10.1); CHLORIDE 108 MMOL/L (99-107); CREATININE 1.83 MG/DL (0.40-0.90); GLUCOSE 339 MG/DL (70-104); POTASSIUM 4.3 MMOL/L (3.5-5.1); SODIUM 130 MMOL/L (135-145); TOTAL CARBON DIOXIDE 15.3 MMOL/L (24-32); eGFR 31 ML/MIN
[2020-07-16] VITALS (24 sets, daily range): BP systolic 88–129; BP diastolic 55–82
[2020-07-16] MEDS ORDERED: albumin (human) 25% 100 ML IV solution IV ONE (00:55)
[2020-07-16] MEDS: potassium Cl 20mEq in D5-NS 1,000 ML IV SCH ×2 (01:41→02:11)
[2020-07-16] MEDS: midazolam 100mg in NS 100ml 100 ML IV PRN ×3 (02:20→21:35)
[2020-07-16] MEDS: Insulin Reg/NS 100units/100mL 100 ML IV SCH (02:22)
[2020-07-16] MEDS: mineral oil/petrolatum ophthal oint EACHEYE SCH ×4 (02:32→19:59)
[2020-07-16] MEDS: ipratropium/albuterol 3ml nebule NEB SCH ×6 (03:13→23:06)
[2020-07-16 03:24] LABS: EOSINOPHILS # (AUTO) 0.3 X10'3 (0-0.9); EOSINOPHILS % (AUTO) 3.4 % (0-6); HEMOGLOBIN 10.3 g/dl (12.0-16.0); MONOCYTES # (AUTO) 0.1 X10'3 (0-0.9)
[2020-07-16 03:26] LABS: BASOPHILS % (AUTO) 0.4 % (0-1); HEMATOCRIT 30.1 % (35.0-45.0); LYMPHOCYTES # (AUTO) 0.8 X10'3 (1.1-4.8); LYMPHOCYTES % (AUTO) 8.2 % (21-51); MEAN CORPUSCULAR HEMOGLOBIN 34.2 PG (27.0-31.0); MEAN CORPUSCULAR HGB CONC 34.2 g/dL (33.0-36.5); MEAN CORPUSCULAR VOLUME 99.9 FL (78-98); NEUTROPHILS # (AUTO) 8.4 X10'3 (1.8-7.7); PLATELET COUNT 60 X10'3 (140-440); RED BLOOD COUNT 3.02 X10'6 (4.20-5.60); RED CELL DISTRIBUTION WIDTH 13.3 % (11.5-14.5); WHITE BLOOD COUNT 9.6 X10'3 (4.5-11.0)
[2020-07-16] MEDS ORDERED: normal saline 1000ml 1,000 ML IV SCH (03:30)
[2020-07-16 03:42] LABS: ALANINE AMINOTRANSFERASE 18 U/L (12-78); ALBUMIN 3.1 G/DL (3.4-5.0); ALBUMIN/GLOBULIN RATIO 1.1 (1.1-1.5); ALKALINE PHOSPHATASE 131 IU/L (46-116); ANION GAP 11 (8-16); ASPARTATE AMINO TRANSFERASE 33 U/L (10-37); BILIRUBIN,TOTAL 0.5 MG/DL (0.1-1.0); BLOOD UREA NITROGEN 34 MG/DL (7-18); BUN/CREATININE RATIO 17.4 (6.6-38.0); CALCIUM 7.4 MG/DL (8.5-10.1); CHLORIDE 110 MMOL/L (99-107); CREATININE 1.95 MG/DL (0.40-0.90); GLUCOSE 171 MG/DL (70-104); MAGNESIUM 1.4 MG/DL (1.5-2.4); POTASSIUM 3.3 MMOL/L (3.5-5.1); SODIUM 138 MMOL/L (135-145); TOTAL CARBON DIOXIDE 17.1 MMOL/L (24-32); TOTAL PROTEIN 5.9 G/DL (6.4-8.2); eGFR 29 ML/MIN
[2020-07-16 03:57] LABS: PHOSPHORUS 0.6 MG/DL (2.3-4.5)
[2020-07-16] MEDS ORDERED: sodium phosphate inj. 30 MMOL in dextrose 5%-water 250 ML IV ONE (04:05)
[2020-07-16] MEDS: sodium phosphate inj. 30 MMOL in dextrose 5%-water 250 ML IV PRN (04:19)
[2020-07-16] MEDS: POTASSIUM BICARB 20meq eff tab 20 MEQ TABLET.EFF NG PRN ×2 (04:19→23:37)
[2020-07-16 04:25] LABS: ABG BASE EXCESS -13.5 mmol/L (-2.0-2.0); ABG HCO3 12.6 mmol/L (22.0-26.0); ABG OXYGEN SATURATION 92.9 % (94-97); ABG PCO2 (T) 30.8 mmHg (32.0-45.0); ABG PO2 (T) 59.9 mmHg (75.0-100.0); FCOHb 0.4 % (0.0-3.9); FMetHb 0.2 % (0.0-1.5); FO2Hb 92.3 % (94-97); PATIENT TEMPERATURE 37.6; PEEP 10 cm H2O; RESPIRATORY RATE 20 b/min; TIDAL VOLUME 400 mL
[2020-07-16] MEDS: FENTANYL-0.9 % NACL/PF 100 ML IV PRN ×3 (04:42→17:40)
[2020-07-16] MEDS ORDERED: lactulose 20gm/30ml cup PO PRN (07:20)
[2020-07-16] MEDS: K and/or MAG REPLACEMENT MC SCH ×2 (08:00)
[2020-07-16] MEDS: docusate sod 100mg capsule PO SCH ×2 (08:00→19:49)
[2020-07-16] MEDS: pantoprazole 40 MG vial IV SCH (08:22)
[2020-07-16] MEDS: CefTRIAXone 2gm/D5W 50ml 50 ML IV SCH (08:22)
[2020-07-16] MEDS: azithromycin/NS 500mg/250ml 250 ML IV SCH (08:22)
[2020-07-16] MEDS: gabapentin 300mg capsule PO SCH ×3 (08:23→19:50)
[2020-07-16] MEDS: lactobacillus rhamnosus 10,000 MMU CELLS/CAPSULE PO SCH ×2 (08:23→19:50)
[2020-07-16] MEDS: heparin, porcine 5000 units/ml vial SQ SCH ×2 (08:23→19:50)
[2020-07-16 08:24] LABS: ALANINE AMINOTRANSFERASE 21 U/L (12-78); ALBUMIN 2.7 G/DL (3.4-5.0); ALKALINE PHOSPHATASE 133 IU/L (46-116); ANION GAP 10 (8-16); ASPARTATE AMINO TRANSFERASE 34 U/L (10-37); BILIRUBIN,TOTAL 0.4 MG/DL (0.1-1.0); BLOOD UREA NITROGEN 32 MG/DL (7-18); BUN/CREATININE RATIO 18.1 (6.6-38.0); CHLORIDE 110 MMOL/L (99-107); CREATININE 1.77 MG/DL (0.40-0.90); GLUCOSE 143 MG/DL (70-104); SODIUM 136 MMOL/L (135-145); TOTAL CARBON DIOXIDE 15.8 MMOL/L (24-32); TOTAL PROTEIN 5.4 G/DL (6.4-8.2); eGFR 32 ML/MIN
[2020-07-16] MEDS: insulin glargine (Lantus) pen - multi-dose SQ SCH ×2 (08:29→20:30)
[2020-07-16 08:32] LABS: POTASSIUM 2.7 MMOL/L (3.5-5.1)
--- NOTE | 2020-07-16 09:23 | NUR ---
TF consult: Pt remains intubated, recommendations below. Still no documented BM, pt receiving routine bowel care. Will continue to follow closely. Recommendations: 1) Continuous Vital AF via OG tube with goal rate of 55 mL/hr to provide: 1320 mL total volume/day, 1584 kcal, 99 g protein, and 1071 mL water 2) Additional water flush per MD given hyponatremia on admit 3) Prealbumin q Sunday/; daily weights 4) Routine bowel care 5) PO diet advancement to CHO controlled as medically indicated following extubation. Would benefit from BSS with ST prior to diet advancement given pt requiring texture modification following extubation at previous admit 6) DM education following extubation once stable; A1c 10.4% Addendum: 07/16/20 at [address] Amended: Links added.
[2020-07-16] MEDS ORDERED: furosemide 40mg/4ml inj IV ONE (09:40)
[2020-07-16] MEDS: potassium Cl 20mEq/100mL bag 100 ML IV PRN ×2 (10:21→11:05)
[2020-07-16] MEDS: insulin regular, human U-100 3ml vial - multi-dose SQ SCH ×3 (10:59→20:29)
[2020-07-16 14:37] LABS: ALANINE AMINOTRANSFERASE 26 U/L (12-78); ALBUMIN 2.8 G/DL (3.4-5.0); ALBUMIN/GLOBULIN RATIO 0.8 (1.1-1.5); ALKALINE PHOSPHATASE 161 IU/L (46-116); ANION GAP 13 (8-16); ASPARTATE AMINO TRANSFERASE 55 U/L (10-37); BILIRUBIN,TOTAL 0.4 MG/DL (0.1-1.0); BLOOD UREA NITROGEN 36 MG/DL (7-18); BUN/CREATININE RATIO 17.5 (6.6-38.0); CHLORIDE 108 MMOL/L (99-107); CREATININE 2.06 MG/DL (0.40-0.90); GLUCOSE 195 MG/DL (70-104); POTASSIUM 3.7 MMOL/L (3.5-5.1); SODIUM 137 MMOL/L (135-145); TOTAL CARBON DIOXIDE 16.2 MMOL/L (24-32); TOTAL PROTEIN 6.1 G/DL (6.4-8.2); eGFR 27 ML/MIN
[2020-07-16 15:56] LABS: ABG BASE EXCESS -11.1 mmol/L (-2.0-2.0); ABG HCO3 14.7 mmol/L (22.0-26.0); ABG OXYGEN SATURATION 91.8 % (94-97); ABG PCO2 (T) 34.5 mmHg (32.0-45.0); ABG PO2 (T) 57.6 mmHg (75.0-100.0); ALLEN'S TEST POSITIVE; FCOHb 0.7 % (0.0-3.9); FLOW 40 L/min; FMetHb 0.1 % (0.0-1.5); FO2Hb 91.1 % (94-97); PATIENT TEMPERATURE 38.1; PEEP 10 cm H2O; RESPIRATORY RATE 20 b/min; TIDAL VOLUME 400 mL; TOTAL HEMOGLOBIN 11.1 G/dl (12.0-16.0)
[2020-07-16 16:36] LABS: PO2 MIXED VENOUS (TEMP COR) 34.6 mmHg (35-46)
--- NOTE | 2020-07-16 18:16 | NUR ---
Report given to SHAKIRA RN
[2020-07-16 23:20] LABS: ALANINE AMINOTRANSFERASE 28 U/L (12-78); ALBUMIN 2.7 G/DL (3.4-5.0); ALBUMIN/GLOBULIN RATIO 0.8 (1.1-1.5); ALKALINE PHOSPHATASE 161 IU/L (46-116); ANION GAP 10 (8-16); ASPARTATE AMINO TRANSFERASE 34 U/L (10-37); BILIRUBIN,TOTAL 0.4 MG/DL (0.1-1.0); BLOOD UREA NITROGEN 33 MG/DL (7-18); BUN/CREATININE RATIO 15.5 (6.6-38.0); CHLORIDE 111 MMOL/L (99-107); CREATININE 2.13 MG/DL (0.40-0.90); GLUCOSE 105 MG/DL (70-104); POTASSIUM 3.2 MMOL/L (3.5-5.1); SODIUM 140 MMOL/L (135-145); TOTAL CARBON DIOXIDE 19.1 MMOL/L (24-32); TOTAL PROTEIN 6.1 G/DL (6.4-8.2); eGFR 26 ML/MIN
[2020-07-17] VITALS (24 sets, daily range): BP systolic 95–128; BP diastolic 50–84
[2020-07-17] MEDS: FENTANYL-0.9 % NACL/PF 100 ML IV PRN ×4 (00:12→20:50)
[2020-07-17] MEDS: mineral oil/petrolatum ophthal oint EACHEYE SCH ×4 (02:24→20:21)
[2020-07-17] MEDS: insulin regular, human U-100 3ml vial - multi-dose SQ SCH ×4 (02:26→20:53)
[2020-07-17] MEDS: ipratropium/albuterol 3ml nebule NEB SCH ×6 (03:07→23:02)
[2020-07-17 03:08] LABS: BASOPHILS # (AUTO) 0.1 X10'3 (0-0.2); BASOPHILS % (AUTO) 0.6 % (0-1); EOSINOPHILS # (AUTO) 0.5 X10'3 (0-0.9); EOSINOPHILS % (AUTO) 4.4 % (0-6); HEMATOCRIT 29.8 % (35.0-45.0); HEMOGLOBIN 10.1 g/dl (12.0-16.0); LYMPHOCYTES % (AUTO) 9.3 % (21-51); MEAN CORPUSCULAR HEMOGLOBIN 33.8 PG (27.0-31.0); MEAN CORPUSCULAR VOLUME 99.5 FL (78-98); MEAN PLATELET VOLUME 11.2 FL (7.4-10.4); MONOCYTES # (AUTO) 0.2 X10'3 (0-0.9); MONOCYTES % (AUTO) 1.6 % (2-12); NEUTROPHILS # (AUTO) 9.3 X10'3 (1.8-7.7); NEUTROPHILS % (AUTO) 84.1 % (42-75); PLATELET COUNT 66 X10'3 (140-440); RED BLOOD COUNT 2.99 X10'6 (4.20-5.60); RED CELL DISTRIBUTION WIDTH 13.4 % (11.5-14.5); WHITE BLOOD COUNT 11.1 X10'3 (4.5-11.0)
[2020-07-17 03:32] LABS: ALANINE AMINOTRANSFERASE 23 U/L (12-78); ALBUMIN 2.7 G/DL (3.4-5.0); ALBUMIN/GLOBULIN RATIO 0.8 (1.1-1.5); ALKALINE PHOSPHATASE 159 IU/L (46-116); ANION GAP 10 (8-16); ASPARTATE AMINO TRANSFERASE 33 U/L (10-37); BILIRUBIN,TOTAL 0.4 MG/DL (0.1-1.0); BLOOD UREA NITROGEN 38 MG/DL (7-18); BUN/CREATININE RATIO 16.6 (6.6-38.0); CHLORIDE 110 MMOL/L (99-107); CREATININE 2.29 MG/DL (0.40-0.90); GLUCOSE 168 MG/DL (70-104); MAGNESIUM 1.7 MG/DL (1.5-2.4); POTASSIUM 3.8 MMOL/L (3.5-5.1); SODIUM 140 MMOL/L (135-145); TOTAL CARBON DIOXIDE 19.6 MMOL/L (24-32); TOTAL PROTEIN 6.3 G/DL (6.4-8.2); eGFR 24 ML/MIN
[2020-07-17 03:36] LABS: PHOSPHORUS 1.2 MG/DL (2.3-4.5)
[2020-07-17] MEDS: POTASSIUM BICARB 20meq eff tab 20 MEQ TABLET.EFF NG PRN (03:54)
[2020-07-17] MEDS: sodium phosphate inj. 30 MMOL in dextrose 5%-water 250 ML IV PRN (04:00)
[2020-07-17] MEDS: midazolam 100mg in NS 100ml 100 ML IV PRN ×3 (04:11→16:51)
[2020-07-17 05:06] LABS: ABG BASE EXCESS -8.7 mmol/L (-2.0-2.0); ABG HCO3 17.3 mmol/L (22.0-26.0); ABG OXYGEN SATURATION 94.8 % (94-97); ABG PCO2 (T) 38.3 mmHg (32.0-45.0); ABG PO2 (T) 70.2 mmHg (75.0-100.0); FCOHb 0.6 % (0.0-3.9); FMetHb 0.2 % (0.0-1.5); PATIENT TEMPERATURE 37.6; PEEP 5 cm H2O; RESPIRATORY RATE 20 b/min; TIDAL VOLUME 400 mL; TOTAL HEMOGLOBIN 10.9 G/dl (12.0-16.0)
--- NOTE | 2020-07-17 06:15 | NUR ---
Patient in room CICU 2006. I have received report from [facility] and had the opportunity to ask questions and assume patient care.
[2020-07-17] MEDS: azithromycin/NS 500mg/250ml 250 ML IV SCH (07:48)
[2020-07-17] MEDS: CefTRIAXone 2gm/D5W 50ml 50 ML IV SCH (07:48)
[2020-07-17] MEDS: pantoprazole 40 MG vial IV SCH (07:57)
[2020-07-17] MEDS: heparin, porcine 5000 units/ml vial SQ SCH ×2 (07:58→20:21)
[2020-07-17] MEDS: lactobacillus rhamnosus 10,000 MMU CELLS/CAPSULE PO SCH ×2 (07:59→20:21)
[2020-07-17] MEDS: gabapentin 300mg capsule PO SCH ×2 (07:59→20:21)
[2020-07-17] MEDS: docusate sod 100mg capsule PO SCH ×2 (07:59→20:21)
[2020-07-17] MEDS: K and/or MAG REPLACEMENT MC SCH (08:00)
[2020-07-17] MEDS: insulin glargine (Lantus) pen - multi-dose SQ SCH ×2 (08:14→20:52)
[2020-07-17] MEDS: acetaminophen 325mg tablet PO PRN ×2 (10:16→15:11)
--- NOTE | 2020-07-17 18:23 | NUR ---
Problems reprioritized. Patient report given, questions answered & plan of care reviewed with RN.
--- NOTE | 2020-07-17 18:50 | NUR ---
I have received report and assumed care of pt, pt resting in bed on ventilator, no signs or symptoms of distress, Fentanyl drip in place for pain control, versed drip in place for sedation, assessment complete
--- NOTE | 2020-07-17 20:05 | NUR ---
spoke to nurse practitioner Tanisha Barraza regarding glucose of 34, hypoglycemic protocol followed in regards to the low glucose, however Tanisha Gonzalez did not want to decrease the Lantus at this time as pt is a type 1 diabetic. Will continue to monitor.
[2020-07-17] MEDS: dextrose 50%-water 50ml dispensing syringe IV PRN (20:20)
[2020-07-18] VITALS (24 sets, daily range): BP systolic 101–137; BP diastolic 58–89
--- NOTE | 2020-07-18 00:15 | NUR ---
pts glucose is once more 34, hypoglycemic protocol followed
[2020-07-18] MEDS: dextrose 50%-water 50ml dispensing syringe IV PRN ×2 (00:25→01:57)
[2020-07-18] MEDS: mineral oil/petrolatum ophthal oint EACHEYE SCH ×4 (01:57→19:20)
[2020-07-18] MEDS: Dextrose 10%-water IV solution 1,000 ML IV SCH (02:39)
[2020-07-18 02:48] LABS: BASOPHILS % (AUTO) 0.4 % (0-1); EOSINOPHILS # (AUTO) 0.5 X10'3 (0-0.9); EOSINOPHILS % (AUTO) 4.6 % (0-6); HEMATOCRIT 28.7 % (35.0-45.0); HEMOGLOBIN 9.9 g/dl (12.0-16.0); LYMPHOCYTES # (AUTO) 1.3 X10'3 (1.1-4.8); LYMPHOCYTES % (AUTO) 11.9 % (21-51); MEAN CORPUSCULAR HGB CONC 34.4 g/dL (33.0-36.5); MEAN CORPUSCULAR VOLUME 98.8 FL (78-98); MEAN PLATELET VOLUME 11.1 FL (7.4-10.4); MONOCYTES # (AUTO) 0.2 X10'3 (0-0.9); MONOCYTES % (AUTO) 1.4 % (2-12); NEUTROPHILS # (AUTO) 8.8 X10'3 (1.8-7.7); NEUTROPHILS % (AUTO) 81.7 % (42-75); PLATELET COUNT 71 X10'3 (140-440); RED CELL DISTRIBUTION WIDTH 13.7 % (11.5-14.5); WHITE BLOOD COUNT 10.8 X10'3 (4.5-11.0)
[2020-07-18 02:54] LABS: ALANINE AMINOTRANSFERASE 24 U/L (12-78); ALBUMIN 2.4 G/DL (3.4-5.0); ALBUMIN/GLOBULIN RATIO 0.6 (1.1-1.5); ALKALINE PHOSPHATASE 162 IU/L (46-116); ANION GAP 7 (8-16); ASPARTATE AMINO TRANSFERASE 27 U/L (10-37); BILIRUBIN,TOTAL 0.3 MG/DL (0.1-1.0); BLOOD UREA NITROGEN 41 MG/DL (7-18); BUN/CREATININE RATIO 20.7 (6.6-38.0); CALCIUM 8.1 MG/DL (8.5-10.1); CHLORIDE 110 MMOL/L (99-107); CREATININE 1.98 MG/DL (0.40-0.90); MAGNESIUM 1.7 MG/DL (1.5-2.4); PHOSPHORUS 1.8 MG/DL (2.3-4.5); POTASSIUM 3.7 MMOL/L (3.5-5.1); SODIUM 142 MMOL/L (135-145); TOTAL CARBON DIOXIDE 25.4 MMOL/L (24-32); TOTAL PROTEIN 6.1 G/DL (6.4-8.2); eGFR 29 ML/MIN
[2020-07-18] MEDS: ipratropium/albuterol 3ml nebule NEB SCH ×6 (03:14→23:04)
--- NOTE | 2020-07-18 03:20 | NUR ---
Spoke to Nurse practitioner regarding pts 0152 glucose level, Protocol was fallowed by giving 1/2 amp D50 IV glucose came up to 109. per practitioner Tanisha Barraza, we will not cover then nutritional insulin at this time, we will start D10 at 30 ml hr, until glucose level stays within prior parameters for 2 consecutive accu checks.
[2020-07-18 03:24] LABS: GLUCOSE 43 MG/DL (70-104)
[2020-07-18 04:50] LABS: ABG BASE EXCESS -3.9 mmol/L (-2.0-2.0); ABG HCO3 20.3 mmol/L (22.0-26.0); ABG OXYGEN SATURATION 95.3 % (94-97); ABG PCO2 (T) 35.2 mmHg (32.0-45.0); FCOHb 0.6 % (0.0-3.9); FMetHb 0.1 % (0.0-1.5); FO2Hb 94.6 % (94-97); PEEP 8 cm H2O; RESPIRATORY RATE 20 b/min; TIDAL VOLUME 400 mL; TOTAL HEMOGLOBIN 10.3 G/dl (12.0-16.0)
[2020-07-18] MEDS: FENTANYL-0.9 % NACL/PF 100 ML IV PRN ×3 (06:00→20:22)
--- NOTE | 2020-07-18 06:07 | NUR ---
report given to receiving rn plan of care reviewed
--- NOTE | 2020-07-18 06:37 | NUR ---
Assumed care from NOC RN plan of care reviewed
[2020-07-18] MEDS: docusate sodium 100mg/10ml UD cup PO SCH ×2 (08:30→19:20)
[2020-07-18] MEDS: pantoprazole 40 MG vial IV SCH (08:32)
[2020-07-18] MEDS: azithromycin/NS 500mg/250ml 250 ML IV SCH (08:33)
[2020-07-18] MEDS: gabapentin 300mg capsule PO SCH ×2 (08:33→19:20)
[2020-07-18] MEDS: lactobacillus rhamnosus 10,000 MMU CELLS/CAPSULE PO SCH ×2 (08:33→19:20)
[2020-07-18] MEDS: CefTRIAXone 2gm/D5W 50ml 50 ML IV SCH (08:33)
[2020-07-18] MEDS: heparin, porcine 5000 units/ml vial SQ SCH ×2 (08:34→19:20)
[2020-07-18] MEDS: insulin regular, human U-100 3ml vial - multi-dose SQ SCH ×3 (08:39→19:26)
[2020-07-18] MEDS: K and/or MAG REPLACEMENT MC SCH (08:58)
[2020-07-18] MEDS: midazolam 100mg in NS 100ml 100 ML IV PRN (11:34)
--- NOTE | 2020-07-18 18:09 | NUR ---
Patient in room CICU 2006. I have received report and had the opportunity to ask questions and assume patient care.
[2020-07-18] MEDS: dexmedetomidin/NS 400mcg/100ml 100 ML IV SCH (19:20)
[2020-07-18] MEDS: insulin glargine (Lantus) pen - multi-dose SQ SCH (19:30)
[2020-07-19] VITALS (24 sets, daily range): BP systolic 94–131; BP diastolic 52–80
[2020-07-19] MEDS: FENTANYL-0.9 % NACL/PF 100 ML IV PRN ×3 (00:46→19:27)
[2020-07-19] MEDS: midazolam 100mg in NS 100ml 100 ML IV PRN (00:47)
[2020-07-19] MEDS: dextrose 50%-water 50ml dispensing syringe IV PRN (02:40)
[2020-07-19] MEDS: mineral oil/petrolatum ophthal oint EACHEYE SCH ×4 (02:48→19:28)
[2020-07-19] MEDS: ipratropium/albuterol 3ml nebule NEB SCH ×6 (03:12→23:09)
[2020-07-19 03:18] LABS: BASOPHILS # (AUTO) 0.1 X10'3 (0-0.2); BASOPHILS % (AUTO) 0.8 % (0-1); EOSINOPHILS # (AUTO) 0.6 X10'3 (0-0.9); EOSINOPHILS % (AUTO) 6.5 % (0-6); HEMATOCRIT 26.2 % (35.0-45.0); LYMPHOCYTES # (AUTO) 1.8 X10'3 (1.1-4.8); LYMPHOCYTES % (AUTO) 20.7 % (21-51); MEAN CORPUSCULAR HEMOGLOBIN 34.2 PG (27.0-31.0); MEAN CORPUSCULAR HGB CONC 34.5 g/dL (33.0-36.5); MEAN PLATELET VOLUME 10.8 FL (7.4-10.4); MONOCYTES # (AUTO) 0.4 X10'3 (0-0.9); MONOCYTES % (AUTO) 4.2 % (2-12); NEUTROPHILS # (AUTO) 5.8 X10'3 (1.8-7.7); NEUTROPHILS % (AUTO) 67.8 % (42-75); PLATELET COUNT 74 X10'3 (140-440); RED BLOOD COUNT 2.64 X10'6 (4.20-5.60); RED CELL DISTRIBUTION WIDTH 13.5 % (11.5-14.5); WHITE BLOOD COUNT 8.6 X10'3 (4.5-11.0)
[2020-07-19 03:30] LABS: ABG BASE EXCESS 0.8 mmol/L (-2.0-2.0); ABG HCO3 24.6 mmol/L (22.0-26.0); ABG OXYGEN SATURATION 97.2 % (94-97); ABG PCO2 (T) 37.2 mmHg (32.0-45.0); ALLEN'S TEST POSITIVE; FCOHb 0.7 % (0.0-3.9); FO2Hb 96.5 % (94-97); PATIENT TEMPERATURE 37.6; PEEP 5 cm H2O; RESPIRATORY RATE 20 b/min; TIDAL VOLUME 400 mL
[2020-07-19 03:37] LABS: ALANINE AMINOTRANSFERASE 16 U/L (12-78); ALBUMIN/GLOBULIN RATIO 0.6 (1.1-1.5); ALKALINE PHOSPHATASE 130 IU/L (46-116); ANION GAP 6 (8-16); ASPARTATE AMINO TRANSFERASE 19 U/L (10-37); BILIRUBIN,TOTAL 0.3 MG/DL (0.1-1.0); BLOOD UREA NITROGEN 47 MG/DL (7-18); CALCIUM 8.2 MG/DL (8.5-10.1); CHLORIDE 108 MMOL/L (99-107); CREATININE 1.68 MG/DL (0.40-0.90); GLUCOSE 163 MG/DL (70-104); MAGNESIUM 1.7 MG/DL (1.5-2.4); PHOSPHORUS 1.4 MG/DL (2.3-4.5); POTASSIUM 3.6 MMOL/L (3.5-5.1); PREALBUMIN 10.6 MG/DL (19-36); SODIUM 141 MMOL/L (135-145); TOTAL CARBON DIOXIDE 27.5 MMOL/L (24-32); TOTAL PROTEIN 5.5 G/DL (6.4-8.2); eGFR 34 ML/MIN
[2020-07-19 04:03] LABS: LARGE PLATELETS FEW; PLATELET ESTIMATE DECREASED
[2020-07-19] MEDS: sodium phosphate inj. 30 MMOL in dextrose 5%-water 250 ML IV PRN (05:52)
[2020-07-19] MEDS: dexmedetomidin/NS 400mcg/100ml 100 ML IV SCH ×2 (05:53→15:41)
--- NOTE | 2020-07-19 06:22 | NUR ---
Patient in room [facility] 2007. I have received report from Amanda TORRES and had the opportunity to ask questions and assume patient care. Addendum: 07/19/20 at 0622 by Tamra Sandoval RN Amended: Links added.
[2020-07-19] MEDS: insulin regular, human U-100 3ml vial - multi-dose SQ SCH ×3 (07:38→19:54)
[2020-07-19] MEDS: CefTRIAXone 2gm/D5W 50ml 50 ML IV SCH (08:25)
[2020-07-19] MEDS: pantoprazole 40 MG vial IV SCH (08:27)
[2020-07-19] MEDS: gabapentin 300mg capsule PO SCH (08:27)
[2020-07-19] MEDS: docusate sodium 100mg/10ml UD cup PO SCH (08:27)
[2020-07-19] MEDS: lactobacillus rhamnosus 10,000 MMU CELLS/CAPSULE PO SCH (08:28)
[2020-07-19] MEDS: heparin, porcine 5000 units/ml vial SQ SCH ×2 (08:28→19:28)
[2020-07-19] MEDS: insulin glargine (Lantus) pen - multi-dose SQ SCH ×2 (08:36→19:55)
[2020-07-19] MEDS: azithromycin/NS 500mg/250ml 250 ML IV SCH (09:05)
--- NOTE | 2020-07-19 09:50 | NUR ---
RN heard vent alarm from other pt's room. Pt. had ETT in right hand. ETT was at 17 instead of 23 and SP02 was 71%. ETT placed back at 23 and CXR ordered.
[2020-07-19] MEDS: acetaminophen 325mg tablet PO PRN (10:43)
--- NOTE | 2020-07-19 10:49 | NUR ---
Medicated with Tylenol for fever of 38.6. Dr. Zheng aware.
--- NOTE | 2020-07-19 11:01 | NUR ---
Reassessment: Pt intubated and sedated. No BM in 6 days, pt started receiving colace on 07/18, has prn lactulose not yet given. Receiving fentanyl. Pending extubation soon per Hand Decorator rounds. Otherwise, tolerating tube feeding at goal rate, GRV WNL. Pt has low in BG at 28 mg/dl at 02:38; MD is aware and Lantus has been adjusted. Will continue to follow. Recommendations: 1) Continuous Vital AF via OG tube with goal rate of 55 mL/hr to provide: 1320 mL total volume/day, 1584 kcal, 99 g protein, and 1071 mL water 2) Additional water flush per MD given hyponatremia on admit 3) Prealbumin q Sunday/; daily weights 4) Routine bowel care 5) PO diet advancement to CHO controlled as medically indicated following extubation. Would benefit from BSS with ST prior to diet advancement given pt requiring texture modification following extubation at previous admit 6) DM education following extubation once stable; A1c 10.4% Addendum: 07/19/20 at [address] Amended: Links added.
[2020-07-19] MEDS: Dextrose 10%-water IV solution 1,000 ML IV SCH (11:45)
--- NOTE | 2020-07-19 14:51 | NUR ---
RT performing weaning parameters on pt. now. Versed remains off since 1000. Fentanyl and Precedex infusing.
--- NOTE | 2020-07-19 16:41 | NUR ---
Lactulose administered per order for NO MB > 48 hours. High TF residuals as well.
--- NOTE | 2020-07-19 18:08 | NUR ---
Problems reprioritized. Patient report given, questions answered & plan of care reviewed with Amanda TORRES.
--- NOTE | 2020-07-19 18:12 | NUR ---
Patient in room CICU 2006. I have received report and had the opportunity to ask questions and assume patient care.
[2020-07-19] MEDS ORDERED: acetaminophen 325mg/10.15ml oral unit dose solution OGT PRN (18:57)
[2020-07-19] MEDS ORDERED: acetaminophen 325mg tablet OGT PRN (18:58)
[2020-07-19] MEDS ORDERED: lactulose 20gm/30ml cup OGT PRN (19:02)
[2020-07-19] MEDS ORDERED: Neutra Phos packet OGT PRN (19:03)
[2020-07-19] MEDS: lactobacillus rhamnosus 10,000 MMU CELLS/CAPSULE OGT SCH (19:27)
[2020-07-19] MEDS: docusate sodium 100mg/10ml UD cup OGT SCH (19:27)
[2020-07-19] MEDS: gabapentin 300mg capsule OGT SCH (19:27)
[2020-07-20] VITALS (23 sets, daily range): BP systolic 111–158; BP diastolic 64–95
[2020-07-20] MEDS: FENTANYL-0.9 % NACL/PF 100 ML IV PRN (02:15)
[2020-07-20] MEDS: mineral oil/petrolatum ophthal oint EACHEYE SCH ×3 (02:15→10:53)
[2020-07-20] MEDS: insulin regular, human U-100 3ml vial - multi-dose SQ SCH ×2 (02:28→07:28)
[2020-07-20] MEDS: ipratropium/albuterol 3ml nebule NEB SCH ×4 (03:15→20:00)
[2020-07-20 05:01] LABS: ABG BASE EXCESS 2.3 mmol/L (-2.0-2.0); ABG HCO3 26.4 mmol/L (22.0-26.0); ABG OXYGEN SATURATION 94.6 % (94-97); ABG PCO2 (T) 40.6 mmHg (32.0-45.0); ABG PO2 (T) 74.4 mmHg (75.0-100.0); ALLEN'S TEST POSITIVE; FCOHb 0.1 % (0.0-3.9); FMetHb 0.1 % (0.0-1.5); FO2Hb 94.4 % (94-97); PATIENT TEMPERATURE 37.9; PEEP 5 cm H2O; TOTAL HEMOGLOBIN 9.9 G/dl (12.0-16.0)
[2020-07-20 06:16] LABS: BASOPHILS # (AUTO) 0.1 X10'3 (0-0.2); BASOPHILS % (AUTO) 0.7 % (0-1); EOSINOPHILS # (AUTO) 0.6 X10'3 (0-0.9); EOSINOPHILS % (AUTO) 5.9 % (0-6); HEMOGLOBIN 9.6 g/dl (12.0-16.0); LYMPHOCYTES # (AUTO) 1.9 X10'3 (1.1-4.8); LYMPHOCYTES % (AUTO) 17.9 % (21-51); MEAN CORPUSCULAR HEMOGLOBIN 34.2 PG (27.0-31.0); MEAN CORPUSCULAR HGB CONC 34.3 g/dL (33.0-36.5); MEAN CORPUSCULAR VOLUME 99.6 FL (78-98); MEAN PLATELET VOLUME 11.1 FL (7.4-10.4); MONOCYTES # (AUTO) 0.9 X10'3 (0-0.9); MONOCYTES % (AUTO) 8.1 % (2-12); NEUTROPHILS # (AUTO) 7.1 X10'3 (1.8-7.7); NEUTROPHILS % (AUTO) 67.4 % (42-75); PLATELET COUNT 119 X10'3 (140-440); RED BLOOD COUNT 2.81 X10'6 (4.20-5.60); RED CELL DISTRIBUTION WIDTH 13.5 % (11.5-14.5); WHITE BLOOD COUNT 10.5 X10'3 (4.5-11.0)
[2020-07-20 06:25] LABS: ALANINE AMINOTRANSFERASE 16 U/L (12-78); ALBUMIN 2.2 G/DL (3.4-5.0); ALBUMIN/GLOBULIN RATIO 0.6 (1.1-1.5); ALKALINE PHOSPHATASE 122 IU/L (46-116); ANION GAP 10 (8-16); ASPARTATE AMINO TRANSFERASE 15 U/L (10-37); BILIRUBIN,TOTAL 0.2 MG/DL (0.1-1.0); BLOOD UREA NITROGEN 46 MG/DL (7-18); BUN/CREATININE RATIO 29.1 (6.6-38.0); CALCIUM 8.8 MG/DL (8.5-10.1); CHLORIDE 106 MMOL/L (99-107); CREATININE 1.58 MG/DL (0.40-0.90); GLUCOSE 119 MG/DL (70-104); MAGNESIUM 1.8 MG/DL (1.5-2.4); PHOSPHORUS 1.4 MG/DL (2.3-4.5); SODIUM 143 MMOL/L (135-145); TOTAL CARBON DIOXIDE 27.2 MMOL/L (24-32); TOTAL PROTEIN 6.1 G/DL (6.4-8.2); eGFR 37 ML/MIN
[2020-07-20] MEDS: potassium Cl 20mEq/100mL bag 100 ML IV PRN ×2 (06:33→07:46)
--- NOTE | 2020-07-20 06:40 | NUR ---
Patient in room CICU 2006. I have received report from Amanda TORRES and had the opportunity to ask questions and assume patient care.
[2020-07-20] MEDS: insulin glargine (Lantus) pen - multi-dose SQ SCH ×2 (07:32→19:36)
[2020-07-20] MEDS: docusate sodium 100mg/10ml UD cup OGT SCH ×2 (07:33→19:12)
[2020-07-20] MEDS: gabapentin 300mg capsule OGT SCH ×2 (07:39→19:12)
[2020-07-20] MEDS: pantoprazole 40 MG vial IV SCH (07:39)
[2020-07-20] MEDS: heparin, porcine 5000 units/ml vial SQ SCH ×2 (07:39→19:41)
[2020-07-20] MEDS: lactobacillus rhamnosus 10,000 MMU CELLS/CAPSULE OGT SCH ×2 (07:40→19:12)
[2020-07-20] MEDS: sodium phosphate inj. 30 MMOL in dextrose 5%-water 250 ML IV PRN (08:21)
[2020-07-20 08:41] LABS: PLATELET ESTIMATE DECREASED
[2020-07-20 08:42] LABS: LARGE PLATELETS FEW
[2020-07-20] MEDS: CefTRIAXone 2gm/D5W 50ml 50 ML IV SCH (08:59)
[2020-07-20] MEDS: azithromycin/NS 500mg/250ml 250 ML IV SCH (09:31)
[2020-07-20] MEDS ORDERED: racepinephrine 11.25mg/0.5ml nebule NEB PRN (09:55)
[2020-07-20] MEDS ORDERED: ipratropium/albuterol 3ml nebule NEB PRN (09:55)
--- NOTE | 2020-07-20 10:18 | NUR ---
Pt. extubated at 1005 after receiving orders to extubate pt. from Dr. Zheng. c/o sore throat, cool mist mask with 30% 02 placed on pt. per RT
--- NOTE | 2020-07-20 10:37 | NUR ---
F/u: Pt extubated this morning, TF has been discontinued. ST has been consulted for BSS. Will continue to follow and provide DM education once stable. Recommendations: 1) Continue CHO controlled diet with texture modification per ST pending BSS 2) Monitor need for ONS 3) Routine bowel care 4) Scaled weights per rx 5) DM education following once stable; A1c 10.4% Addendum: 07/20/20 at [address] Amended: Links added.
[2020-07-20] MEDS ORDERED: HYDROcodone/acetaminophen 10/325mg tab PO PRN (11:00)
[2020-07-20] MEDS: morphine 2 MG/ML inj. syringe IV PRN ×4 (11:11→23:28)
--- NOTE | 2020-07-20 11:24 | NUR ---
Pt.extremely anxious and wheezy.RT giving pt. a nebulizer txt now. Morphine administered for pain.
[2020-07-20] MEDS: benzocaine/menthol oral lozeng 1 EACH BOX MM PRN (11:36)
[2020-07-20] MEDS: LORazepam 2 mg/ml vial IV PRN ×2 (11:42→17:41)
--- NOTE | 2020-07-20 11:46 | NUR ---
Dr. Zheng aware pt. remains on Precedex while extubated.
[2020-07-20] MEDS: insulin Lispro (HumaLOG) vial - multi-dose SQ SCH (13:44)
--- NOTE | 2020-07-20 15:35 | NUR ---
Pt. extremely anxious. Has been asking for pain and anxiety meds since extubation at 1005 today. Turns the call light on constantly and asks RN to text her for her, asks when her meds are due, states she "cannot breathe", wants her purse and phone communications supervisor etc. Needs constant reassurance. Medicated with Morphine X 2, Ativan X 1, throat lozenge X 1 so far.
--- NOTE | 2020-07-20 15:50 | NUR ---
Pt. coughs with sips of water. Will remain NPO except for ice chips which she tolerates until her swallow eval can be done tomorrow. ST Adis came today right after pt. was extubated which was too early for an eval.
--- NOTE | 2020-07-20 18:08 | NUR ---
Problems reprioritized. Patient report given, questions answered & plan of care reviewed with Amanda TORRES.
--- NOTE | 2020-07-20 18:11 | NUR ---
Patient in room CICU 2006. I have received report and had the opportunity to ask questions and assume patient care.
[2020-07-20] MEDS: ondansetron/PF 4mg/2ml inj IV PRN (20:42)
[2020-07-20] MEDS: Dextrose 10%-water IV solution 1,000 ML IV SCH (21:05)
--- NOTE | 2020-07-20 23:32 | NUR ---
pt is exhibiting seeking behavior and manipulative behavior with staff regarding pain medication. explained to pt that medication must be administered per doctors orders. pt stated "if I don't need oxygen tomorrow I am going to leave." explained to patient that leaving against medical advice would not be in her best interest.
[2020-07-21] VITALS (21 sets, daily range): BP systolic 112–146; BP diastolic 71–90
[2020-07-21] MEDS: ipratropium/albuterol 3ml nebule NEB SCH ×4 (02:33→21:07)
[2020-07-21 03:00] LABS: BASOPHILS # (AUTO) 0.1 X10'3 (0-0.2); BASOPHILS % (AUTO) 1.5 % (0-1); EOSINOPHILS # (AUTO) 0.6 X10'3 (0-0.9); EOSINOPHILS % (AUTO) 5.8 % (0-6); HEMATOCRIT 27.9 % (35.0-45.0); HEMOGLOBIN 9.4 g/dl (12.0-16.0); LYMPHOCYTES # (AUTO) 2.6 X10'3 (1.1-4.8); LYMPHOCYTES % (AUTO) 26.1 % (21-51); MEAN CORPUSCULAR HEMOGLOBIN 33.8 PG (27.0-31.0); MEAN CORPUSCULAR HGB CONC 33.5 g/dL (33.0-36.5); MEAN PLATELET VOLUME 10.7 FL (7.4-10.4); MONOCYTES # (AUTO) 1.1 X10'3 (0-0.9); MONOCYTES % (AUTO) 10.6 % (2-12); NEUTROPHILS # (AUTO) 5.6 X10'3 (1.8-7.7); PLATELET COUNT 152 X10'3 (140-440); RED BLOOD COUNT 2.77 X10'6 (4.20-5.60); RED CELL DISTRIBUTION WIDTH 13.3 % (11.5-14.5); WHITE BLOOD COUNT 9.9 X10'3 (4.5-11.0)
[2020-07-21 03:20] LABS: ALANINE AMINOTRANSFERASE 16 U/L (12-78); ALBUMIN 2.1 G/DL (3.4-5.0); ALBUMIN/GLOBULIN RATIO 0.5 (1.1-1.5); ALKALINE PHOSPHATASE 102 IU/L (46-116); ANION GAP 12 (8-16); ASPARTATE AMINO TRANSFERASE 11 U/L (10-37); BILIRUBIN,TOTAL 0.3 MG/DL (0.1-1.0); BLOOD UREA NITROGEN 35 MG/DL (7-18); BUN/CREATININE RATIO 27.3 (6.6-38.0); CALCIUM 8.1 MG/DL (8.5-10.1); CHLORIDE 106 MMOL/L (99-107); CREATININE 1.28 MG/DL (0.40-0.90); GLUCOSE 150 MG/DL (70-104); MAGNESIUM 1.7 MG/DL (1.5-2.4); PHOSPHORUS 5.1 MG/DL (2.3-4.5); POTASSIUM 3.4 MMOL/L (3.5-5.1); SODIUM 145 MMOL/L (135-145); TOTAL PROTEIN 6.1 G/DL (6.4-8.2); eGFR 47 ML/MIN
[2020-07-21] MEDS: morphine 2 MG/ML inj. syringe IV PRN (03:44)
[2020-07-21 04:23] LABS: LARGE PLATELETS FEW; PLATELET ESTIMATE NORMAL
[2020-07-21 04:24] LABS: POLYCHROMASIA FEW; STOMATOCYTES 1+
[2020-07-21 04:28] LABS: TARGET CELLS FEW
[2020-07-21] MEDS: LORazepam 2 mg/ml vial IV PRN ×3 (05:50→21:23)
[2020-07-21] MEDS: potassium Cl 20mEq/100mL bag 100 ML IV PRN ×2 (05:50→11:12)
--- NOTE | 2020-07-21 06:30 | NUR ---
Received report from Amanda TORRES, [facility] care.
[2020-07-21] MEDS: lactobacillus rhamnosus 10,000 MMU CELLS/CAPSULE OGT SCH (08:46)
[2020-07-21] MEDS: pantoprazole 40 MG vial IV SCH (08:48)
[2020-07-21] MEDS: docusate sodium 100mg/10ml UD cup OGT SCH (08:48)
[2020-07-21] MEDS: gabapentin 300mg capsule OGT SCH (08:49)
[2020-07-21] MEDS: heparin, porcine 5000 units/ml vial SQ SCH ×2 (08:50→19:54)
[2020-07-21] MEDS: CefTRIAXone 2gm/D5W 50ml 50 ML IV SCH (08:51)
[2020-07-21] MEDS: insulin glargine (Lantus) pen - multi-dose SQ SCH ×2 (09:02→21:22)
[2020-07-21] MEDS: insulin Lispro (HumaLOG) vial - multi-dose SQ SCH ×2 (09:13→14:07)
[2020-07-21] MEDS: azithromycin/NS 500mg/250ml 250 ML IV SCH (09:30)
--- NOTE | 2020-07-21 10:42 | NUR ---
Rounded with Dr. Zheng, made him aware of patient passing swallow eval and now taking oral pain meds, states he wants her transferred up to PCU, will remove santana catheter and have bsc. Discussed that replaced phos 1.5 is now high at 5.1, Dr. Zheng states he does not want phosphorous replaced and wants it dc'd.
[2020-07-21] MEDS ORDERED: docusate sodium 100mg/10ml UD cup PO SCH (10:59)
[2020-07-21] MEDS ORDERED: acetaminophen 325mg/10.15ml oral unit dose solution PO PRN (10:59)
[2020-07-21] MEDS ORDERED: acetaminophen 325mg tablet PO PRN (10:59)
[2020-07-21] MEDS ORDERED: lactulose 20gm/30ml cup PO PRN (11:02)
[2020-07-21] MEDS ORDERED: Neutra Phos packet PO PRN (11:02)
--- NOTE | 2020-07-21 11:56 | NUR ---
F/u: DM education placed in patient's chart with RD contact information. Pt s/p BSS with ST recs pureed food with nectar thick liquids as pt with slow chewing d/t lack of teeth and coughs with thin liquids. LBM 07/20. Will continue to follow closely and monitor need for nutrition intervention. Recommendations: 1) Continue pureed CHO controlled diet with nectar thick liquids per ST 2) Monitor need for ONS 3) Routine bowel care 4) Scaled weights per rx Addendum: 07/21/20 at [address] Amended: Links added.
[2020-07-21] MEDS: benzocaine/menthol oral lozeng 1 EACH BOX MM PRN (14:39)
--- NOTE | 2020-07-21 17:39 | NUR ---
Attempted to return call to Lisa's mother, number left for callback was called and person states we have the wrong number.
--- NOTE | 2020-07-21 18:17 | NUR ---
Gave report to Vaishali TORRES, transferred care.
--- NOTE | 2020-07-21 19:23 | NUR ---
pt transferred to room 3013a, report given to Chico TORRES. all belongings sent with pt. time allowed for questions
[2020-07-21] MEDS: lactobacillus rhamnosus 10,000 MMU CELLS/CAPSULE PO SCH (19:53)
[2020-07-21] MEDS: gabapentin 300mg capsule PO SCH (19:53)
[2020-07-21] MEDS: docusate sod 100mg capsule PO SCH (19:54)
[2020-07-21] MEDS: HYDROcodone/acetaminophen 10/325mg tab PO PRN (22:51)
[2020-07-22] MEDS: ipratropium/albuterol 3ml nebule NEB SCH ×3 (02:43→15:07)
[2020-07-22 03:00] VITALS: BP 136/77
[2020-07-22] MEDS: HYDROcodone/acetaminophen 10/325mg tab PO PRN ×2 (03:53→08:56)
[2020-07-22] MEDS: LORazepam 2 mg/ml vial IV PRN ×2 (03:53→10:08)
[2020-07-22 06:00] VITALS: BP 103/63
--- NOTE | 2020-07-22 06:25 | NUR ---
Patient in room PCU 3013A. I have received report from Chico TORRES and had the opportunity to ask questions and assume patient care. Patient awake, alert, up using BSC, no complaints at this time.
[2020-07-22] MEDS: docusate sod 100mg capsule PO SCH (07:21)
[2020-07-22] MEDS: lactobacillus rhamnosus 10,000 MMU CELLS/CAPSULE PO SCH (07:21)
[2020-07-22] MEDS: gabapentin 300mg capsule PO SCH (07:21)
[2020-07-22] MEDS: heparin, porcine 5000 units/ml vial SQ SCH (07:21)
[2020-07-22] MEDS: insulin glargine (Lantus) pen - multi-dose SQ SCH (07:26)
[2020-07-22] MEDS: insulin Lispro (HumaLOG) vial - multi-dose SQ SCH ×2 (09:45→13:12)
[2020-07-22 11:00] VITALS: BP 121/70
--- NOTE | 2020-07-22 13:40 | NUR ---
Unable to draw labs off PICC line after several attempts. PICC RN paged to assess line. Lab also notified that patient needs to be drawn
[2020-07-22 14:20] LABS: BASOPHILS # (AUTO) 0.1 X10'3 (0-0.2); EOSINOPHILS # (AUTO) 0.6 X10'3 (0-0.9); EOSINOPHILS % (AUTO) 5.1 % (0-6); HEMATOCRIT 29.6 % (35.0-45.0); HEMOGLOBIN 10.1 g/dl (12.0-16.0); LYMPHOCYTES # (AUTO) 2.1 X10'3 (1.1-4.8); LYMPHOCYTES % (AUTO) 19.5 % (21-51); MEAN CORPUSCULAR HEMOGLOBIN 34.1 PG (27.0-31.0); MEAN CORPUSCULAR VOLUME 100.2 FL (78-98); MEAN PLATELET VOLUME 10.8 FL (7.4-10.4); MONOCYTES # (AUTO) 0.7 X10'3 (0-0.9); MONOCYTES % (AUTO) 6.7 % (2-12); NEUTROPHILS # (AUTO) 7.4 X10'3 (1.8-7.7); NEUTROPHILS % (AUTO) 67.7 % (42-75); PLATELET COUNT 213 X10'3 (140-440); RED BLOOD COUNT 2.96 X10'6 (4.20-5.60); RED CELL DISTRIBUTION WIDTH 13.4 % (11.5-14.5)
[2020-07-22 14:47] LABS: ALANINE AMINOTRANSFERASE 18 U/L (12-78); ALBUMIN 2.5 G/DL (3.4-5.0); ALBUMIN/GLOBULIN RATIO 0.6 (1.1-1.5); ALKALINE PHOSPHATASE 111 IU/L (46-116); ASPARTATE AMINO TRANSFERASE 9 U/L (10-37); BILIRUBIN,TOTAL 0.2 MG/DL (0.1-1.0); BLOOD UREA NITROGEN 26 MG/DL (7-18); CALCIUM 8.6 MG/DL (8.5-10.1); CREATININE 1.13 MG/DL (0.40-0.90); GLUCOSE 228 MG/DL (70-104); MAGNESIUM 1.6 MG/DL (1.5-2.4); PHOSPHORUS 3.3 MG/DL (2.3-4.5); TOTAL PROTEIN 6.8 G/DL (6.4-8.2); eGFR 54 ML/MIN
[2020-07-22 14:52] LABS: ANION GAP 6 (8-16); CHLORIDE 99 MMOL/L (99-107); POTASSIUM 3.5 MMOL/L (3.5-5.1); SODIUM 132 MMOL/L (135-145); TOTAL CARBON DIOXIDE 26.8 MMOL/L (24-32)
[2020-07-22 15:00] VITALS: BP 128/88
[2020-07-22 15:21] LABS: LARGE PLATELETS FEW; PLATELET ESTIMATE NORMAL
--- NOTE | 2020-07-22 15:30 | NUR ---
Per MD order by Dr. Zheng patient is stable for discharge home. Discharge packet printed and reviewed with patient. PICC line removed intact, tele monitor removed. No new medications for patient. Home medications returned from pharmacy. Discharge instructions, return precautions, and follow up discussed with patient, all questions answered. Patient has existing appointment with PCP at [facility], as well as with her welding supervisor next week as scheduled. She states that she also has existing appointments with MAT and has all her medications at home. All belongings sent with patient. Patient provided clothes for discharge. Patient escorted via wheelchair to private vehicle to go home with family.
== END 2020-07-22 15:46 | disposition home or self-care (01) | DRG 720 ==
LOC: ER 05:10 → ED HOLD 07:20 → CICU 2S 11:00 → PCU 3S 07-21 19:00
PROVIDERS: ADMIT Internal Medicine Critical Care Medicine; ATTEND Internal Medicine Critical Care Medicine
PROC: 5A1955Z Respiratory Ventilation, Greater than 96 Consecutive Hours (ICD-10-PCS; principal; 2020-07-14)
PROC: 0BH17EZ Insertion of Endotracheal Airway into Trachea, Via Natural or Artificial Opening (ICD-10-PCS; 2020-07-14)
DX: A41.9 Sepsis, unspecified organism (principal); E10.10 Type 1 diabetes mellitus with ketoacidosis without coma; J18.9 Pneumonia, unspecified organism; N17.0 Acute kidney failure with tubular necrosis; J96.00 Acute respiratory failure, unspecified whether with hypoxia or hypercapnia; E86.0 Dehydration; E87.1 Hypo-osmolality and hyponatremia; F17.210 Nicotine dependence, cigarettes, uncomplicated; F41.9 Anxiety disorder, unspecified; N18.9 Chronic kidney disease, unspecified; Z79.4 Long term (current) use of insulin; E10.22 Type 1 diabetes mellitus with diabetic chronic kidney disease; Z79.899 Other long term (current) drug therapy; Z91.19 Patient's noncompliance with other medical treatment and regimen; Z20.828 Contact with and (suspected) exposure to other viral communicable diseases
CPT/HCPCS: 36415; 36573; 36600; 71045; 76775; 80048; 80053; 81001; 81025; 82570; 82803; 82810; 82948; 83036; 83605; 83690; 83735; 84100; 84132; 84134; 84145; 84156; 84300; 85007; 85008; 85018; 85025; 85610; 85730; 87040; 87070; 87081; 87207; 87635; 92508; 92616; 93005; 94002; 94003; 94640; 94667; 94760; 96374; 96375; 97110; 97116; 97162; 97530; 97535; 99291; C9113; G0378; J0456; J0696; J0780; J1644; J1815; J1940; J2060; J2270; J2405; J2765; J3010; J3480; J7030; J7060; P9047

== ENCOUNTER 2020-08-09 15:55 | Emergency (ER) | payer MEDICAID ==
[~2020-08-09] VITALS: Ht 152.4 cm; Wt 59.1 kg
[~2020-08-09 15:55] MED LIST changes: +ALBU8.5H8 INH; +BUSP15TA3 PO; +FLUT1BLS9 PO; +LURA60TA2 PO; +METF-437 PO; +TRAZ-251 PO
[2020-08-09 17:47] LABS: URINE HCG NEGATIVE (NEG)
[2020-08-09 17:49] LABS: CLARITY,URINE SLIGHTLY CLOUDY (Clear); COLOR,URINE YELLOW (Yellow); GLUCOSE, URINE >=1000 mg/dl (Neg); KETONES,URINE NEGATIVE (Neg); LEUKOCYTE ESTERASE ,URINE NEGATIVE (Neg); NITRITES, URINE NEGATIVE (Neg); OCCULT BLOOD,URINE NEGATIVE (Neg); PH,URINE 6.5 (4.8-8.0); PROTEIN,URINE TRACE mg/dl (Neg)
[2020-08-09 17:55] LABS: UA COLLECTION TYPE CLN CATCH MIDSTREAM
[2020-08-09 18:04] LABS: WBC,URINE 0-4 /HPF (0-4)
[2020-08-09 18:05] LABS: BACTERIA,URINE FEW /HPF (Neg); HYALINE CASTS 0-3 /LPF (NEGATIVE); RBC,URINE 0-2 /HPF (0-2); SQUAMOUS EPITHELIAL CELL,UR MODERATE /LPF (FEW)
[2020-08-09 18:29] VITALS: BP 123/92
== END 2020-08-09 18:35 | disposition home or self-care (01) ==
LOC: ER 15:56
DX: E16.2 Hypoglycemia, unspecified (principal); F41.9 Anxiety disorder, unspecified; E11.9 Type 2 diabetes mellitus without complications; F31.9 Bipolar disorder, unspecified; F17.210 Nicotine dependence, cigarettes, uncomplicated; J18.9 Pneumonia, unspecified organism; Z79.899 Other long term (current) drug therapy; Z87.448 Personal history of other diseases of urinary system
CPT/HCPCS: 81001; 81025; 82948; 99283

== ENCOUNTER 2020-10-30 06:59 | Inpatient (IN) | payer MEDICAID ==
[2020-10-30] VITALS (11 sets, daily range): BP systolic 88–121; BP diastolic 62–81
[~2020-10-30] VITALS: Ht 149.9 cm; Wt 48.6 kg
[~2020-10-30 06:59] MED LIST changes: +LURA60TA PO; -LURA60TA2 PO
[2020-10-30] MEDS ORDERED: normal saline 1000ML IV soln IV ONE (07:10)
[2020-10-30 07:34] LABS: BASOPHILS # (AUTO) 0.1 X10'3 (0-0.2); BASOPHILS % (AUTO) 0.8 % (0-1); EOSINOPHILS # (AUTO) 0.3 X10'3 (0-0.9); EOSINOPHILS % (AUTO) 3.2 % (0-6); HEMATOCRIT 43.6 % (35.0-45.0); HEMOGLOBIN 14.5 g/dl (12.0-16.0); LYMPHOCYTES # (AUTO) 2.9 X10'3 (1.1-4.8); LYMPHOCYTES % (AUTO) 29.7 % (21-51); MEAN CORPUSCULAR HEMOGLOBIN 33.7 PG (27.0-31.0); MEAN CORPUSCULAR HGB CONC 33.3 g/dL (33.0-36.5); MEAN PLATELET VOLUME 10.9 FL (7.4-10.4); MONOCYTES # (AUTO) 0.6 X10'3 (0-0.9); MONOCYTES % (AUTO) 5.8 % (2-12); NEUTROPHILS # (AUTO) 5.9 X10'3 (1.8-7.7); NEUTROPHILS % (AUTO) 60.5 % (42-75); PLATELET COUNT 129 X10'3 (140-440); RED BLOOD COUNT 4.31 X10'6 (4.20-5.60); RED CELL DISTRIBUTION WIDTH 12.9 % (11.5-14.5); WHITE BLOOD COUNT 9.8 X10'3 (4.5-11.0)
--- NOTE | 2020-10-30 07:35 | NUR ---
Pt started having trouble breathing. Pt placed on 15L NRB, O2 82%, HR 127bpm, R26. Dr Curry made aware.
[2020-10-30] MEDS ORDERED: dexamethasone sod phosphate 10mg/ml inj IV STA (07:37)
[2020-10-30] MEDS ORDERED: methylPREDNISolone sod succ 125mg/2ml vial IV ONE (07:40)
[2020-10-30] MEDS ORDERED: racepinephrine 11.25mg/0.5ml nebule IH ONE (07:40)
[2020-10-30] MEDS ORDERED: succinylcholine 20mg/ml inj IV ONE (07:44)
[2020-10-30 07:47] LABS: ALANINE AMINOTRANSFERASE 32 U/L (12-78); ALBUMIN/GLOBULIN RATIO 0.6 (1.1-1.5); ALKALINE PHOSPHATASE 168 IU/L (46-116); ANION GAP 9 (8-16); ASPARTATE AMINO TRANSFERASE 31 U/L (10-37); BILIRUBIN,TOTAL 0.2 MG/DL (0.1-1.0); BLOOD UREA NITROGEN 11 MG/DL (7-18); BUN/CREATININE RATIO 11.5 (6.6-38.0); CALCIUM 7.9 MG/DL (8.5-10.1); CHLORIDE 103 MMOL/L (99-107); CREATININE 0.96 MG/DL (0.40-0.90); GLUCOSE 222 MG/DL (70-104); POTASSIUM 3.2 MMOL/L (3.5-5.1); SODIUM 141 MMOL/L (135-145); TOTAL PROTEIN 7.8 G/DL (6.4-8.2); eGFR 66 ML/MIN
[2020-10-30] MEDS ORDERED: sod chloride 0.9% 10ml flush syringe IV ONE (08:00)
[2020-10-30] MEDS ORDERED: etomidate 2mg/ml inj. ONE ×3 (08:00→12:00)
[2020-10-30] MEDS ORDERED: rocuronium 10mg/ml inj IV ONE (08:00)
[2020-10-30] MEDS ORDERED: propofol 1000mg/100ml bottle 100 ML IV PRN ×2 (08:05→08:06)
[2020-10-30] MEDS ORDERED: fentaNYL/PF 50MCG/1 ML 2ML syringe IV ONE (08:05)
[2020-10-30 08:24] LABS: CLARITY,URINE SLIGHTLY CLOUDY (Clear); COLOR,URINE YELLOW (Yellow); GLUCOSE, URINE 100 mg/dl (Neg); KETONES,URINE NEGATIVE (Neg); LEUKOCYTE ESTERASE ,URINE SMALL (Neg); NITRITES, URINE POSITIVE (Neg); OCCULT BLOOD,URINE TRACE-INTACT (Neg); PROTEIN,URINE 100 mg/dl (Neg)
[2020-10-30 08:24] LABS: URINE HCG NEGATIVE (NEG)
[2020-10-30] MEDS ORDERED: LIDOcaine 1% W/epiNEPHrine 1:100,000 20ml vial SQ ONE (08:25)
[2020-10-30 08:27] LABS: UA COLLECTION TYPE STRAIGHT CATH
[2020-10-30 08:29] LABS: BACTERIA,URINE 4+ /HPF (Neg); MUCUS STRANDS FEW /LPF (Neg); RBC,URINE 0-2 /HPF (0-2); SQUAMOUS EPITHELIAL CELL,UR MANY /LPF (FEW); TRANSITIONAL EPI CELLS,URINE FEW /HPF; WBC,URINE 50-100 /HPF (0-4)
[2020-10-30 08:59] LABS: ABG BASE EXCESS -6.2 mmol/L (-2.0-2.0); ABG HCO3 22.6 mmol/L (22.0-26.0); ABG OXYGEN SATURATION 95.3 % (94-97); ABG PO2 (T) 77.4 mmHg (75.0-100.0); FCOHb 5.3 % (0.0-3.9); FMetHb 0.1 % (0.0-1.5); FO2Hb 90.2 % (94-97); PATIENT TEMPERATURE 36.3; PEEP 5 cm H2O; RESPIRATORY RATE 18 b/min; TIDAL VOLUME 348 mL; TOTAL HEMOGLOBIN 14.2 G/dl (12.0-16.0)
[2020-10-30] MEDS ORDERED: magnesium 2GM in 50ml NS 50 ML IV PRN (09:10)
[2020-10-30] MEDS ORDERED: potassium Cl 20 mEq SR tablet PO PRN ×2 (09:10)
[2020-10-30] MEDS ORDERED: magnesium 4gm in 100ml NS 100 ML IV PRN (09:10)
[2020-10-30] MEDS ORDERED: acetaminophen 325mg tablet PO PRN ×2 (09:10)
[2020-10-30] MEDS ORDERED: ipratropium/albuterol 3ml nebule NEB PRN (09:10)
[2020-10-30] MEDS ORDERED: magnesium Cl slow-release 64mg tablet PO PRN (09:10)
[2020-10-30] MEDS ORDERED: magnesium hydroxide 30ml (MOM) UD suspension PO PRN (09:10)
[2020-10-30] MEDS ORDERED: iohexol 350MG/ML 100ml bottle IV ONE (09:17)
[2020-10-30] MEDS: CefTRIAXone/D5W-Rocephin 1gm 50 ML IV SCH (09:20)
[2020-10-30] MEDS ORDERED: azithromycin 200mg/5ml oral suspension 15ml bottle PO SCH (09:20)
[2020-10-30] MEDS: normal saline 1000ml 1,000 ML IV SCH ×2 (09:49→22:07)
[2020-10-30] MEDS: azithromycin/NS 500mg/250ml 250 ML IV SCH (10:33)
[2020-10-30] MEDS: FENTANYL-0.9 % NACL/PF 100 ML IV PRN (10:46)
--- NOTE | 2020-10-30 11:10 | NUR ---
0738-Assisted w/BVM, O2 87% 0740-Dr Chacon at bedside 0742-Dexamethasone given 0746-Rocuronium 100mg given 0747-Etomadate 15mg given 0748-Attempted intubation w/ 7 ET Tube and Mac 3 Blade, unsuccessful 0750-Attempted inutbation w/6.5 ET Tube and Mac 3 Blade, unsuccessful 0752-Attempted intubation w/5.5 ET Tube and Mac 3 Blade, unsuccessful 0756-Attempted intubation w/5.5 ET Tube and Glidoscope, unsuccessful 0800-Intubation with Bougie and then slid a 6.5 ET Tube over the bougie. Intubation successful. SpO2 95%, HR 149, BP 163/119, R 18. Positive color change and bilateral lung sounds noted. 0803-14Fr NG placed in L Nare and secured to nose 0808-Bilateral soft wrist restraints applied 0832-28 Fr Chest Tube placed and secured in Righ Lateral Chest by Dr Chacon. 1014-Dr Curry started insertion of Central Line 1016-Etomadate 10mg & Rocuronium 100mg given per verbal order from Dr Curry as pt started to arouse during Central Line placement 1018-Stopped Propofol d/t pt's BP 66/47, HR 208 1019-Central Line placement complete by Dr Curry 1020-Adenosine 12mg IVP given per verbal order from Dr Curry 1107-Pt transported to CT with BRIAN SEGURA LPN and then transported to ICU 1110-Called report to BRIAN Masters Addendum: 10/30/20 at 1502 by CHERELLE 0746-Rocurium 100mg IVP given per verbal order from Dr Curry 0747-Etomadate 15mg IVP given per verbal order from Dr Curry
[2020-10-30] MEDS ORDERED: MESSAGE TO NURSING PO ONE (11:45)
[2020-10-30] MEDS ORDERED: rocuronium bromide 100mg/10ml (10mg/ml) injection IV ONE ×2 (12:00)
--- NOTE | 2020-10-30 12:48 | NUR ---
DM consult: Pt with hx T1DM with frequent admits for DKA. Last A1c was 10.4% 07/14/2020 and pt was provided with written DM education with RD contact information. Recommend obtaining a new A1c to assess recent trends in A1c and need for further DM education. TF consult: Pt admit for respiratory failure requiring intubation. Large pneumothorax noted after intubation per H&P. No documentation of how current wt was obtained therefore IBW was used to calculated estimated nutrient needs. No documented LBM, with routine bowel care on med list. Will continue to follow and make recommendations as appropriate. Recommendations: 1) Continuous TF using Vital AF with goal rate of 45 mL/hr. To begin at 25 mL and advance by 20 mL Q8H as tolerated to goal rate. To provide 1080 mL total volume/day, 1296 kcal, 81 g protein, and 876 mL water 2) Additional 35 mL water flush Q4H 3) Prealbumin q Sunday/ 4) Daily weights 5) Adjust TF recommendations as appropriate pending scaled weight 6) Obtain new A1c to assess need for further DM education; last A1c 10.4% 07/14/2020 7) Advance to CHO controlled diet as medically indicated following extubation; Recommend BSS prior to diet advancement, pt placed on pureed diet with nectar thick liquids by ST s/p extubation at last admit 07/21/2020 Addendum: 10/30/20 at [address] Amended: Links added.
[2020-10-30] MEDS ORDERED: insulin Lispro (HumaLOG) vial - multi-dose SQ SCH (13:15)
[2020-10-30] MEDS ORDERED: dextrose ORAL solution 15 GM/59 ML bottle PO PRN ×2 (13:15)
[2020-10-30] MEDS ORDERED: dextrose 50%-water 50ml dispensing syringe IV PRN (13:15)
[2020-10-30] MEDS ORDERED: glucagon, human recombinant 1mg kit SUBCUT PRN (13:15)
[2020-10-30] MEDS ORDERED: MESSAGE TO PHARMACY PO ONE (13:15)
[2020-10-30 14:55] LABS: HEMOGLOBIN A1C 11.3 % (4.5-6.2)
[2020-10-30 16:15] LABS: ABG BASE EXCESS -3.8 mmol/L (-2.0-2.0); ABG HCO3 20.1 mmol/L (22.0-26.0); ABG OXYGEN SATURATION 98.9 % (94-97); ABG PCO2 (T) 32.3 mmHg (32.0-45.0); ABG PO2 (T) 163.7 mmHg (75.0-100.0); ALLEN'S TEST POSITIVE; FCOHb 1.2 % (0.0-3.9); FMetHb 0.3 % (0.0-1.5); FO2Hb 97.4 % (94-97); PATIENT TEMPERATURE 36.6; PEEP 5 cm H2O; RESPIRATORY RATE 18 b/min; TIDAL VOLUME 415 mL; TOTAL HEMOGLOBIN 11.7 G/dl (12.0-16.0)
[2020-10-30] MEDS: propofol 1000mg/100ml bottle 100 ML IV SCH (17:50)
[2020-10-30] MEDS ORDERED: adenosine 3mg/ml 2ml vial IV ONE (19:00)
[2020-10-30] MEDS ORDERED: docusate sod 100mg capsule PO SCH (20:00)
[2020-10-30] MEDS: insulin glargine (Lantus) pen - multi-dose SQ SCH (21:18)
[2020-10-30] MEDS: lactobacillus rhamnosus 10,000 MMU CELLS/CAPSULE PO SCH (21:19)
[2020-10-30] MEDS: enoxaparin 40mg/0.4ml syringe SQ SCH (21:19)
[2020-10-30] MEDS: docusate sodium 100mg/10ml UD cup PO SCH (21:20)
[2020-10-30] MEDS: insulin regular, human U-100 3ml vial - multi-dose SQ SCH (21:23)
[2020-10-30] MEDS: potassium Cl 40MEQ/250ML bag 270 ML IV PRN (22:06)
[2020-10-31] VITALS (22 sets, daily range): BP systolic 97–124; BP diastolic 63–85
[2020-10-31] MEDS: FENTANYL-0.9 % NACL/PF 100 ML IV PRN ×4 (00:05→23:07)
[2020-10-31] MEDS: dextrose 50%-water 50ml dispensing syringe IV PRN (02:30)
[2020-10-31 03:12] LABS: BASOPHILS # (AUTO) 0.1 X10'3 (0-0.2); BASOPHILS % (AUTO) 0.4 % (0-1); EOSINOPHILS % (AUTO) 0.2 % (0-6); HEMATOCRIT 34.3 % (35.0-45.0); HEMOGLOBIN 11.2 g/dl (12.0-16.0); LYMPHOCYTES # (AUTO) 2.7 X10'3 (1.1-4.8); LYMPHOCYTES % (AUTO) 18.1 % (21-51); MEAN CORPUSCULAR HEMOGLOBIN 32.6 PG (27.0-31.0); MEAN CORPUSCULAR HGB CONC 32.8 g/dL (33.0-36.5); MEAN CORPUSCULAR VOLUME 99.5 FL (78-98); MEAN PLATELET VOLUME 11.1 FL (7.4-10.4); MONOCYTES # (AUTO) 0.9 X10'3 (0-0.9); MONOCYTES % (AUTO) 6.3 % (2-12); PLATELET COUNT 153 X10'3 (140-440); RED BLOOD COUNT 3.44 X10'6 (4.20-5.60); RED CELL DISTRIBUTION WIDTH 12.6 % (11.5-14.5); WHITE BLOOD COUNT 14.7 X10'3 (4.5-11.0)
[2020-10-31 04:12] LABS: ABG BASE EXCESS -2.7 mmol/L (-2.0-2.0); ABG HCO3 20.9 mmol/L (22.0-26.0); ABG OXYGEN SATURATION 95.5 % (94-97); ABG PCO2 (T) 34.2 mmHg (32.0-45.0); ABG PO2 (T) 76.6 mmHg (75.0-100.0); ALLEN'S TEST POSITIVE; FCOHb 0.2 % (0.0-3.9); FMetHb 0.2 % (0.0-1.5); FO2Hb 95.1 % (94-97); PATIENT TEMPERATURE 38.1; PEEP 5 cm H2O; RESPIRATORY RATE 18 b/min; TIDAL VOLUME 386 mL; TOTAL HEMOGLOBIN 11.8 G/dl (12.0-16.0)
[2020-10-31 04:15] LABS: ALBUMIN 2.1 G/DL (3.4-5.0); ANION GAP 10 (8-16); BLOOD UREA NITROGEN 12 MG/DL (7-18); BUN/CREATININE RATIO 21.4 (6.6-38.0); CALCIUM 7.7 MG/DL (8.5-10.1); CHLORIDE 112 MMOL/L (99-107); CREATININE 0.56 MG/DL (0.40-0.90); GLUCOSE 122 MG/DL (70-104); MAGNESIUM 1.7 MG/DL (1.5-2.4); POTASSIUM 3.8 MMOL/L (3.5-5.1); SODIUM 146 MMOL/L (135-145); TOTAL CARBON DIOXIDE 24.1 MMOL/L (24-32); TRIGLYCERIDES 99 MG/DL (20-135); eGFR > 90 ML/MIN
[2020-10-31 06:02] LABS: PLATELET ESTIMATE NORMAL; TOTAL CELLS COUNTED 100
--- NOTE | 2020-10-31 06:19 | NUR ---
RN giving report and patient anxious. Went into room to suction patient. Patient NG coiled in mouth. tube feeding stopped. NG tube pulled at this time.
[2020-10-31] MEDS: CefTRIAXone/D5W-Rocephin 1gm 50 ML IV SCH (08:00)
[2020-10-31] MEDS: azithromycin/NS 500mg/250ml 250 ML IV SCH (08:00)
[2020-10-31] MEDS: docusate sodium 100mg/10ml UD cup PO SCH ×2 (08:00→19:45)
[2020-10-31] MEDS: lactobacillus rhamnosus 10,000 MMU CELLS/CAPSULE PO SCH ×2 (08:00→19:45)
--- NOTE | 2020-10-31 09:58 | NUR ---
SBT RT placed patient on SBT this am, tolerating well. Notified of ETT placement findings per CXR
--- NOTE | 2020-10-31 10:04 | NUR ---
F/u: Pt A1C result 11.3; would benefit from DM ed once stable and appropriate this admit. Addendum: 10/31/20 at [address] Amended: Links added.
[2020-10-31] MEDS: normal saline 1000ml 1,000 ML IV SCH (12:01)
[2020-10-31] MEDS: insulin regular, human U-100 3ml vial - multi-dose SQ SCH (12:05)
[2020-10-31] MEDS: mineral oil/petrolatum ophthal oint EACHEYE SCH ×2 (12:36→20:00)
[2020-10-31] MEDS: propofol 1000mg/100ml bottle 100 ML IV SCH (14:54)
--- NOTE | 2020-10-31 17:06 | NUR ---
Shift summary Remains intubated on spontaneous, propofol at 15mcg, fentanyl at 100 mcg. Alert, oriented and able to follow commands. C/o pain at chest tube insertion site throughout the shift. Tolerating SBT very well, no plan to extubate or remove chest tube today. Moderate amount of thin pink tinged secretions with thick plugs suctioned from ETT. NPO, refused placement of NG tube.
[2020-10-31] MEDS: enoxaparin 40mg/0.4ml syringe SQ SCH (20:29)
[2020-10-31] MEDS: insulin glargine (Lantus) pen - multi-dose SQ SCH (20:39)
[2020-10-31] MEDS: insulin Lispro (HumaLOG) vial - multi-dose SQ SCH (21:40)
[2020-11-01] VITALS (19 sets, daily range): BP systolic 80–136; BP diastolic 44–94
[2020-11-01] MEDS: normal saline 1000ml 1,000 ML IV SCH (01:10)
[2020-11-01] MEDS: mineral oil/petrolatum ophthal oint EACHEYE SCH ×4 (01:14→20:00)
[2020-11-01] MEDS: propofol 1000mg/100ml bottle 100 ML IV SCH ×3 (02:12→17:00)
[2020-11-01 02:57] LABS: BASOPHILS # (AUTO) 0.1 X10'3 (0-0.2); BASOPHILS % (AUTO) 0.7 % (0-1); EOSINOPHILS # (AUTO) 0.1 X10'3 (0-0.9); HEMATOCRIT 33.6 % (35.0-45.0); HEMOGLOBIN 11.2 g/dl (12.0-16.0); LYMPHOCYTES # (AUTO) 2.5 X10'3 (1.1-4.8); LYMPHOCYTES % (AUTO) 20.9 % (21-51); MEAN CORPUSCULAR HEMOGLOBIN 33.2 PG (27.0-31.0); MEAN CORPUSCULAR HGB CONC 33.3 g/dL (33.0-36.5); MEAN CORPUSCULAR VOLUME 99.8 FL (78-98); MEAN PLATELET VOLUME 10.9 FL (7.4-10.4); MONOCYTES # (AUTO) 0.7 X10'3 (0-0.9); MONOCYTES % (AUTO) 6.3 % (2-12); NEUTROPHILS # (AUTO) 8.4 X10'3 (1.8-7.7); NEUTROPHILS % (AUTO) 71.1 % (42-75); PLATELET COUNT 113 X10'3 (140-440); RED BLOOD COUNT 3.37 X10'6 (4.20-5.60); RED CELL DISTRIBUTION WIDTH 12.6 % (11.5-14.5); WHITE BLOOD COUNT 11.8 X10'3 (4.5-11.0)
[2020-11-01 03:09] LABS: ALBUMIN 1.8 G/DL (3.4-5.0); ANION GAP 10 (8-16); BLOOD UREA NITROGEN 10 MG/DL (7-18); BUN/CREATININE RATIO 20.4 (6.6-38.0); CALCIUM 7.8 MG/DL (8.5-10.1); CHLORIDE 109 MMOL/L (99-107); CREATININE 0.49 MG/DL (0.40-0.90); GLUCOSE 117 MG/DL (70-104); MAGNESIUM 1.7 MG/DL (1.5-2.4); POTASSIUM 3.1 MMOL/L (3.5-5.1); PREALBUMIN 9.1 MG/DL (19-36); SODIUM 141 MMOL/L (135-145); TOTAL CARBON DIOXIDE 21.7 MMOL/L (24-32); eGFR > 90 ML/MIN
[2020-11-01 03:26] LABS: ABG BASE EXCESS -4.5 mmol/L (-2.0-2.0); ABG HCO3 20.1 mmol/L (22.0-26.0); ABG OXYGEN SATURATION 96.5 % (94-97); ABG PCO2 (T) 35.9 mmHg (32.0-45.0); ABG PO2 (T) 85.5 mmHg (75.0-100.0); ALLEN'S TEST POSITIVE; FCOHb 0.2 % (0.0-3.9); FMetHb 0.2 % (0.0-1.5); FO2Hb 96.1 % (94-97); PATIENT TEMPERATURE 37.5; TIDAL VOLUME 420 mL; TOTAL HEMOGLOBIN 11.8 G/dl (12.0-16.0)
[2020-11-01 05:09] LABS: LARGE PLATELETS MODERATE; PLATELET ESTIMATE DECREASED
[2020-11-01] MEDS: potassium Cl 40MEQ/250ML bag 270 ML IV PRN (05:13)
[2020-11-01] MEDS: FENTANYL-0.9 % NACL/PF 100 ML IV PRN ×4 (06:21→21:07)
--- NOTE | 2020-11-01 07:26 | NUR ---
Patient in room ICU 2042. I have received report from Kerry TORRES and had the opportunity to ask questions and assume patient care.
[2020-11-01] MEDS: CefTRIAXone/D5W-Rocephin 1gm 50 ML IV SCH (07:34)
[2020-11-01] MEDS: azithromycin/NS 500mg/250ml 250 ML IV SCH (07:34)
[2020-11-01] MEDS: docusate sodium 100mg/10ml UD cup PO SCH ×2 (07:35→21:04)
[2020-11-01] MEDS: lactobacillus rhamnosus 10,000 MMU CELLS/CAPSULE PO SCH ×2 (07:35→21:10)
[2020-11-01] MEDS ORDERED: racepinephrine 11.25mg/0.5ml nebule ONE (09:13)
--- NOTE | 2020-11-01 09:20 | NUR ---
Patient passed weaning trial positive cuff leak RSBI 35 NIF -25 VC 600, Janae RT bedside patient extubated, suddenly developed chest tube air leak, and stridor, patient sat straight up mouthed that she could not breathe, called for help Sonam Titus Rn bedside RT bedside started bagging patient she damian down to the 40's, DR. Moss called he stated he was on his way, when parker arrived bedside Intubation was attempted, patient was found to have a difficult airway, OR and ER called for assistance, Anesthesia bedside to assist. patient successfully intubated
[2020-11-01] MEDS ORDERED: dexamethasone sod phosphate 10mg/ml inj ONE (09:33)
[2020-11-01] MEDS ORDERED: furosemide 40mg/4ml inj IV ONE (09:50)
[2020-11-01] MEDS ORDERED: adenosine 3mg/ml 2ml vial IV ONE (10:00)
[2020-11-01] MEDS ORDERED: diltiazem 5mg/ml 5ml inj. IV ONE (10:10)
[2020-11-01] MEDS ORDERED: diltiazem-NS 100mg/100ml 100 ML IV SCH (10:10)
--- NOTE | 2020-11-01 11:37 | NUR ---
F/u 11/01: Pt s/p code blue this AM following extubation now reintubated pending NG tube placement to suction stomach air present from bagging prior to restarting TF per fur stretcher. TF okay to restart as long as anion gap remains WNL per MD; pt also starting on routine decadron w/ insulin drip per MD. 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 PALB 9.1 though has not received EN at goal this admit. LBM 10/30. Will monitor for TF tolerance once restarted and additional protein needs on vent. Recommendations: 1) Continuous TF using Vital AF with goal rate of 45 mL/hr. To begin at 25 mL and advance by 20 mL Q8H as tolerated to goal rate. To provide 1080 mL total volume/day, 1296 kcal, 81 g protein, and 876 mL water 2) Since scaled wt now obtained; consider increase to Vital AF at 55ml/hr to better meet needs if MD agreeable 3) Additional 35 mL water flush Q4H 4) Prealbumin q Sunday/; daily wts 5) Advance to CHO controlled diet as medically indicated following extubation; Recommend BSS prior to diet advancement, pt placed on pureed diet with nectar thick liquids by ST s/p extubation at last admit 07/21/2020 Addendum: 11/01/20 at [address] Amended: Links added.
[2020-11-01] MEDS ORDERED: iohexol 300mg/ml 100ml inj. ONE (13:54)
[2020-11-01] MEDS: dexamethasone sod phosphate 10mg/ml inj IV SCH ×2 (16:59→21:05)
[2020-11-01] MEDS: pantoprazole 40 MG vial IV SCH (16:59)
--- NOTE | 2020-11-01 18:27 | NUR ---
Problems reprioritized. Patient report given, questions answered & plan of care reviewed with Keryr TORRES.
[2020-11-01] MEDS ORDERED: enoxaparin 30mg/0.3ml syringe SQ SCH (20:00)
--- NOTE | 2020-11-01 20:21 | NUR ---
RN went into patient room and patient has unattached her chest tube from the chamber, is out of her right wrist restraint, and her comfit is on her chin and out of her mouth. Patient is currently on 225 mcg of Fentanyl and 30 mcg/kg of propofol with a BP of 88/50 and awake with little wiggle room due to BP. RN spoke with Alexandra and informed. Patient was given a sitter for the time being. Addendum: 11/01/20 at 210 by Kerry Shipman RN Patient switched to Versed, Levo added for BP support. Tube feeding started at 25 mL/hr per order with 35 mL flush water q4h. Insulin drip started at 3 mL per order at 2100
[2020-11-01] MEDS ORDERED: NORepinephrine 8mg/ 250ml NS 250 ML IV ONE (20:28)
[2020-11-01] MEDS ORDERED: NORepinephrine 8mg/ 250ml NS 250 ML IV PRN (20:30)
[2020-11-01] MEDS: Insulin Reg/NS 100units/100mL 100 ML IV SCH (20:59)
[2020-11-01] MEDS: insulin glargine (Lantus) pen - multi-dose SQ SCH (21:00)
[2020-11-01] MEDS: midazolam 100mg in NS 100ml 100 ML IV PRN (21:06)
[2020-11-01] MEDS: insulin regular, human U-100 3ml vial - multi-dose SQ SCH (22:20)
[2020-11-02] VITALS (21 sets, daily range): BP systolic 82–138; BP diastolic 45–83
[2020-11-02] MEDS: mineral oil/petrolatum ophthal oint EACHEYE SCH ×4 (01:15→20:00)
[2020-11-02] MEDS: midazolam 100mg in NS 100ml 100 ML IV PRN ×5 (01:21→23:10)
[2020-11-02] MEDS: dexamethasone sod phosphate 10mg/ml inj IV SCH ×4 (01:22→20:31)
[2020-11-02 02:43] LABS: BASOPHILS # (AUTO) 0.1 X10'3 (0-0.2); BASOPHILS % (AUTO) 0.5 % (0-1); EOSINOPHILS % (AUTO) 0 % (0-6); HEMATOCRIT 34.2 % (35.0-45.0); HEMOGLOBIN 11.2 g/dl (12.0-16.0); LYMPHOCYTES # (AUTO) 1.3 X10'3 (1.1-4.8); LYMPHOCYTES % (AUTO) 9.3 % (21-51); MEAN CORPUSCULAR HEMOGLOBIN 32.5 PG (27.0-31.0); MEAN CORPUSCULAR HGB CONC 32.9 g/dL (33.0-36.5); MEAN CORPUSCULAR VOLUME 98.7 FL (78-98); MEAN PLATELET VOLUME 11.1 FL (7.4-10.4); MONOCYTES # (AUTO) 0.6 X10'3 (0-0.9); MONOCYTES % (AUTO) 4.2 % (2-12); NEUTROPHILS # (AUTO) 12.1 X10'3 (1.8-7.7); PLATELET COUNT 164 X10'3 (140-440); RED BLOOD COUNT 3.46 X10'6 (4.20-5.60); RED CELL DISTRIBUTION WIDTH 12.2 % (11.5-14.5); WHITE BLOOD COUNT 14.1 X10'3 (4.5-11.0)
[2020-11-02 02:47] LABS: ALBUMIN 1.9 G/DL (3.4-5.0); ANION GAP 12 (8-16); BLOOD UREA NITROGEN 13 MG/DL (7-18); BUN/CREATININE RATIO 16.3 (6.6-38.0); CALCIUM 8.1 MG/DL (8.5-10.1); CHLORIDE 109 MMOL/L (99-107); GLUCOSE 181 MG/DL (70-104); MAGNESIUM 1.7 MG/DL (1.5-2.4); POTASSIUM 3.3 MMOL/L (3.5-5.1); SODIUM 142 MMOL/L (135-145); TOTAL CARBON DIOXIDE 20.7 MMOL/L (24-32); eGFR 81 ML/MIN
[2020-11-02] MEDS: potassium Cl 40MEQ/250ML bag 270 ML IV PRN (03:31)
[2020-11-02 03:39] LABS: ABG BASE EXCESS -6.6 mmol/L (-2.0-2.0); ABG HCO3 18.3 mmol/L (22.0-26.0); ABG OXYGEN SATURATION 96.6 % (94-97); ABG PCO2 (T) 33.4 mmHg (32.0-45.0); ABG PO2 (T) 80.7 mmHg (75.0-100.0); ALLEN'S TEST POSITIVE; FCOHb 0.3 % (0.0-3.9); FMetHb 0.2 % (0.0-1.5); FO2Hb 96.1 % (94-97); PATIENT TEMPERATURE 36.3; PEEP 5 cm H2O; RESPIRATORY RATE 18 b/min; TIDAL VOLUME 325 mL; TOTAL HEMOGLOBIN 12.2 G/dl (12.0-16.0)
[2020-11-02] MEDS: FENTANYL-0.9 % NACL/PF 100 ML IV PRN ×6 (05:05→22:03)
--- NOTE | 2020-11-02 06:49 | NUR ---
Patient in room ICU 2042. I have received report from Kerry TORRES and had the opportunity to ask questions and assume patient care.
[2020-11-02] MEDS: azithromycin/NS 500mg/250ml 250 ML IV SCH (07:23)
[2020-11-02] MEDS: docusate sodium 100mg/10ml UD cup PO SCH ×2 (07:24→20:31)
[2020-11-02] MEDS: CefTRIAXone/D5W-Rocephin 1gm 50 ML IV SCH (07:24)
[2020-11-02] MEDS: lactobacillus rhamnosus 10,000 MMU CELLS/CAPSULE PO SCH ×2 (07:24→20:32)
[2020-11-02] MEDS: pantoprazole 40 MG vial IV SCH (07:24)
[2020-11-02] MEDS: dexmedetomidine/D5W 100mL 100 ML IV SCH (15:47)
[2020-11-02] MEDS: Insulin Reg/NS 100units/100mL 100 ML IV SCH (17:09)
--- NOTE | 2020-11-02 18:18 | NUR ---
Problems reprioritized. Patient report given, questions answered & plan of care reviewed with Kerry TORRES.
[2020-11-02] MEDS: enoxaparin 40mg/0.4ml syringe SQ SCH (20:32)
[2020-11-02] MEDS: insulin glargine (Lantus) pen - multi-dose SQ SCH (20:33)
[2020-11-03] VITALS (23 sets, daily range): BP systolic 104–142; BP diastolic 73–89
[2020-11-03] MEDS: dexmedetomidine/D5W 100mL 100 ML IV SCH ×4 (01:14→23:53)
[2020-11-03] MEDS: dexamethasone sod phosphate 10mg/ml inj IV SCH ×3 (01:14→19:50)
[2020-11-03] MEDS: mineral oil/petrolatum ophthal oint EACHEYE SCH ×4 (01:15→19:52)
[2020-11-03] MEDS: FENTANYL-0.9 % NACL/PF 100 ML IV PRN ×7 (01:15→23:25)
[2020-11-03 03:13] LABS: BASOPHILS # (AUTO) 0.1 X10'3 (0-0.2); BASOPHILS % (AUTO) 0.6 % (0-1); EOSINOPHILS % (AUTO) 0 % (0-6); HEMATOCRIT 34.5 % (35.0-45.0); HEMOGLOBIN 11.4 g/dl (12.0-16.0); LYMPHOCYTES # (AUTO) 1.7 X10'3 (1.1-4.8); LYMPHOCYTES % (AUTO) 12.7 % (21-51); MEAN CORPUSCULAR HEMOGLOBIN 32.6 PG (27.0-31.0); MEAN CORPUSCULAR VOLUME 98.7 FL (78-98); MEAN PLATELET VOLUME 11.5 FL (7.4-10.4); MONOCYTES # (AUTO) 0.5 X10'3 (0-0.9); MONOCYTES % (AUTO) 3.3 % (2-12); NEUTROPHILS # (AUTO) 11.3 X10'3 (1.8-7.7); NEUTROPHILS % (AUTO) 83.4 % (42-75); PLATELET COUNT 183 X10'3 (140-440); RED BLOOD COUNT 3.49 X10'6 (4.20-5.60); RED CELL DISTRIBUTION WIDTH 12.6 % (11.5-14.5); WHITE BLOOD COUNT 13.5 X10'3 (4.5-11.0)
[2020-11-03 03:23] LABS: ALBUMIN 1.8 G/DL (3.4-5.0); ANION GAP 10 (8-16); BLOOD UREA NITROGEN 17 MG/DL (7-18); BUN/CREATININE RATIO 28.8 (6.6-38.0); CALCIUM 8.4 MG/DL (8.5-10.1); CHLORIDE 110 MMOL/L (99-107); CREATININE 0.59 MG/DL (0.40-0.90); GLUCOSE 142 MG/DL (70-104); MAGNESIUM 1.8 MG/DL (1.5-2.4); POTASSIUM 3.6 MMOL/L (3.5-5.1); SODIUM 143 MMOL/L (135-145); TOTAL CARBON DIOXIDE 23.5 MMOL/L (24-32); eGFR > 90 ML/MIN
[2020-11-03] MEDS: midazolam 100mg in NS 100ml 100 ML IV PRN ×5 (04:06→23:33)
[2020-11-03 04:18] LABS: ABG BASE EXCESS -8.6 mmol/L (-2.0-2.0); ABG HCO3 15.8 mmol/L (22.0-26.0); ABG OXYGEN SATURATION 90.8 % (94-97); ABG PO2 (T) 61.7 mmHg (75.0-100.0); ALLEN'S TEST POSITIVE; FCOHb 0.3 % (0.0-3.9); FMetHb 0.1 % (0.0-1.5); FO2Hb 90.4 % (94-97); PATIENT TEMPERATURE 36.7; PEEP 5 cm H2O; RESPIRATORY RATE 18 b/min; TIDAL VOLUME 325 mL; TOTAL HEMOGLOBIN 11.8 G/dl (12.0-16.0)
[2020-11-03] MEDS: pantoprazole 40 MG vial IV SCH (07:34)
[2020-11-03] MEDS: lactobacillus rhamnosus 10,000 MMU CELLS/CAPSULE PO SCH ×2 (07:34→19:51)
[2020-11-03] MEDS: CefTRIAXone/D5W-Rocephin 1gm 50 ML IV SCH (07:34)
[2020-11-03] MEDS: docusate sodium 100mg/10ml UD cup PO SCH ×2 (07:34→19:50)
[2020-11-03] MEDS: azithromycin/NS 500mg/250ml 250 ML IV SCH (08:06)
[2020-11-03] MEDS: propofol 1000mg/100ml bottle 100 ML IV SCH (09:10)
[2020-11-03] MEDS: insulin Lispro (HumaLOG) vial - multi-dose SQ SCH (12:24)
--- NOTE | 2020-11-03 18:30 | NUR ---
Patient in room ICU 2042. I have received report from day shift RN and had the opportunity to ask questions and assume patient care. Addendum: 11/03/20 at 2132 by Talia Bashir RN Amended: Links added.
--- NOTE | 2020-11-03 18:30 | NUR ---
Patient in room ICU 2042. I have received report from day shift RN and had the opportunity to ask questions and assume patient care.
[2020-11-03] MEDS: enoxaparin 40mg/0.4ml syringe SQ SCH (19:51)
[2020-11-03] MEDS: insulin glargine (Lantus) pen - multi-dose SQ SCH (21:00)
[2020-11-04] VITALS (24 sets, daily range): BP systolic 104–145; BP diastolic 62–92
--- NOTE | 2020-11-04 00:15 | NUR ---
Titrating sedation to patient comfort and maintain synchrony with ventilator. Sitter at bedside.
[2020-11-04] MEDS: mineral oil/petrolatum ophthal oint EACHEYE SCH ×4 (02:00→19:16)
[2020-11-04 02:47] LABS: BASOPHILS % (AUTO) 0.3 % (0-1); EOSINOPHILS % (AUTO) 0 % (0-6); HEMATOCRIT 33.2 % (35.0-45.0); HEMOGLOBIN 11.1 g/dl (12.0-16.0); LYMPHOCYTES # (AUTO) 2.3 X10'3 (1.1-4.8); LYMPHOCYTES % (AUTO) 19.4 % (21-51); MEAN CORPUSCULAR HEMOGLOBIN 32.5 PG (27.0-31.0); MEAN CORPUSCULAR HGB CONC 33.4 g/dL (33.0-36.5); MEAN CORPUSCULAR VOLUME 97.3 FL (78-98); MEAN PLATELET VOLUME 10.2 FL (7.4-10.4); MONOCYTES # (AUTO) 0.6 X10'3 (0-0.9); MONOCYTES % (AUTO) 4.6 % (2-12); NEUTROPHILS # (AUTO) 9.1 X10'3 (1.8-7.7); NEUTROPHILS % (AUTO) 75.7 % (42-75); PLATELET COUNT 183 X10'3 (140-440); RED BLOOD COUNT 3.41 X10'6 (4.20-5.60); RED CELL DISTRIBUTION WIDTH 12.5 % (11.5-14.5)
[2020-11-04 02:59] LABS: ALBUMIN 1.8 G/DL (3.4-5.0); ANION GAP 8 (8-16); BLOOD UREA NITROGEN 18 MG/DL (7-18); CALCIUM 7.8 MG/DL (8.5-10.1); CHLORIDE 110 MMOL/L (99-107); GLUCOSE 128 MG/DL (70-104); MAGNESIUM 1.7 MG/DL (1.5-2.4); POTASSIUM 3.6 MMOL/L (3.5-5.1); PREALBUMIN 15.8 MG/DL (19-36); SODIUM 141 MMOL/L (135-145); TOTAL CARBON DIOXIDE 23.2 MMOL/L (24-32); eGFR > 90 ML/MIN
[2020-11-04 04:09] LABS: ABG BASE EXCESS -4.1 mmol/L (-2.0-2.0); ABG HCO3 19.8 mmol/L (22.0-26.0); ABG OXYGEN SATURATION 95.2 % (94-97); ABG PCO2 (T) 33.4 mmHg (32.0-45.0); ABG PO2 (T) 78.2 mmHg (75.0-100.0); ALLEN'S TEST POSITIVE; FCOHb 0.3 % (0.0-3.9); FMetHb 0.1 % (0.0-1.5); FO2Hb 94.8 % (94-97); PATIENT TEMPERATURE 37.6; PEEP 5 cm H2O; RESPIRATORY RATE 18 b/min; TIDAL VOLUME 325 mL
[2020-11-04] MEDS: midazolam 100mg in NS 100ml 100 ML IV PRN ×4 (04:16→19:42)
[2020-11-04] MEDS: dexmedetomidine/D5W 100mL 100 ML IV SCH ×4 (04:24→19:17)
[2020-11-04] MEDS: Insulin Reg/NS 100units/100mL 100 ML IV SCH ×2 (05:17→19:18)
[2020-11-04] MEDS: FENTANYL-0.9 % NACL/PF 100 ML IV PRN ×6 (05:44→21:00)
--- NOTE | 2020-11-04 06:22 | NUR ---
Problems reprioritized. Patient report given, questions answered & plan of care reviewed with Margie TORRES.
[2020-11-04] MEDS: insulin Lispro (HumaLOG) vial - multi-dose SQ SCH (07:14)
[2020-11-04] MEDS: lactobacillus rhamnosus 10,000 MMU CELLS/CAPSULE PO SCH ×2 (07:28→19:16)
[2020-11-04] MEDS: dexamethasone sod phosphate 10mg/ml inj IV SCH (07:28)
[2020-11-04] MEDS: docusate sodium 100mg/10ml UD cup PO SCH ×2 (07:28→19:17)
[2020-11-04] MEDS: pantoprazole 40 MG vial IV SCH (07:28)
[2020-11-04] MEDS: CefTRIAXone/D5W-Rocephin 1gm 50 ML IV SCH (07:28)
[2020-11-04] MEDS: azithromycin/NS 500mg/250ml 250 ML IV SCH (08:21)
--- NOTE | 2020-11-04 10:59 | NUR ---
F/u 11/04: Pt tolerating TF at goal GRV WNL. LBM 10/30 receiving routine colace w/ relistor ordered to start 11/05 but now to start today following rounds. Pt NPO at midnight tonight for surgical trach per MD. PALB 15.8 up from 9.1 prior. Will continue to monitor for additional protein needs on vent. Recommendations: 1) Continuous TF using Vital AF with goal rate of 45 mL/hr. To begin at 25 mL and advance by 20 mL Q8H as tolerated to goal rate. To provide 1080 mL total volume/day, 1296 kcal, 81 g protein, and 876 mL water 2) Since scaled wt now obtained; consider increase to Vital AF at 55ml/hr to better meet needs if MD agreeable 3) Additional 35 mL water flush Q4H 4) Prealbumin q Sunday/; daily wts 5) Advance to CHO controlled diet as medically indicated following extubation; Recommend BSS prior to diet advancement, pt placed on pureed diet with nectar thick liquids by ST s/p extubation at last admit 07/21/2020 Addendum: 11/04/20 at [address] Amended: Links added.
[2020-11-04] MEDS: methylnaltrexone br 12mg/0.6ml inj***SubQ only SQ SCH (11:11)
[2020-11-04] MEDS: insulin glargine (Lantus) pen - multi-dose SQ SCH (21:00)
[2020-11-05] VITALS (23 sets, daily range): BP systolic 92–133; BP diastolic 53–79
[2020-11-05] MEDS: midazolam 100mg in NS 100ml 100 ML IV PRN ×4 (00:05→19:18)
[2020-11-05] MEDS: FENTANYL-0.9 % NACL/PF 100 ML IV PRN ×7 (00:05→22:03)
[2020-11-05] MEDS: mineral oil/petrolatum ophthal oint EACHEYE SCH ×4 (02:00→19:10)
[2020-11-05 02:46] LABS: BASOPHILS # (AUTO) 0.1 X10'3 (0-0.2); BASOPHILS % (AUTO) 0.6 % (0-1); EOSINOPHILS # (AUTO) 0.1 X10'3 (0-0.9); EOSINOPHILS % (AUTO) 0.8 % (0-6); HEMATOCRIT 32.2 % (35.0-45.0); HEMOGLOBIN 10.9 g/dl (12.0-16.0); LYMPHOCYTES # (AUTO) 4.8 X10'3 (1.1-4.8); LYMPHOCYTES % (AUTO) 37.4 % (21-51); MEAN CORPUSCULAR VOLUME 97.1 FL (78-98); MEAN PLATELET VOLUME 10.1 FL (7.4-10.4); MONOCYTES # (AUTO) 0.9 X10'3 (0-0.9); MONOCYTES % (AUTO) 6.9 % (2-12); NEUTROPHILS # (AUTO) 6.9 X10'3 (1.8-7.7); NEUTROPHILS % (AUTO) 54.3 % (42-75); PLATELET COUNT 174 X10'3 (140-440); RED BLOOD COUNT 3.31 X10'6 (4.20-5.60); RED CELL DISTRIBUTION WIDTH 12.3 % (11.5-14.5); WHITE BLOOD COUNT 12.8 X10'3 (4.5-11.0)
[2020-11-05 03:04] LABS: ALBUMIN 1.6 G/DL (3.4-5.0); ANION GAP 7 (8-16); BLOOD UREA NITROGEN 14 MG/DL (7-18); BUN/CREATININE RATIO 32.6 (6.6-38.0); CALCIUM 7.3 MG/DL (8.5-10.1); CHLORIDE 108 MMOL/L (99-107); CREATININE 0.43 MG/DL (0.40-0.90); GLUCOSE 110 MG/DL (70-104); MAGNESIUM 1.6 MG/DL (1.5-2.4); SODIUM 140 MMOL/L (135-145); eGFR > 90 ML/MIN
[2020-11-05 03:49] LABS: ABG HCO3 13.8 mmol/L (22.0-26.0); ABG OXYGEN SATURATION 91.9 % (94-97); ABG PCO2 (T) 25.2 mmHg (32.0-45.0); ABG PO2 (T) 69.8 mmHg (75.0-100.0); ALLEN'S TEST Yes; FCOHb 0.3 % (0.0-3.9); FMetHb 0.3 % (0.0-1.5); FO2Hb 91.3 % (94-97); PATIENT TEMPERATURE 37.4; PEEP 5 cm H2O; RESPIRATORY RATE 18 b/min; TIDAL VOLUME 325 mL; TOTAL HEMOGLOBIN 11.4 G/dl (12.0-16.0)
[2020-11-05] MEDS ORDERED: potassium Cl 40MEQ/250ML bag 270 ML IV PRN (04:15)
[2020-11-05] MEDS: dexmedetomidine/D5W 100mL 100 ML IV SCH ×3 (04:23→22:04)
[2020-11-05] MEDS: docusate sodium 100mg/10ml UD cup PO SCH ×2 (07:49→19:10)
[2020-11-05] MEDS: lactobacillus rhamnosus 10,000 MMU CELLS/CAPSULE PO SCH ×2 (07:49→19:10)
[2020-11-05] MEDS: CefTRIAXone/D5W-Rocephin 1gm 50 ML IV SCH (07:54)
[2020-11-05] MEDS: dexamethasone sod phosphate 10mg/ml inj IV SCH (07:54)
[2020-11-05] MEDS: azithromycin/NS 500mg/250ml 250 ML IV SCH (07:54)
[2020-11-05] MEDS: pantoprazole 40 MG vial IV SCH (09:00)
[2020-11-05] MEDS: propofol 1000mg/100ml bottle 100 ML IV SCH (09:10)
[2020-11-05 09:32] LABS: ALBUMIN 1.8 G/DL (3.4-5.0); ANION GAP 4 (8-16); BLOOD UREA NITROGEN 12 MG/DL (7-18); CALCIUM 7.8 MG/DL (8.5-10.1); CHLORIDE 108 MMOL/L (99-107); CREATININE 0.48 MG/DL (0.40-0.90); GLUCOSE 103 MG/DL (70-104); POTASSIUM 3.6 MMOL/L (3.5-5.1); SODIUM 139 MMOL/L (135-145); TOTAL CARBON DIOXIDE 26.6 MMOL/L (24-32); eGFR > 90 ML/MIN
[2020-11-05] MEDS ORDERED: methylnaltrexone br 12mg/0.6ml inj***SubQ only SQ SCH (10:57)
--- NOTE | 2020-11-05 14:00 | NUR ---
Off unit Pt transported to OR for trach placement by surgery team. Bedside report given to TRAFFIC REPRESENTATIVE.
[2020-11-05] MEDS ORDERED: sevoflurane 250ml liquid IH ONE (14:05)
[2020-11-05] MEDS ORDERED: rocuronium 10mg/ml inj IV ONE (14:05)
[2020-11-05] MEDS ORDERED: fentaNYL/PF 50MCG/1 ML 2ML syringe ONE (14:24)
[2020-11-05] MEDS ORDERED: midazolam 2 mg/2 ml injection ONE (14:24)
--- NOTE | 2020-11-05 15:10 | NUR ---
Return to unit Pt returned from OR, #6 shiley trach placed. Scant bloody secretions noted in trach. Pt sedated at this time.
[2020-11-05] MEDS: insulin glargine (Lantus) pen - multi-dose SQ SCH (19:10)
[2020-11-06] VITALS (22 sets, daily range): BP systolic 93–126; BP diastolic 56–81
[2020-11-06] MEDS: mineral oil/petrolatum ophthal oint EACHEYE SCH ×4 (02:03→18:38)
[2020-11-06] MEDS: midazolam 100mg in NS 100ml 100 ML IV PRN ×4 (02:05→19:43)
[2020-11-06] MEDS: FENTANYL-0.9 % NACL/PF 100 ML IV PRN ×6 (02:06→23:41)
[2020-11-06 03:03] LABS: BASOPHILS # (AUTO) 0.1 X10'3 (0-0.2); BASOPHILS % (AUTO) 0.6 % (0-1); EOSINOPHILS # (AUTO) 0.3 X10'3 (0-0.9); HEMATOCRIT 33.3 % (35.0-45.0); HEMOGLOBIN 11.2 g/dl (12.0-16.0); LYMPHOCYTES # (AUTO) 4.6 X10'3 (1.1-4.8); LYMPHOCYTES % (AUTO) 34.7 % (21-51); MEAN CORPUSCULAR HEMOGLOBIN 32.7 PG (27.0-31.0); MEAN CORPUSCULAR HGB CONC 33.5 g/dL (33.0-36.5); MEAN CORPUSCULAR VOLUME 97.5 FL (78-98); MEAN PLATELET VOLUME 10.9 FL (7.4-10.4); MONOCYTES # (AUTO) 0.8 X10'3 (0-0.9); MONOCYTES % (AUTO) 5.8 % (2-12); NEUTROPHILS # (AUTO) 7.6 X10'3 (1.8-7.7); NEUTROPHILS % (AUTO) 56.9 % (42-75); PLATELET COUNT 216 X10'3 (140-440); RED BLOOD COUNT 3.41 X10'6 (4.20-5.60); RED CELL DISTRIBUTION WIDTH 12.5 % (11.5-14.5); WHITE BLOOD COUNT 13.4 X10'3 (4.5-11.0)
[2020-11-06 03:07] LABS: ALBUMIN 1.9 G/DL (3.4-5.0); ANION GAP 10 (8-16); BLOOD UREA NITROGEN 12 MG/DL (7-18); BUN/CREATININE RATIO 26.1 (6.6-38.0); CALCIUM 7.9 MG/DL (8.5-10.1); CHLORIDE 102 MMOL/L (99-107); CREATININE 0.46 MG/DL (0.40-0.90); GLUCOSE 190 MG/DL (70-104); MAGNESIUM 1.6 MG/DL (1.5-2.4); POTASSIUM 3.5 MMOL/L (3.5-5.1); SODIUM 137 MMOL/L (135-145); TOTAL CARBON DIOXIDE 24.7 MMOL/L (24-32); eGFR > 90 ML/MIN
[2020-11-06] MEDS: dexmedetomidine/D5W 100mL 100 ML IV SCH ×3 (03:23→14:26)
[2020-11-06 04:29] LABS: ABG BASE EXCESS -1.5 mmol/L (-2.0-2.0); ABG OXYGEN SATURATION 91.6 % (94-97); ABG PO2 (T) 61.6 mmHg (75.0-100.0); ALLEN'S TEST POSITIVE; FCOHb 0.3 % (0.0-3.9); FMetHb 0.2 % (0.0-1.5); FO2Hb 91.1 % (94-97); PATIENT TEMPERATURE 36.9; PEEP 5 cm H2O; RESPIRATORY RATE 18 b/min; TIDAL VOLUME 325 mL; TOTAL HEMOGLOBIN 11.9 G/dl (12.0-16.0)
[2020-11-06] MEDS: docusate sodium 100mg/10ml UD cup PO SCH ×2 (07:39→18:38)
[2020-11-06] MEDS: pantoprazole 40 MG vial IV SCH (07:39)
[2020-11-06] MEDS: azithromycin/NS 500mg/250ml 250 ML IV SCH (07:39)
[2020-11-06] MEDS: dexamethasone sod phosphate 10mg/ml inj IV SCH (07:39)
[2020-11-06] MEDS: methylnaltrexone br 12mg/0.6ml inj***SubQ only SQ SCH (07:39)
[2020-11-06] MEDS: CefTRIAXone/D5W-Rocephin 1gm 50 ML IV SCH (07:39)
[2020-11-06] MEDS: lactobacillus rhamnosus 10,000 MMU CELLS/CAPSULE PO SCH ×2 (07:40→18:38)
[2020-11-06] MEDS: insulin glargine (Lantus) pen - multi-dose SQ SCH (18:38)
--- NOTE | 2020-11-06 20:58 | NUR ---
Patient continues to rest off the ventilator and on a heated aerosol unit. Patient is on 30% FiO2 and is resting comfortably at this time.
[2020-11-07] VITALS (22 sets, daily range): BP systolic 95–153; BP diastolic 58–85
[2020-11-07] MEDS: dexmedetomidine/D5W 100mL 100 ML IV SCH ×4 (00:29→21:25)
[2020-11-07] MEDS: mineral oil/petrolatum ophthal oint EACHEYE SCH ×5 (02:00→18:55)
[2020-11-07 02:44] LABS: BASOPHILS # (AUTO) 0.1 X10'3 (0-0.2); BASOPHILS % (AUTO) 0.9 % (0-1); EOSINOPHILS # (AUTO) 0.3 X10'3 (0-0.9); EOSINOPHILS % (AUTO) 2.1 % (0-6); HEMATOCRIT 33.9 % (35.0-45.0); HEMOGLOBIN 11.3 g/dl (12.0-16.0); LYMPHOCYTES % (AUTO) 26.9 % (21-51); MEAN CORPUSCULAR HEMOGLOBIN 32.8 PG (27.0-31.0); MEAN CORPUSCULAR HGB CONC 33.3 g/dL (33.0-36.5); MEAN CORPUSCULAR VOLUME 98.3 FL (78-98); MEAN PLATELET VOLUME 10.8 FL (7.4-10.4); MONOCYTES # (AUTO) 0.6 X10'3 (0-0.9); MONOCYTES % (AUTO) 4.3 % (2-12); NEUTROPHILS # (AUTO) 9.7 X10'3 (1.8-7.7); NEUTROPHILS % (AUTO) 65.8 % (42-75); PLATELET COUNT 251 X10'3 (140-440); RED BLOOD COUNT 3.45 X10'6 (4.20-5.60); RED CELL DISTRIBUTION WIDTH 12.4 % (11.5-14.5); WHITE BLOOD COUNT 14.8 X10'3 (4.5-11.0)
[2020-11-07 02:59] LABS: ALBUMIN 1.8 G/DL (3.4-5.0); ANION GAP 8 (8-16); BLOOD UREA NITROGEN 9 MG/DL (7-18); BUN/CREATININE RATIO 26.5 (6.6-38.0); CALCIUM 7.9 MG/DL (8.5-10.1); CHLORIDE 106 MMOL/L (99-107); CREATININE 0.34 MG/DL (0.40-0.90); GLUCOSE 104 MG/DL (70-104); MAGNESIUM 1.6 MG/DL (1.5-2.4); POTASSIUM 3.2 MMOL/L (3.5-5.1); SODIUM 139 MMOL/L (135-145); TOTAL CARBON DIOXIDE 25.4 MMOL/L (24-32); TRIGLYCERIDES 247 MG/DL (20-135); eGFR > 90 ML/MIN
[2020-11-07] MEDS: FENTANYL-0.9 % NACL/PF 100 ML IV PRN ×4 (03:12→19:05)
[2020-11-07 03:50] LABS: ABG BASE EXCESS -6.2 mmol/L (-2.0-2.0); ABG HCO3 17.8 mmol/L (22.0-26.0); ABG OXYGEN SATURATION 89.5 % (94-97); ABG PCO2 (T) 29.7 mmHg (32.0-45.0); ABG PO2 (T) 56.7 mmHg (75.0-100.0); ALLEN'S TEST POSITIVE; FCOHb 0.3 % (0.0-3.9); FLOW 6 L/min; FO2Hb 89.2 % (94-97); PATIENT TEMPERATURE 36.1; TOTAL HEMOGLOBIN 12.3 G/dl (12.0-16.0)
--- NOTE | 2020-11-07 04:17 | NUR ---
Patient went the entire night off the ventilator and on the heated aerosol at 30%. FiO2 increased to 35% per ABG results. Patient continues to rest comfortably at this time and is hemodynamically stable as well at this time.
[2020-11-07] MEDS: midazolam 100mg in NS 100ml 100 ML IV PRN ×2 (04:33→12:14)
[2020-11-07 04:44] LABS: ANISOCYTOSIS 1+; LARGE PLATELETS MODERATE; PLATELET ESTIMATE NORMAL; POLYCHROMASIA FEW
--- NOTE | 2020-11-07 06:31 | NUR ---
Patient in room ICU 2042. I have received report from Loren and had the opportunity to ask questions and assume patient care.
[2020-11-07] MEDS: azithromycin/NS 500mg/250ml 250 ML IV SCH (07:31)
[2020-11-07] MEDS: pantoprazole 40 MG vial IV SCH (07:31)
[2020-11-07] MEDS ORDERED: dexamethasone sod phosphate 10mg/ml inj IV SCH (08:00)
[2020-11-07] MEDS: lactobacillus rhamnosus 10,000 MMU CELLS/CAPSULE PO SCH (08:00)
[2020-11-07] MEDS: docusate sodium 100mg/10ml UD cup PO SCH (08:00)
[2020-11-07] MEDS: CefTRIAXone/D5W-Rocephin 1gm 50 ML IV SCH (08:25)
[2020-11-07] MEDS: morphine 4 MG/ML inj SYRINge IV PRN ×4 (08:36→21:24)
[2020-11-07] MEDS: propofol 1000mg/100ml bottle 100 ML IV SCH (09:10)
[2020-11-07] MEDS: potassium Cl 40MEQ/250ML bag 270 ML IV PRN (09:33)
--- NOTE | 2020-11-07 10:02 | NUR ---
TF Consult: Pt s/p trach pending corpak placement for NGTF today per EMR. Updated EN recs below given pt needs. Noted TG 247 and not on propofol since 11/01 per EMR. LBM 11/06 receiving relistor. Will continue to monitor for EN tolerance and additional protein needs this admit. Recommendations: 1) Continuous NGTF using Vital AF at 55 mL/hr goal. To provide 1320mL volume, 1584kcals, 1069ml water, and 99g protein. To initiate at 55ml/hr goal since tolerating prior 45ml/hr goal. 3) Additional 35 mL water flush Q4H 4) Prealbumin q Sunday/; daily wts 5) IF extubation/PO diet; Recommend CCHO diet w/ BSS prior to diet advancement; hx placed on pureed diet with nectar thick liquids by ST s/p extubation at last admit 07/21/2020 Addendum: 11/07/20 at [address] Amended: Links added.
[2020-11-07] MEDS ORDERED: acetaminophen 325mg/10.15ml oral unit dose solution CORPAK PRN ×2 (10:39→10:42)
[2020-11-07] MEDS ORDERED: potassium Cl 20 mEq SR tablet CORPAK PRN ×2 (10:40→10:41)
[2020-11-07] MEDS ORDERED: magnesium hydroxide 30ml (MOM) UD suspension CORPAK PRN (10:40)
[2020-11-07] MEDS ORDERED: dextrose ORAL solution 15 GM/59 ML bottle CORPAK PRN ×2 (10:41)
[2020-11-07] MEDS ORDERED: POTASSIUM BICARB 20meq eff tab 20 MEQ TABLET.EFF CORPAK PRN ×2 (10:43→10:44)
--- NOTE | 2020-11-07 11:37 | NUR ---
0800 Fingers are extensively bruised from accu check, flush and set up vamp. Replaced K with 40meq IV. 0900- Physical therapy here to work with patient. She is resistive and does not want to. Had a talk with patient about being participatory in her care and she has agreed to work with PT. Continue to wean versed and fent as able, medicated with morphine IV for throat and CT site pain. 1000- Vamp accuchecks much hgher than finger sticks. at times the vamp accucheck reads HI, disregarded that reading and rechecked with capillary. 1015- Dr Moss here. place corpak and resume feedings, contact case management in regards to transferring patient LTAC, no peg tube, resume lovenox 1130 10 [place] corpak placed in right nare, patient tolerated as well as can be expected. stylus remains in until KUB completed
[2020-11-07] MEDS ORDERED: insulin regular, human U-100 3ml vial - multi-dose SQ SCH (14:15)
--- NOTE | 2020-11-07 18:08 | NUR ---
Problems reprioritized. Patient report given, questions answered & plan of care reviewed with Loren.
[2020-11-07] MEDS: enoxaparin 40mg/0.4ml syringe SQ SCH (20:00)
[2020-11-07] MEDS ORDERED: insulin glargine (Lantus) pen - multi-dose SQ SCH (21:00)
[2020-11-07] MEDS: ondansetron/PF 4mg/2ml inj IV PRN (21:24)
[2020-11-07] MEDS: docusate sodium 100mg/10ml UD cup CORPAK SCH (21:24)
[2020-11-07] MEDS: lactobacillus rhamnosus 10,000 MMU CELLS/CAPSULE CORPAK SCH (21:24)
[2020-11-07] MEDS: insulin regular, human U-100 3ml vial - multi-dose SQ SCH (22:07)
[2020-11-07] MEDS: insulin glargine (Lantus) pen - multi-dose SQ SCH (22:08)
[2020-11-08] VITALS (24 sets, daily range): BP systolic 81–130; BP diastolic 46–80
[2020-11-08] MEDS: dexmedetomidine/D5W 100mL 100 ML IV SCH ×3 (02:20→15:45)
[2020-11-08] MEDS: insulin regular, human U-100 3ml vial - multi-dose SQ SCH ×4 (02:28→20:03)
[2020-11-08 02:38] LABS: ALBUMIN 1.8 G/DL (3.4-5.0); ANION GAP 7 (8-16); BLOOD UREA NITROGEN 15 MG/DL (7-18); BUN/CREATININE RATIO 24.6 (6.6-38.0); CALCIUM 8.3 MG/DL (8.5-10.1); CHLORIDE 98 MMOL/L (99-107); CREATININE 0.61 MG/DL (0.40-0.90); GLUCOSE 415 MG/DL (70-104); MAGNESIUM 1.6 MG/DL (1.5-2.4); POTASSIUM 3.7 MMOL/L (3.5-5.1); SODIUM 130 MMOL/L (135-145); TOTAL CARBON DIOXIDE 24.6 MMOL/L (24-32); eGFR > 90 ML/MIN
[2020-11-08 02:41] LABS: BASOPHILS # (AUTO) 0.1 X10'3 (0-0.2); BASOPHILS % (AUTO) 0.6 % (0-1); EOSINOPHILS # (AUTO) 0.2 X10'3 (0-0.9); EOSINOPHILS % (AUTO) 1.4 % (0-6); HEMATOCRIT 36.4 % (35.0-45.0); HEMOGLOBIN 12.2 g/dl (12.0-16.0); LYMPHOCYTES # (AUTO) 3.3 X10'3 (1.1-4.8); LYMPHOCYTES % (AUTO) 24.5 % (21-51); MEAN CORPUSCULAR HGB CONC 33.4 g/dL (33.0-36.5); MEAN CORPUSCULAR VOLUME 98.9 FL (78-98); MEAN PLATELET VOLUME 10.6 FL (7.4-10.4); MONOCYTES # (AUTO) 0.7 X10'3 (0-0.9); MONOCYTES % (AUTO) 4.8 % (2-12); NEUTROPHILS # (AUTO) 9.4 X10'3 (1.8-7.7); NEUTROPHILS % (AUTO) 68.7 % (42-75); PLATELET COUNT 272 X10'3 (140-440); RED BLOOD COUNT 3.68 X10'6 (4.20-5.60); RED CELL DISTRIBUTION WIDTH 12.4 % (11.5-14.5); WHITE BLOOD COUNT 13.6 X10'3 (4.5-11.0)
[2020-11-08] MEDS: midazolam 100mg in NS 100ml 100 ML IV PRN (04:28)
[2020-11-08] MEDS: FENTANYL-0.9 % NACL/PF 100 ML IV PRN ×2 (04:29→15:22)
--- NOTE | 2020-11-08 06:34 | NUR ---
Received Report from BRIAN Pimentel
[2020-11-08] MEDS: mineral oil/petrolatum ophthal oint EACHEYE SCH ×3 (08:00→19:45)
[2020-11-08] MEDS: lactobacillus rhamnosus 10,000 MMU CELLS/CAPSULE CORPAK SCH ×2 (08:16→19:45)
[2020-11-08] MEDS: docusate sodium 100mg/10ml UD cup CORPAK SCH ×2 (08:16→19:44)
[2020-11-08] MEDS: CefTRIAXone/D5W-Rocephin 1gm 50 ML IV SCH (08:17)
[2020-11-08] MEDS: azithromycin/NS 500mg/250ml 250 ML IV SCH (08:17)
[2020-11-08] MEDS: pantoprazole 40 MG vial IV SCH (08:17)
[2020-11-08] MEDS: methylnaltrexone br 12mg/0.6ml inj***SubQ only SQ SCH (08:18)
[2020-11-08] MEDS ORDERED: LORazepam 1 MG tablet PO PRN (11:55)
[2020-11-08] MEDS: LORazepam 1 MG tablet PO PRN ×3 (15:21→22:07)
[2020-11-08] MEDS: morphine 4 MG/ML inj SYRINge IV PRN ×2 (16:59→20:55)
[2020-11-08] MEDS: enoxaparin 40mg/0.4ml syringe SQ SCH (19:46)
[2020-11-08] MEDS: insulin glargine (Lantus) pen - multi-dose SQ SCH (20:03)
[2020-11-08] MEDS: ondansetron/PF 4mg/2ml inj IV PRN (22:08)
[2020-11-08] MEDS ORDERED: ketorolac trometh. 30mg/ml inj. IV ONE ×2 (22:57→23:00)
[2020-11-09] VITALS (24 sets, daily range): BP systolic 83–137; BP diastolic 49–89
--- NOTE | 2020-11-09 00:10 | NUR ---
Patient in room ICU 2042. I have received report from Lena TORRES and had the opportunity to ask questions and assume patient care.
[2020-11-09] MEDS: LORazepam 1 MG tablet PO PRN ×5 (01:12→20:25)
[2020-11-09] MEDS: dexmedetomidine/D5W 100mL 100 ML IV SCH ×2 (01:43→09:41)
[2020-11-09] MEDS: mineral oil/petrolatum ophthal oint EACHEYE SCH (02:00)
[2020-11-09] MEDS: midazolam 100mg in NS 100ml 100 ML IV PRN (02:05)
[2020-11-09] MEDS: FENTANYL-0.9 % NACL/PF 100 ML IV PRN (02:15)
[2020-11-09] MEDS: dextrose 50%-water 50ml dispensing syringe IV PRN ×2 (02:21→14:06)
--- NOTE | 2020-11-09 02:44 | NUR ---
0200 blood sugar 64, no humilin given.
[2020-11-09 03:58] LABS: BASOPHILS # (AUTO) 0.2 X10'3 (0-0.2); BASOPHILS % (AUTO) 1.2 % (0-1); EOSINOPHILS # (AUTO) 0.3 X10'3 (0-0.9); EOSINOPHILS % (AUTO) 1.9 % (0-6); HEMATOCRIT 33.8 % (35.0-45.0); HEMOGLOBIN 11.4 g/dl (12.0-16.0); LYMPHOCYTES # (AUTO) 3.6 X10'3 (1.1-4.8); LYMPHOCYTES % (AUTO) 27.2 % (21-51); MEAN CORPUSCULAR HEMOGLOBIN 32.8 PG (27.0-31.0); MEAN CORPUSCULAR HGB CONC 33.6 g/dL (33.0-36.5); MEAN CORPUSCULAR VOLUME 97.6 FL (78-98); MEAN PLATELET VOLUME 9.8 FL (7.4-10.4); MONOCYTES # (AUTO) 0.9 X10'3 (0-0.9); MONOCYTES % (AUTO) 6.8 % (2-12); NEUTROPHILS # (AUTO) 8.3 X10'3 (1.8-7.7); NEUTROPHILS % (AUTO) 62.9 % (42-75); PLATELET COUNT 298 X10'3 (140-440); RED BLOOD COUNT 3.46 X10'6 (4.20-5.60); RED CELL DISTRIBUTION WIDTH 12.3 % (11.5-14.5); WHITE BLOOD COUNT 13.2 X10'3 (4.5-11.0)
[2020-11-09 03:59] LABS: ALBUMIN 1.8 G/DL (3.4-5.0); ANION GAP 8 (8-16); BLOOD UREA NITROGEN 17 MG/DL (7-18); CALCIUM 8.1 MG/DL (8.5-10.1); CHLORIDE 103 MMOL/L (99-107); GLUCOSE 156 MG/DL (70-104); MAGNESIUM 1.7 MG/DL (1.5-2.4); POTASSIUM 3.2 MMOL/L (3.5-5.1); SODIUM 140 MMOL/L (135-145); TOTAL CARBON DIOXIDE 29.5 MMOL/L (24-32); eGFR > 90 ML/MIN
[2020-11-09] MEDS: morphine 2 MG/ML inj. syringe IV PRN (04:42)
[2020-11-09] MEDS: ondansetron/PF 4mg/2ml inj IV PRN ×2 (04:57→16:56)
--- NOTE | 2020-11-09 06:15 | NUR ---
Patient in room ICU 2042. I have received report from Heena TORRES and had the opportunity to ask questions and assume patient care.
[2020-11-09] MEDS: docusate sodium 100mg/10ml UD cup CORPAK SCH ×2 (07:15→20:25)
[2020-11-09] MEDS: pantoprazole 40 MG vial IV SCH (07:15)
[2020-11-09] MEDS: CefTRIAXone/D5W-Rocephin 1gm 50 ML IV SCH (07:15)
[2020-11-09] MEDS: lactobacillus rhamnosus 10,000 MMU CELLS/CAPSULE CORPAK SCH ×2 (07:15→20:25)
[2020-11-09] MEDS: potassium Cl 40MEQ/250ML bag 270 ML IV PRN (07:17)
[2020-11-09] MEDS: insulin regular, human U-100 3ml vial - multi-dose SQ SCH ×3 (08:53→20:49)
[2020-11-09] MEDS: morphine 4 MG/ML inj SYRINge IV PRN ×2 (08:57→16:22)
--- NOTE | 2020-11-09 10:38 | NUR ---
Follow up: Patient seen by APPLE TURNER this morning, reports needing multiple swallow attempts to clear residue from pharynx and recommends NPO and reassess. Continues with corpak tube feedings with Vital AF at 46 ml/hr. Last BM 11/06 receiving relistor and colace BID. Gastric residuals under 80 ml. Will continue to monitor for EN tolerance and additional protein needs this admit. Recommendations: 1) Continuous NGTF using Vital AF at 55 mL/hr goal. To provide 1320mL volume, 1584kcals, 1069ml water, and 99g protein. 2) BSS prior to diet advancement, recommend to continue tube feeding until PO intake average of at least 65% 3) Additional 35 mL water flush Q4H 4) Prealbumin q Sunday/; daily wts Addendum: 11/09/20 at [address] Amended: Links added.
[2020-11-09] MEDS ORDERED: metoclopramide 5 mg/ml inj IV PRN (12:00)
--- NOTE | 2020-11-09 12:17 | NUR ---
Per Dr. Tyson pt put on PMV. Pt tolerated for less than 5 minutes before c/o SOB. Pt Sp02 remained in the high 90's during trial. Pt Asked for PMV to be removed. Educated Pt on importance of using PMV longer everyday.
[2020-11-09] MEDS: ketorolac trometh. 30mg/ml inj. IV PRN ×2 (12:20→20:27)
--- NOTE | 2020-11-09 17:00 | NUR ---
Updated pt's sister Anna over the phone per patients request.
--- NOTE | 2020-11-09 18:13 | NUR ---
Problems reprioritized. Patient report given, questions answered & plan of care reviewed with Eleanor TORRES.
--- NOTE | 2020-11-09 18:16 | NUR ---
Patient in room ICU 2042. I have received report from Azalia RN and Sonam RN and had the opportunity to ask questions and assume patient care.
[2020-11-09] MEDS: enoxaparin 40mg/0.4ml syringe SQ SCH (20:25)
[2020-11-09] MEDS: insulin glargine (Lantus) pen - multi-dose SQ SCH (21:06)
--- NOTE | 2020-11-09 21:29 | NUR ---
PRN Pt was given ebony meds as well as prn ativan through corpak. Pt was also given Reglan prior to administration to alleviated nausea. Once free water of 35 mL was given, pt began sitting up c/o of nausea. HR increased to 140s. Pt was given reassurance that anti-emetic was given already. Once nurse returned to pt's room shortly after, nurse found that the pt pulled out her corpak. HERNANDO Barraza has been notified. D10 ordered due to recent insulin administration. Will continue to monitor.
[2020-11-09] MEDS: Dextrose 10%-water IV solution 1,000 ML IV SCH (22:02)
--- NOTE | 2020-11-09 22:20 | NUR ---
HERNANDO Barraza ordered that corpak replacement be HELD until repeat swallow test in completed in AM. D10 is currently infusing as ordered. BGL close monitoring.
[2020-11-10] VITALS (24 sets, daily range): BP systolic 107–140; BP diastolic 69–88
[2020-11-10] MEDS: morphine 4 MG/ML inj SYRINge IV PRN ×3 (03:27→19:34)
[2020-11-10 03:32] LABS: BASOPHILS # (AUTO) 0.1 X10'3 (0-0.2); BASOPHILS % (AUTO) 0.4 % (0-1); EOSINOPHILS # (AUTO) 0.1 X10'3 (0-0.9); EOSINOPHILS % (AUTO) 0.8 % (0-6); HEMATOCRIT 35.9 % (35.0-45.0); HEMOGLOBIN 12.4 g/dl (12.0-16.0); LYMPHOCYTES # (AUTO) 2.3 X10'3 (1.1-4.8); LYMPHOCYTES % (AUTO) 13.7 % (21-51); MEAN CORPUSCULAR HEMOGLOBIN 33.6 PG (27.0-31.0); MEAN CORPUSCULAR HGB CONC 34.5 g/dL (33.0-36.5); MEAN CORPUSCULAR VOLUME 97.4 FL (78-98); MEAN PLATELET VOLUME 10.5 FL (7.4-10.4); MONOCYTES # (AUTO) 1.1 X10'3 (0-0.9); MONOCYTES % (AUTO) 6.8 % (2-12); NEUTROPHILS # (AUTO) 13.2 X10'3 (1.8-7.7); NEUTROPHILS % (AUTO) 78.3 % (42-75); PLATELET COUNT 311 X10'3 (140-440); RED BLOOD COUNT 3.68 X10'6 (4.20-5.60); RED CELL DISTRIBUTION WIDTH 12.6 % (11.5-14.5); WHITE BLOOD COUNT 16.8 X10'3 (4.5-11.0)
[2020-11-10 03:40] LABS: ALBUMIN 2.3 G/DL (3.4-5.0); ANION GAP 9 (8-16); BLOOD UREA NITROGEN 15 MG/DL (7-18); BUN/CREATININE RATIO 28.3 (6.6-38.0); CALCIUM 8.2 MG/DL (8.5-10.1); CHLORIDE 100 MMOL/L (99-107); CREATININE 0.53 MG/DL (0.40-0.90); GLUCOSE 127 MG/DL (70-104); MAGNESIUM 1.8 MG/DL (1.5-2.4); POTASSIUM 3.5 MMOL/L (3.5-5.1); SODIUM 136 MMOL/L (135-145); TOTAL CARBON DIOXIDE 27.5 MMOL/L (24-32); eGFR > 90 ML/MIN
--- NOTE | 2020-11-10 06:04 | NUR ---
Problems reprioritized. Patient report given, questions answered & plan of care reviewed with BRIAN Masters.
[2020-11-10] MEDS: ketorolac trometh. 30mg/ml inj. IV PRN (06:46)
--- NOTE | 2020-11-10 07:47 | NUR ---
Patient in room ICU 2042. I have received report from Eleanor TORRES and had the opportunity to ask questions and assume patient care.
[2020-11-10] MEDS: lactobacillus rhamnosus 10,000 MMU CELLS/CAPSULE CORPAK SCH ×2 (08:00→19:36)
[2020-11-10] MEDS: docusate sodium 100mg/10ml UD cup CORPAK SCH ×2 (08:00→19:37)
[2020-11-10] MEDS ORDERED: LORazepam 1 MG tablet CORPAK PRN (08:37)
[2020-11-10] MEDS: methylnaltrexone br 12mg/0.6ml inj***SubQ only SQ SCH (08:56)
[2020-11-10] MEDS: pantoprazole 40 MG vial IV SCH (08:56)
[2020-11-10] MEDS: CefTRIAXone/D5W-Rocephin 1gm 50 ML IV SCH (08:57)
[2020-11-10] MEDS: morphine 2 MG/ML inj. syringe IV PRN (12:07)
--- NOTE | 2020-11-10 13:00 | NUR ---
1115 chest tube removed by Dr. Tyson bedside, patient tolerated well 1210 patient santana removed per Dr. Angela request
[2020-11-10] MEDS: ondansetron/PF 4mg/2ml inj IV PRN (15:02)
[2020-11-10] MEDS: ketorolac tromethamine 15mg/ml inj. IV PRN (15:03)
[2020-11-10] MEDS: insulin regular, human U-100 3ml vial - multi-dose SQ SCH (15:19)
--- NOTE | 2020-11-10 18:01 | NUR ---
if patient fails swallow eval again place corpak
--- NOTE | 2020-11-10 18:49 | NUR ---
Problems reprioritized. Patient report given, questions answered & plan of care reviewed with Eleanor TORRES.
[2020-11-10] MEDS: enoxaparin 40mg/0.4ml syringe SQ SCH (19:36)
[2020-11-10] MEDS: dextrose 50%-water 50ml dispensing syringe IV PRN (20:33)
--- NOTE | 2020-11-10 20:56 | NUR ---
HERNANDO Barraza ordered rate decrease for D10 due to sustained high BGL during day shift. Will continue to closely monitor BGL.
[2020-11-10] MEDS: insulin glargine (Lantus) pen - multi-dose SQ SCH (21:00)
[2020-11-10] MEDS: Dextrose 10%-water IV solution 1,000 ML IV SCH (21:49)
[2020-11-10] MEDS ORDERED: insulin glargine (Lantus) pen - multi-dose SQ ONE (22:55)
[2020-11-11] VITALS (16 sets, daily range): BP systolic 114–146; BP diastolic 69–95
[2020-11-11] MEDS: morphine 4 MG/ML inj SYRINge IV PRN ×4 (01:12→16:05)
[2020-11-11] MEDS: LORazepam 2 mg/ml vial IV PRN ×3 (01:12→14:06)
--- NOTE | 2020-11-11 06:07 | NUR ---
Problems reprioritized. Patient report given, questions answered & plan of care reviewed with BRIAN Wong.
[2020-11-11 06:28] LABS: BASOPHILS # (AUTO) 0.1 X10'3 (0-0.2); BASOPHILS % (AUTO) 0.8 % (0-1); EOSINOPHILS # (AUTO) 0.2 X10'3 (0-0.9); EOSINOPHILS % (AUTO) 1.3 % (0-6); HEMATOCRIT 38.6 % (35.0-45.0); HEMOGLOBIN 12.6 g/dl (12.0-16.0); LYMPHOCYTES # (AUTO) 2.3 X10'3 (1.1-4.8); LYMPHOCYTES % (AUTO) 18.4 % (21-51); MEAN CORPUSCULAR HGB CONC 32.7 g/dL (33.0-36.5); MEAN PLATELET VOLUME 10.9 FL (7.4-10.4); MONOCYTES # (AUTO) 0.8 X10'3 (0-0.9); MONOCYTES % (AUTO) 6.7 % (2-12); NEUTROPHILS # (AUTO) 9.1 X10'3 (1.8-7.7); NEUTROPHILS % (AUTO) 72.8 % (42-75); PLATELET COUNT 336 X10'3 (140-440); RED BLOOD COUNT 3.94 X10'6 (4.20-5.60); RED CELL DISTRIBUTION WIDTH 12.8 % (11.5-14.5); WHITE BLOOD COUNT 12.5 X10'3 (4.5-11.0)
[2020-11-11 06:43] LABS: ALBUMIN 2.3 G/DL (3.4-5.0); ANION GAP 10 (8-16); BLOOD UREA NITROGEN 9 MG/DL (7-18); BUN/CREATININE RATIO 19.6 (6.6-38.0); CALCIUM 8.7 MG/DL (8.5-10.1); CHLORIDE 101 MMOL/L (99-107); CREATININE 0.46 MG/DL (0.40-0.90); GLUCOSE 165 MG/DL (70-104); MAGNESIUM 1.8 MG/DL (1.5-2.4); POTASSIUM 3.6 MMOL/L (3.5-5.1); PREALBUMIN 15.8 MG/DL (19-36); SODIUM 137 MMOL/L (135-145); TOTAL CARBON DIOXIDE 26.2 MMOL/L (24-32); eGFR > 90 ML/MIN
[2020-11-11] MEDS: docusate sodium 100mg/10ml UD cup CORPAK SCH (07:10)
[2020-11-11] MEDS: lactobacillus rhamnosus 10,000 MMU CELLS/CAPSULE CORPAK SCH (07:10)
[2020-11-11] MEDS: pantoprazole 40 MG vial IV SCH (07:11)
[2020-11-11] MEDS: CefTRIAXone/D5W-Rocephin 1gm 50 ML IV SCH (07:20)
[2020-11-11] MEDS: ketorolac tromethamine 15mg/ml inj. IV PRN (13:01)
--- NOTE | 2020-11-11 16:05 | NUR ---
Patient to be transferred to [facility] via EMS at 1600. Morphine given 4mg before transfer. Corepack placed as well that was advanced to 80cm after x-ray. [facility] and updated about morphine and feeding tube. Pt left with her belongings. Patient leaving with triple lumen PICC in Right arm. Saline Locked.
== END 2020-11-11 16:00 | DRG 5 ==
LOC: ER 06:59 → ED HOLD 09:09 → EDBEDREQ 10:51 → ICU 2S 11:53
PROVIDERS: ADMIT Internal Medicine Critical Care Medicine; ATTEND Internal Medicine Critical Care Medicine
PROC: 5A1955Z Respiratory Ventilation, Greater than 96 Consecutive Hours (ICD-10-PCS; 2020-10-30)
PROC: 0BH17EZ Insertion of Endotracheal Airway into Trachea, Via Natural or Artificial Opening (ICD-10-PCS; 2020-10-30)
PROC: 0DH67UZ Insertion of Feeding Device into Stomach, Via Natural or Artificial Opening (ICD-10-PCS; 2020-10-30)
PROC: 0W9930Z Drainage of Right Pleural Cavity with Drainage Device, Percutaneous Approach (ICD-10-PCS; 2020-10-30)
PROC: 0B110F4 Bypass Trachea to Cutaneous with Tracheostomy Device, Open Approach (ICD-10-PCS; principal; 2020-11-05 14:05)
DX: J96.01 Acute respiratory failure with hypoxia (principal); J98.2 Interstitial emphysema; Z20.822 Contact with and (suspected) exposure to COVID-19; F17.200 Nicotine dependence, unspecified, uncomplicated; J18.9 Pneumonia, unspecified organism; J44.1 Chronic obstructive pulmonary disease with (acute) exacerbation; E10.10 Type 1 diabetes mellitus with ketoacidosis without coma; E46 Unspecified protein-calorie malnutrition; F31.9 Bipolar disorder, unspecified; F41.9 Anxiety disorder, unspecified; J93.9 Pneumothorax, unspecified; Z79.4 Long term (current) use of insulin; Z87.440 Personal history of urinary (tract) infections; Z90.49 Acquired absence of other specified parts of digestive tract; Z79.899 Other long term (current) drug therapy; Z68.21 Body mass index [BMI] 21.0-21.9, adult
CPT/HCPCS: 31500; 32551; 36415; 36556; 36573; 36600; 70450; 70491; 71045; 71260; 71275; 74018; 80048; 80053; 81001; 81025; 82803; 82948; 83036; 83605; 83735; 83880; 84134; 84145; 84478; 85007; 85008; 85018; 85025; 85610; 87040; 87070; 87077; 87088; 87186; 87635; 92508; 92616; 93005; 94002; 94003; 94640; 94760; 94799; 96374; 96375; 97110; 97116; 97161; 97530; 99291; A4618; A4628; A6402; A7000; A7521; A7526; C9113; C9803; G0378; J0153; J0330; J0456; J0696; J1100; J1650; J1815; J1885; J1940; J2060; J2212; J2250; J2270; J2405; J2704; J2765; J2930; J3010; J3480; J7030; J7120; Q9967